=== PATIENT | female | born 1950 | race Caucasian/White ===

== ENCOUNTER 2017-10-29 01:12 | Emergency (ER) | payer MEDICARE, OTHER, MEDICAID ==
[2017-10-29 01:39] VITALS: BP 122/43
[2017-10-29] MEDS: Albuterol/Ipratropium 3.0-0.5 MG/3 ML Neb Soln NEB ONE ×2 (01:42→02:02)
[2017-10-29] MEDS ORDERED: Albuterol/Ipratropium 3.0-0.5 MG/3 ML Neb Soln ONE (01:44)
--- NOTE | 2017-10-29 02:23 | EDM.PDOC ---
ED HPI GENERAL MEDICAL PROBLEM - General Chief Complaint: Respiratory Problem Stated Complaint: [facility] Time Seen by Provider: 10/29/17 01:28 Source of Information: Reports: Patient, Residential Records History Limitations: Reports: Physical Impairment - History of Present Illness INITIAL COMMENTS - FREE TEXT/NARRATIVE: This is a 67-year-old female. She comes from the [facility]. Apparently today she's developed some lung congestion and she is having a hard time coughing up phlegm. [facility] she has not had a fever in the last 24 hours. Due to her inability or difficulty and coughing up phlegm they sent her to the ER. The patient denies any runny nose and denies any sore throat. 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 No further history can be obtained at this time. - Related Data Allergies Allergy/AdvReac Type Severity Reaction Status Date / Time Penicillins Allergy Vaginitis Verified 07/02/17 10:01 Home Meds: Home Meds Acetaminophen [Tylenol] 2 tab PO TID PRN 10/29/17 [History] Amantadine HCl [Amantadine] 75 mg PO BID 10/29/17 [History] Ascorbic Acid [Vitamin C] 100 mg PO DAILY 10/29/17 [History] Diclofenac Sodium [Voltaren 1% Gel] 100 gm TOP QID PRN 10/29/17 [History] Lecithin, Soy [Lecithin] 1,200 mg PO BID 10/29/17 [History] Levothyroxine 25 mcg PO ACBREAKFAST 10/29/17 [History] Sodium Chloride [Deep Sea] 2 spray NS TID PRN 10/29/17 [History] Trolamine Salicylate/Aloe Vera [Aspercreme 10% Cream] 1 applic TOP TID PRN 10/29 [History] Vitamin B Complex 2 each PO DAILY 10/29/17 [History] Vitamin E Mixed [Vitamin E] 1 cap PO DAILY 10/29/17 [History] atorvaSTATin [Lipitor] 40 mg PO BEDTIME 10/29/17 [History] guaiFENesin [Mucinex] 600 mg PO BID PRN 10/29/17 [History] guaiFENesin/Dextromethorphan [Tussin Dm Cough Syrup] 2 tsp PO BID PRN 10/29/17 [ History] Past Medical History HEENT History: Reports: Cataract, Impaired Vision Other HEENT History: wears eyeglasses Cardiovascular History: Reports: High Cholesterol, Hypertension Other Cardiovascular History: hyponatremia Respiratory History: Reports: Pneumonia, Recurrent Genitourinary History: Reports: UTI, Recurrent 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 Dermatologic History: Reports: Other (See Below) Other Dermatologic History: skin breakdown to feet. - Infectious Disease History Infectious Disease History: Reports: Chicken Pox - Past Surgical History HEENT Surgical History: Reports: Cataract Surgery Respiratory Surgical History: Reports: None GI Surgical History: Reports: Other (See Below) Other GI Surgeries/Procedures: G-tube Musculoskeletal Surgical History: Reports: Other (See Below) Other Musculoskeletal Surgeries/Procedures:: removal of neuroma from back. Social & Family History - Family History Family Medical History: Noncontributory - Tobacco Use Smoking Status *Q: Never Smoker Second Hand Smoke Exposure: No - Caffeine Use Caffeine Use: Reports: None - Alcohol Use Days Per Week of Alcohol Use: 0 - Recreational Drug Use Recreational Drug Use: No ED ROS GENERAL - Review of Systems Review Of Systems: See Below Constitutional: Denies: Fever, Chills HEENT: Reports: Rhinitis, Sinus Problem, Throat Pain Respiratory: Reports: Shortness of Breath, Cough, Sputum. Denies: Wheezing Cardiovascular: Denies: Chest Pain Endocrine: Reports: No Symptoms GI/Abdominal: Denies: Abdominal Pain : Reports: No Symptoms Musculoskeletal: Reports: Other (Upper extremity flexion contractures and limited mobility due to CVA) Neurological: Reports: Trouble Speaking, Difficulty Walking, Weakness, Change in Speech Psychiatric: Reports: Depression Hematologic/Lymphatic: Reports: No Symptoms ED EXAM, GENERAL - Physical Exam Exam: See Below Exam Limited By: Physical Impairment General Appearance: Alert, No Apparent Distress Eye Exam: Bilateral Eye: Normal Inspection Ears: Normal External Exam, Normal Canal, Normal TMs Nose: Normal Inspection. No: Nasal Drainage, Clear Rhinorrhea Throat/Mouth: Normal Oropharynx, Other (Very quiet whispering voice no airway compromise) Head: Normocephalic, Other (She does keep her head turned to the left side slightly) Neck: Other (Minimal mobility of her neck due to her CVA and contractures) Respiratory/Chest: Other (Listening to her lungs sound she does have some rhonchi and crackles noted at the bases bilaterally no wheezing noted no splinting noted) Cardiovascular: Regular Rate, Rhythm GI/Abdominal: Soft Back Exam: Other (Patient is bedbound) Extremities: Other (Extremities have flexion contractures) Neurological: Other (She mostly has right sided weakness arm and leg from her previous CVA, the left side she has limited use of because she is essentially bedbound and has been for quite some time) Psychiatric: Depressed Mood, Flat Affect Skin Exam: Other (The patient denies any skin breakdown on her back or buttocks area) Course - Vital Signs Last Recorded V/S: Last Vital Signs Temp 97.4 F 10/29/17 01:35 Pulse 100 10/29/17 01:35 Resp 22 H 10/29/17 01:35 BP 122/43 L 10/29/17 01:35 Pulse Ox 97 10/29/17 04:13 - Orders/Labs/Meds Orders: Active Orders 24 hr Category Date Time Status RT Aerosol Therapy [RC] ASDIRECTED Care 10/29/17 01:42 Active Chest 1V Frontal [CR] Stat Exams 10/29/17 01:43 Taken CULTURE BLOOD [BC] Stat Lab 10/29/17 05:26 Ordered CULTURE BLOOD [BC] Stat Lab 10/29/17 05:26 Ordered cefTRIAXone [Rocephin] 1 gm Med 10/29/17 05:18 Active Sodium Chloride 0.9% [Normal Saline] 100 ml IV ONETIME cefTRIAXone [Rocephin] 1 gm Med 10/29/17 05:27 Active Sodium Chloride 0.9% [Normal Saline] 100 ml IV ONETIME Blood Culture x2 Reflex Set [OM.PC] Stat Oth 10/29/17 05:26 Ordered Medication Orders Ceftriaxone Sodium 1 gm/ (Sodium Chloride) 100 mls @ 200 mls/hr IV ONETIME ONE Stop: 10/29/17 05:47 Ceftriaxone Sodium 1 gm/ (Sodium Chloride) 100 mls @ 200 mls/hr IV ONETIME ONE Stop: 10/29/17 05:56 Labs: Laboratory Tests 10/29/17 10/29/17 10/29/17 Range/Units 02:50 02:50 02:50 WBC 4.91 (3.98-10.04) K/mm3 RBC 4.09 (3.98-5.22) M/mm3 Hgb 12.0 (11.2-15.7) gm/L Hct 35.9 (34.1-44.9) % MCV 87.8 (79.4-94.8) fl MCH 29.3 (25.6-32.2) pg MCHC 33.4 (32.2-35.5) g/dl RDW Std Deviation 56.4 H (36.4-46.3) fL Plt Count 120 L (182-369) K/mm3 MPV 10.1 (9.4-12.3) fl Neut % (Auto) 88.2 H (34.0-71.1) % Lymph % (Auto) 6.7 L (19.3-51.7) % [place] % (Auto) 4.5 L (4.7-12.5) % Eos % (Auto) 0 L (0.7-5.8) Baso % (Auto) 0.2 (0.1-1.2) % Neut # (Auto) 4.33 (1.56-6.13) K/mm3 Lymph # (Auto) 0.33 L (1.18-3.74) K/mm3 [place] # (Auto) 0.22 L (0.24-0.36) K/mm3 Eos # (Auto) 0.00 L (0.04-0.36) K/mm3 Baso # (Auto) 0.01 (0.01-0.08) K/mm3 Manual Slide Review Abnormal smear Sodium 133 L (136-145) mEq/L Potassium 3.8 (3.5-5.1) mEq/L Chloride 98 (98-107) mEq/L Carbon Dioxide 29 (21-32) mEq/L Anion Gap 9.8 (5-15) BUN 14 (7-18) mg/dL Creatinine 0.7 (0.55-1.02) mg/dL Est Cr Clr Drug Dosing 66.28 mL/min Estimated GFR (MDRD) > 60 (>60) mL/min BUN/Creatinine Ratio 20.0 H (14-18) Glucose 90 (80-115) mg/dL Lactic Acid 1.0 (0.4-2.0) mmol/L Calcium 9.5 (8.5-10.1) mg/dL Total Bilirubin 0.6 (0.2-1.0) mg/dL AST 53 H (15-37) U/L ALT 59 (14-59) U/L Alkaline Phosphatase 262 H (46-116) U/L C-Reactive Protein 20.7 H* (<1.0) mg/dL Total Protein 7.1 (6.4-8.2) g/dl Albumin 3.0 L (3.4-5.0) g/dl Globulin 4.1 gm/dL Albumin/Globulin Ratio 0.7 L (1-2) Urine Color (Yellow) Urine Appearance (Clear) Urine pH (5.0-8.0) Ur Specific [place] (1.005-1.030) Urine Protein (Negative) Urine Glucose (UA) (Negative) Urine Ketones (Negative) Urine Occult Blood (Negative) Urine Nitrite (Negative) Urine Bilirubin (Negative) Urine Urobilinogen (0.2-1.0) Ur Leukocyte Esterase (Negative) Urine RBC (0-5) /hpf Urine WBC (0-5) /hpf Urine WBC Clumps (NOT SEEN) /hpf Ur Epithelial Cells (0-5) /hpf Urine Bacteria (FEW) /hpf Hyaline Casts (0-5) /lpf Urine Mucus (FEW) /hpf 10/29/17 Range/Units 03:50 WBC (3.98-10.04) K/mm3 RBC (3.98-5.22) M/mm3 Hgb (11.2-15.7) gm/L Hct (34.1-44.9) % MCV (79.4-94.8) fl MCH (25.6-32.2) pg MCHC (32.2-35.5) g/dl RDW Std Deviation (36.4-46.3) fL Plt Count (182-369) K/mm3 MPV (9.4-12.3) fl Neut % (Auto) (34.0-71.1) % Lymph % (Auto) (19.3-51.7) % [place] % (Auto) (4.7-12.5) % Eos % (Auto) (0.7-5.8) Baso % (Auto) (0.1-1.2) % Neut # (Auto) (1.56-6.13) K/mm3 Lymph # (Auto) (1.18-3.74) K/mm3 [place] # (Auto) (0.24-0.36) K/mm3 Eos # (Auto) (0.04-0.36) K/mm3 Baso # (Auto) (0.01-0.08) K/mm3 Manual Slide Review Sodium (136-145) mEq/L Potassium (3.5-5.1) mEq/L Chloride (98-107) mEq/L Carbon Dioxide (21-32) mEq/L Anion Gap (5-15) BUN (7-18) mg/dL Creatinine (0.55-1.02) mg/dL Est Cr Clr Drug Dosing mL/min Estimated GFR (MDRD) (>60) mL/min BUN/Creatinine Ratio (14-18) Glucose (80-115) mg/dL Lactic Acid (0.4-2.0) mmol/L Calcium (8.5-10.1) mg/dL Total Bilirubin (0.2-1.0) mg/dL AST (15-37) U/L ALT (14-59) U/L Alkaline Phosphatase (46-116) U/L C-Reactive Protein (<1.0) mg/dL Total Protein (6.4-8.2) g/dl Albumin (3.4-5.0) g/dl Globulin gm/dL Albumin/Globulin Ratio (1-2) Urine Color Yellow (Yellow) Urine Appearance Slt cloudy H (Clear) Urine pH 6.0 (5.0-8.0) Ur Specific [place] 1.025 (1.005-1.030) Urine Protein 1+ H (Negative) Urine Glucose (UA) Negative (Negative) Urine Ketones Negative (Negative) Urine Occult Blood 1+ H (Negative) Urine Nitrite Negative (Negative) Urine Bilirubin Negative (Negative) Urine Urobilinogen 0.2 (0.2-1.0) Ur Leukocyte Esterase 2+ H (Negative) Urine RBC 0-5 (0-5) /hpf Urine WBC 20-30 H (0-5) /hpf Urine WBC Clumps Few (NOT SEEN) /hpf Ur Epithelial Cells 0-5 (0-5) /hpf Urine Bacteria Many H (FEW) /hpf Hyaline Casts 0-5 (0-5) /lpf Urine Mucus Not seen (FEW) /hpf Meds: Medications Generic Name Dose Route Start Last Admin Trade Name Freq PRN Reason Stop Dose Admin Ceftriaxone Sodium 1 gm/ 100 mls @ 200 mls/hr 10/29/17 05:18 Sodium Chloride IV 10/29/17 05:47 ONETIME ONE Ceftriaxone Sodium 1 gm/ 100 mls @ 200 mls/hr 10/29/17 05:27 Sodium Chloride IV 10/29/17 05:56 ONETIME ONE Discontinued Medications Generic Name Dose Route Start Last Admin Trade Name Freq PRN Reason Stop Dose Admin Albuterol/Ipratropium Confirm 10/29/17 01:44 10/29/17 02:02 Duoneb 3.0-0.5 Mg/3 Ml Administered 10/29/17 01:45 3 ml Dose Administration 3 ml .ROUTE .STK-MED ONE Albuterol/Ipratropium 3 ml 10/29/17 01:42 10/29/17 02:02 Duoneb 3.0-0.5 Mg/3 Ml NEB 10/29/17 01:43 Not Given ONETIME ONE - Re-Assessments/Exams Free Text/Narrative Re-Assessment/Exam: 10/29/17 02:17 Please note that when the patient arrived to the ER are respiratory therapist was able to get her to cough up phlegm on her own 10/29/17 05:[address] willing to take the patient back and give her Rocephin 1 g every 24 hours IV for 7 days for her UTI and her possible early pneumonia in the right lung. I feel comfortable with this since her white count is normal. And she is been afebrile for the last 24 hours. 10/29/17 05:28 I will send a dose of Rocephin with the patient for them to use since their pharmacy is not open on Sundays. I did get 2 blood cultures drawn before antibiotics were given and before she left the ER. Departure - Departure Time of Disposition: 05:20 Disposition: Home, W [facility] Health Agency 06 Condition: Fair Clinical Impression: Urinary tract infection Qualifiers: Urinary tract infection type: acute cystitis Hematuria presence: without hematuria Qualified Code(s): N30.00 - Acute cystitis without hematuria Acute bronchitis Qualifiers: Bronchitis organism: unspecified organism Qualified Code(s): J20.9 - Acute bronchitis, unspecified Right lower lobe pneumonia Qualifiers: Pneumonia type: due to unspecified organism Qualified Code(s): J18.1 - Lobar pneumonia, unspecified organism - Discharge Information Referrals: PCP,None [Primary Care Provider] - Forms: ED Department Discharge Additional Instructions: Please provide for the patient 1 g of Rocephin each a.m. for the next 7 days, follow your protocol as far as changing out the saline lock during this time, please draw a CBC Monday to check a white count and call that to the physician in charge of her, provide Tylenol or ibuprofen as needed for fever if she develops a fever, return to the ER if her symptoms worsen - My Orders Last 24 Hours: My Active Orders 10/29/17 01:42 RT Aerosol Therapy [RC] ASDIRECTED 10/29/17 01:43 Chest 1V Frontal [CR] Stat 10/29/17 05:18 cefTRIAXone [Rocephin] 1 gm Sodium Chloride 0.9% [Normal Saline] 100 ml IV ONETIME 10/29/17 05:26 CULTURE BLOOD [BC] Stat CULTURE BLOOD [BC] Stat Blood Culture x2 Reflex Set [OM.PC] Stat 10/29/17 05:27 cefTRIAXone [Rocephin] 1 gm Sodium Chloride 0.9% [Normal Saline] 100 ml IV ONETIME - Assessment/Plan Last 24 Hours: My Active Orders 10/29/17 01:42 RT Aerosol Therapy [RC] ASDIRECTED 10/29/17 01:43 Chest 1V Frontal [CR] Stat 10/29/17 05:18 cefTRIAXone [Rocephin] 1 gm Sodium Chloride 0.9% [Normal Saline] 100 ml IV ONETIME 10/29/17 05:26 CULTURE BLOOD [BC] Stat CULTURE BLOOD [BC] Stat Blood Culture x2 Reflex Set [OM.PC] Stat 10/29/17 05:27 cefTRIAXone [Rocephin] 1 gm Sodium Chloride 0.9% [Normal Saline] 100 ml IV ONETIME
[2017-10-29] MEDS ORDERED: cefTRIAXone 1 GM in Sodium Chloride 0.9% 100 ML IV ONE ×2 (05:18→05:27)
--- NOTE | 2017-10-29 12:53 | CR ---
Chest: Portable view of the chest was obtained. Comparison: Prior chest x-ray of 07/03/17. Mild increased density is noted within the left mid to lower lung. Lung markings are mildly increased most of which appear chronic although mild bronchitis is possible. Scoliosis is noted within the spine. Heart size is normal. Bony structures are osteopenic. Impression: 1. Focal density within left mid to lower lung. Findings suspicious for pneumonia. 2. Possible mild bronchitis. Other incidental findings. Diagnostic code #3
== END 2017-10-29 07:02 | disposition home health service (06) ==
LOC: JD.ED 01:12
DX: J20.9 Acute bronchitis, unspecified (principal); J18.9 Pneumonia, unspecified organism; N30.00 Acute cystitis without hematuria; E78.00 Pure hypercholesterolemia, unspecified; I10 Essential (primary) hypertension; Z88.0 Allergy status to penicillin; Z79.899 Other long term (current) drug therapy
CPT/HCPCS: 36415; 71045; 80053; 81001; 83605; 85025; 86140; 87040; 87804; 94640; 96365; 99285; J0696; J7030; P9612; 99284

== ENCOUNTER 2017-10-30 10:19 | Inpatient (IN) | payer MEDICARE, OTHER, MEDICAID ==
[2017-10-30] MEDS ORDERED: Sodium Chloride 0.9% 1,000 ML IV ONE (11:26)
--- NOTE | 2017-10-30 11:31 | EDM.PDOC ---
ED HPI GENERAL MEDICAL PROBLEM - General Chief Complaint: General Stated Complaint: [facility] Time Seen by Provider: 10/30/17 10:30 Source of Information: Reports: Family (Daughter), Old Records History Limitations: Reports: Physical Impairment (Patient is aphasic) - History of Present Illness INITIAL COMMENTS - FREE TEXT/NARRATIVE: Medical records indicate that the patient was seen in this ED yesterday, 2017 for lung congestion and difficulty coughing up phlegm. She had not had a fever. Workup included a CBC, CMP, lactic acid level, CRP, urinalysis, influenza swab, and chest x-ray. 2 sets of blood cultures were also obtained, however, it does not appear that a urine culture was sent. The patient's CBC was unremarkable. Her CMP was notable for hyponatremia of 133 and an alkaline phosphatase elevated at 262. Her lactic acid level was normal at 1.0. Her CRP was elevated at 20.7. Her urinalysis was consistent with a UTI, and her chest x-ray demonstrated a focal density within the left mid to lower lung, consistent with pneumonia. The patient was given 1 g IV Rocephin before being returned to the [facility] with instructions to be given Rocephin 1 g daily for 7 days to treat both the UTI and pneumonia. The patient is now brought back to the ED with a complaint of seeing everything upside down since last night, and mottling of her left upper extremity since this morning. No fever. The patient is accompanied by her daughter, who provided the history. 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 The daughter mentioned that the patient is due to have a suprapubic catheter placed next week. The patient's PCP is Dr. Alfonso. Her Neurologist is Dr. Davenport. Her Urologist is Dr. Morales. - Related Data Allergies Allergy/AdvReac Type Severity Reaction Status Date / Time Penicillins Allergy Vaginitis Verified 10/30/17 10:38 Home Meds: Home Meds Acetaminophen [Tylenol] 2 tab PO TID PRN 10/29/17 [History] Amantadine HCl [Amantadine] 75 mg PO BID 10/29/17 [History] Ascorbic Acid [Vitamin C] 100 mg PO DAILY 10/29/17 [History] Diclofenac Sodium [Voltaren 1% Gel] 100 gm TOP QID PRN 10/29/17 [History] Lecithin, Soy [Lecithin] 1,200 mg PO BID 10/29/17 [History] Levothyroxine 25 mcg PO ACBREAKFAST 10/29/17 [History] Sodium Chloride [Deep Sea] 2 spray NS TID PRN 10/29/17 [History] Trolamine Salicylate/Aloe Vera [Aspercreme 10% Cream] 1 applic TOP TID PRN 10/29 [History] Vitamin E Mixed [Vitamin E] 1 cap PO DAILY 10/29/17 [History] atorvaSTATin [Lipitor] 40 mg PO BEDTIME 10/29/17 [History] guaiFENesin [Mucinex] 600 mg PO BID PRN 10/29/17 [History] Camphor/Eucalyptus/Menthol [Ra Vaporizing Steam Liquid] 1 applic TOP ASDIRECTED 10/30/17 [History] Dextromethorphan/guaiFENesin [Robitussin DM] 52 tsp PO Q4H PRN 10/30/17 [History ] cefTRIAXone Sodium [Ceftriaxone] 1 gm IV DAILY 10/30/17 [History] Past Medical History HEENT History: Reports: Cataract, Impaired Vision Other HEENT History: wears eyeglasses Cardiovascular History: Reports: High Cholesterol, Hypertension 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 Social & Family History - Family History Family Medical History: Noncontributory - Tobacco Use Smoking Status *Q: Never Smoker Second Hand Smoke Exposure: No - Caffeine Use Caffeine Use: Reports: None - Alcohol Use Days Per Week of Alcohol Use: 0 - Recreational Drug Use Recreational Drug Use: No ED ROS GENERAL - Review of Systems Review Of Systems: ROS reveals no pertinent complaints other than HPI. ED EXAM, GENERAL - Physical Exam Exam: See Below Exam Limited By: Physical Impairment General Appearance: Alert, No Apparent Distress Eye Exam: Bilateral Eye: Normal Inspection Ears: Normal External Exam, Hearing Grossly Normal Nose: Normal Inspection, No Blood Throat/Mouth: Normal Inspection, Normal Lips, Normal Voice, No Airway Compromise Head: Atraumatic, Normocephalic Neck: Other (Head tilted to the left) Respiratory/Chest: No Respiratory Distress, Lungs Clear, Normal Breath Sounds, No Accessory Muscle Use Cardiovascular: Normal Peripheral Pulses, Regular Rate, Rhythm, No Gallop, No JVD, No Murmur, No Rub Peripheral Pulses: 3+: Radial (L), Radial (R) GI/Abdominal: Normal Bowel Sounds, Soft, Non-Tender, No Organomegaly, No Distention, No Abnormal Bruit, No Mass (Female) Exam: Deferred Rectal (Female) Exam: Deferred Extremities: Other (Spastic paralysis of the left upper extremity. Mottling noted to the bilateral upper extremities, left > right) Neurological: Alert Skin Exam: Warm, Dry, Intact, No Rash Course - Vital Signs Last Recorded V/S: Last Vital Signs Temp 36.1 C 10/30/17 10:26 Pulse 106 H 10/30/17 10:26 Resp 14 10/30/17 10:26 BP 119/55 L 10/30/17 10:26 Pulse Ox 96 10/30/17 10:26 - Orders/Labs/Meds Orders: Active Orders 24 hr Category Date Time Status Accu Check [Blood Glucose Check, Bedside] [RC] ONETIME Care 10/30/17 12:49 Active CULTURE URINE [RM] Stat Lab 10/30/17 11:46 Received Dextrose 5%-0.9% NaCl [Dextrose 5%-Normal Saline] 1,000 Med 10/30/17 13:00 Active ml IV ASDIRECTED Levofloxacin/Dextrose 5%-Water [Levaquin in D5W 750 MG/ Med 10/30/17 13:10 Active 150 ML] 750 mg Premix Bag 1 bag IV ONETIME Vancomycin [Vancocin] 1 gm Med 10/30/17 13:11 Active Sodium Chloride 0.9% [Normal Saline] 250 ml IV ONETIME cefTAZidime [Fortaz] 2 gm Med 10/30/17 13:45 Active Sodium Chloride 0.9% [Normal Saline] 100 ml IV ONETIME Medication Orders Dextrose/Sodium Chloride (Dextrose 5%-Normal Saline) 1,000 mls @ 150 mls/hr IV ASDIRECTED CHUN Last Admin: 10/30/17 13:05 Dose: 150 mls/hr Levofloxacin/Dextrose 750 mg/ (Premix) 150 mls @ 100 mls/hr IV ONETIME ONE Stop: 10/30/17 14:39 Vancomycin HCl 1 gm/ Sodium (Chloride) 250 mls @ 250 mls/hr IV ONETIME ONE Stop: 10/30/17 14:10 Last Admin: 10/30/17 13:33 Dose: 250 mls/hr Ceftazidime 2 gm/ Sodium (Chloride) 100 mls @ 200 mls/hr IV ONETIME ONE Stop: 10/30/17 14:14 Labs: Laboratory Tests 10/30/17 10/30/17 10/30/17 Range/Units 11:46 11:55 11:55 WBC 12.00 H (3.98-10.04) K/mm3 RBC 3.96 L (3.98-5.22) M/mm3 Hgb 11.6 (11.2-15.7) gm/L Hct 35.6 (34.1-44.9) % MCV 89.9 (79.4-94.8) fl MCH 29.3 (25.6-32.2) pg MCHC 32.6 (32.2-35.5) g/dl RDW Std Deviation 58.7 H (36.4-46.3) fL Plt Count 141 L (182-369) K/mm3 MPV 10.6 (9.4-12.3) fl Neutrophils % (Manual) 22 L (40-60) % Band Neutrophils % 60 H (0-10) % Lymphocytes % (Manual) 14 L (20-40) % Atypical Lymphs % 0 % Monocytes % (Manual) 2 (2-10) % Eosinophils % (Manual) 0 L (0.7-5.8) % Basophils % (Manual) 0 L (0.1-1.2) Metamyelocytes % 1 Myelocytes % 1 Differential Comment See note Toxic Granulation 1+ slight Platelet Estimate Adequate RBC Morph Comment Normal Sodium 139 (136-145) mEq/L Potassium 4.1 (3.5-5.1) mEq/L Chloride 101 (98-107) mEq/L Carbon Dioxide 28 (21-32) mEq/L Anion Gap 14.1 (5-15) BUN 23 H (7-18) mg/dL Creatinine 0.6 (0.55-1.02) mg/dL Est Cr Clr Drug Dosing TNP Estimated GFR (MDRD) > 60 (>60) mL/min BUN/Creatinine Ratio 38.3 H (14-18) Glucose 57 L (80-115) mg/dL POC Glucose (80-115) mg/dL Lactic Acid (0.4-2.0) mmol/L Calcium 9.9 (8.5-10.1) mg/dL Magnesium 1.8 (1.8-2.4) mg/dl Total Bilirubin 0.8 (0.2-1.0) mg/dL AST 51 H (15-37) U/L ALT 47 (14-59) U/L Alkaline Phosphatase 229 H (46-116) U/L Total Protein 7.3 (6.4-8.2) g/dl Albumin 2.7 L (3.4-5.0) g/dl Globulin 4.6 gm/dL Albumin/Globulin Ratio 0.6 L (1-2) Urine Color Yellow (Yellow) Urine Appearance Cloudy H (Clear) Urine pH 5.5 (5.0-8.0) Ur Specific [place] 1.025 (1.005-1.030) Urine Protein 1+ H (Negative) Urine Glucose (UA) Negative (Negative) Urine Ketones 1+ H (Negative) Urine Occult Blood 2+ H (Negative) Urine Nitrite Negative (Negative) Urine Bilirubin Negative (Negative) Urine Urobilinogen 0.2 (0.2-1.0) Ur Leukocyte Esterase 1+ H (Negative) Urine RBC 5-10 H (0-5) /hpf Urine WBC 10-20 H (0-5) /hpf Ur Epithelial Cells 5-10 H (0-5) /hpf Amorphous Sediment Few H (NOT SEEN) /hpf Urine Bacteria Many H (FEW) /hpf Urine Mucus Few (FEW) /hpf 10/30/17 10/30/17 Range/Units 11:55 12:52 WBC (3.98-10.04) K/mm3 RBC (3.98-5.22) M/mm3 Hgb (11.2-15.7) gm/L Hct (34.1-44.9) % MCV (79.4-94.8) fl MCH (25.6-32.2) pg MCHC (32.2-35.5) g/dl RDW Std Deviation (36.4-46.3) fL Plt Count (182-369) K/mm3 MPV (9.4-12.3) fl Neutrophils % (Manual) (40-60) % Band Neutrophils % (0-10) % Lymphocytes % (Manual) (20-40) % Atypical Lymphs % % Monocytes % (Manual) (2-10) % Eosinophils % (Manual) (0.7-5.8) % Basophils % (Manual) (0.1-1.2) Metamyelocytes % Myelocytes % Differential Comment Toxic Granulation Platelet Estimate RBC Morph Comment Sodium (136-145) mEq/L Potassium (3.5-5.1) mEq/L Chloride (98-107) mEq/L Carbon Dioxide (21-32) mEq/L Anion Gap (5-15) BUN (7-18) mg/dL Creatinine (0.55-1.02) mg/dL Est Cr Clr Drug Dosing Estimated GFR (MDRD) (>60) mL/min BUN/Creatinine Ratio (14-18) Glucose (80-115) mg/dL POC Glucose 55 L (80-115) mg/dL Lactic Acid 1.4 (0.4-2.0) mmol/L Calcium (8.5-10.1) mg/dL Magnesium (1.8-2.4) mg/dl Total Bilirubin (0.2-1.0) mg/dL AST (15-37) U/L ALT (14-59) U/L Alkaline Phosphatase (46-116) U/L Total Protein (6.4-8.2) g/dl Albumin (3.4-5.0) g/dl Globulin gm/dL Albumin/Globulin Ratio (1-2) Urine Color (Yellow) Urine Appearance (Clear) Urine pH (5.0-8.0) Ur Specific [place] (1.005-1.030) Urine Protein (Negative) Urine Glucose (UA) (Negative) Urine Ketones (Negative) Urine Occult Blood (Negative) Urine Nitrite (Negative) Urine Bilirubin (Negative) Urine Urobilinogen (0.2-1.0) Ur Leukocyte Esterase (Negative) Urine RBC (0-5) /hpf Urine WBC (0-5) /hpf Ur Epithelial Cells (0-5) /hpf Amorphous Sediment (NOT SEEN) /hpf Urine Bacteria (FEW) /hpf Urine Mucus (FEW) /hpf Meds: Medications Generic Name Dose Route Start Last Admin Trade Name Kash PRN Reason Stop Dose Admin Dextrose/Sodium Chloride 1,000 mls @ 150 mls/hr 10/30/17 13:00 10/30/17 13:05 Dextrose 5%-Normal Saline IV 150 mls/hr ASDIRECTED CHUN Administration Levofloxacin/Dextrose 750 mg/ 150 mls @ 100 mls/hr 10/30/17 13:10 Premix IV 10/30/17 14:39 ONETIME ONE Vancomycin HCl 1 gm/ Sodium 250 mls @ 250 mls/hr 10/30/17 13:11 10/30/17 13: 33 Chloride IV 10/30/17 14:10 250 mls/hr ONETIME ONE Administration Ceftazidime 2 gm/ Sodium 100 mls @ 200 mls/hr 10/30/17 13:45 Chloride IV 10/30/17 14:14 ONETIME ONE Discontinued Medications Generic Name Dose Route Start Last Admin Trade Name Kash PRN Reason Stop Dose Admin Dextrose/Water 25 ml 10/30/17 12:54 10/30/17 12:59 Dextrose 50% In Water IVPUSH 10/30/17 12:55 25 ml ONETIME STA Administration Sodium Chloride 1,000 mls @ 999 mls/hr 10/30/17 11:26 10/30/17 11:44 Normal Saline IV 10/30/17 12:26 999 mls/hr ONETIME ONE Administration Ceftazidime 2 gm/ Sodium 50 mls @ 100 mls/hr 10/30/17 13:06 Chloride IV 10/30/17 13:35 ONETIME STA - Re-Assessments/Exams Free Text/Narrative Re-Assessment/Exam: 10/30/17 11:27 I have ordered blood work including CBC, CMP, magnesium level, and lactic acid level, to compare to yesterday's labs for evidence of worsening sepsis. If found , we will need to expand the patient's antibiotic coverage. I have ordered a repeat urinalysis; we can see from yesterday's UA that the patient has a UTI, although we will not know the organism until the culture has resulted. If Rocephin is active against the urinary organism, however, her urine should show significant improvement today. If it does not, this strongly suggests the patient is not on the right antibiotic. I did not order a repeat chest x-ray; we would expect worsening of her infiltrate by this time, and it would not change our management in that regard. The patient's blood pressure is low at 80/68, with a heart rate elevated at 108. I have ordered 1 L normal saline bolus. 10/30/17 12:38 The patient's urinalysis today is still consistent with a UTI, however, there is some improvement from yesterday, including the cassette Estrace is down from 2+ to 1+, and WBCs are down from 20-30 to 10-20. This indicates that Rocephin is appropriately treating the UTI. 10/30/17 12:51 The patient's CBC has returned remarkable for a WBC count elevated at 12.00, with 60% bandemia. Her WBC count was normal yesterday, at 4.91. The patient's lactic acid level has returned normal at 1.4. The patient's blood glucose has returned depressed at 57. I have ordered a stat Accu-Chek. 10/30/17 12:57 The patient's Accu-Chek returned low at 55. I have ordered 1/2 Amp D50 and will start D5NS at 150 ml/hr. 10/30/17 13:12 Following 1 L normal saline, the patient's BP is up to 139/56 with a heart rate of 122. While the patient's urine is showing improvement, the mottling of her skin, earlier low blood pressure, elevated heart rate, and elevated WBC count with significant left shift is concerning that the patient's pneumonia is inadequately treated on Rocephin alone. As the patient resides in a group home , I will treat her for nosocomial pneumonia by switching her to Fortaz, Levaquin , and vancomycin. 10/30/17 13:[address] oLaiza at 13:14. She will come by the ED to evaluate the patient. 10/30/17 13:[address] Loaiza accepts the patient for admission to Med/Surg on telemetry. Departure - Departure Time of Disposition: 13:43 Disposition: Admitted As Inpatient 68 Condition: Fair Clinical Impression: Nosocomial pneumonia, Hypoglycemia UTI (urinary tract infection) Qualifiers: Urinary tract infection type: acute cystitis Hematuria presence: without hematuria Qualified Code(s): N30.00 - Acute cystitis without hematuria - Discharge Information - My Orders Last 24 Hours: My Active Orders 10/30/17 11:46 CULTURE URINE [RM] Stat 10/30/17 12:49 Accu Check [Blood Glucose Check, Bedside] [RC] ONETIME 10/30/17 13:00 Dextrose 5%-0.9% NaCl [Dextrose 5%-Normal Saline] 1,000 ml IV ASDIRECTED 10/30/17 13:10 Levofloxacin/Dextrose 5%-Water [Levaquin in D5W 750 MG/150 ML] 750 mg Premix Bag 1 bag IV ONETIME 10/30/17 13:11 Vancomycin [Vancocin] 1 gm Sodium Chloride 0.9% [Normal Saline] 250 ml IV ONETIME 10/30/17 13:45 cefTAZidime [Fortaz] 2 gm Sodium Chloride 0.9% [Normal Saline] 100 ml IV ONETIME - Assessment/Plan Last 24 Hours: My Active Orders 10/30/17 11:46 CULTURE URINE [RM] Stat 10/30/17 12:49 Accu Check [Blood Glucose Check, Bedside] [RC] ONETIME 10/30/17 13:00 Dextrose 5%-0.9% NaCl [Dextrose 5%-Normal Saline] 1,000 ml IV ASDIRECTED 10/30/17 13:10 Levofloxacin/Dextrose 5%-Water [Levaquin in D5W 750 MG/150 ML] 750 mg Premix Bag 1 bag IV ONETIME 10/30/17 13:11 Vancomycin [Vancocin] 1 gm Sodium Chloride 0.9% [Normal Saline] 250 ml IV ONETIME 10/30/17 13:45 cefTAZidime [Fortaz] 2 gm Sodium Chloride 0.9% [Normal Saline] 100 ml IV ONETIME
[2017-10-30] MEDS ORDERED: 50% Dextrose in Water 50 ML Syringe IVPUSH STA (12:54)
[2017-10-30] MEDS: Dextrose 5%-0.9% NaCl 1,000 ML IV SCH ×2 (13:05→20:02)
[2017-10-30] MEDS ORDERED: CEFTAZIDIME IV STA (13:06)
[2017-10-30] MEDS ORDERED: SODIUM CHLORIDE 0.9% IV STA (13:06)
[2017-10-30] MEDS ORDERED: Levofloxacin/Dextrose 5%-Water 750 MG in Premix Bag 1 BAG IV ONE (13:10)
[2017-10-30] MEDS ORDERED: Sodium Chloride 0.45% 500 ML IV ONE (15:28)
--- NOTE | 2017-10-30 15:53 | PCM.HP ---
H&P History of Present Illness - General Date of Service: 10/30/17 Admit Problem/Dx: Admission Diagnosis/Problem Admission Diagnosis/Problem Pneumonia Source of Information: Family, Provider History Limitations: Reports: No Limitations - History of Present Illness Initial Comments - Free Text/Narative: 67 year old female with MS and history of left sided hemiparesis returns to ED at [facility] after minimal improvement from previous visit on 10/29/17. She started Rocephin 1 gm daily for PNA/UTI. CXR, BCs, UA were performed during that visit. There has been minimal improvement of her cough with sputum, shortness of breath; she has not had a fever or chills but has generalized weakness and malaise. Influenza screen was performed on her initial visit however, a UC was not performed. She is a resident at [facility]; health care providers are: PCP, Dr Alfonso; Neurologist, Dr Davenport; Urologist, Dr Morales. She will be admitted to [facility]. Onset of Symptoms: Reports: Gradual Symptom Onset Date: 10/29/17 Duration of Symptoms: Reports: Day(s):, Getting Worse Location: Reports: Chest, Generalized Quality: Reports: Same as Previous Episode Severity: Moderate Improves with: Reports: Medication Worsens with: Reports: None Context: Reports: Sick Contact (probable) Associated Symptoms: Reports: cough w sputum, Loss of Appetite, Malaise, Shortness of Breath, Weakness - Related Data Allergies/Adverse Reactions: Allergies Allergy/AdvReac Type Severity Reaction Status Date / Time Penicillins Allergy Vaginitis Verified 10/30/17 10:38 Home Medications: Home Meds Acetaminophen [Tylenol] 2 tab PO TID PRN 10/29/17 [History] Amantadine HCl [Amantadine] 75 mg PO BID 10/29/17 [History] Ascorbic Acid [Vitamin C] 100 mg PO DAILY 10/29/17 [History] Diclofenac Sodium [Voltaren 1% Gel] 100 gm TOP QID PRN 10/29/17 [History] Lecithin, Soy [Lecithin] 1,200 mg PO BID 10/29/17 [History] Levothyroxine 25 mcg PO ACBREAKFAST 10/29/17 [History] Sodium Chloride [Deep Sea] 2 spray NS TID PRN 10/29/17 [History] Trolamine Salicylate/Aloe Vera [Aspercreme 10% Cream] 1 applic TOP TID PRN 10/29 [History] Vitamin E Mixed [Vitamin E] 1 cap PO DAILY 10/29/17 [History] atorvaSTATin [Lipitor] 40 mg PO BEDTIME 10/29/17 [History] guaiFENesin [Mucinex] 600 mg PO BID PRN 10/29/17 [History] Camphor/Eucalyptus/Menthol [Ra Vaporizing Steam Liquid] 1 applic TOP ASDIRECTED 10/30/17 [History] Dextromethorphan/guaiFENesin [Robitussin DM] 52 tsp PO Q4H PRN 10/30/17 [History ] cefTRIAXone Sodium [Ceftriaxone] 1 gm IV DAILY 10/30/17 [History] Past Medical History HEENT History: Reports: Cataract, Impaired Vision Other HEENT History: wears eyeglasses Cardiovascular History: Reports: High Cholesterol, Hypertension Other Cardiovascular History: hyponatremia Respiratory History: Reports: Pneumonia, Recurrent Genitourinary History: Reports: UTI, Recurrent 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 Dermatologic History: Reports: Other (See Below) Other Dermatologic History: skin breakdown to feet. - Infectious Disease History Infectious Disease History: Reports: Chicken Pox - Past Surgical History HEENT Surgical History: Reports: Cataract Surgery GI Surgical History: Reports: Other (See Below) (PEG) Musculoskeletal Surgical History: Reports: Other (See Below) Other Musculoskeletal Surgeries/Procedures:: removal of neuroma from back. Social & Family History - Family History Family Medical History: Noncontributory - Tobacco Use Smoking Status *Q: Never Smoker Second Hand Smoke Exposure: No - Caffeine Use Caffeine Use: Reports: None - Alcohol Use Days Per Week of Alcohol Use: 0 - Recreational Drug Use Recreational Drug Use: No H&P Review of Systems - Review of Systems: Review Of Systems: See Below General: Reports: Malaise, Weakness, Decreased Appetite HEENT: Reports: No Symptoms Pulmonary: Reports: Shortness of Breath, Pleuritic Chest Pain Cardiovascular: Reports: No Symptoms Gastrointestinal: Reports: Decreased Appetite Genitourinary: Reports: No Symptoms Musculoskeletal: Reports: No Symptoms Skin: Reports: No Symptoms Psychiatric: Reports: No Symptoms Neurological: Reports: No Symptoms Hematologic/Lymphatic: Reports: No Symptoms Immunologic: Reports: No Symptoms Exam - Exam Exam: See Below - Vital Signs Vital Signs: Last Vital Signs Temp 36.9 C 10/30/17 14:58 Pulse 129 H 10/30/17 14:58 Resp 18 10/30/17 14:58 BP 153/63 H 10/30/17 14:58 Pulse Ox 91 L 10/30/17 14:58 Weight: 59.477 kg - Exam Quality Assessment: Supplemental Oxygen, DVT Prophylaxis General: Alert, Oriented, Cooperative HEENT: Nares Patent, Normal Nasal Septum, Pupils Equal, Pupils Reactive, PERRLA Neck: Supple, Trachea Midline Lungs: Normal Respiratory Effort, Decreased Breath Sounds Cardiovascular: Regular Rate, Tachycardia GI/Abdominal Exam: Normal Bowel Sounds, Soft, Non-Tender, No Organomegaly, No Distention (Female) Exam: Deferred Rectal (Female) Exam: Deferred Back Exam: Normal Inspection Extremities: Normal Inspection Skin: Warm Neurological: Cranial Nerves Intact Neuro Extensive - Mental Status: Alert, Oriented x3 Neuro Extensive - Motor, Sensory, Reflexes: CN II-XII Intact Psychiatric: Alert - Patient Data Result Diagrams: 10/30/17 11:55 10/30/17 11:55 *Q Meaningful Use (ADM) - VTE *Q VTE Criteria *Q: - Stroke *Q Stroke Criteria *Q: - AMI *Q AMI Criteria *Q: - Problem List (1) Nosocomial pneumonia SNOMED Code(s): 676428507 ICD Code: J18.9 - PNEUMONIA, UNSPECIFIED ORGANISM Status: Acute Current Visit: Yes (2) Urinary tract infection SNOMED Code(s): 22797763 ICD Code: N39.0 - URINARY TRACT INFECTION, SITE NOT SPECIFIED Status: Acute Current Visit: Yes Qualifiers: Urinary tract infection type: acute cystitis Hematuria presence: without hematuria Qualified Code(s): N30.00 - Acute cystitis without hematuria (3) Arm paresthesia, left SNOMED Code(s): 11387051 ICD Code: R20.2 - PARESTHESIA OF SKIN Status: Acute Current Visit: No (4) CVA, old, aphasia SNOMED Code(s): 254730448 ICD Code: I69.320 - APHASIA FOLLOWING CEREBRAL INFARCTION Status: Acute Current Visit: No (5) HTN, Benign essential hypertension SNOMED Code(s): 8682840 ICD Code: I10 - ESSENTIAL (PRIMARY) HYPERTENSION Status: Acute Current Visit: No Onset Date: 06/28/14 Problem List Initiated/Reviewed/Updated: Yes Orders Last 24hrs: Active Orders 24 hr Category Date Time Status EKG Documentation Completion [RC] ASDIRECTED Care 10/30/17 15:12 Active Sodium Chloride 0.45% 500 ml Med 10/30/17 15:28 Active IV ONETIME EKG 12 Lead [EK] Stat Ther 10/30/17 15:11 Ordered Medication Orders Dextrose/Sodium Chloride (Dextrose 5%-Normal Saline) 1,000 mls @ 150 mls/hr IV ASDIRECTED [facility] Last Admin: 10/30/17 13:05 Dose: 150 mls/hr Sodium Chloride (Sodium Chloride 0.45%) 500 mls @ 999 mls/hr IV ONETIME ONE Stop: 10/30/17 15:58 Last Admin: 10/30/17 15:38 Dose: 999 mls/hr Assessment/Plan Comment:: Impression: HCAP AUTI History of MS History of CVA with left sided hemiparesis/expressive aphasia Chronic HTN HLD Hypothyroidism Plan: Levoquin/Vancomycin IVF Keep O2 sat> 92% Aspiration precautions Resp Isolation Home meds Daily Labs DVT/GI prophylaxis
[2017-10-30] MEDS ORDERED: guaiFENesin 600 MG Tab.ER PO PRN (16:07)
[2017-10-30] MEDS ORDERED: Ondansetron 4 MG/2 ML SDV IVPUSH PRN (16:09)
[2017-10-30] MEDS ORDERED: Temazepam 30 MG Cap PO PRN (16:23)
[2017-10-30] MEDS: Levofloxacin/Dextrose 5%-Water 750 MG in Premix Bag 1 BAG IV SCH (16:37)
[2017-10-30] MEDS: Metoprolol Tartrate 5 MG/5 ML SDV IVPUSH PRN (17:06)
[2017-10-30] MEDS: Albuterol/Ipratropium 3.0-0.5 MG/3 ML Neb Soln NEB SCH ×2 (17:32→21:24)
[2017-10-30] MEDS ORDERED: Amantadine Soln 50 MG/5 ML UD Cup PO SCH (21:00)
[2017-10-31] MEDS ORDERED: Acetaminophen Susp 325 MG/10.15 ML UD Cup PO PRN (00:57)
[2017-10-31] MEDS: Metoprolol Tartrate 5 MG/5 ML SDV IVPUSH PRN ×3 (01:14→23:48)
[2017-10-31] MEDS: Albuterol 0.083% 2.5 MG/3 ML Neb Soln NEB PRN (01:41)
[2017-10-31] MEDS: Dextrose 5%-0.9% NaCl 1,000 ML IV SCH ×3 (02:52→16:45)
[2017-10-31] MEDS: Albuterol/Ipratropium 3.0-0.5 MG/3 ML Neb Soln NEB SCH ×4 (05:49→21:37)
[2017-10-31] MEDS: Levothyroxine 25 MCG Tab PO SCH (06:07)
[2017-10-31] MEDS ORDERED: Bisacodyl 10 MG Supp RECTAL ONE (07:38)
[2017-10-31] MEDS: Rosuvastatin 10 MG Tab PO SCH (09:02)
[2017-10-31] MEDS: Enoxaparin 40 MG/0.4 ML Syringe SUBCUT SCH (09:02)
[2017-10-31] MEDS: Amantadine Soln 50 MG/5 ML UD Cup PO SCH ×2 (09:03→20:14)
--- NOTE | 2017-10-31 09:18 | PCM.PN ---
- General Info Date of Service: 10/31/17 Admission Dx/Problem (Free Text): Admission Diagnosis/Problem Admission Diagnosis/Problem Pneumonia Subjective Update: Follow Up Functional Status: Reports: Pain Controlled, Tolerating Diet, Ambulating, Urinating. Denies: New Symptoms - Review of Systems General: Denies: Fever, Chills HEENT: Reports: No Symptoms Pulmonary: Denies: Shortness of Breath Cardiovascular: Denies: Chest Pain Gastrointestinal: Denies: Abdominal Pain, Nausea, Vomiting Genitourinary: Reports: No Symptoms Musculoskeletal: Reports: No Symptoms Skin: Reports: Mottled (left arm) Neurological: Reports: Trouble Speaking (expressive aphasia), Difficulty Walking , Weakness, Gait Disturbance Psychiatric: Reports: Confusion Systems Review Comment:: No significant overnight or acute issues. She appears confused per family. She is NPO for now. She is afebrile with mild WBC level. Blood and Influenza screening are both negative. She is not able to verbalized at least with me. She moans and groans. - Patient Data Vitals - Most Recent: Last Vital Signs Temp 36.8 C 10/31/17 07:33 Pulse 116 H 10/31/17 07:33 Resp 20 10/31/17 07:33 BP 158/60 H 10/31/17 07:33 Pulse Ox 97 10/31/17 07:33 Weight - Most Recent: 59.965 kg I&O - Last 24 Hours: Intake & Output 10/30/17 10/31/17 10/31/17 22:59 06:59 14:59 Intake Total 1928 Balance 1928 Lab Results Last 24 Hours: Laboratory Results - last 24 hr 10/30/17 10/30/17 10/30/17 Range/Units 17:24 21:24 21:49 WBC (3.98-10.04) K/mm3 RBC (3.98-5.22) M/mm3 Hgb (11.2-15.7) gm/L Hct (34.1-44.9) % MCV (79.4-94.8) fl MCH (25.6-32.2) pg MCHC (32.2-35.5) g/dl RDW Std Deviation (36.4-46.3) fL Plt Count (182-369) K/mm3 MPV (9.4-12.3) fl Neut % (Auto) (34.0-71.1) % Lymph % (Auto) (19.3-51.7) % [place] % (Auto) (4.7-12.5) % Eos % (Auto) (0.7-5.8) Baso % (Auto) (0.1-1.2) % Neut # (Auto) (1.56-6.13) K/mm3 Lymph # (Auto) (1.18-3.74) K/mm3 [place] # (Auto) (0.24-0.36) K/mm3 Eos # (Auto) (0.04-0.36) K/mm3 Baso # (Auto) (0.01-0.08) K/mm3 Manual Slide Review Sodium (136-145) mEq/L Potassium (3.5-5.1) mEq/L Chloride (98-107) mEq/L Carbon Dioxide (21-32) mEq/L Anion Gap (5-15) BUN (7-18) mg/dL Creatinine (0.55-1.02) mg/dL Est Cr Clr Drug Dosing mL/min Estimated GFR (MDRD) (>60) mL/min BUN/Creatinine Ratio (14-18) Glucose (80-115) mg/dL POC Glucose 212 H 157 H (80-115) mg/dL Lactic Acid (0.4-2.0) mmol/L Calcium (8.5-10.1) mg/dL C-Reactive Protein (<1.0) mg/dL Mycoplasma pneumon IgM (NEGATIVE) MRSA (PCR) Negative 10/31/17 10/31/17 10/31/17 Range/Units 04:53 04:53 04:53 WBC 10.12 H (3.98-10.04) K/mm3 RBC 3.88 L (3.98-5.22) M/mm3 Hgb 11.5 (11.2-15.7) gm/L Hct 35.5 (34.1-44.9) % MCV 91.5 (79.4-94.8) fl MCH 29.6 (25.6-32.2) pg MCHC 32.4 (32.2-35.5) g/dl RDW Std Deviation 60.0 H (36.4-46.3) fL Plt Count 140 L (182-369) K/mm3 MPV 9.9 (9.4-12.3) fl Neut % (Auto) 83.0 H (34.0-71.1) % Lymph % (Auto) 4.9 L (19.3-51.7) % [place] % (Auto) 11.0 (4.7-12.5) % Eos % (Auto) 0 L (0.7-5.8) Baso % (Auto) 0.2 (0.1-1.2) % Neut # (Auto) 8.40 H (1.56-6.13) K/mm3 Lymph # (Auto) 0.50 L (1.18-3.74) K/mm3 [place] # (Auto) 1.11 H (0.24-0.36) K/mm3 Eos # (Auto) 0.00 L (0.04-0.36) K/mm3 Baso # (Auto) 0.02 (0.01-0.08) K/mm3 Manual Slide Review Abnormal smear Sodium 141 (136-145) mEq/L Potassium 3.5 (3.5-5.1) mEq/L Chloride 107 (98-107) mEq/L Carbon Dioxide 27 (21-32) mEq/L Anion Gap 10.5 (5-15) BUN 14 (7-18) mg/dL Creatinine 0.6 (0.55-1.02) mg/dL Est Cr Clr Drug Dosing 77.33 mL/min Estimated GFR (MDRD) > 60 (>60) mL/min BUN/Creatinine Ratio 23.3 H (14-18) Glucose 174 H (80-115) mg/dL POC Glucose (80-115) mg/dL Lactic Acid 1.5 (0.4-2.0) mmol/L Calcium 8.9 (8.5-10.1) mg/dL C-Reactive Protein 47.2 H* (<1.0) mg/dL Mycoplasma pneumon IgM Negative (NEGATIVE) MRSA (PCR) Med Orders - Current: Current Medications Acetaminophen (Tylenol Solution) 650 mg PO Q4H PRN PRN Reason: Fever Last Admin: 10/31/17 01:14 Dose: 650 mg Albuterol (Proventil Neb Soln) 2.5 mg NEB Q4HRRT PRN PRN Reason: Shortness of Breath Last Admin: 10/31/17 01:41 Dose: 2.5 mg Albuterol/Ipratropium (Duoneb 3.0-0.5 Mg/3 Ml) 3 ml NEB QIDRT [facility] Last Admin: 10/31/17 05:49 Dose: 3 ml Amantadine HCl (Symmetrel 50 Mg/5 Ml Soln) 75 mg PO BID [facility] Last Admin: 10/31/17 09:03 Dose: Not Given Enoxaparin Sodium (Lovenox) 40 mg SUBCUT DAILY [facility] Last Admin: 10/31/17 09:02 Dose: 40 mg Guaifenesin (Mucinex) 600 mg PO BID PRN PRN Reason: Congestion Dextrose/Sodium Chloride (Dextrose 5%-Normal Saline) 1,000 mls @ 150 mls/hr IV ASDIRECTED [facility] Last Admin: 10/31/17 02:52 Dose: 150 mls/hr Levofloxacin/Dextrose 750 mg/ (Premix) 150 mls @ 100 mls/hr IV Q24H [facility] Last Admin: 10/30/17 16:37 Dose: 100 mls/hr Vancomycin HCl 1 gm/ Sodium (Chloride) 250 mls @ 250 mls/hr IV Q24H [facility] Levothyroxine Sodium (Levothyroxine) 25 mcg PO ACBREAKFAST [facility] Last Admin: 10/31/17 06:07 Dose: Not Given Metoprolol Tartrate (Lopressor) 5 mg IVPUSH Q4H PRN PRN Reason: heart rate> 120 Last Admin: 10/31/17 01:14 Dose: 5 mg Ondansetron HCl (Zofran) 4 mg IVPUSH Q8H PRN PRN Reason: Nausea/Vomiting Rosuvastatin Calcium (Crestor) 10 mg PO DAILY [facility] Last Admin: 10/31/17 09:02 Dose: Not Given Temazepam (Restoril) 30 mg PO BEDTIME PRN PRN Reason: Insomnia Vancomycin HCl (Pharmacy To Dose - Vancomycin) 1 dose .XX ASDIRECTED [facility] Discontinued Medications Amantadine HCl (Symmetrel 50 Mg/5 Ml Soln) 75 mg PO BID [facility] Last Admin: 10/31/17 00:59 Dose: Not Given Bisacodyl (Dulcolax) 10 mg RECTAL ONETIME ONE Stop: 10/31/17 07:39 Last Admin: 10/31/17 08:54 Dose: 10 mg Dextrose/Water (Dextrose 50% In Water) 25 ml IVPUSH ONETIME STA Stop: 10/30/17 12:55 Last Admin: 10/30/17 12:59 Dose: 25 ml Sodium Chloride (Normal Saline) 1,000 mls @ 999 mls/hr IV ONETIME ONE Stop: 10/30/17 12:26 Last Admin: 10/30/17 11:44 Dose: 999 mls/hr Ceftazidime 2 gm/ Sodium (Chloride) 50 mls @ 100 mls/hr IV ONETIME STA Stop: 10/30/17 13:35 Last Admin: 10/31/17 05:02 Dose: Not Given Levofloxacin/Dextrose 750 mg/ (Premix) 150 mls @ 100 mls/hr IV ONETIME ONE Stop: 10/30/17 14:39 Last Admin: 10/30/17 16:46 Dose: Not Given Vancomycin HCl 1 gm/ Sodium (Chloride) 250 mls @ 250 mls/hr IV ONETIME ONE Stop: 10/30/17 14:10 Last Admin: 10/30/17 13:33 Dose: 250 mls/hr Ceftazidime 2 gm/ Sodium (Chloride) 100 mls @ 200 mls/hr IV ONETIME ONE Stop: 10/30/17 14:14 Last Admin: 10/30/17 15:38 Dose: 200 mls/hr Sodium Chloride (Sodium Chloride 0.45%) 500 mls @ 999 mls/hr IV ONETIME ONE Stop: 10/30/17 15:58 Last Admin: 10/30/17 15:38 Dose: 999 mls/hr - Exam Quality Assessment: Supplemental Oxygen General: Severe Distress, Other (Awake seems to be uncomfortable but not able to engage or answers basic questions ) HEENT: Pupils Equal, Pupils Reactive, Mucous Membr. Moist/[place] Neck: Supple Lungs: Clear to Auscultation, Normal Respiratory Effort, Decreased Breath Sounds , Rhonchi Cardiovascular: Regular Rhythm, Tachycardia GI/Abdominal Exam: Normal Bowel Sounds, Soft, Non-Tender, No Organomegaly, No Distention, No Abnormal Bruit, No Mass (Female) Exam: Deferred Back Exam: Decreased Range of Motion Extremities: Normal Inspection, Normal Range of Motion, Non-Tender, No Pedal Edema, Normal Capillary Refill Peripheral Pulses: 2+: Dorsalis Pedis (L), Dorsalis Pedis (R) Skin: Warm, Dry, Intact, Cool (on left arm) Neurological: No New Focal Deficit. No: Normal Gait, Normal Speech Psy/Mental Status: No: Normal Affect - Problem List Review Problem List Initiated/Reviewed/Updated: Yes - Plan Plan:: Impression: Acute: HCAP vs Aspiration PNA - Risk Factors: CVA with Expressive Aphasia, Recurrent PNA, Swallow and Speech Problems with MS - [employer] on board for further evaluation - She was on PEG tube and was just discontinued about a month ago - Blood cultures are negative - Currently on IV Levaquin 750 mg IV daily - She gets hives with PCN per daughter - Start Cefepime 1 gram IV Q8H for GNR double antibiotic coverage - Aspiration precautions, supplemental O2, H2B and routine RT care - Serial CXR UTI - Risk Factors: She is bed-bound from her debilitating MS and carries a hx/o recurrent UTI - She also has chronic incontinence and uses daily under pads - Currently on IV Levaquin for antibiotic coverage - Pending UA Cx/Sx Leukocytosis - WBC 10. 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
[2017-10-31] MEDS ORDERED: Acetaminophen 650 MG Supp RECTAL PRN (10:36)
[2017-10-31] MEDS ORDERED: HYDROmorphone 0.5 MG/0.5 ML Syringe IVPUSH PRN (14:46)
[2017-10-31] MEDS ORDERED: LORazepam 2 MG/ML MDV IVPUSH PRN (17:17)
[2017-10-31] MEDS ORDERED: Potassium Chloride 20 MEQ Tab.ER PO SCH (17:30)
[2017-10-31] MEDS ORDERED: Diclofenac Sodium 1% Gel 100 GM Tube TOP PRN (18:00)
[2017-10-31] MEDS ORDERED: cloNIDine 0.2 MG/Day Transdermal Patch TRDERM ONE (18:00)
[2017-10-31] MEDS ORDERED: Cefepime 1 GM in Premix Bag 1 BAG IV SCH (18:00)
[2017-10-31] MEDS: Levofloxacin/Dextrose 5%-Water 750 MG in Premix Bag 1 BAG IV SCH (18:12)
[2017-10-31] MEDS: HYDROmorphone 0.5 MG/0.5 ML Syringe IVPUSH PRN (18:22)
[2017-10-31] MEDS ORDERED: Cefepime 1 GM in Sodium Chloride 0.9% 50 ML IV SCH (20:00)
[2017-10-31] MEDS: Potassium Chloride 10 MEQ in Premix Bag 1 BAG IV SCH ×4 (20:10→23:27)
[2017-10-31] MEDS: Famotidine 20 MG/2 ML SDV IVPUSH SCH (20:14)
[2017-10-31] MEDS: CEFEPIME IV SCH (21:08)
[2017-10-31] MEDS: hydrALAZINE 20 MG/ML SDV IVPUSH PRN (23:39)
[2017-11-01] MEDS: Metoprolol Tartrate 5 MG/5 ML SDV IVPUSH PRN (04:14)
[2017-11-01] MEDS: HYDROmorphone 0.5 MG/0.5 ML Syringe IVPUSH PRN ×2 (04:26→12:50)
[2017-11-01] MEDS: hydrALAZINE 20 MG/ML SDV IVPUSH PRN ×2 (04:26→20:51)
[2017-11-01] MEDS: CEFEPIME IV SCH (04:27)
[2017-11-01] MEDS: Levothyroxine 25 MCG Tab PO SCH (05:03)
[2017-11-01] MEDS: Albuterol/Ipratropium 3.0-0.5 MG/3 ML Neb Soln NEB SCH ×4 (05:56→21:24)
[2017-11-01] MEDS: Dextrose 5%-0.9% NaCl 1,000 ML IV SCH (06:55)
[2017-11-01] MEDS: Famotidine 20 MG/2 ML SDV IVPUSH SCH ×2 (08:25→20:45)
[2017-11-01] MEDS: Rosuvastatin 10 MG Tab PO SCH (08:30)
[2017-11-01] MEDS: Magnesium Sulfate/Water 2 GM in Premix Bag 1 BAG IV SCH ×2 (08:30→10:30)
[2017-11-01] MEDS: Amantadine Soln 50 MG/5 ML UD Cup PO SCH ×2 (08:30→20:45)
[2017-11-01] MEDS: Enoxaparin 40 MG/0.4 ML Syringe SUBCUT SCH (08:33)
--- NOTE | 2017-11-01 09:20 | PCM.PN ---
- General Info Date of Service: 11/01/17 Admission Dx/Problem (Free Text): Admission Diagnosis/Problem Admission Diagnosis/Problem Pneumonia Subjective Update: Follow Up Functional Status: Reports: Pain Controlled, Urinating. Denies: New Symptoms - Review of Systems General: Denies: Fever, Chills HEENT: Reports: No Symptoms Pulmonary: Denies: Shortness of Breath Cardiovascular: Denies: Chest Pain, Dyspnea on Exertion, Edema Gastrointestinal: Reports: Difficulty Swallowing. Denies: Abdominal Pain, Nausea, Vomiting Genitourinary: Reports: No Symptoms Musculoskeletal: Reports: No Symptoms Skin: Reports: Mottled. Denies: Cyanosis, Pallor, Diaphoresis, Rash Neurological: Reports: Confusion, Trouble Speaking, Difficulty Walking, Weakness , Gait Disturbance Psychiatric: Denies: Depression, Anxiety, Agitation, Hallucinations Systems Review Comment:: No significant overnight or acute issues. She is much more comfortable. She is not able to engage. She is afebrile w/o leukocytosis. - Patient Data Vitals - Most Recent: Last Vital Signs Temp 36.7 C 11/01/17 07:24 Pulse 105 H 11/01/17 07:24 Resp 16 11/01/17 07:24 BP 135/57 L 11/01/17 07:24 Pulse Ox 99 11/01/17 07:24 Weight - Most Recent: 60.827 kg I&O - Last 24 Hours: Intake & Output 10/31/17 11/01/17 11/01/17 22:59 06:59 14:59 Intake Total 1850 1350 Balance 1850 1350 Lab Results Last 24 Hours: Laboratory Results - last 24 hr 10/31/17 10/31/17 10/31/17 Range/Units 12:37 17:07 21:25 WBC (3.98-10.04) K/mm3 RBC (3.98-5.22) M/mm3 Hgb (11.2-15.7) gm/L Hct (34.1-44.9) % MCV (79.4-94.8) fl MCH (25.6-32.2) pg MCHC (32.2-35.5) g/dl RDW Std Deviation (36.4-46.3) fL Plt Count (182-369) K/mm3 MPV (9.4-12.3) fl Neut % (Auto) (34.0-71.1) % Lymph % (Auto) (19.3-51.7) % [place] % (Auto) (4.7-12.5) % Eos % (Auto) (0.7-5.8) Baso % (Auto) (0.1-1.2) % Neut # (Auto) (1.56-6.13) K/mm3 Lymph # (Auto) (1.18-3.74) K/mm3 [place] # (Auto) (0.24-0.36) K/mm3 Eos # (Auto) (0.04-0.36) K/mm3 Baso # (Auto) (0.01-0.08) K/mm3 Manual Slide Review Sodium (136-145) mEq/L Potassium (3.5-5.1) mEq/L Chloride (98-107) mEq/L Carbon Dioxide (21-32) mEq/L Anion Gap (5-15) BUN (7-18) mg/dL Creatinine (0.55-1.02) mg/dL Est Cr Clr Drug Dosing mL/min Estimated GFR (MDRD) (>60) mL/min BUN/Creatinine Ratio (14-18) Glucose (80-115) mg/dL POC Glucose 188 H 162 H 102 (80-115) mg/dL Lactic Acid (0.4-2.0) mmol/L Calcium (8.5-10.1) mg/dL Magnesium (1.8-2.4) mg/dl C-Reactive Protein (<1.0) mg/dL 11/01/17 11/01/17 11/01/17 Range/Units 00:26 05:53 06:25 WBC 9.29 (3.98-10.04) K/mm3 RBC 3.86 L (3.98-5.22) M/mm3 Hgb 11.5 (11.2-15.7) gm/L Hct 35.6 (34.1-44.9) % MCV 92.2 (79.4-94.8) fl MCH 29.8 (25.6-32.2) pg MCHC 32.3 (32.2-35.5) g/dl RDW Std Deviation 59.3 H (36.4-46.3) fL Plt Count 113 L (182-369) K/mm3 MPV 10.3 (9.4-12.3) fl Neut % (Auto) 72.9 H (34.0-71.1) % Lymph % (Auto) 6.5 L (19.3-51.7) % [place] % (Auto) 16.3 H (4.7-12.5) % Eos % (Auto) 0.1 L (0.7-5.8) Baso % (Auto) 0.4 (0.1-1.2) % Neut # (Auto) 6.78 H (1.56-6.13) K/mm3 Lymph # (Auto) 0.60 L (1.18-3.74) K/mm3 [place] # (Auto) 1.51 H (0.24-0.36) K/mm3 Eos # (Auto) 0.01 L (0.04-0.36) K/mm3 Baso # (Auto) 0.04 (0.01-0.08) K/mm3 Manual Slide Review Abnormal smear Sodium (136-145) mEq/L Potassium (3.5-5.1) mEq/L Chloride (98-107) mEq/L Carbon Dioxide (21-32) mEq/L Anion Gap (5-15) BUN (7-18) mg/dL Creatinine (0.55-1.02) mg/dL Est Cr Clr Drug Dosing mL/min Estimated GFR (MDRD) (>60) mL/min BUN/Creatinine Ratio (14-18) Glucose (80-115) mg/dL POC Glucose 86 98 (80-115) mg/dL Lactic Acid (0.4-2.0) mmol/L Calcium (8.5-10.1) mg/dL Magnesium (1.8-2.4) mg/dl C-Reactive Protein (<1.0) mg/dL 11/01/17 11/01/17 Range/Units 06:25 06:25 WBC (3.98-10.04) K/mm3 RBC (3.98-5.22) M/mm3 Hgb (11.2-15.7) gm/L Hct (34.1-44.9) % MCV (79.4-94.8) fl MCH (25.6-32.2) pg MCHC (32.2-35.5) g/dl RDW Std Deviation (36.4-46.3) fL Plt Count (182-369) K/mm3 MPV (9.4-12.3) fl Neut % (Auto) (34.0-71.1) % Lymph % (Auto) (19.3-51.7) % [place] % (Auto) (4.7-12.5) % Eos % (Auto) (0.7-5.8) Baso % (Auto) (0.1-1.2) % Neut # (Auto) (1.56-6.13) K/mm3 Lymph # (Auto) (1.18-3.74) K/mm3 [place] # (Auto) (0.24-0.36) K/mm3 Eos # (Auto) (0.04-0.36) K/mm3 Baso # (Auto) (0.01-0.08) K/mm3 Manual Slide Review Sodium 141 (136-145) mEq/L Potassium 3.7 (3.5-5.1) mEq/L Chloride 105 (98-107) mEq/L Carbon Dioxide 28 (21-32) mEq/L Anion Gap 11.7 (5-15) BUN 7 (7-18) mg/dL Creatinine 0.5 L (0.55-1.02) mg/dL Est Cr Clr Drug Dosing 92.79 mL/min Estimated GFR (MDRD) > 60 (>60) mL/min BUN/Creatinine Ratio 14.0 (14-18) Glucose 110 (80-115) mg/dL POC Glucose (80-115) mg/dL Lactic Acid 0.9 (0.4-2.0) mmol/L Calcium 9.2 (8.5-10.1) mg/dL Magnesium 1.4 L (1.8-2.4) mg/dl C-Reactive Protein 41.6 H* (<1.0) mg/dL [facility] Results Last 24 Hours: Microbiology 10/31/17 09:10 Streptococcus pneumoniae Antigen (M - Final Urine 10/30/17 18:50 Respiratory Virus Panel (PCR) (ISMAEL) - Final Nasopharyngeal Swab Med Orders - Current: Current Medications Acetaminophen (Tylenol) 650 mg RECTAL Q4H PRN PRN Reason: Fever Last Admin: 10/31/17 10:51 Dose: 650 mg Albuterol (Proventil Neb Soln) 2.5 mg NEB Q4HRRT PRN PRN Reason: Shortness of Breath Last Admin: 10/31/17 01:41 Dose: 2.5 mg Albuterol/Ipratropium (Duoneb 3.0-0.5 Mg/3 Ml) 3 ml NEB QIDRT [facility] Last Admin: 11/01/17 05:56 Dose: 3 ml Amantadine HCl (Symmetrel 50 Mg/5 Ml Soln) 75 mg PO BID [facility] Last Admin: 11/01/17 08:30 Dose: Not Given Diclofenac Sodium (Voltaren 1% Gel) 0 gm TOP QID PRN PRN Reason: PAIN Enoxaparin Sodium (Lovenox) 40 mg SUBCUT DAILY [facility] Last Admin: 11/01/17 08:33 Dose: 40 mg Famotidine (Pepcid) 20 mg IVPUSH BID [facility] Last Admin: 11/01/17 08:25 Dose: 20 mg Guaifenesin (Mucinex) 600 mg PO BID PRN PRN Reason: Congestion Hydralazine HCl (Apresoline) 20 mg IVPUSH Q4H PRN PRN Reason: Hypertension Last Admin: 11/01/17 04:26 Dose: 20 mg Hydromorphone HCl (Dilaudid) 0.5 mg IVPUSH Q4H PRN PRN Reason: Pain Last Admin: 11/01/17 04:26 Dose: 0.5 mg Levofloxacin/Dextrose 750 mg/ (Premix) 150 mls @ 100 mls/hr IV Q24H [facility] Last Admin: 10/31/17 18:12 Dose: 100 mls/hr Dextrose/Sodium Chloride (Dextrose 5%-Normal Saline) 1,000 mls @ 25 mls/hr IV ASDIRECTED [facility] Last Admin: 11/01/17 06:55 Dose: 25 mls/hr Magnesium Sulfate 2 gm/ Premix 50 mls @ 25 mls/hr IV Q2H [facility] Stop: 11/01/17 11:29 Last Admin: 11/01/17 08:30 Dose: 25 mls/hr Cefepime HCl 2 gm/ Premix 50 mls @ 100 mls/hr IV Q8H [facility] Levothyroxine Sodium (Levothyroxine) 25 mcg PO ACBREAKFAST [facility] Last Admin: 11/01/17 05:03 Dose: Not Given Lorazepam (Ativan) 0.5 mg IVPUSH Q4H PRN; Protocol PRN Reason: Anxiety Magnesium Sulfate (Pharmacy To Dose - Magnesium Replacement) 1 dose .XX ASDIRECTED [facility] Metoprolol Tartrate (Lopressor) 5 mg IVPUSH Q4H PRN PRN Reason: Tachycardia Last Admin: 11/01/17 04:14 Dose: 5 mg Ondansetron HCl (Zofran) 4 mg IVPUSH Q8H PRN PRN Reason: Nausea/Vomiting Potassium Chloride (Pharmacy To Dose - Potassium Replacement) 1 dose .XX ASDIRECTED [facility] Rosuvastatin Calcium (Crestor) 10 mg PO DAILY [facility] Last Admin: 11/01/17 08:30 Dose: Not Given Temazepam (Restoril) 30 mg PO BEDTIME PRN PRN Reason: Insomnia Discontinued Medications Acetaminophen (Tylenol Solution) 650 mg PO Q4H PRN PRN Reason: Fever Last Admin: 10/31/17 01:14 Dose: 650 mg Amantadine HCl (Symmetrel 50 Mg/5 Ml Soln) 75 mg PO BID [facility] Last Admin: 10/31/17 00:59 Dose: Not Given Bisacodyl (Dulcolax) 10 mg RECTAL ONETIME ONE Stop: 10/31/17 07:39 Last Admin: 10/31/17 08:54 Dose: 10 mg Clonidine HCl (Catapres Tts-2) 0.2 mg TRDERM Q7D ONE Stop: 10/31/17 18:01 Last Admin: 10/31/17 18:13 Dose: 0.2 mg Dextrose/Water (Dextrose 50% In Water) 25 ml IVPUSH ONETIME STA Stop: 10/30/17 12:55 Last Admin: 10/30/17 12:59 Dose: 25 ml Hydromorphone HCl (Dilaudid) 0.25 mg IVPUSH Q4H PRN PRN Reason: Pain Last Admin: 10/31/17 14:53 Dose: 0.25 mg Sodium Chloride (Normal Saline) 1,000 mls @ 999 mls/hr IV ONETIME ONE Stop: 10/30/17 12:26 Last Admin: 10/30/17 11:44 Dose: 999 mls/hr Dextrose/Sodium Chloride (Dextrose 5%-Normal Saline) 1,000 mls @ 150 mls/hr IV ASDIRECTED [facility] Last Admin: 10/31/17 16:45 Dose: 150 mls/hr Ceftazidime 2 gm/ Sodium (Chloride) 50 mls @ 100 mls/hr IV ONETIME [facility] Stop: 10/30/17 13:35 Last Admin: 10/31/17 05:02 Dose: Not Given Levofloxacin/Dextrose 750 mg/ (Premix) 150 mls @ 100 mls/hr IV ONETIME ONE Stop: 10/30/17 14:39 Last Admin: 10/30/17 16:46 Dose: Not Given Vancomycin HCl 1 gm/ Sodium (Chloride) 250 mls @ 250 mls/hr IV ONETIME ONE Stop: 10/30/17 14:10 Last Admin: 10/30/17 13:33 Dose: 250 mls/hr Ceftazidime 2 gm/ Sodium (Chloride) 100 mls @ 200 mls/hr IV ONETIME ONE Stop: 10/30/17 14:14 Last Admin: 10/30/17 15:38 Dose: 200 mls/hr Sodium Chloride (Sodium Chloride 0.45%) 500 mls @ 999 mls/hr IV ONETIME ONE Stop: 10/30/17 15:58 Last Admin: 10/30/17 15:38 Dose: 999 mls/hr Vancomycin HCl 1 gm/ Sodium (Chloride) 250 mls @ 250 mls/hr IV Q24H [facility] Cefepime HCl 1 gm/ Premix 50 mls @ 100 mls/hr IV Q8H [facility] Last Admin: 10/31/17 19:55 Dose: Not Given Potassium Chloride 10 meq/ (Premix) 100 mls @ 100 mls/hr IV Q1H [facility] Stop: 10/31/17 23:29 Last Admin: 10/31/17 23:27 Dose: 100 mls/hr Cefepime HCl 1 gm/ Sodium (Chloride) 50 mls @ 100 mls/hr IV Q8H [facility] Last Admin: 10/31/17 20:48 Dose: Not Given Cefepime HCl (Maxipime In D5w 2 Gm/50 Ml) 25 mls @ 50 mls/hr IV Q8H [facility] Last Admin: 11/01/17 04:27 Dose: 50 mls/hr Metoprolol Tartrate (Lopressor) 5 mg IVPUSH Q4H PRN PRN Reason: heart rate> 120 Last Admin: 10/31/17 01:14 Dose: 5 mg Potassium Chloride (Klor-Con M20) 20 meq PO Q3H [facility] Stop: 10/31/17 20:31 Last Admin: 10/31/17 19:55 Dose: Not Given Vancomycin HCl (Pharmacy To Dose - Vancomycin) 1 dose .XX ASDIRECTED [facility] - Exam General: Other (Awake but not engging ). No: Alert HEENT: Pupils Equal, Pupils Reactive Neck: Supple, Trachea Midline, No JVD Lungs: Normal Respiratory Effort, Decreased Breath Sounds, Rales, Rhonchi Cardiovascular: Regular Rate, Regular Rhythm GI/Abdominal Exam: Normal Bowel Sounds, Soft, Non-Tender, No Organomegaly, No Distention, No Abnormal Bruit, No Mass (Female) Exam: Deferred Back Exam: Normal Inspection, Decreased Range of Motion Extremities: Normal Inspection, Normal Range of Motion, Non-Tender, No Pedal Edema, Normal Capillary Refill Peripheral Pulses: 2+: Dorsalis Pedis (L), Dorsalis Pedis (R) Skin: Warm, Dry, Intact Neurological: No New Focal Deficit Psy/Mental Status: Alert, Normal Affect, Normal Mood - Problem List Review Problem List Initiated/Reviewed/Updated: Yes - My Orders Last 24 Hours: My Active Orders 10/31/17 10:36 Acetaminophen [Tylenol] 650 mg RECTAL Q4H PRN 10/31/17 17:13 Precautions [COMM] Routine 10/31/17 17:16 Metoprolol Tartrate [Lopressor] 5 mg IVPUSH Q4H PRN hydrALAZINE [Apresoline] 20 mg IVPUSH Q4H PRN 10/31/17 17:17 LORazepam [Ativan] 0.5 mg IVPUSH Q4H PRN 10/31/17 17:30 Magnesium Rep Pharmacy to Dose [Pharmacy to Dose - Magnesium Replacement] 1 dose .XX ASDIRECTED Potassium Rep Pharmacy to Dose [Pharmacy to Dose - Potassium Replacement] 1 dose .XX ASDIRECTED 10/31/17 18:00 Diclofenac Sodium [Voltaren 1% Gel] 0 gm TOP QID PRN 10/31/17 18:02 HYDROmorphone [Dilaudid] 0.5 mg IVPUSH Q4H PRN 10/31/17 21:00 Famotidine [Pepcid] 20 mg IVPUSH BID 11/01/17 07:00 Chest 1V Frontal [CR] Routine 11/01/17 07:30 Magnesium Sulfate/Water [Magnesium Sulfate 2 GM in Water 50 ML] 2 gm Premix Bag 1 bag IV Q2H 11/01/17 13:00 Cefepime [Maxipime in D5W 2 GM/50 ML] 2 gm Premix Bag 1 bag IV Q8H - Plan Plan:: Impression: Acute: Aspiration PNA - Risk Factors: CVA with Expressive Aphasia, Recurrent PNA, Swallow and Speech Problems with MS - [employer] on board for further evaluation - She was on PEG tube and was just discontinued about a month ago - Blood cultures are negative - Continue IV Levaquin 750 mg IV daily and will possibly add Doxy for anaerobic coverage - She gets hives with PCN per daughter - Start Cefepime 1 gram IV Q8H for GNR double antibiotic coverage - Aspiration precautions, supplemental O2, H2B and routine RT care - Serial CXR UTI - Risk Factors: She is bed-bound from her debilitating MS and carries a hx/o recurrent UTI - She also has chronic incontinence and uses daily under pads - Continue IV Levaquin for antibiotic coverage - UA Cx: GNR Dysphagia - 2/2 Hx/o CVA tessie worsened by Advanced MS - Swallow eval on 07/18 2017 shows Sneha-pharyngeal Dysphagia - Continue NPO until [employer] eval AMS/Encephalopathy - 2/2 Above - Supportive care Resolved: Leukocytosis - WBC 10. 12--> 9.29 and CRP 47--> 41.6 - 2/2 Above - Treatment as above HTN - Acute on chronic - 2/2 above infections and stress - PRN BP medications Sinus Tachycardia - Likely 2/2 Above infections - EKG shows sinus tachycardia - Clonidine Patch x1 - Metoprolol PRN for HR > 110 Chronic: Impaired Vision HLD Hypothyroidism Hyponatemia OA/DJD History of Advanced MS History of CVA with left sided hemiparesis/expressive aphasia Hx/o PEG tube placement Plan: She is now clinically stable Continue current treatment Continue Aspiration/Fall Precautions Routine Daily Labs DVT/GI prophylaxis: Lovenox SubQ and H2B Additional orders as above Code status: DNR/DNI Prognosis remains guarded
--- NOTE | 2017-11-01 10:03 | CR ---
Chest: Portable view of the chest was obtained. Comparison: Previous chest x-ray of 10/29/17. Increasing density within both lung bases from prior study. Increasing density within both upper lungs also noted as an interval change from prior study. Central lung markings are increased which are slightly more prominent. Heart size is not enlarged for portable technique. Scoliosis is noted within the spine. Bony structures are osteopenic. Impression: 1. Worsening of the chest from prior study. Please correlate if patient has symptoms of multifocal pneumonia. Superimposed bronchitis is also possible. Diagnostic code #3
[2017-11-01] MEDS ORDERED: Cefepime 2 GM in Premix Bag 1 BAG IV SCH (13:00)
[2017-11-01] MEDS: Levofloxacin/Dextrose 5%-Water 750 MG in Premix Bag 1 BAG IV SCH (16:36)
[2017-11-02] MEDS: Levothyroxine 25 MCG Tab PO SCH (05:19)
[2017-11-02] MEDS: Albuterol/Ipratropium 3.0-0.5 MG/3 ML Neb Soln NEB SCH ×4 (05:32→21:00)
[2017-11-02] MEDS: Dextrose 5%-0.9% NaCl 1,000 ML IV SCH (06:48)
[2017-11-02] MEDS ORDERED: Scopolamine 1 MG Transdermal Patch TRDERM ONE (07:00)
[2017-11-02] MEDS ORDERED: Potassium Chloride 20 MEQ Tab.ER PO ONE (08:00)
--- NOTE | 2017-11-02 08:17 | PCM.PN ---
- General Info Date of Service: 11/02/17 Admission Dx/Problem (Free Text): Admission Diagnosis/Problem Admission Diagnosis/Problem Pneumonia Subjective Update: Follow Up Functional Status: Reports: Pain Controlled, Urinating. Denies: Ambulating, New Symptoms - Review of Systems General: Denies: Fever, Chills HEENT: Reports: No Symptoms Pulmonary: Reports: Shortness of Breath, Other (tachypnea) Cardiovascular: Reports: No Symptoms Gastrointestinal: Denies: Abdominal Pain, Nausea, Vomiting Genitourinary: Reports: No Symptoms Musculoskeletal: Reports: No Symptoms Skin: Denies: Cyanosis, Pallor, Diaphoresis, Rash Neurological: Denies: Difficulty Walking, Weakness, Gait Disturbance Psychiatric: Denies: No Symptoms, Depression, Anxiety, Hallucinations Systems Review Comment:: Overnight she was suctioned numerous times due retained oral secretions. She is comfortable but remains nonverbal to me. She is afebrile w/o leukocytosis. Her vitals are fairly stable. - Patient Data Vitals - Most Recent: Last Vital Signs Temp 36.2 C 11/02/17 07:35 Pulse 103 H 11/02/17 07:36 Resp 20 11/02/17 04:23 BP 141/58 H 11/02/17 07:36 Pulse Ox 89 L 11/02/17 07:36 Weight - Most Recent: 60.328 kg I&O - Last 24 Hours: Intake & Output 11/01/17 11/02/17 11/02/17 22:59 06:59 14:59 Intake Total 584 449 Balance 584 449 Lab Results Last 24 Hours: Laboratory Results - last 24 hr 11/01/17 11/01/17 11/01/17 Range/Units 10:50 17:25 21:37 WBC (3.98-10.04) K/mm3 RBC (3.98-5.22) M/mm3 Hgb (11.2-15.7) gm/L Hct (34.1-44.9) % MCV (79.4-94.8) fl MCH (25.6-32.2) pg MCHC (32.2-35.5) g/dl RDW Std Deviation (36.4-46.3) fL Plt Count (182-369) K/mm3 MPV (9.4-12.3) fl Neut % (Auto) (34.0-71.1) % Lymph % (Auto) (19.3-51.7) % [place] % (Auto) (4.7-12.5) % Eos % (Auto) (0.7-5.8) Baso % (Auto) (0.1-1.2) % Neut # (Auto) (1.56-6.13) K/mm3 Lymph # (Auto) (1.18-3.74) K/mm3 [place] # (Auto) (0.24-0.36) K/mm3 Eos # (Auto) (0.04-0.36) K/mm3 Baso # (Auto) (0.01-0.08) K/mm3 Manual Slide Review Sodium (136-145) mEq/L Potassium (3.5-5.1) mEq/L Chloride (98-107) mEq/L Carbon Dioxide (21-32) mEq/L Anion Gap (5-15) BUN (7-18) mg/dL Creatinine (0.55-1.02) mg/dL Est Cr Clr Drug Dosing mL/min Estimated GFR (MDRD) (>60) mL/min BUN/Creatinine Ratio (14-18) Glucose (80-115) mg/dL POC Glucose 105 129 H 91 (80-115) mg/dL Lactic Acid (0.4-2.0) mmol/L Calcium (8.5-10.1) mg/dL C-Reactive Protein (<1.0) mg/dL 11/02/17 11/02/17 11/02/17 Range/Units 06:20 06:20 06:20 WBC 7.65 (3.98-10.04) K/mm3 RBC 3.78 L (3.98-5.22) M/mm3 Hgb 11.1 L (11.2-15.7) gm/L Hct 34.7 (34.1-44.9) % MCV 91.8 (79.4-94.8) fl MCH 29.4 (25.6-32.2) pg MCHC 32.0 L (32.2-35.5) g/dl RDW Std Deviation 59.4 H (36.4-46.3) fL Plt Count 110 L (182-369) K/mm3 MPV 10.5 (9.4-12.3) fl Neut % (Auto) 61.8 (34.0-71.1) % Lymph % (Auto) 9.8 L (19.3-51.7) % [place] % (Auto) 19.6 H (4.7-12.5) % Eos % (Auto) 0 L (0.7-5.8) Baso % (Auto) 0.4 (0.1-1.2) % Neut # (Auto) 4.73 (1.56-6.13) K/mm3 Lymph # (Auto) 0.75 L (1.18-3.74) K/mm3 [place] # (Auto) 1.50 H (0.24-0.36) K/mm3 Eos # (Auto) 0.00 L (0.04-0.36) K/mm3 Baso # (Auto) 0.03 (0.01-0.08) K/mm3 Manual Slide Review Abnormal smear Sodium 143 (136-145) mEq/L Potassium 3.4 L (3.5-5.1) mEq/L Chloride 106 (98-107) mEq/L Carbon Dioxide 32 (21-32) mEq/L Anion Gap 8.4 (5-15) BUN 11 (7-18) mg/dL Creatinine 0.4 L (0.55-1.02) mg/dL Est Cr Clr Drug Dosing 115.99 mL/min Estimated GFR (MDRD) > 60 (>60) mL/min BUN/Creatinine Ratio 27.5 H (14-18) Glucose 123 H (80-115) mg/dL POC Glucose (80-115) mg/dL Lactic Acid 1.0 (0.4-2.0) mmol/L Calcium 8.7 (8.5-10.1) mg/dL C-Reactive Protein 37.2 H* (<1.0) mg/dL 11/02/17 Range/Units 06:35 WBC (3.98-10.04) K/mm3 RBC (3.98-5.22) M/mm3 Hgb (11.2-15.7) gm/L Hct (34.1-44.9) % MCV (79.4-94.8) fl MCH (25.6-32.2) pg MCHC (32.2-35.5) g/dl RDW Std Deviation (36.4-46.3) fL Plt Count (182-369) K/mm3 MPV (9.4-12.3) fl Neut % (Auto) (34.0-71.1) % Lymph % (Auto) (19.3-51.7) % [place] % (Auto) (4.7-12.5) % Eos % (Auto) (0.7-5.8) Baso % (Auto) (0.1-1.2) % Neut # (Auto) (1.56-6.13) K/mm3 Lymph # (Auto) (1.18-3.74) K/mm3 [place] # (Auto) (0.24-0.36) K/mm3 Eos # (Auto) (0.04-0.36) K/mm3 Baso # (Auto) (0.01-0.08) K/mm3 Manual Slide Review Sodium (136-145) mEq/L Potassium (3.5-5.1) mEq/L Chloride (98-107) mEq/L Carbon Dioxide (21-32) mEq/L Anion Gap (5-15) BUN (7-18) mg/dL Creatinine (0.55-1.02) mg/dL Est Cr Clr Drug Dosing mL/min Estimated GFR (MDRD) (>60) mL/min BUN/Creatinine Ratio (14-18) Glucose (80-115) mg/dL POC Glucose 114 (80-115) mg/dL Lactic Acid (0.4-2.0) mmol/L Calcium (8.5-10.1) mg/dL C-Reactive Protein (<1.0) mg/dL [facility] Results Last 24 Hours: Microbiology 10/31/17 09:10 Streptococcus pneumoniae Antigen (M - Final Urine 10/30/17 18:50 Respiratory Virus Panel (PCR) (ISMAEL) - Final Nasopharyngeal Swab Med Orders - Current: Current Medications Acetaminophen (Tylenol) 650 mg RECTAL Q4H PRN PRN Reason: Fever Last Admin: 10/31/17 10:51 Dose: 650 mg Albuterol (Proventil Neb Soln) 2.5 mg NEB Q4HRRT PRN PRN Reason: Shortness of Breath Last Admin: 10/31/17 01:41 Dose: 2.5 mg Albuterol/Ipratropium (Duoneb 3.0-0.5 Mg/3 Ml) 3 ml NEB QIDRT [facility] Last Admin: 11/02/17 05:32 Dose: 3 ml Amantadine HCl (Symmetrel 50 Mg/5 Ml Soln) 75 mg PO BID [facility] Last Admin: 11/01/17 20:45 Dose: Not Given Diclofenac Sodium (Voltaren 1% Gel) 0 gm TOP QID PRN PRN Reason: PAIN Enoxaparin Sodium (Lovenox) 40 mg SUBCUT DAILY [facility] Last Admin: 11/01/17 08:33 Dose: 40 mg Famotidine (Pepcid) 20 mg IVPUSH BID [facility] Last Admin: 11/01/17 20:45 Dose: 20 mg Guaifenesin (Mucinex) 600 mg PO BID PRN PRN Reason: Congestion Hydralazine HCl (Apresoline) 20 mg IVPUSH Q4H PRN PRN Reason: Hypertension Last Admin: 11/01/17 20:51 Dose: 20 mg Hydromorphone HCl (Dilaudid) 0.5 mg IVPUSH Q4H PRN PRN Reason: Pain Last Admin: 11/01/17 12:50 Dose: 0.5 mg Levofloxacin/Dextrose 750 mg/ (Premix) 150 mls @ 100 mls/hr IV Q24H [facility] Last Admin: 11/01/17 16:36 Dose: 100 mls/hr Dextrose/Sodium Chloride (Dextrose 5%-Normal Saline) 1,000 mls @ 25 mls/hr IV ASDIRECTED [facility] Last Admin: 11/02/17 06:48 Dose: 25 mls/hr Doxycycline Hyclate 100 mg/ (Dextrose/Water) 100 mls @ 100 mls/hr IV Q12H [facility] Last Admin: 11/02/17 03:45 Dose: 100 mls/hr Levothyroxine Sodium (Levothyroxine) 25 mcg PO ACBREAKFAST [facility] Last Admin: 11/02/17 05:19 Dose: Not Given Lorazepam (Ativan) 0.5 mg IVPUSH Q4H PRN; Protocol PRN Reason: Anxiety Magnesium Sulfate (Pharmacy To Dose - Magnesium Replacement) 1 dose .XX ASDIRECTED [facility] Metoprolol Tartrate (Lopressor) 5 mg IVPUSH Q4H PRN PRN Reason: Tachycardia Last Admin: 11/01/17 04:14 Dose: 5 mg Miscellaneous Information (Remove Patch) 0 ea TRDERM Q72H ONE Stop: 11/05/17 07:16 Ondansetron HCl (Zofran) 4 mg IVPUSH Q8H PRN PRN Reason: Nausea/Vomiting Potassium Chloride (Pharmacy To Dose - Potassium Replacement) 1 dose .XX ASDIRECTED [facility] Rosuvastatin Calcium (Crestor) 10 mg PO DAILY [facility] Last Admin: 11/01/17 08:30 Dose: Not Given Temazepam (Restoril) 30 mg PO BEDTIME PRN PRN Reason: Insomnia Discontinued Medications Acetaminophen (Tylenol Solution) 650 mg PO Q4H PRN PRN Reason: Fever Last Admin: 10/31/17 01:14 Dose: 650 mg Amantadine HCl (Symmetrel 50 Mg/5 Ml Soln) 75 mg PO BID [facility] Last Admin: 10/31/17 00:59 Dose: Not Given Bisacodyl (Dulcolax) 10 mg RECTAL ONETIME ONE Stop: 10/31/17 07:39 Last Admin: 10/31/17 08:54 Dose: 10 mg Clonidine HCl (Catapres Tts-2) 0.2 mg TRDERM Q7D ONE Stop: 10/31/17 18:01 Last Admin: 10/31/17 18:13 Dose: 0.2 mg Dextrose/Water (Dextrose 50% In Water) 25 ml IVPUSH ONETIME STA Stop: 10/30/17 12:55 Last Admin: 10/30/17 12:59 Dose: 25 ml Hydromorphone HCl (Dilaudid) 0.25 mg IVPUSH Q4H PRN PRN Reason: Pain Last Admin: 10/31/17 14:53 Dose: 0.25 mg Sodium Chloride (Normal Saline) 1,000 mls @ 999 mls/hr IV ONETIME ONE Stop: 10/30/17 12:26 Last Admin: 10/30/17 11:44 Dose: 999 mls/hr Dextrose/Sodium Chloride (Dextrose 5%-Normal Saline) 1,000 mls @ 150 mls/hr IV ASDIRECTED [facility] Last Admin: 10/31/17 16:45 Dose: 150 mls/hr Ceftazidime 2 gm/ Sodium (Chloride) 50 mls @ 100 mls/hr IV ONETIME STA Stop: 10/30/17 13:35 Last Admin: 10/31/17 05:02 Dose: Not Given Levofloxacin/Dextrose 750 mg/ (Premix) 150 mls @ 100 mls/hr IV ONETIME ONE Stop: 10/30/17 14:39 Last Admin: 10/30/17 16:46 Dose: Not Given Vancomycin HCl 1 gm/ Sodium (Chloride) 250 mls @ 250 mls/hr IV ONETIME ONE Stop: 10/30/17 14:10 Last Admin: 10/30/17 13:33 Dose: 250 mls/hr Ceftazidime 2 gm/ Sodium (Chloride) 100 mls @ 200 mls/hr IV ONETIME ONE Stop: 10/30/17 14:14 Last Admin: 10/30/17 15:38 Dose: 200 mls/hr Sodium Chloride (Sodium Chloride 0.45%) 500 mls @ 999 mls/hr IV ONETIME ONE Stop: 10/30/17 15:58 Last Admin: 10/30/17 15:38 Dose: 999 mls/hr Vancomycin HCl 1 gm/ Sodium (Chloride) 250 mls @ 250 mls/hr IV Q24H [facility] Cefepime HCl 1 gm/ Premix 50 mls @ 100 mls/hr IV Q8H [facility] Last Admin: 10/31/17 19:55 Dose: Not Given Potassium Chloride 10 meq/ (Premix) 100 mls @ 100 mls/hr IV Q1H [facility] Stop: 10/31/17 23:29 Last Admin: 10/31/17 23:27 Dose: 100 mls/hr Cefepime HCl 1 gm/ Sodium (Chloride) 50 mls @ 100 mls/hr IV Q8H [facility] Last Admin: 10/31/17 20:48 Dose: Not Given Cefepime HCl (Maxipime In D5w 2 Gm/50 Ml) 25 mls @ 50 mls/hr IV Q8H [facility] Last Admin: 11/01/17 04:27 Dose: 50 mls/hr Magnesium Sulfate 2 gm/ Premix 50 mls @ 25 mls/hr IV Q2H [facility] Stop: 11/01/17 11:29 Last Admin: 11/01/17 10:30 Dose: 25 mls/hr Cefepime HCl 2 gm/ Premix 50 mls @ 100 mls/hr IV Q8H [facility] Metoprolol Tartrate (Lopressor) 5 mg IVPUSH Q4H PRN PRN Reason: heart rate> 120 Last Admin: 10/31/17 01:14 Dose: 5 mg Potassium Chloride (Klor-Con M20) 20 meq PO Q3H [facility] Stop: 10/31/17 20:31 Last Admin: 10/31/17 19:55 Dose: Not Given Potassium Chloride (Klor-Con M20) 40 meq PO ONETIME ONE Stop: 11/02/17 08:01 Scopolamine (Scopolamine) 1 each TRDERM Q72H ONE Stop: 11/02/17 07:01 Last Admin: 11/02/17 07:24 Dose: 1 each Vancomycin HCl (Pharmacy To Dose - Vancomycin) 1 dose .XX ASDIRECTED [facility] - Exam Quality Assessment: Supplemental Oxygen General: Other (Awake) HEENT: Pupils Equal, Pupils Reactive Neck: Supple, Trachea Midline Lungs: Decreased Breath Sounds, Crackles, Rhonchi, Other (tachypneic with upper respiratory noise ). No: Normal Respiratory Effort Cardiovascular: Regular Rate, Regular Rhythm GI/Abdominal Exam: Normal Bowel Sounds, Soft, Non-Tender, No Organomegaly, No Distention, No Abnormal Bruit (Female) Exam: Deferred Back Exam: Normal Inspection, Decreased Range of Motion Extremities: Normal Inspection, Normal Range of Motion, Non-Tender, No Pedal Edema, Normal Capillary Refill Peripheral Pulses: 2+: Dorsalis Pedis (L), Dorsalis Pedis (R) Skin: Warm, Dry, Intact Neurological: No New Focal Deficit Psy/Mental Status: No: Normal Affect Physical Findings Comments:: Non-verbal but comfortable. - Problem List Review Problem List Initiated/Reviewed/Updated: Yes - My Orders Last 24 Hours: My Active Orders 11/01/17 14:00 Doxycycline [Vibramycin] 100 mg Dextrose 5% in Water 100 ml IV Q12H 11/01/17 23:14 Up With Assistance [RC] ASDIRECTED - Plan Plan:: Impression: Acute: Aspiration PNA, Worsening - Risk Factors: CVA with Expressive Aphasia, Recurrent PNA, Swallow and Speech Problems with MS - CHILD PSYCHOLOGIST on board for further evaluation - She was on PEG tube and was just discontinued about a month ago - Blood cultures are negative - Continue IV Levaquin 750 mg IV daily and will possibly add Doxy for anaerobic coverage - She gets hives with PCN per daughter - Start Cefepime 1 gram IV Q8H for GNR double antibiotic coverage - Aspiration precautions, supplemental O2, H2B and routine RT care - Serial CXR: repeat CRX this am shows worsening lung field with pleural effusions UTI - Risk Factors: She is bed-bound from her debilitating MS and carries a hx/o recurrent UTI - She also has chronic incontinence and uses daily under pads - Continue IV Levaquin for antibiotic coverage - UA pos for Kleb pneumonia sensitive to Quinolones Dysphagia, Still NPO - 2/2 Hx/o CVA tessie worsened by Advanced MS - Swallow eval on 07/18 2017 shows Sneha-pharyngeal Dysphagia - Continue NPO until CHILD PSYCHOLOGIST eval - Consider PEG Tube for sustenance AMS/Encephalopathy - 2/2 Above - Supportive care Resolved: Leukocytosis - WBC 10. 12--> 9.29 and CRP 47--> 41.6 - 2/2 Above - Treatment as above HTN - Acute on chronic - 2/2 above infections and stress - PRN BP medications Sinus Tachycardia - Likely 2/2 Above infections - EKG shows sinus tachycardia - Clonidine Patch x1 - Metoprolol PRN for HR > 110 Chronic: Impaired Vision HLD Hypothyroidism Hyponatemia OA/DJD History of Advanced MS History of CVA with left sided hemiparesis/expressive aphasia Hx/o PEG tube placement Plan: She is worsening clinically Continue current treatment Scopolamine Patch for oral secretions Continue Aspiration/Fall Precautions Routine Daily Labs DVT/GI prophylaxis: Lovenox SubQ and H2B Additional orders as above Code status: DNR/DNI Prognosis guarded-serious, daughter was made aware mom could go 50/50 (50% better or 50% deteriorate) from here on. Also updated daughter about mom's clinical progress and the need for possible PEG-Tube placement if Pilar continues to be NPO.
[2017-11-02] MEDS: Famotidine 20 MG/2 ML SDV IVPUSH SCH ×2 (08:30→22:09)
[2017-11-02] MEDS: HYDROmorphone 0.5 MG/0.5 ML Syringe IVPUSH PRN ×2 (08:35→14:11)
[2017-11-02] MEDS: Enoxaparin 40 MG/0.4 ML Syringe SUBCUT SCH (08:38)
[2017-11-02] MEDS: Rosuvastatin 10 MG Tab PO SCH (08:45)
[2017-11-02] MEDS: Amantadine Soln 50 MG/5 ML UD Cup PO SCH ×2 (08:48→22:10)
--- NOTE | 2017-11-02 12:46 | CR ---
Chest: Portable view of the chest was obtained. Comparison: Prior chest x-ray of 11/01/17 and 10/29/17. Diffuse increased density on both sides of the chest is seen. Findings are fairly stable from most recent exam. Bilateral pleural effusions are also likely present. Heart size does not appear enlarged. Scoliosis is noted within the spine. Bony structures are osteopenic. Impression: 1. Diffuse increased density on both sides of the chest as well as probable bilateral pleural effusions. Findings remain fairly stable from most recent exam. Diagnostic code #3
[2017-11-02] MEDS: Levofloxacin/Dextrose 5%-Water 750 MG in Premix Bag 1 BAG IV SCH (17:55)
[2017-11-02] MEDS ORDERED: Bumetanide 1 MG/4 ML MDV IVPUSH ONE (19:28)
[2017-11-03] MEDS: Levothyroxine 25 MCG Tab PO SCH (05:26)
[2017-11-03] MEDS: Albuterol/Ipratropium 3.0-0.5 MG/3 ML Neb Soln NEB SCH ×4 (06:00→21:42)
--- NOTE | 2017-11-03 08:19 | PCM.PN ---
- General Info Date of Service: 11/03/17 Admission Dx/Problem (Free Text): Admission Diagnosis/Problem Admission Diagnosis/Problem Pneumonia Subjective Update: Follow Up Functional Status: Reports: Pain Controlled, Urinating. Denies: Tolerating Diet , Ambulating, New Symptoms - Review of Systems General: Denies: Fever, Chills Pulmonary: Reports: Shortness of Breath Cardiovascular: Reports: No Symptoms Gastrointestinal: Denies: Abdominal Pain, Nausea, Vomiting Genitourinary: Reports: No Symptoms Musculoskeletal: Reports: No Symptoms Skin: Reports: Mottled (left arm) Neurological: Reports: Pre-Existing Deficit, Trouble Speaking Psychiatric: Denies: Depression, Anxiety, Agitation Systems Review Comment:: No significant overnight or acute issues. She is essentially the same. She is awake and at times staring at the ceiling or some other times nodding for yes or no. She has had a whole canister of ana rosa-pharyngeal oral secretions. Spoke to daughter about possible PEG tube placement. - Patient Data Vitals - Most Recent: Last Vital Signs Temp 36.3 C 11/03/17 04:17 Pulse 92 11/03/17 06:09 Resp 18 11/03/17 04:17 BP 129/58 L 11/03/17 04:17 Pulse Ox 94 L 11/03/17 06:09 Weight - Most Recent: 60.645 kg I&O - Last 24 Hours: Intake & Output 11/02/17 11/03/17 11/03/17 22:59 06:59 14:59 Intake Total 550 349 Balance 550 349 Lab Results Last 24 Hours: Laboratory Results - last 24 hr 11/02/17 11/03/17 11/03/17 Range/Units 11:37 00:30 06:06 WBC (3.98-10.04) K/mm3 RBC (3.98-5.22) M/mm3 Hgb (11.2-15.7) gm/L Hct (34.1-44.9) % MCV (79.4-94.8) fl MCH (25.6-32.2) pg MCHC (32.2-35.5) g/dl RDW Std Deviation (36.4-46.3) fL Plt Count (182-369) K/mm3 MPV (9.4-12.3) fl Neut % (Auto) (34.0-71.1) % Lymph % (Auto) (19.3-51.7) % [place] % (Auto) (4.7-12.5) % Eos % (Auto) (0.7-5.8) Baso % (Auto) (0.1-1.2) % Neut # (Auto) (1.56-6.13) K/mm3 Lymph # (Auto) (1.18-3.74) K/mm3 [place] # (Auto) (0.24-0.36) K/mm3 Eos # (Auto) (0.04-0.36) K/mm3 Baso # (Auto) (0.01-0.08) K/mm3 Manual Slide Review Sodium (136-145) mEq/L Potassium (3.5-5.1) mEq/L Chloride (98-107) mEq/L Carbon Dioxide (21-32) mEq/L Anion Gap (5-15) BUN (7-18) mg/dL Creatinine (0.55-1.02) mg/dL Est Cr Clr Drug Dosing mL/min Estimated GFR (MDRD) (>60) mL/min BUN/Creatinine Ratio (14-18) Glucose (80-115) mg/dL POC Glucose 103 103 108 (80-115) mg/dL Lactic Acid (0.4-2.0) mmol/L Calcium (8.5-10.1) mg/dL C-Reactive Protein (<1.0) mg/dL 11/03/17 11/03/17 11/03/17 Range/Units 06:16 06:16 06:16 WBC 6.68 (3.98-10.04) K/mm3 RBC 3.92 L (3.98-5.22) M/mm3 Hgb 11.6 (11.2-15.7) gm/L Hct 36.0 (34.1-44.9) % MCV 91.8 (79.4-94.8) fl MCH 29.6 (25.6-32.2) pg MCHC 32.2 (32.2-35.5) g/dl RDW Std Deviation 59.7 H (36.4-46.3) fL Plt Count 134 L (182-369) K/mm3 MPV 10.0 (9.4-12.3) fl Neut % (Auto) 50.7 (34.0-71.1) % Lymph % (Auto) 13.3 L (19.3-51.7) % [place] % (Auto) 21.7 H (4.7-12.5) % Eos % (Auto) 0.1 L (0.7-5.8) Baso % (Auto) 1.5 H (0.1-1.2) % Neut # (Auto) 3.38 (1.56-6.13) K/mm3 Lymph # (Auto) 0.89 L (1.18-3.74) K/mm3 [place] # (Auto) 1.45 H (0.24-0.36) K/mm3 Eos # (Auto) 0.01 L (0.04-0.36) K/mm3 Baso # (Auto) 0.10 H (0.01-0.08) K/mm3 Manual Slide Review Abnormal smear Sodium 147 H (136-145) mEq/L Potassium 3.2 L (3.5-5.1) mEq/L Chloride 106 (98-107) mEq/L Carbon Dioxide 35 H (21-32) mEq/L Anion Gap 9.2 (5-15) BUN 11 (7-18) mg/dL Creatinine 0.4 L (0.55-1.02) mg/dL Est Cr Clr Drug Dosing 115.99 mL/min Estimated GFR (MDRD) > 60 (>60) mL/min BUN/Creatinine Ratio 27.5 H (14-18) Glucose 107 (80-115) mg/dL POC Glucose (80-115) mg/dL Lactic Acid 0.9 (0.4-2.0) mmol/L Calcium 8.9 (8.5-10.1) mg/dL C-Reactive Protein 27.9 H* (<1.0) mg/dL Med Orders - Current: Current Medications Acetaminophen (Tylenol) 650 mg RECTAL Q4H PRN PRN Reason: Fever Last Admin: 10/31/17 10:51 Dose: 650 mg Albuterol (Proventil Neb Soln) 2.5 mg NEB Q4HRRT PRN PRN Reason: Shortness of Breath Last Admin: 10/31/17 01:41 Dose: 2.5 mg Albuterol/Ipratropium (Duoneb 3.0-0.5 Mg/3 Ml) 3 ml NEB QIDRT [facility] Last Admin: 11/02/17 21:00 Dose: 3 ml Amantadine HCl (Symmetrel 50 Mg/5 Ml Soln) 75 mg PO BID [facility] Last Admin: 11/02/17 22:10 Dose: Not Given Diclofenac Sodium (Voltaren 1% Gel) 0 gm TOP QID PRN PRN Reason: PAIN Enoxaparin Sodium (Lovenox) 40 mg SUBCUT DAILY [facility] Last Admin: 11/02/17 08:38 Dose: 40 mg Famotidine (Pepcid) 20 mg IVPUSH BID [facility] Last Admin: 11/02/17 22:09 Dose: 20 mg Guaifenesin (Mucinex) 600 mg PO BID PRN PRN Reason: Congestion Hydralazine HCl (Apresoline) 20 mg IVPUSH Q4H PRN PRN Reason: Hypertension Last Admin: 11/01/17 20:51 Dose: 20 mg Hydromorphone HCl (Dilaudid) 0.5 mg IVPUSH Q4H PRN PRN Reason: Pain Last Admin: 11/02/17 14:11 Dose: 0.5 mg Levofloxacin/Dextrose 750 mg/ (Premix) 150 mls @ 100 mls/hr IV Q24H [facility] Last Admin: 11/02/17 17:55 Dose: 100 mls/hr Dextrose/Sodium Chloride (Dextrose 5%-Normal Saline) 1,000 mls @ 25 mls/hr IV ASDIRECTED [facility] Last Admin: 11/02/17 06:48 Dose: 25 mls/hr Doxycycline Hyclate 100 mg/ (Dextrose/Water) 100 mls @ 100 mls/hr IV Q12H [facility] Last Admin: 11/03/17 02:12 Dose: 100 mls/hr Levothyroxine Sodium (Levothyroxine) 25 mcg PO ACBREAKFAST [facility] Last Admin: 11/03/17 05:26 Dose: Not Given Lorazepam (Ativan) 0.5 mg IVPUSH Q4H PRN; Protocol PRN Reason: Anxiety Magnesium Sulfate (Pharmacy To Dose - Magnesium Replacement) 1 dose .XX ASDIRECTED [facility] Metoprolol Tartrate (Lopressor) 5 mg IVPUSH Q4H PRN PRN Reason: Tachycardia Last Admin: 11/01/17 04:14 Dose: 5 mg Miscellaneous Information (Remove Patch) 0 ea TRDERM Q72H ONE Stop: 11/05/17 07:16 Ondansetron HCl (Zofran) 4 mg IVPUSH Q8H PRN PRN Reason: Nausea/Vomiting Potassium Chloride (Pharmacy To Dose - Potassium Replacement) 1 dose .XX ASDIRECTED [facility] Rosuvastatin Calcium (Crestor) 10 mg PO DAILY [facility] Last Admin: 11/02/17 08:45 Dose: Not Given Temazepam (Restoril) 30 mg PO BEDTIME PRN PRN Reason: Insomnia Discontinued Medications Acetaminophen (Tylenol Solution) 650 mg PO Q4H PRN PRN Reason: Fever Last Admin: 10/31/17 01:14 Dose: 650 mg Amantadine HCl (Symmetrel 50 Mg/5 Ml Soln) 75 mg PO BID [facility] Last Admin: 10/31/17 00:59 Dose: Not Given Bisacodyl (Dulcolax) 10 mg RECTAL ONETIME ONE Stop: 10/31/17 07:39 Last Admin: 10/31/17 08:54 Dose: 10 mg Bumetanide (Bumex) 0.5 mg IVPUSH ONETIME ONE Stop: 11/02/17 19:29 Last Admin: 11/02/17 22:09 Dose: 0.5 mg Clonidine HCl (Catapres Tts-2) 0.2 mg TRDERM Q7D ONE Stop: 10/31/17 18:01 Last Admin: 10/31/17 18:13 Dose: 0.2 mg Dextrose/Water (Dextrose 50% In Water) 25 ml IVPUSH ONETIME [facility] Stop: 10/30/17 12:55 Last Admin: 10/30/17 12:59 Dose: 25 ml Hydromorphone HCl (Dilaudid) 0.25 mg IVPUSH Q4H PRN PRN Reason: Pain Last Admin: 10/31/17 14:53 Dose: 0.25 mg Sodium Chloride (Normal Saline) 1,000 mls @ 999 mls/hr IV ONETIME ONE Stop: 10/30/17 12:26 Last Admin: 10/30/17 11:44 Dose: 999 mls/hr Dextrose/Sodium Chloride (Dextrose 5%-Normal Saline) 1,000 mls @ 150 mls/hr IV ASDIRECTED [facility] Last Admin: 10/31/17 16:45 Dose: 150 mls/hr Ceftazidime 2 gm/ Sodium (Chloride) 50 mls @ 100 mls/hr IV ONETIME STA Stop: 10/30/17 13:35 Last Admin: 10/31/17 05:02 Dose: Not Given Levofloxacin/Dextrose 750 mg/ (Premix) 150 mls @ 100 mls/hr IV ONETIME ONE Stop: 10/30/17 14:39 Last Admin: 10/30/17 16:46 Dose: Not Given Vancomycin HCl 1 gm/ Sodium (Chloride) 250 mls @ 250 mls/hr IV ONETIME ONE Stop: 10/30/17 14:10 Last Admin: 10/30/17 13:33 Dose: 250 mls/hr Ceftazidime 2 gm/ Sodium (Chloride) 100 mls @ 200 mls/hr IV ONETIME ONE Stop: 10/30/17 14:14 Last Admin: 10/30/17 15:38 Dose: 200 mls/hr Sodium Chloride (Sodium Chloride 0.45%) 500 mls @ 999 mls/hr IV ONETIME ONE Stop: 10/30/17 15:58 Last Admin: 10/30/17 15:38 Dose: 999 mls/hr Vancomycin HCl 1 gm/ Sodium (Chloride) 250 mls @ 250 mls/hr IV Q24H [facility] Cefepime HCl 1 gm/ Premix 50 mls @ 100 mls/hr IV Q8H [facility] Last Admin: 10/31/17 19:55 Dose: Not Given Potassium Chloride 10 meq/ (Premix) 100 mls @ 100 mls/hr IV Q1H [facility] Stop: 10/31/17 23:29 Last Admin: 10/31/17 23:27 Dose: 100 mls/hr Cefepime HCl 1 gm/ Sodium (Chloride) 50 mls @ 100 mls/hr IV Q8H [facility] Last Admin: 10/31/17 20:48 Dose: Not Given Cefepime HCl (Maxipime In D5w 2 Gm/50 Ml) 25 mls @ 50 mls/hr IV Q8H [facility] Last Admin: 11/01/17 04:27 Dose: 50 mls/hr Magnesium Sulfate 2 gm/ Premix 50 mls @ 25 mls/hr IV Q2H [facility] Stop: 11/01/17 11:29 Last Admin: 01/10/18 10:30 Dose: 25 mls/hr Cefepime HCl 2 gm/ Premix 50 mls @ 100 mls/hr IV Q8H [facility] Metoprolol Tartrate (Lopressor) 5 mg IVPUSH Q4H PRN PRN Reason: heart rate> 120 Last Admin: 10/31/17 01:14 Dose: 5 mg Potassium Chloride (Klor-Con M20) 20 meq PO Q3H [facility] Stop: 10/31/17 20:31 Last Admin: 10/31/17 19:55 Dose: Not Given Potassium Chloride (Klor-Con M20) 40 meq PO ONETIME ONE Stop: 11/02/17 08:01 Scopolamine (Scopolamine) 1 each TRDERM Q72H ONE Stop: 11/02/17 07:01 Last Admin: 11/02/17 07:24 Dose: 1 each Vancomycin HCl (Pharmacy To Dose - Vancomycin) 1 dose .XX ASDIRECTED [facility] - Exam Quality Assessment: Supplemental Oxygen HEENT: Pupils Equal, Pupils Reactive Neck: No JVD, No Thyromegaly. No: Trachea Midline Lungs: Decreased Breath Sounds, Rales, Rhonchi. No: Normal Respiratory Effort Cardiovascular: Tachycardia GI/Abdominal Exam: Normal Bowel Sounds, Soft, Non-Tender, No Organomegaly, No Distention, No Abnormal Bruit, No Mass (Female) Exam: Deferred Back Exam: Normal Inspection Extremities: Normal Inspection, Non-Tender, No Pedal Edema, Normal Capillary Refill Peripheral Pulses: 2+: Dorsalis Pedis (L), Dorsalis Pedis (R) Skin: Warm, Dry, Intact Neurological: No New Focal Deficit Psy/Mental Status: Other (Awake). No: Normal Affect - Problem List Review Problem List Initiated/Reviewed/Updated: Yes - Plan Plan:: Impression: Acute: Aspiration PNA, Worsening - Risk Factors: CVA with Expressive Aphasia, Recurrent PNA, Swallow and Speech Problems with MS - [employer] GR[employer]ER on board for further evaluation - She was on PEG tube and was just discontinued about a month ago - Blood cultures are negative - Continue IV Levaquin 750 mg IV daily and Doxycycline - She gets hives with PCN per daughter - Aspiration precautions, supplemental O2, H2B and routine RT care - She is now on 4L NC - Serial CXR: repeat CRX this am shows worsening lung field with pleural effusions UTI - Risk Factors: She is bed-bound from her debilitating MS and carries a hx/o recurrent UTI - She also has chronic incontinence and uses daily under pads - Continue IV Levaquin for antibiotic coverage - UA pos for Kleb pneumonia sensitive to Quinolones Dysphagia, Still NPO and Worsening - 2/2 Hx/o CVA tessie worsened by Advanced MS - Swallow eval on 07/18 2017 shows Ana Rosa-pharyngeal Dysphagia - SAMPLE TE[employer] GR[employer]ER recommends NPO - Suctioned 1 whole unit of canister full of ana rosa-pharyngeal secretions - PEG Tube for sustenance; daughter agreed AMS/Encephalopathy, Unchanged - 2/2 Above - Supportive care Query Parkinson's Disease vs Drug Induced Extra-Pyramidal Symptoms - She is on Amantadine - Reviewed home meds; no medications for MS Resolved: Leukocytosis - WBC 10. 12--> 9.29 and CRP 47--> 41.6 - 2/2 Above - Treatment as above HTN - Acute on chronic - 2/2 above infections and stress - PRN BP medications Sinus Tachycardia - Likely 2/2 Above infections - EKG shows sinus tachycardia - Clonidine Patch x1 - Metoprolol PRN for HR > 110 Chronic: Impaired Vision HLD Hypothyroidism Hyponatemia OA/DJD Hx/o Advanced MS not on Maintenance Medications except for Amantadine History of CVA with left sided hemiparesis/expressive aphasia Hx/o PEG tube placement Plan: Clinically not much improvement Continue current treatment Scopolamine Patch for oral secretions Continue Aspiration/Fall Precautions Routine Daily Labs GS consult for PEG Tube Placement DVT/GI prophylaxis: Lovenox SubQ and H2B Additional orders as above Code status: DNR/DNI Consider Comfort Measures; daughter is not receptive at this time Prognosis is poor with no significant improvements in her overall clinical status
[2017-11-03] MEDS: Enoxaparin 40 MG/0.4 ML Syringe SUBCUT SCH (10:13)
[2017-11-03] MEDS: Famotidine 20 MG/2 ML SDV IVPUSH SCH ×2 (10:13→20:51)
[2017-11-03] MEDS: Potassium Chloride 10 MEQ in Premix Bag 1 BAG IV SCH ×6 (10:13→16:17)
[2017-11-03] MEDS: Dextrose 5%-0.9% NaCl 1,000 ML IV SCH (10:18)
[2017-11-03] MEDS: Rosuvastatin 10 MG Tab PO SCH (12:44)
[2017-11-03] MEDS: Amantadine Soln 50 MG/5 ML UD Cup PO SCH ×2 (12:44→20:52)
--- NOTE | 2017-11-03 14:02 | PCM.CONSN ---
- General Info Date of Service: 11/03/17 - Patient Data Vitals - Most Recent: Last Vital Signs Temp 97.2 F 11/03/17 12:36 Pulse 106 H 11/03/17 12:36 Resp 22 H 11/03/17 12:36 BP 153/76 H 11/03/17 12:36 Pulse Ox 95 11/03/17 12:36 Weight - Most Recent: 60.645 kg I&O - Last 24 Hours: Intake & Output 11/02/17 11/03/17 11/03/17 23:59 07:59 15:59 Intake Total 550 349 Balance 550 349 Lab Results Last 24 Hours: Laboratory Results - last 24 hr 11/02/17 11/03/17 11/03/17 Range/Units 11:37 00:30 06:06 WBC (3.98-10.04) K/mm3 RBC (3.98-5.22) M/mm3 Hgb (11.2-15.7) gm/L Hct (34.1-44.9) % MCV (79.4-94.8) fl MCH (25.6-32.2) pg MCHC (32.2-35.5) g/dl RDW Std Deviation (36.4-46.3) fL Plt Count (182-369) K/mm3 MPV (9.4-12.3) fl Neut % (Auto) (34.0-71.1) % Lymph % (Auto) (19.3-51.7) % [place] % (Auto) (4.7-12.5) % Eos % (Auto) (0.7-5.8) Baso % (Auto) (0.1-1.2) % Neut # (Auto) (1.56-6.13) K/mm3 Lymph # (Auto) (1.18-3.74) K/mm3 [place] # (Auto) (0.24-0.36) K/mm3 Eos # (Auto) (0.04-0.36) K/mm3 Baso # (Auto) (0.01-0.08) K/mm3 Manual Slide Review Sodium (136-145) mEq/L Potassium (3.5-5.1) mEq/L Chloride (98-107) mEq/L Carbon Dioxide (21-32) mEq/L Anion Gap (5-15) BUN (7-18) mg/dL Creatinine (0.55-1.02) mg/dL Est Cr Clr Drug Dosing mL/min Estimated GFR (MDRD) (>60) mL/min BUN/Creatinine Ratio (14-18) Glucose (80-115) mg/dL POC Glucose 103 103 108 (80-115) mg/dL Lactic Acid (0.4-2.0) mmol/L Calcium (8.5-10.1) mg/dL C-Reactive Protein (<1.0) mg/dL 11/03/17 11/03/17 11/03/17 Range/Units 06:16 06:16 06:16 WBC 6.68 (3.98-10.04) K/mm3 RBC 3.92 L (3.98-5.22) M/mm3 Hgb 11.6 (11.2-15.7) gm/L Hct 36.0 (34.1-44.9) % MCV 91.8 (79.4-94.8) fl MCH 29.6 (25.6-32.2) pg MCHC 32.2 (32.2-35.5) g/dl RDW Std Deviation 59.7 H (36.4-46.3) fL Plt Count 134 L (182-369) K/mm3 MPV 10.0 (9.4-12.3) fl Neut % (Auto) 50.7 (34.0-71.1) % Lymph % (Auto) 13.3 L (19.3-51.7) % [place] % (Auto) 21.7 H (4.7-12.5) % Eos % (Auto) 0.1 L (0.7-5.8) Baso % (Auto) 1.5 H (0.1-1.2) % Neut # (Auto) 3.38 (1.56-6.13) K/mm3 Lymph # (Auto) 0.89 L (1.18-3.74) K/mm3 [place] # (Auto) 1.45 H (0.24-0.36) K/mm3 Eos # (Auto) 0.01 L (0.04-0.36) K/mm3 Baso # (Auto) 0.10 H (0.01-0.08) K/mm3 Manual Slide Review Abnormal smear Sodium 147 H (136-145) mEq/L Potassium 3.2 L (3.5-5.1) mEq/L Chloride 106 (98-107) mEq/L Carbon Dioxide 35 H (21-32) mEq/L Anion Gap 9.2 (5-15) BUN 11 (7-18) mg/dL Creatinine 0.4 L (0.55-1.02) mg/dL Est Cr Clr Drug Dosing 115.99 mL/min Estimated GFR (MDRD) > 60 (>60) mL/min BUN/Creatinine Ratio 27.5 H (14-18) Glucose 107 (80-115) mg/dL POC Glucose (80-115) mg/dL Lactic Acid 0.9 (0.4-2.0) mmol/L Calcium 8.9 (8.5-10.1) mg/dL C-Reactive Protein 27.9 H* (<1.0) mg/dL 11/03/17 Range/Units 12:31 WBC (3.98-10.04) K/mm3 RBC (3.98-5.22) M/mm3 Hgb (11.2-15.7) gm/L Hct (34.1-44.9) % MCV (79.4-94.8) fl MCH (25.6-32.2) pg MCHC (32.2-35.5) g/dl RDW Std Deviation (36.4-46.3) fL Plt Count (182-369) K/mm3 MPV (9.4-12.3) fl Neut % (Auto) (34.0-71.1) % Lymph % (Auto) (19.3-51.7) % [place] % (Auto) (4.7-12.5) % Eos % (Auto) (0.7-5.8) Baso % (Auto) (0.1-1.2) % Neut # (Auto) (1.56-6.13) K/mm3 Lymph # (Auto) (1.18-3.74) K/mm3 [place] # (Auto) (0.24-0.36) K/mm3 Eos # (Auto) (0.04-0.36) K/mm3 Baso # (Auto) (0.01-0.08) K/mm3 Manual Slide Review Sodium (136-145) mEq/L Potassium (3.5-5.1) mEq/L Chloride (98-107) mEq/L Carbon Dioxide (21-32) mEq/L Anion Gap (5-15) BUN (7-18) mg/dL Creatinine (0.55-1.02) mg/dL Est Cr Clr Drug Dosing mL/min Estimated GFR (MDRD) (>60) mL/min BUN/Creatinine Ratio (14-18) Glucose (80-115) mg/dL POC Glucose 99 (80-115) mg/dL Lactic Acid (0.4-2.0) mmol/L Calcium (8.5-10.1) mg/dL C-Reactive Protein (<1.0) mg/dL Med Orders - Current: Current Medications Acetaminophen (Tylenol) 650 mg RECTAL Q4H PRN PRN Reason: Fever Last Admin: 10/31/17 10:51 Dose: 650 mg Albuterol (Proventil Neb Soln) 2.5 mg NEB Q4HRRT PRN PRN Reason: Shortness of Breath Last Admin: 10/31/17 01:41 Dose: 2.5 mg Albuterol/Ipratropium (Duoneb 3.0-0.5 Mg/3 Ml) 3 ml NEB QIDRT [facility] Last Admin: 11/03/17 09:48 Dose: 3 ml Amantadine HCl (Symmetrel 50 Mg/5 Ml Soln) 75 mg PO BID [facility] Last Admin: 11/03/17 12:44 Dose: Not Given Diclofenac Sodium (Voltaren 1% Gel) 0 gm TOP QID PRN PRN Reason: PAIN Enoxaparin Sodium (Lovenox) 40 mg SUBCUT DAILY [facility] Last Admin: 11/03/17 10:13 Dose: 40 mg Famotidine (Pepcid) 20 mg IVPUSH BID [facility] Last Admin: 11/03/17 10:13 Dose: 20 mg Guaifenesin (Mucinex) 600 mg PO BID PRN PRN Reason: Congestion Hydralazine HCl (Apresoline) 20 mg IVPUSH Q4H PRN PRN Reason: Hypertension Last Admin: 11/01/17 20:51 Dose: 20 mg Hydromorphone HCl (Dilaudid) 0.5 mg IVPUSH Q4H PRN PRN Reason: Pain Last Admin: 11/02/17 14:11 Dose: 0.5 mg Levofloxacin/Dextrose 750 mg/ (Premix) 150 mls @ 100 mls/hr IV Q24H [facility] Last Admin: 11/02/17 17:55 Dose: 100 mls/hr Doxycycline Hyclate 100 mg/ (Dextrose/Water) 100 mls @ 100 mls/hr IV Q12H [facility] Last Admin: 11/03/17 02:12 Dose: 100 mls/hr Potassium Chloride 10 meq/ (Premix) 100 mls @ 100 mls/hr IV Q1H [facility] Stop: 11/03/17 14:59 Last Admin: 11/03/17 13:55 Dose: 100 mls/hr Potassium Chloride/Dextrose/Sod Cl (D5 1/2 Ns W/ 40 Meq/L Kcl) 1,000 mls @ 35 mls/hr IV ASDIRECTED [facility] Levothyroxine Sodium (Levothyroxine) 25 mcg PO ACBREAKFAST [facility] Last Admin: 11/03/17 05:26 Dose: Not Given Lorazepam (Ativan) 0.5 mg IVPUSH Q4H PRN; Protocol PRN Reason: Anxiety Magnesium Sulfate (Pharmacy To Dose - Magnesium Replacement) 1 dose .XX ASDIRECTED [facility] Metoprolol Tartrate (Lopressor) 5 mg IVPUSH Q4H PRN PRN Reason: Tachycardia Last Admin: 11/01/17 04:14 Dose: 5 mg Miscellaneous Information (Remove Patch) 0 ea TRDERM Q72H ONE Stop: 11/05/17 07:16 Ondansetron HCl (Zofran) 4 mg IVPUSH Q8H PRN PRN Reason: Nausea/Vomiting Potassium Chloride (Pharmacy To Dose - Potassium Replacement) 1 dose .XX ASDIRECTED [facility] Rosuvastatin Calcium (Crestor) 10 mg PO DAILY [facility] Last Admin: 11/03/17 12:44 Dose: Not Given Temazepam (Restoril) 30 mg PO BEDTIME PRN PRN Reason: Insomnia Discontinued Medications Acetaminophen (Tylenol Solution) 650 mg PO Q4H PRN PRN Reason: Fever Last Admin: 10/31/17 01:14 Dose: 650 mg Amantadine HCl (Symmetrel 50 Mg/5 Ml Soln) 75 mg PO BID [facility] Last Admin: 10/31/17 00:59 Dose: Not Given Bisacodyl (Dulcolax) 10 mg RECTAL ONETIME ONE Stop: 10/31/17 07:39 Last Admin: 10/31/17 08:54 Dose: 10 mg Bumetanide (Bumex) 0.5 mg IVPUSH ONETIME ONE Stop: 11/02/17 19:29 Last Admin: 11/02/17 22:09 Dose: 0.5 mg Clonidine HCl (Catapres Tts-2) 0.2 mg TRDERM Q7D ONE Stop: 10/31/17 18:01 Last Admin: 10/31/17 18:13 Dose: 0.2 mg Dextrose/Water (Dextrose 50% In Water) 25 ml IVPUSH ONETIME [facility] Stop: 10/30/17 12:55 Last Admin: 10/30/17 12:59 Dose: 25 ml Hydromorphone HCl (Dilaudid) 0.25 mg IVPUSH Q4H PRN PRN Reason: Pain Last Admin: 10/31/17 14:53 Dose: 0.25 mg Sodium Chloride (Normal Saline) 1,000 mls @ 999 mls/hr IV ONETIME ONE Stop: 10/30/17 12:26 Last Admin: 10/30/17 11:44 Dose: 999 mls/hr Dextrose/Sodium Chloride (Dextrose 5%-Normal Saline) 1,000 mls @ 150 mls/hr IV ASDIRECTED [facility] Last Admin: 10/31/17 16:45 Dose: 150 mls/hr Ceftazidime 2 gm/ Sodium (Chloride) 50 mls @ 100 mls/hr IV ONETIME [facility] Stop: 10/30/17 13:35 Last Admin: 10/31/17 05:02 Dose: Not Given Levofloxacin/Dextrose 750 mg/ (Premix) 150 mls @ 100 mls/hr IV ONETIME ONE Stop: 10/30/17 14:39 Last Admin: 10/30/17 16:46 Dose: Not Given Vancomycin HCl 1 gm/ Sodium (Chloride) 250 mls @ 250 mls/hr IV ONETIME ONE Stop: 10/30/17 14:10 Last Admin: 10/30/17 13:33 Dose: 250 mls/hr Ceftazidime 2 gm/ Sodium (Chloride) 100 mls @ 200 mls/hr IV ONETIME ONE Stop: 10/30/17 14:14 Last Admin: 10/30/17 15:38 Dose: 200 mls/hr Sodium Chloride (Sodium Chloride 0.45%) 500 mls @ 999 mls/hr IV ONETIME ONE Stop: 10/30/17 15:58 Last Admin: 10/30/17 15:38 Dose: 999 mls/hr Vancomycin HCl 1 gm/ Sodium (Chloride) 250 mls @ 250 mls/hr IV Q24H [facility] Cefepime HCl 1 gm/ Premix 50 mls @ 100 mls/hr IV Q8H [facility] Last Admin: 10/31/17 19:55 Dose: Not Given Potassium Chloride 10 meq/ (Premix) 100 mls @ 100 mls/hr IV Q1H [facility] Stop: 10/31/17 23:29 Last Admin: 10/31/17 23:27 Dose: 100 mls/hr Cefepime HCl 1 gm/ Sodium (Chloride) 50 mls @ 100 mls/hr IV Q8H [facility] Last Admin: 10/31/17 20:48 Dose: Not Given Cefepime HCl (Maxipime In D5w 2 Gm/50 Ml) 25 mls @ 50 mls/hr IV Q8H [facility] Last Admin: 11/01/17 04:27 Dose: 50 mls/hr Dextrose/Sodium Chloride (Dextrose 5%-Normal Saline) 1,000 mls @ 25 mls/hr IV ASDIRECTED [facility] Last Admin: 11/03/17 10:18 Dose: 25 mls/hr Magnesium Sulfate 2 gm/ Premix 50 mls @ 25 mls/hr IV Q2H [facility] Stop: 11/01/17 11:29 Last Admin: 11/01/17 10:30 Dose: 25 mls/hr Cefepime HCl 2 gm/ Premix 50 mls @ 100 mls/hr IV Q8H [facility] Metoprolol Tartrate (Lopressor) 5 mg IVPUSH Q4H PRN PRN Reason: heart rate> 120 Last Admin: 10/31/17 01:14 Dose: 5 mg Potassium Chloride (Klor-Con M20) 20 meq PO Q3H [facility] Stop: 10/31/17 20:31 Last Admin: 10/31/17 19:55 Dose: Not Given Potassium Chloride (Klor-Con M20) 40 meq PO ONETIME ONE Stop: 11/02/17 08:01 Scopolamine (Scopolamine) 1 each TRDERM Q72H ONE Stop: 11/02/17 07:01 Last Admin: 11/02/17 07:24 Dose: 1 each Vancomycin HCl (Pharmacy To Dose - Vancomycin) 1 dose .XX ASDIRECTED [facility] Consult PN Assessment/Plan Procedures: Procedures AIRWAY INHALATION TREATMENT (10/29/17) ASSAY OF LACTIC ACID (10/29/17) ASSAY OF TROPONIN QUANT (07/03/17) BLOOD CULTURE FOR BACTERIA (10/29/17) C-REACTIVE PROTEIN (10/29/17) CHEST X-RAY 1 VIEW FRONTAL (07/03/17) CINE/VID X-RAY THROAT/ESOPH (08/04/17) COMPLETE CBC W/AUTO DIFF WBC (10/29/17) COMPREHEN METABOLIC PANEL (10/29/17) CT HEAD/BRAIN W/O DYE (07/03/17) ELECTROCARDIOGRAM TRACING (07/03/17) EMERGENCY DEPT VISIT (10/29/17) EMERGENCY DEPT VISIT (06/28/14) INFLUENZA ASSAY W/OPTIC (10/29/17) MOTION FLUOROSCOPY/SWALLOW (08/04/17) PROTHROMBIN TIME (07/02/17) ROUTINE VENIPUNCTURE (10/29/17) THER/PROPH/DIAG IV INF INIT (10/29/17) THROMBOPLASTIN TIME PARTIAL (07/02/17) URINALYSIS AUTO W/SCOPE (10/29/17) X-RAY EXAM CHEST 1 VIEW (10/29/17) Problem List Initiated/Reviewed/Updated: Yes Plan: surgical consult dictated KIMI
[2017-11-03] MEDS: Metoprolol Tartrate 5 MG/5 ML SDV IVPUSH PRN (15:35)
[2017-11-03] MEDS: D5 1/2 NS w/ 40 mEq/L KCl 1,000 ML IV SCH (17:48)
[2017-11-03] MEDS: Levofloxacin/Dextrose 5%-Water 750 MG in Premix Bag 1 BAG IV SCH (17:50)
[2017-11-03] MEDS: hydrALAZINE 20 MG/ML SDV IVPUSH PRN (20:52)
[2017-11-04] MEDS: Albuterol/Ipratropium 3.0-0.5 MG/3 ML Neb Soln NEB SCH ×4 (06:18→21:34)
--- NOTE | 2017-11-04 07:01 | PCM.PN ---
- General Info Date of Service: 11/04/17 Admission Dx/Problem (Free Text): Admission Diagnosis/Problem Admission Diagnosis/Problem Pneumonia Subjective Update: Follow Up Functional Status: Reports: Pain Controlled, Urinating. Denies: Tolerating Diet , Ambulating, New Symptoms - Review of Systems General: Denies: Fever, Chills HEENT: Reports: No Symptoms Pulmonary: Reports: Shortness of Breath, Other (tachypneic) Cardiovascular: Reports: No Symptoms Gastrointestinal: Denies: Abdominal Pain, Difficulty Swallowing, Nausea, Vomiting Genitourinary: Reports: No Symptoms Musculoskeletal: Reports: No Symptoms Skin: Reports: Mottled. Denies: Cyanosis Neurological: Reports: Pre-Existing Deficit, Trouble Speaking, Difficulty Walking, Change in Speech, Gait Disturbance Psychiatric: Denies: No Symptoms, Mood Lability, Agitation, Suicidal Ideation Systems Review Comment:: Overnight patient went into respiratory distress requiring higher amount of supplemental O2. She also had increased mottling on bilateral lower extremity. Family was informed about this new changes. This morning she seems to be better but not much. Overall all she is not back to her baseline. - Patient Data Vitals - Most Recent: Last Vital Signs Temp 36.5 C 11/04/17 04:00 Pulse 105 H 11/04/17 04:00 Resp 28 H 11/04/17 04:00 BP 136/45 L 11/04/17 04:00 Pulse Ox 100 11/04/17 06:20 Weight - Most Recent: 59.92 kg I&O - Last 24 Hours: Intake & Output 11/03/17 11/04/17 11/04/17 22:59 06:59 14:59 Intake Total 1060 421 Balance 1060 421 Lab Results Last 24 Hours: Laboratory Results - last 24 hr 11/03/17 11/03/17 11/03/17 Range/Units 06:16 06:16 06:16 Manual Slide Review Abnormal smear Sodium 147 H (136-145) mEq/L Potassium 3.2 L (3.5-5.1) mEq/L Chloride 106 (98-107) mEq/L Carbon Dioxide 35 H (21-32) mEq/L Anion Gap 9.2 (5-15) BUN 11 (7-18) mg/dL Creatinine 0.4 L (0.55-1.02) mg/dL Est Cr Clr Drug Dosing 115.99 mL/min Estimated GFR (MDRD) > 60 (>60) mL/min BUN/Creatinine Ratio 27.5 H (14-18) Glucose 107 (80-115) mg/dL POC Glucose (80-115) mg/dL Lactic Acid 0.9 (0.4-2.0) mmol/L Calcium 8.9 (8.5-10.1) mg/dL C-Reactive Protein 27.9 H* (<1.0) mg/dL 11/03/17 11/03/17 11/03/17 Range/Units 12:31 17:27 20:59 Manual Slide Review Sodium (136-145) mEq/L Potassium (3.5-5.1) mEq/L Chloride (98-107) mEq/L Carbon Dioxide (21-32) mEq/L Anion Gap (5-15) BUN (7-18) mg/dL Creatinine (0.55-1.02) mg/dL Est Cr Clr Drug Dosing mL/min Estimated GFR (MDRD) (>60) mL/min BUN/Creatinine Ratio () Glucose (80-115) mg/dL POC Glucose 99 99 103 (80-115) mg/dL Lactic Acid (0.4-2.0) mmol/L Calcium (8.5-10.1) mg/dL C-Reactive Protein (<1.0) mg/dL 11/04/17 11/04/17 Range/Units 00:27 06:11 Manual Slide Review Sodium (136-145) mEq/L Potassium (3.5-5.1) mEq/L Chloride (98-107) mEq/L Carbon Dioxide (21-32) mEq/L Anion Gap (5-15) BUN (7-18) mg/dL Creatinine (0.55-1.02) mg/dL Est Cr Clr Drug Dosing mL/min Estimated GFR (MDRD) (>60) mL/min BUN/Creatinine Ratio (-18) Glucose (80-115) mg/dL POC Glucose 105 107 (80-115) mg/dL Lactic Acid (0.4-2.0) mmol/L Calcium (8.5-10.1) mg/dL C-Reactive Protein (<1.0) mg/dL Med Orders - Current: Current Medications Acetaminophen (Tylenol) 650 mg RECTAL Q4H PRN PRN Reason: Fever Last Admin: 10/31/17 10:51 Dose: 650 mg Albuterol (Proventil Neb Soln) 2.5 mg NEB Q4HRRT PRN PRN Reason: Shortness of Breath Last Admin: 10/31/17 01:41 Dose: 2.5 mg Albuterol/Ipratropium (Duoneb 3.0-0.5 Mg/3 Ml) 3 ml NEB QIDRT [facility] Last Admin: 11/04/17 06:18 Dose: 3 ml Amantadine HCl (Symmetrel 50 Mg/5 Ml Soln) 75 mg PO BID [facility] [place] Last Admin: 11/03/17 20:52 Dose: Not Given Diclofenac Sodium (Voltaren 1% Gel) 0 gm TOP QID PRN PRN Reason: PAIN Enoxaparin Sodium (Lovenox) 40 mg SUBCUT DAILY [facility] [place] Last Admin: 11/03/17 10:13 Dose: 40 mg Famotidine (Pepcid) 20 mg IVPUSH BID [facility] [place] Last Admin: 11/03/17 20:51 Dose: 20 mg Guaifenesin (Mucinex) 600 mg PO BID PRN PRN Reason: Congestion Hydralazine HCl (Apresoline) 20 mg IVPUSH Q4H PRN PRN Reason: Hypertension Last Admin: 11/03/17 20:52 Dose: 20 mg Hydromorphone HCl (Dilaudid) 0.5 mg IVPUSH Q4H PRN PRN Reason: Pain Last Admin: 11/02/17 14:11 Dose: 0.5 mg Levofloxacin/Dextrose 750 mg/ (Premix) 150 mls @ 100 mls/hr IV Q24H [facility] [place] Last Admin: 11/03/17 17:50 Dose: 100 mls/hr Doxycycline Hyclate 100 mg/ (Dextrose/Water) 100 mls @ 100 mls/hr IV Q12H [facility] [place] Last Admin: 11/04/17 01:19 Dose: 100 mls/hr Potassium Chloride/Dextrose/Sod Cl (D5 1/2 Ns W/ 40 Meq/L Kcl) 1,000 mls @ 35 mls/hr IV ASDIRECTED [facility] [place] Last Admin: 11/03/17 17:48 Dose: 35 mls/hr Cefazolin Sodium/Dextrose 2 gm (/ Premix) 50 mls @ 100 mls/hr IV ONETIME ONE Stop: 11/06/17 08:44 Levothyroxine Sodium (Levothyroxine) 25 mcg PO ACBREAKFAST [facility] [place] Last Admin: 11/03/17 05:26 Dose: Not Given Lorazepam (Ativan) 0.5 mg IVPUSH Q4H PRN; Protocol PRN Reason: Anxiety Magnesium Sulfate (Pharmacy To Dose - Magnesium Replacement) 1 dose .XX ASDIRECTED [facility] [place] Metoprolol Tartrate (Lopressor) 5 mg IVPUSH Q4H PRN PRN Reason: Tachycardia Last Admin: 11/03/17 15:35 Dose: 5 mg Miscellaneous Information (Remove Patch) 0 ea TRDERM Q72H ONE Stop: 11/05/17 07:16 Ondansetron HCl (Zofran) 4 mg IVPUSH Q8H PRN PRN Reason: Nausea/Vomiting Potassium Chloride (Pharmacy To Dose - Potassium Replacement) 1 dose .XX ASDIRECTED [facility] [place] Rosuvastatin Calcium (Crestor) 10 mg PO DAILY [facility] [place] Last Admin: 11/03/17 12:44 Dose: Not Given Temazepam (Restoril) 30 mg PO BEDTIME PRN PRN Reason: Insomnia Discontinued Medications Acetaminophen (Tylenol Solution) 650 mg PO Q4H PRN PRN Reason: Fever Last Admin: 10/31/17 01:14 Dose: 650 mg Amantadine HCl (Symmetrel 50 Mg/5 Ml Soln) 75 mg PO BID [facility] [place] Last Admin: 10/31/17 00:59 Dose: Not Given Bisacodyl (Dulcolax) 10 mg RECTAL ONETIME ONE Stop: 10/31/17 07:39 Last Admin: 10/31/17 08:54 Dose: 10 mg Bumetanide (Bumex) 0.5 mg IVPUSH ONETIME ONE Stop: 11/02/17 19:29 Last Admin: 11/02/17 22:09 Dose: 0.5 mg Clonidine HCl (Catapres Tts-2) 0.2 mg TRDERM Q7D ONE Stop: 10/31/17 18:01 Last Admin: 10/31/17 18:13 Dose: 0.2 mg Dextrose/Water (Dextrose 50% In Water) 25 ml IVPUSH ONETIME STA Stop: 10/30/17 12:55 Last Admin: 10/30/17 12:59 Dose: 25 ml Hydromorphone HCl (Dilaudid) 0.25 mg IVPUSH Q4H PRN PRN Reason: Pain Last Admin: 10/31/17 14:53 Dose: 0.25 mg Sodium Chloride (Normal Saline) 1,000 mls @ 999 mls/hr IV ONETIME ONE Stop: 10/30/17 12:26 Last Admin: 10/30/17 11:44 Dose: 999 mls/hr Dextrose/Sodium Chloride (Dextrose 5%-Normal Saline) 1,000 mls @ 150 mls/hr IV ASDIRECTED [facility] [place] Last Admin: 10/31/17 16:45 Dose: 150 mls/hr Ceftazidime 2 gm/ Sodium (Chloride) 50 mls @ 100 mls/hr IV ONETIME STA Stop: 10/30/17 13:35 Last Admin: 10/31/17 05:02 Dose: Not Given Levofloxacin/Dextrose 750 mg/ (Premix) 150 mls @ 100 mls/hr IV ONETIME ONE Stop: 10/30/17 14:39 Last Admin: 10/30/17 16:46 Dose: Not Given Vancomycin HCl 1 gm/ Sodium (Chloride) 250 mls @ 250 mls/hr IV ONETIME ONE Stop: 10/30/17 14:10 Last Admin: 10/30/17 13:33 Dose: 250 mls/hr Ceftazidime 2 gm/ Sodium (Chloride) 100 mls @ 200 mls/hr IV ONETIME ONE Stop: 10/30/17 14:14 Last Admin: 10/30/17 15:38 Dose: 200 mls/hr Sodium Chloride (Sodium Chloride 0.45%) 500 mls @ 999 mls/hr IV ONETIME ONE Stop: 10/30/17 15:58 Last Admin: 10/30/17 15:38 Dose: 999 mls/hr Vancomycin HCl 1 gm/ Sodium (Chloride) 250 mls @ 250 mls/hr IV Q24H [facility] [place] Cefepime HCl 1 gm/ Premix 50 mls @ 100 mls/hr IV Q8H [facility] [place] Last Admin: 10/31/17 19:55 Dose: Not Given Potassium Chloride 10 meq/ (Premix) 100 mls @ 100 mls/hr IV Q1H [facility] [place] Stop: 10/31/17 23:29 Last Admin: 10/31/17 23:27 Dose: 100 mls/hr Cefepime HCl 1 gm/ Sodium (Chloride) 50 mls @ 100 mls/hr IV Q8H [facility] [place] Last Admin: 10/31/17 20:48 Dose: Not Given Cefepime HCl (Maxipime In D5w 2 Gm/50 Ml) 25 mls @ 50 mls/hr IV Q8H [facility] [place] Last Admin: 11/01/17 04:27 Dose: 50 mls/hr Dextrose/Sodium Chloride (Dextrose 5%-Normal Saline) 1,000 mls @ 25 mls/hr IV ASDIRECTED [facility] [place] Last Admin: 11/03/17 10:18 Dose: 25 mls/hr Magnesium Sulfate 2 gm/ Premix 50 mls @ 25 mls/hr IV Q2H [facility] [place] Stop: 11/01/17 11:29 Last Admin: 11/01/17 10:30 Dose: 25 mls/hr Cefepime HCl 2 gm/ Premix 50 mls @ 100 mls/hr IV Q8H [facility] [place] Potassium Chloride 10 meq/ (Premix) 100 mls @ 100 mls/hr IV Q1H [facility] [place] Stop: 11/03/17 14:59 Last Admin: 11/03/17 16:17 Dose: 100 mls/hr Metoprolol Tartrate (Lopressor) 5 mg IVPUSH Q4H PRN PRN Reason: heart rate> 120 Last Admin: 10/31/17 01:14 Dose: 5 mg Potassium Chloride (Klor-Con M20) 20 meq PO Q3H [facility] [place] Stop: 10/31/17 20:31 Last Admin: 10/31/17 19:55 Dose: Not Given Potassium Chloride (Klor-Con M20) 40 meq PO ONETIME ONE Stop: 11/02/17 08:01 Scopolamine (Scopolamine) 1 each TRDERM Q72H ONE Stop: 11/02/17 07:01 Last Admin: 11/02/17 07:24 Dose: 1 each Vancomycin HCl (Pharmacy To Dose - Vancomycin) 1 dose .XX ASDIRECTED [facility] - Exam Quality Assessment: Supplemental Oxygen General: Other (Awake) HEENT: Pupils Equal, Pupils Reactive Neck: Trachea Midline, No JVD Lungs: Crackles, Rhonchi. No: Normal Respiratory Effort Cardiovascular: Regular Rhythm, Tachycardia GI/Abdominal Exam: Normal Bowel Sounds, Soft, Non-Tender, No Organomegaly, No Distention, No Abnormal Bruit, No Mass (Female) Exam: Deferred Back Exam: Other (Deferred) Extremities: Normal Inspection, Non-Tender, No Pedal Edema, Normal Capillary Refill, Other (Mottled skin on left arm and lower extremities) Peripheral Pulses: 2+: Dorsalis Pedis (L), Dorsalis Pedis (R) Skin: Warm, Dry, Intact Neurological: Other (Unable to assess neuro exam; she is non verbal and not able to follow) Psy/Mental Status: Normal Mood. No: Normal Affect - Problem List Review Problem List Initiated/Reviewed/Updated: Yes - My Orders Last 24 Hours: My Active Orders 11/03/17 11:29 Notify Provider Consults [RC] ASDIRECTED Consult to Physician [CONS] Routine 11/03/17 11:30 D5 1/2 NS w/ 40 mEq/L KCl 1,000 ml IV ASDIRECTED 11/04/17 07:00 Chest 1V Frontal [CR] Routine - Plan Plan:: Impression: Acute: Acute Respiratory Distress - 2/2 Worsening Ana Rosa-pharyngeal Dysfunction - She has been made comfort measures with treatment per family's request - Continue aspiration precautions Aspiration PNA, Slightly Improved per CRX this AM but clinically she is about the same - Risk Factors: CVA with Expressive Aphasia, Recurrent PNA, Swallow and Speech Problems with MS - [employer] on board for further evaluation - She was on PEG tube and was just discontinued about a month ago - Blood cultures are negative - Continue IV Levaquin 750 mg IV daily and Doxycycline - She gets hives with PCN per daughter - Aspiration precautions, supplemental O2, H2B and routine RT care - She is now on 4L NC - Serial CXR: repeat CRX this am shows worsening lung field with pleural effusions; CXR this am -appears improved lungs Dysphagia, Still NPO and Worsening - 2/2 Hx/o CVA likley worsened by Advanced MS - Swallow eval on 07/18 2017 shows Ana Rosa-pharyngeal Dysphagia - [employer] recommends NPO - Suctioned 1 whole unit of canister full of ana rosa-pharyngeal secretions - PEG Tube for sustenance; daughter agreed AMS/Encephalopathy, Unchanged - 2/2 Above - Supportive care Query Parkinson's Disease vs Drug Induced Extra-Pyramidal Symptoms - She is on Amantadine - Reviewed home meds; no medications for MS Probable MS Exacerbation - We have no good drugs in formulary - She is DNR/DNI and not turned comfort measures - Start IV Steroids for acute treatment - This would likely induced leukocytosis Sinus Tachycardia - Likely 2/2 Above infections - EKG shows sinus tachycardia - Clonidine Patch x1 - Metoprolol PRN for HR > 110 Mild Hypernatremia - NA is 148 - She is on D5W 1/2 NS at 35 cc/hr for sustenance End of Life Care - DNR/DNI/Comfort Measures - She has terminal illness - Mottling and Increasing Sodium level are possible signs of impending Resolved: Leukocytosis - WBC 10. 12--> 9.29 and CRP 47--> 41.6 - 2/2 Above - Treatment as above HTN - Acute on chronic - 2/2 above infections and stress - PRN BP medications UTI - Risk Factors: She is bed-bound from her debilitating MS and carries a hx/o recurrent UTI - She also has chronic incontinence and uses daily under pads - Continue IV Levaquin for antibiotic coverage - UA pos for Kleb pneumonia sensitive to Quinolones Chronic: Impaired Vision HLD Hypothyroidism Hyponatemia OA/DJD Hx/o Advanced MS not on Maintenance Medications except for Amantadine History of CVA with left sided hemiparesis/expressive aphasia Hx/o PEG tube placement Plan: She is clinically the same Continue current treatment per family's request Continue Aspiration/Fall Precautions Routine Daily Labs per family's request PEG Tube Placement scheduled for Monday Recommend against NGT placement due to underlying ana rosa-pharyngeal dysfunction DVT/GI prophylaxis: Lovenox SubQ and H2B Additional orders as above Code status: DNR/DNI/Comfort Measures with Treatment Prognosis remains poor with no significant improvements in her overall clinical status
[2017-11-04] MEDS: Levothyroxine 25 MCG Tab PO SCH (07:54)
[2017-11-04] MEDS: Rosuvastatin 10 MG Tab PO SCH (08:39)
[2017-11-04] MEDS: Famotidine 20 MG/2 ML SDV IVPUSH SCH ×2 (08:50→21:59)
[2017-11-04] MEDS: Enoxaparin 40 MG/0.4 ML Syringe SUBCUT SCH (08:54)
[2017-11-04] MEDS ORDERED: LORazepam 2 MG/ML MDV IVPUSH PRN (09:18)
[2017-11-04] MEDS: Amantadine Soln 50 MG/5 ML UD Cup PO SCH ×2 (10:51→21:59)
[2017-11-04] MEDS: Albuterol 0.083% 2.5 MG/3 ML Neb Soln NEB PRN (13:42)
[2017-11-04] MEDS ORDERED: SODIUM CHLORIDE 0.9% IV ONE (13:46)
[2017-11-04] MEDS ORDERED: METHYLPREDNISOLONE SOD SUCC IV ONE (13:46)
--- NOTE | 2017-11-04 14:02 | CR ---
Chest: Portable view of the chest was obtained. Comparison: Prior chest x-ray of 11/02/17. Bilateral pleural effusions are seen. Improving aeration is seen of previous densities within both upper lungs and right lower lung. Pulmonary vessels remain mildly congested. Heart is slightly enlarged. Scoliosis noted within the spine. Impression: 1. Continuing pleural effusions and mild pulmonary vascular congestion. 2. Improving parenchymal densities within both lungs from prior chest x-ray. Diagnostic code #3 Agree with preliminary report issued by [facility] ([facility] preliminary report dictated on 11/04/17, 9:25 AM Central Time)
[2017-11-04] MEDS: HYDROmorphone 0.5 MG/0.5 ML Syringe IVPUSH PRN (14:04)
[2017-11-04] MEDS ORDERED: Bumetanide 1 MG/4 ML MDV IVPUSH ONE (15:17)
[2017-11-04] MEDS: Levofloxacin/Dextrose 5%-Water 750 MG in Premix Bag 1 BAG IV SCH (16:54)
[2017-11-04] MEDS: methylPREDNISolone Sodium Succinate 125 MG/2 ML SDV IVPUSH SCH (16:59)
[2017-11-04] MEDS: D5 1/2 NS w/ 40 mEq/L KCl 1,000 ML IV SCH (19:08)
[2017-11-05] MEDS: Levothyroxine 25 MCG Tab PO SCH (05:21)
[2017-11-05] MEDS: Albuterol/Ipratropium 3.0-0.5 MG/3 ML Neb Soln NEB SCH ×4 (06:11→20:40)
--- NOTE | 2017-11-05 06:35 | PCM.PN ---
- General Info Date of Service: 11/05/17 Admission Dx/Problem (Free Text): Admission Diagnosis/Problem Admission Diagnosis/Problem Pneumonia Subjective Update: Follow Up Functional Status: Reports: Pain Controlled, Urinating. Denies: Tolerating Diet , Ambulating, New Symptoms - Review of Systems General: Denies: Fever, Chills HEENT: Reports: No Symptoms Pulmonary: Reports: Shortness of Breath. Denies: Pleuritic Chest Pain, Cough, Wheezing Cardiovascular: Denies: Chest Pain, Palpitations, Dyspnea on Exertion, Edema Gastrointestinal: Denies: Abdominal Pain, Nausea, Vomiting Genitourinary: Reports: No Symptoms Musculoskeletal: Reports: No Symptoms Skin: Denies: Cyanosis, Mottled, Pallor, Diaphoresis Neurological: Reports: Difficulty Walking, Weakness, Gait Disturbance Psychiatric: Denies: Depression, Anxiety, Agitation, Hallucinations Systems Review Comment:: No significant overnight or acute issues. She seems to be turning around slowly. Her CXR looks better and her more labs are fairly unremarkable. She seems to be more alert and awake. - Patient Data Vitals - Most Recent: Last Vital Signs Temp 37.2 C 11/05/17 04:09 Pulse 105 H 11/05/17 04:09 Resp 28 H 11/05/17 04:09 BP 129/54 L 11/05/17 04:09 Pulse Ox 92 L 11/05/17 06:11 Weight - Most Recent: 57.606 kg I&O - Last 24 Hours: Intake & Output 11/04/17 11/04/17 11/05/17 14:59 22:59 06:59 Intake Total 469 544 Balance 469 544 Lab Results Last 24 Hours: Laboratory Results - last 24 hr 11/04/17 11/04/17 11/04/17 Range/Units 09:55 09:55 11:47 WBC 7.14 (3.98-10.04) K/mm3 RBC 3.81 L (3.98-5.22) M/mm3 Hgb 11.2 (11.2-15.7) gm/L Hct 35.6 (34.1-44.9) % MCV 93.4 (79.4-94.8) fl MCH 29.4 (25.6-32.2) pg MCHC 31.5 L (32.2-35.5) g/dl RDW Std Deviation 61.3 H (36.4-46.3) fL Plt Count 174 L (182-369) K/mm3 MPV 10.4 (9.4-12.3) fl Neut % (Auto) 42.6 (34.0-71.1) % Lymph % (Auto) 18.5 L (19.3-51.7) % [facility] % (Auto) 21.6 H (4.7-12.5) % Eos % (Auto) 0.1 L (0.7-5.8) Baso % (Auto) 2.5 H (0.1-1.2) % Neut # (Auto) 3.04 (1.56-6.13) K/mm3 Lymph # (Auto) 1.32 (1.18-3.74) K/mm3 [facility] # (Auto) 1.54 H (0.24-0.36) K/mm3 Eos # (Auto) 0.01 L (0.04-0.36) K/mm3 Baso # (Auto) 0.18 H (0.01-0.08) K/mm3 Manual Slide Review Abnormal smear Sodium 148 H (136-145) mEq/L Potassium 4.6 (3.5-5.1) mEq/L Chloride 108 H (98-107) mEq/L Carbon Dioxide 36 H (21-32) mEq/L Anion Gap 8.6 (5-15) BUN 13 (7-18) mg/dL Creatinine 0.4 L (0.55-1.02) mg/dL Est Cr Clr Drug Dosing 115.99 mL/min Estimated GFR (MDRD) > 60 (>60) mL/min BUN/Creatinine Ratio 32.5 H (14-18) Glucose 109 (80-115) mg/dL POC Glucose 117 H (80-115) mg/dL Calcium 9.2 (8.5-10.1) mg/dL Magnesium 1.8 (1.8-2.4) mg/dl 11/04/17 Range/Units 16:31 WBC (3.98-10.04) K/mm3 RBC (3.98-5.22) M/mm3 Hgb (11.2-15.7) gm/L Hct (34.1-44.9) % MCV (79.4-94.8) fl MCH (25.6-32.2) pg MCHC (32.2-35.5) g/dl RDW Std Deviation (36.4-46.3) fL Plt Count (182-369) K/mm3 MPV (9.4-12.3) fl Neut % (Auto) (34.0-71.1) % Lymph % (Auto) (19.3-51.7) % [facility] % (Auto) (4.7-12.5) % Eos % (Auto) (0.7-5.8) Baso % (Auto) (0.1-1.2) % Neut # (Auto) (1.56-6.13) K/mm3 Lymph # (Auto) (1.18-3.74) K/mm3 [facility] # (Auto) (0.24-0.36) K/mm3 Eos # (Auto) (0.04-0.36) K/mm3 Baso # (Auto) (0.01-0.08) K/mm3 Manual Slide Review Sodium (136-145) mEq/L Potassium (3.5-5.1) mEq/L Chloride (98-107) mEq/L Carbon Dioxide (21-32) mEq/L Anion Gap (5-15) BUN (7-18) mg/dL Creatinine (0.55-1.02) mg/dL Est Cr Clr Drug Dosing mL/min Estimated GFR (MDRD) (>60) mL/min BUN/Creatinine Ratio (14-18) Glucose (80-115) mg/dL POC Glucose 108 (80-115) mg/dL Calcium (8.5-10.1) mg/dL Magnesium (1.8-2.4) mg/dl Med Orders - Current: Current Medications Acetaminophen (Tylenol) 650 mg RECTAL Q4H PRN PRN Reason: Fever Last Admin: 10/31/17 10:51 Dose: 650 mg Albuterol (Proventil Neb Soln) 2.5 mg NEB Q4HRRT PRN PRN Reason: Shortness of Breath Last Admin: 11/04/17 13:42 Dose: 2.5 mg Albuterol/Ipratropium (Duoneb 3.0-0.5 Mg/3 Ml) 3 ml NEB QIDRT CHUN Last Admin: 11/05/17 06:11 Dose: 3 ml Amantadine HCl (Symmetrel 50 Mg/5 Ml Soln) 75 mg PO BID [facility] Last Admin: 11/04/17 21:59 Dose: Not Given Diclofenac Sodium (Voltaren 1% Gel) 0 gm TOP QID PRN PRN Reason: PAIN Enoxaparin Sodium (Lovenox) 40 mg SUBCUT DAILY [facility] Last Admin: 11/04/17 08:54 Dose: 40 mg Famotidine (Pepcid) 20 mg IVPUSH BID [facility] Last Admin: 11/04/17 21:59 Dose: 20 mg Guaifenesin (Mucinex) 600 mg PO BID PRN PRN Reason: Congestion Hydralazine HCl (Apresoline) 20 mg IVPUSH Q4H PRN PRN Reason: Hypertension Last Admin: 11/03/17 20:52 Dose: 20 mg Hydromorphone HCl (Dilaudid) 0.5 mg IVPUSH Q4H PRN PRN Reason: Pain Last Admin: 11/04/17 14:04 Dose: 0.5 mg Levofloxacin/Dextrose 750 mg/ (Premix) 150 mls @ 100 mls/hr IV Q24H [facility] Last Admin: 11/04/17 16:54 Dose: 100 mls/hr Doxycycline Hyclate 100 mg/ (Dextrose/Water) 100 mls @ 100 mls/hr IV Q12H [facility] Last Admin: 11/05/17 02:24 Dose: 100 mls/hr Potassium Chloride/Dextrose/Sod Cl (D5 1/2 Ns W/ 40 Meq/L Kcl) 1,000 mls @ 35 mls/hr IV ASDIRECTED [facility] Last Admin: 11/04/17 19:08 Dose: 35 mls/hr Cefazolin Sodium/Dextrose 2 gm (/ Premix) 50 mls @ 100 mls/hr IV ONETIME ONE Stop: 11/06/17 08:44 Levothyroxine Sodium (Levothyroxine) 25 mcg PO ACBREAKFAST [facility] Last Admin: 11/05/17 05:21 Dose: Not Given Lorazepam (Ativan) 0.5 mg IVPUSH Q4H PRN; Protocol PRN Reason: Anxiety Lorazepam (Ativan) 0.25 mg IVPUSH Q4H PRN; Protocol PRN Reason: Anxiety Magnesium Sulfate (Pharmacy To Dose - Magnesium Replacement) 1 dose .XX ASDIRECTED [facility] Methylprednisolone Sodium Succinate (Solu-Medrol) 160 mg IVPUSH DAILY [facility] Last Admin: 11/04/17 16:59 Dose: 160 mg Metoprolol Tartrate (Lopressor) 5 mg IVPUSH Q4H PRN PRN Reason: Tachycardia Last Admin: 11/03/17 15:35 Dose: 5 mg Miscellaneous Information (Remove Patch) 0 ea TRDERM Q72H ONE Stop: 11/05/17 07:16 Miscellaneous Information (Remove Patch) 1 ea TRDERM ONETIME ONE Stop: 11/08/17 07:16 Ondansetron HCl (Zofran) 4 mg IVPUSH Q8H PRN PRN Reason: Nausea/Vomiting Potassium Chloride (Pharmacy To Dose - Potassium Replacement) 1 dose .XX ASDIRECTED [facility] Rosuvastatin Calcium (Crestor) 10 mg PO DAILY [facility] Last Admin: 11/04/17 08:39 Dose: Not Given Scopolamine (Scopolamine) 1 each TRDERM Q72H ONE Stop: 11/05/17 07:16 Temazepam (Restoril) 30 mg PO BEDTIME PRN PRN Reason: Insomnia Discontinued Medications Acetaminophen (Tylenol Solution) 650 mg PO Q4H PRN PRN Reason: Fever Last Admin: 10/31/17 01:14 Dose: 650 mg Amantadine HCl (Symmetrel 50 Mg/5 Ml Soln) 75 mg PO BID [facility] Last Admin: 10/31/17 00:59 Dose: Not Given Bisacodyl (Dulcolax) 10 mg RECTAL ONETIME ONE Stop: 10/31/17 07:39 Last Admin: 10/31/17 08:54 Dose: 10 mg Bumetanide (Bumex) 0.5 mg IVPUSH ONETIME ONE Stop: 11/02/17 19:29 Last Admin: 11/02/17 22:09 Dose: 0.5 mg Bumetanide (Bumex) 0.5 mg IVPUSH STAT ONE Stop: 11/04/17 15:18 Last Admin: 11/04/17 15:23 Dose: 0.5 mg Clonidine HCl (Catapres Tts-2) 0.2 mg TRDERM Q7D ONE Stop: 10/31/17 18:01 Last Admin: 10/31/17 18:13 Dose: 0.2 mg Dextrose/Water (Dextrose 50% In Water) 25 ml IVPUSH ONETIME STA Stop: 10/30/17 12:55 Last Admin: 10/30/17 12:59 Dose: 25 ml Hydromorphone HCl (Dilaudid) 0.25 mg IVPUSH Q4H PRN PRN Reason: Pain Last Admin: 10/31/17 14:53 Dose: 0.25 mg Sodium Chloride (Normal Saline) 1,000 mls @ 999 mls/hr IV ONETIME ONE Stop: 10/30/17 12:26 Last Admin: 10/30/17 11:44 Dose: 999 mls/hr Dextrose/Sodium Chloride (Dextrose 5%-Normal Saline) 1,000 mls @ 150 mls/hr IV ASDIRECTED [facility] Last Admin: 10/31/17 16:45 Dose: 150 mls/hr Ceftazidime 2 gm/ Sodium (Chloride) 50 mls @ 100 mls/hr IV ONETIME STA Stop: 10/30/17 13:35 Last Admin: 10/31/17 05:02 Dose: Not Given Levofloxacin/Dextrose 750 mg/ (Premix) 150 mls @ 100 mls/hr IV ONETIME ONE Stop: 10/30/17 14:39 Last Admin: 10/30/17 16:46 Dose: Not Given Vancomycin HCl 1 gm/ Sodium (Chloride) 250 mls @ 250 mls/hr IV ONETIME ONE Stop: 10/30/17 14:10 Last Admin: 10/30/17 13:33 Dose: 250 mls/hr Ceftazidime 2 gm/ Sodium (Chloride) 100 mls @ 200 mls/hr IV ONETIME ONE Stop: 10/30/17 14:14 Last Admin: 10/30/17 15:38 Dose: 200 mls/hr Sodium Chloride (Sodium Chloride 0.45%) 500 mls @ 999 mls/hr IV ONETIME ONE Stop: 10/30/17 15:58 Last Admin: 10/30/17 15:38 Dose: 999 mls/hr Vancomycin HCl 1 gm/ Sodium (Chloride) 250 mls @ 250 mls/hr IV Q24H [facility] Cefepime HCl 1 gm/ Premix 50 mls @ 100 mls/hr IV Q8H [facility] Last Admin: 10/31/17 19:55 Dose: Not Given Potassium Chloride 10 meq/ (Premix) 100 mls @ 100 mls/hr IV Q1H [facility] Stop: 10/31/17 23:29 Last Admin: 10/31/17 23:27 Dose: 100 mls/hr Cefepime HCl 1 gm/ Sodium (Chloride) 50 mls @ 100 mls/hr IV Q8H [facility] Last Admin: 10/31/17 20:48 Dose: Not Given Cefepime HCl (Maxipime In D5w 2 Gm/50 Ml) 25 mls @ 50 mls/hr IV Q8H [facility] Last Admin: 11/01/17 04:27 Dose: 50 mls/hr Dextrose/Sodium Chloride (Dextrose 5%-Normal Saline) 1,000 mls @ 25 mls/hr IV ASDIRECTED [facility] Last Admin: 11/03/17 10:18 Dose: 25 mls/hr Magnesium Sulfate 2 gm/ Premix 50 mls @ 25 mls/hr IV Q2H [facility] Stop: 11/01/17 11:29 Last Admin: 11/01/17 10:30 Dose: 25 mls/hr Cefepime HCl 2 gm/ Premix 50 mls @ 100 mls/hr IV Q8H [facility] Potassium Chloride 10 meq/ (Premix) 100 mls @ 100 mls/hr IV Q1H [facility] Stop: 11/03/17 14:59 Last Admin: 11/03/17 16:17 Dose: 100 mls/hr Methylprednisolone Sodium Succinate 160 mg/ Sodium Chloride 252.56 mls @ 35.178 mls/hr IV ONETIME ONE Stop: 11/04/17 20:56 Metoprolol Tartrate (Lopressor) 5 mg IVPUSH Q4H PRN PRN Reason: heart rate> 120 Last Admin: 10/31/17 01:14 Dose: 5 mg Potassium Chloride (Klor-Con M20) 20 meq PO Q3H [facility] Stop: 10/31/17 20:31 Last Admin: 10/31/17 19:55 Dose: Not Given Potassium Chloride (Klor-Con M20) 40 meq PO ONETIME ONE Stop: 11/02/17 08:01 Scopolamine (Scopolamine) 1 each TRDERM Q72H ONE Stop: 11/02/17 07:01 Last Admin: 11/02/17 07:24 Dose: 1 each Vancomycin HCl (Pharmacy To Dose - Vancomycin) 1 dose .XX ASDIRECTED CHUN - Exam Quality Assessment: Supplemental Oxygen General: Alert, No Acute Distress HEENT: Pupils Equal, Pupils Reactive Neck: Supple, Trachea Midline Lungs: Normal Respiratory Effort, Decreased Breath Sounds Cardiovascular: Regular Rate, Regular Rhythm GI/Abdominal Exam: Normal Bowel Sounds, Soft, Non-Tender, No Organomegaly, No Distention, No Abnormal Bruit (Female) Exam: Deferred Back Exam: Decreased Range of Motion Extremities: Normal Inspection, Normal Range of Motion, Normal Capillary Refill , Pedal Edema (right foot). No: Joint Swelling, Leg Pain, Mottled, Redness Peripheral Pulses: 2+: Posterior Tibial (L), Dorsalis Pedis (L) Skin: Warm, Dry, Intact Neurological: Other (unable to assess due to lack of cooperation) Psy/Mental Status: Alert. No: Normal Affect - Problem List Review Problem List Initiated/Reviewed/Updated: Yes - My Orders Last 24 Hours: My Active Orders 11/04/17 09:18 LORazepam [Ativan] 0.25 mg IVPUSH Q4H PRN 11/04/17 17:40 methylPREDNISolone Sod Succ [Solu-MEDROL] 160 mg IVPUSH DAILY 11/05/17 05:11 BMP [BASIC METABOLIC PANEL,BMP] [CHEM] AM CBC WITH AUTO DIFF [HEME] AM MG [MAGNESIUM] [CHEM] AM 11/05/17 07:15 Scopolamine 1 each TRDERM Q72H ONE 11/06/17 05:11 BMP [BASIC METABOLIC PANEL,BMP] [CHEM] AM CBC WITH AUTO DIFF [HEME] AM MG [MAGNESIUM] [CHEM] AM 11/07/17 05:11 BMP [BASIC METABOLIC PANEL,BMP] [CHEM] AM CBC WITH AUTO DIFF [HEME] AM MG [MAGNESIUM] [CHEM] AM 11/08/17 05:11 CBC WITH AUTO DIFF [HEME] AM MG [MAGNESIUM] [CHEM] AM 11/08/17 07:15 Remove Patch 1 ea TRDERM ONETIME ONE - Plan Plan:: Impression: Acute: Acute Respiratory Distress, Improved - 2/2 Worsening Ana Rosa-pharyngeal Dysfunction - She has been made comfort measures with treatment per family's request - Continue aspiration precautions Aspiration PNA, Improving - Risk Factors: CVA with Expressive Aphasia, Recurrent PNA, Swallow and Speech Problems with MS - [employer] on board for further evaluation - She was on PEG tube and was just discontinued about a month ago - Blood cultures are negative - Continue IV Levaquin 750 mg IV daily and Doxycycline - She gets hives with PCN per daughter - Aspiration precautions, supplemental O2, H2B and routine RT care - She is now on 4L NC - Serial CXR: repeat CRX this am shows worsening lung field with pleural effusions; CXR this am -appears improved lungs - Chest CT scan ordered Dysphagia, Unchanged - 2/2 Hx/o CVA likley worsened by Advanced MS - Swallow eval on 07/18 2017 shows Ana Rosa-pharyngeal Dysphagia - [employer] recommends NPO - Suctioned 1 whole unit of canister full of ana rosa-pharyngeal secretions - PEG Tube for sustenance; daughter agreed - Continue Scopolamine Patch Probable MS Exacerbation - We have no good drugs in formulary - She is DNR/DNI and not turned comfort measures - Continue IV Steroids for acute treatment - This would likely induced leukocytosis Sinus Tachycardia, Improved - Likely 2/2 Above infections - EKG shows sinus tachycardia - Clonidine Patch x1 - Metoprolol PRN for HR > 110 Mild Hypernatremia - NA is 148--> 146 - She is on D5W 1/2 NS at 35 cc/hr for sustenance Query Parkinson's Disease vs Drug Induced Extra-Pyramidal Symptoms - She is on Amantadine - Reviewed home meds; no medications for MS End of Life Care - DNR/DNI/Comfort Measures - She has terminal illness - Mottling resolved - Elevated Sodium level improving Resolved: Leukocytosis - WBC 10. 12--> 9.29 and CRP 47--> 41.6 - 2/2 Above - Treatment as above HTN - Acute on chronic - 2/2 above infections and stress - PRN BP medications UTI - Risk Factors: She is bed-bound from her debilitating MS and carries a hx/o recurrent UTI - She also has chronic incontinence and uses daily under pads - Continue IV Levaquin for antibiotic coverage - UA pos for Kleb pneumonia sensitive to Quinolones AMS/Encephalopathy - 2/2 Above - Supportive care Chronic: Impaired Vision HLD Hypothyroidism Hyponatemia OA/DJD Hx/o Advanced MS not on Maintenance Medications except for Amantadine History of CVA with left sided hemiparesis/expressive aphasia Hx/o PEG tube placement Plan: She appears clinically improving Continue current treatment per family's request Aspiration/Fall Precautions Routine Daily Labs per family's request PEG Tube Placement scheduled for Monday DVT/GI prophylaxis: Lovenox SubQ and H2B Additional orders as above Code status: DNR/DNI/Comfort Measures with Treatment Prognosis guarded to poor, she seems to be slowly turning around
[2017-11-05] MEDS ORDERED: Scopolamine 1 MG Transdermal Patch TRDERM ONE (07:15)
[2017-11-05] MEDS: Famotidine 20 MG/2 ML SDV IVPUSH SCH ×2 (08:46→20:19)
[2017-11-05] MEDS: Enoxaparin 40 MG/0.4 ML Syringe SUBCUT SCH (08:47)
[2017-11-05] MEDS: methylPREDNISolone Sodium Succinate 125 MG/2 ML SDV IVPUSH SCH (08:47)
[2017-11-05] MEDS: Amantadine Soln 50 MG/5 ML UD Cup PO SCH ×2 (09:49→22:12)
[2017-11-05] MEDS: Rosuvastatin 10 MG Tab PO SCH (09:49)
--- NOTE | 2017-11-05 10:07 | CR ---
Chest: Portable view of the chest was obtained. Comparison: Prior chest x-ray of 11/04/17. Continuing pleural effusions are seen. Pulmonary vessels show slight congestion which is stable. Parenchymal densities are noted within the right upper, left mid and lower lung and right lower lung remains stable. Scoliosis is present within the spine. Heart size at the upper limits of normal which is stable. Impression: 1. Multiple findings as noted above. No significant change is seen from most recent study. Diagnostic code #3
[2017-11-05] MEDS ORDERED: Magnesium Oxide 400 MG Tab PO SCH (10:45)
--- NOTE | 2017-11-05 12:50 | CT ---
CT chest Technique: Multiple axial sections through the chest were obtained. Intravenous contrast was not utilized. Comparison: Prior chest x-ray performed earlier on same day (9:43 AM). Findings: Masslike density is noted within the right upper lung most likely representing intrafissural fluid. Small bilateral pleural effusions are seen on both sides. Areas of consolidation are seen within both lower lungs with differential including atelectasis and/or pneumonia. Mild coronary artery calcification is seen. Small mediastinal lymph nodes are seen which are felt to be within normal limits. No axillary adenopathy is seen. Lesser areas of parenchymal density are noted within both upper lungs with differential remaining the same as the lower lung findings. Slight increased density is also noted within the lingula and right middle lobe. Scoliosis and degenerative change is noted within the spine. Impression: 1. Masslike density within the upper right lung felt to represent intrafissural fluid. 2. Small bilateral pleural effusions. 3. Areas of consolidation within both lower lungs as well as lesser density within the lingula and right middle lobe and within other portions of the upper lungs. Findings can represent atelectasis and/or multifocal pneumonia. 4. Other incidental findings. Diagnostic code #3
[2017-11-05] MEDS: HYDROmorphone 0.5 MG/0.5 ML Syringe IVPUSH PRN ×2 (15:32→19:47)
[2017-11-05] MEDS: Levofloxacin/Dextrose 5%-Water 750 MG in Premix Bag 1 BAG IV SCH (16:05)
--- NOTE | 2017-11-05 17:49 | PCM.PREANE ---
Preanesthetic Assessment - Anesthesia/Transfusion/Family Hx Anesthesia History: Prior Anesthesia Without Reaction Family History of Anesthesia Reaction: No Transfusion History: No Prior Transfusion(s) Intubation History: Unknown - Review of Systems General: Weakness, Fatigue, Malaise Pulmonary: Shortness of Breath, Cough, Sputum Cardiovascular: No Symptoms (History of HTN) Gastrointestinal: No Symptoms (GERD History of), Decreased Appetite, Difficulty Swallowing Neurological: No Symptoms (History of Multiple Sclerosis diagnosed in 1994/ CVA 2016, with expressive aphasia and left sided hemiparesis noted) Other: Reports: Easy Bleeding (currently on lovenox), Thyroid Problems ( Hypothyroid) - Physical Assessment NPO Status Date: 10/30/17 NPO Status Time: 00:00 Pulse: 99 O2 Sat by Pulse Oximetry: 94 Respiratory Rate: 16 Blood Pressure: 131/46 Temperature: 36.8 C Vital Signs: Last Vital Signs Temp 36.8 C 11/05/17 15:39 Pulse 99 11/05/17 15:39 Resp 16 11/05/17 15:39 BP 131/46 L 11/05/17 15:39 Pulse Ox 94 L 11/05/17 15:39 Height: 1.6 m Weight: 57.606 kg ASA Class: 3 Mental Status: Other (Expressive aphasia and patient unable to communicate since last admission of 10/30/17, with UTI, Aspiration pneumonia.) Airway Class: Mallampati = 2 Dentition: Reports: Dentures, Missing Tooth/Teeth Thyro-Mental Finger Breadths: 3 Mouth Opening Finger Breadths: 3 ROM/Head Extension: Full Lungs: Clear to Auscultation, Normal Respiratory Effort, Crackles Cardiovascular: Regular Rate, Regular Rhythm, No Murmurs - Lab Values: Laboratory Last Values WBC 5.70 K/mm3 (3.98-10.04) 11/05/17 10:00 RBC 3.88 M/mm3 (3.98-5.22) L 11/05/17 10:00 Hgb 11.3 gm/L (11.2-15.7) 11/05/17 10:00 Hct 35.5 % (34.1-44.9) 11/05/17 10:00 MCV 91.5 fl (79.4-94.8) 11/05/17 10:00 MCH 29.1 pg (25.6-32.2) 11/05/17 10:00 MCHC 31.8 g/dl (32.2-35.5) L 11/05/17 10:00 RDW Std Deviation 58.2 fL (36.4-46.3) H 11/05/17 10:00 Plt Count 220 K/mm3 (182-369) 11/05/17 10:00 MPV 10.2 fl (9.4-12.3) 11/05/17 10:00 Neut % (Auto) 71.5 % (34.0-71.1) H 11/05/17 10:00 Lymph % (Auto) 13.0 % (19.3-51.7) L 11/05/17 10:00 [place] % (Auto) 6.7 % (4.7-12.5) 11/05/17 10:00 Eos % (Auto) 0 (0.7-5.8) L 11/05/17 10:00 Baso % (Auto) 0.9 % (0.1-1.2) 11/05/17 10:00 Neut # (Auto) 4.08 K/mm3 (1.56-6.13) 11/05/17 10:00 Lymph # (Auto) 0.74 K/mm3 (1.18-3.74) L 11/05/17 10:00 Titus # (Auto) 0.38 K/mm3 (0.24-0.36) H 11/05/17 10:00 Eos # (Auto) 0.00 K/mm3 (0.04-0.36) L 11/05/17 10:00 Baso # (Auto) 0.05 K/mm3 (0.01-0.08) 11/05/17 10:00 Neutrophils % (Manual) 22 % (40-60) L 10/30/17 11:55 Band Neutrophils % 60 % (0-10) H 10/30/17 11:55 Lymphocytes % (Manual) 14 % (20-40) L 10/30/17 11:55 Atypical Lymphs % 0 % 10/30/17 11:55 Monocytes % (Manual) 2 % (2-10) 10/30/17 11:55 Eosinophils % (Manual) 0 % (0.7-5.8) L 10/30/17 11:55 Basophils % (Manual) 0 (0.1-1.2) L 10/30/17 11:55 Metamyelocytes % 1 10/30/17 11:55 Myelocytes % 1 10/30/17 11:55 Differential Comment See note 10/30/17 11:55 Manual Slide Review Abnormal smear 11/05/17 10:00 Toxic Granulation 1+ slight 10/30/17 11:55 Platelet Estimate Adequate 10/30/17 11:55 RBC Morph Comment Normal 10/30/17 11:55 Sodium 146 mEq/L (136-145) H 11/05/17 10:00 Potassium 4.5 mEq/L (3.5-5.1) 11/05/17 10:00 Chloride 104 mEq/L (98-107) 11/05/17 10:00 Carbon Dioxide 36 mEq/L (21-32) H 11/05/17 10:00 Anion Gap 10.5 (5-15) 11/05/17 10:00 BUN 16 mg/dL (7-18) 11/05/17 10:00 Creatinine 0.5 mg/dL (0.55-1.02) L 11/05/17 10:00 Est Cr Clr Drug Dosing 92.79 mL/min 11/05/17 10:00 Estimated GFR (MDRD) > 60 mL/min (>60) 11/05/17 10:00 BUN/Creatinine Ratio 32.0 (14-18) H 11/05/17 10:00 Glucose 147 mg/dL (80-115) H 11/05/17 10:00 POC Glucose 183 mg/dL (80-115) H 11/05/17 14:38 Lactic Acid 0.9 mmol/L (0.4-2.0) 11/03/17 06:16 Calcium 8.9 mg/dL (8.5-10.1) 11/05/17 10:00 Magnesium 1.8 mg/dl (1.8-2.4) 11/05/17 10:00 Total Bilirubin 0.8 mg/dL (0.2-1.0) 10/30/17 11:55 AST 51 U/L (15-37) H 10/30/17 11:55 ALT 47 U/L (14-59) 10/30/17 11:55 Alkaline Phosphatase 229 U/L (46-116) H 10/30/17 11:55 C-Reactive Protein 27.9 mg/dL (<1.0) H* 11/03/17 06:16 Total Protein 7.3 g/dl (6.4-8.2) 10/30/17 11:55 Albumin 2.7 g/dl (3.4-5.0) L 10/30/17 11:55 Globulin 4.6 gm/dL 10/30/17 11:55 Albumin/Globulin Ratio 0.6 (1-2) L 10/30/17 11:55 Urine Color Yellow (Yellow) 10/30/17 11:46 Urine Appearance Cloudy (Clear) H 10/30/17 11:46 Urine pH 5.5 (5.0-8.0) 10/30/17 11:46 Ur Specific [place] 1.025 (1.005-1.030) 10/30/17 11:46 Urine Protein 1+ (Negative) H 10/30/17 11:46 Urine Glucose (UA) Negative (Negative) 10/30/17 11:46 Urine Ketones 1+ (Negative) H 10/30/17 11:46 Urine Occult Blood 2+ (Negative) H 10/30/17 11:46 Urine Nitrite Negative (Negative) 10/30/17 11:46 Urine Bilirubin Negative (Negative) 10/30/17 11:46 Urine Urobilinogen 0.2 (0.2-1.0) 10/30/17 11:46 Ur Leukocyte Esterase 1+ (Negative) H 10/30/17 11:46 Urine RBC 5-10 /hpf (0-5) H 10/30/17 11:46 Urine WBC 10-20 /hpf (0-5) H 10/30/17 11:46 Ur Epithelial Cells 5-10 /hpf (0-5) H 10/30/17 11:46 Amorphous Sediment Few /hpf (NOT SEEN) H 10/30/17 11:46 Urine Bacteria Many /hpf (FEW) H 10/30/17 11:46 Urine Mucus Few /hpf (FEW) 10/30/17 11:46 Mycoplasma pneumon IgM Negative (NEGATIVE) 10/31/17 04:53 MRSA (PCR) Negative 10/30/17 21:24 Above labs reviewed and noted and within acceptable ranges to proceed with scheduled procedures. - Imaging/EKG Impressions: Chest CT: Multifocal Pneumonia's noted in both lower lungs along with atelectasis, and small bilateral pleural effusions. EKG: Sinus or ectopic atrial tachycardia rate= 131, probable LVH, ST depression consider ischemia. - Allergies Allergies/Adverse Reactions: Allergies Allergy/AdvReac Type Severity Reaction Status Date / Time Penicillins Allergy Vaginitis Verified 10/30/17 10:38 - Anesthesia Plan Pre-Op Medication Ordered: None - Acknowledgements Anesthesia Type Planned: MAC Pt an Appropriate Candidate for the Planned Anesthesia: Yes Alternatives and Risks of Anesthesia Discussed w Pt/Guardian: Yes Pt/Guardian Understands and Agrees with Anesthesia Plan: Yes PreAnesthesia Questionnaire HEENT History: Reports: Cataract, Impaired Vision Other HEENT History: wears eyeglasses, presence of intraocular lens Cardiovascular History: Reports: High Cholesterol, Hypertension Other Cardiovascular History: hyponatremia Respiratory History: Reports: Pneumonia, Recurrent Genitourinary History: Reports: UTI, Recurrent [employer] History: Reports: Musculoskeletal History: Reports: Arthritis Other Musculoskeletal History: multiple sclerosis, contractures. 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 Dermatologic History: Reports: Other (See Below) Other Dermatologic History: skin breakdown to feet. - Infectious Disease History Infectious Disease History: Reports: Chicken Pox - Past Surgical History HEENT Surgical History: Reports: Cataract Surgery GI Surgical History: Reports: Other (See Below) Musculoskeletal Surgical History: Reports: Other (See Below) Other Musculoskeletal Surgeries/Procedures:: removal of neuroma from back. - SUBSTANCE USE Smoking Status *Q: Never Smoker Second Hand Smoke Exposure: No Days Per Week of Alcohol Use: 0 Recreational Drug Use History: No - HOME MEDS Home Medications: Home Meds Acetaminophen [Tylenol] 2 tab PO TID PRN 10/29/17 [History] Amantadine HCl [Amantadine] 75 mg PO BID 10/29/17 [History] Ascorbic Acid [Vitamin C] 100 mg PO DAILY 10/29/17 [History] Diclofenac Sodium [Voltaren 1% Gel] 100 gm TOP QID PRN 10/29/17 [History] Lecithin, Soy [Lecithin] 1,200 mg PO BID 10/29/17 [History] Levothyroxine 25 mcg PO ACBREAKFAST 10/29/17 [History] Sodium Chloride [Deep Sea] 2 spray NS TID PRN 10/29/17 [History] Trolamine Salicylate/Aloe Vera [Aspercreme 10% Cream] 1 applic TOP TID PRN 10/29 [History] Vitamin E Mixed [Vitamin E] 1 cap PO DAILY 10/29/17 [History] atorvaSTATin [Lipitor] 40 mg PO BEDTIME 10/29/17 [History] guaiFENesin [Mucinex] 600 mg PO BID PRN 10/29/17 [History] Camphor/Eucalyptus/Menthol [Ra Vaporizing Steam Liquid] 1 applic TOP ASDIRECTED 10/30/17 [History] Dextromethorphan/guaiFENesin [Robitussin DM] 2 tsp PO Q4H PRN 10/30/17 [History] cefTRIAXone Sodium [Ceftriaxone] 1 gm IV DAILY 10/30/17 [History] - CURRENT (IN HOUSE) MEDS Current Meds: Current Medications Acetaminophen (Tylenol) 650 mg RECTAL Q4H PRN PRN Reason: Fever Last Admin: 10/31/17 10:51 Dose: 650 mg Albuterol (Proventil Neb Soln) 2.5 mg NEB Q4HRRT PRN PRN Reason: Shortness of Breath Last Admin: 11/04/17 13:42 Dose: 2.5 mg Albuterol/Ipratropium (Duoneb 3.0-0.5 Mg/3 Ml) 3 ml NEB QIDRT [facility] Last Admin: 11/05/17 15:21 Dose: 3 ml Amantadine HCl (Symmetrel 50 Mg/5 Ml Soln) 75 mg PO BID [facility] Last Admin: 11/05/17 09:49 Dose: Not Given Diclofenac Sodium (Voltaren 1% Gel) 0 gm TOP QID PRN PRN Reason: PAIN Enoxaparin Sodium (Lovenox) 40 mg SUBCUT DAILY [facility] Last Admin: 11/05/17 08:47 Dose: 40 mg Famotidine (Pepcid) 20 mg IVPUSH BID [facility] Last Admin: 11/05/17 08:46 Dose: 20 mg Guaifenesin (Mucinex) 600 mg PO BID PRN PRN Reason: Congestion Hydralazine HCl (Apresoline) 20 mg IVPUSH Q4H PRN PRN Reason: Hypertension Last Admin: 11/03/17 20:52 Dose: 20 mg Hydromorphone HCl (Dilaudid) 0.5 mg IVPUSH Q4H PRN PRN Reason: Pain Last Admin: 11/05/17 15:32 Dose: 0.5 mg Levofloxacin/Dextrose 750 mg/ (Premix) 150 mls @ 100 mls/hr IV Q24H [facility] Last Admin: 11/05/17 16:05 Dose: 100 mls/hr Doxycycline Hyclate 100 mg/ (Dextrose/Water) 100 mls @ 100 mls/hr IV Q12H [facility] Last Admin: 11/05/17 13:12 Dose: 100 mls/hr Potassium Chloride/Dextrose/Sod Cl (D5 1/2 Ns W/ 40 Meq/L Kcl) 1,000 mls @ 35 mls/hr IV ASDIRECTED [facility] Last Admin: 11/04/17 19:08 Dose: 35 mls/hr Cefazolin Sodium/Dextrose 2 gm (/ Premix) 50 mls @ 100 mls/hr IV ONETIME ONE Stop: 11/06/17 08:44 Levothyroxine Sodium (Levothyroxine) 25 mcg PO ACBREAKFAST [facility] Last Admin: 11/05/17 05:21 Dose: Not Given Lorazepam (Ativan) 0.5 mg IVPUSH Q4H PRN; Protocol PRN Reason: Anxiety Lorazepam (Ativan) 0.25 mg IVPUSH Q4H PRN; Protocol PRN Reason: Anxiety Magnesium Sulfate (Pharmacy To Dose - Magnesium Replacement) 1 dose .XX ASDIRECTED [facility] Methylprednisolone Sodium Succinate (Solu-Medrol) 160 mg IVPUSH DAILY [facility] Last Admin: 11/05/17 08:47 Dose: 160 mg Metoprolol Tartrate (Lopressor) 5 mg IVPUSH Q4H PRN PRN Reason: Tachycardia Last Admin: 11/03/17 15:35 Dose: 5 mg Miscellaneous Information (Remove Patch) 1 ea TRDERM ONETIME ONE Stop: 11/08/17 07:16 Ondansetron HCl (Zofran) 4 mg IVPUSH Q8H PRN PRN Reason: Nausea/Vomiting Potassium Chloride (Pharmacy To Dose - Potassium Replacement) 1 dose .XX ASDIRECTED [facility] Rosuvastatin Calcium (Crestor) 10 mg PO DAILY [facility] Last Admin: 11/05/17 09:49 Dose: Not Given Temazepam (Restoril) 30 mg PO BEDTIME PRN PRN Reason: Insomnia Discontinued Medications Acetaminophen (Tylenol Solution) 650 mg PO Q4H PRN PRN Reason: Fever Last Admin: 10/31/17 01:14 Dose: 650 mg Amantadine HCl (Symmetrel 50 Mg/5 Ml Soln) 75 mg PO BID [facility] Last Admin: 10/31/17 00:59 Dose: Not Given Bisacodyl (Dulcolax) 10 mg RECTAL ONETIME ONE Stop: 10/31/17 07:39 Last Admin: 10/31/17 08:54 Dose: 10 mg Bumetanide (Bumex) 0.5 mg IVPUSH ONETIME ONE Stop: 11/02/17 19:29 Last Admin: 11/02/17 22:09 Dose: 0.5 mg Bumetanide (Bumex) 0.5 mg IVPUSH STAT ONE Stop: 11/04/17 15:18 Last Admin: 11/04/17 15:23 Dose: 0.5 mg Clonidine HCl (Catapres Tts-2) 0.2 mg TRDERM Q7D ONE Stop: 10/31/17 18:01 Last Admin: 10/31/17 18:13 Dose: 0.2 mg Dextrose/Water (Dextrose 50% In Water) 25 ml IVPUSH ONETIME STA Stop: 10/30/17 12:55 Last Admin: 10/30/17 12:59 Dose: 25 ml Hydromorphone HCl (Dilaudid) 0.25 mg IVPUSH Q4H PRN PRN Reason: Pain Last Admin: 10/31/17 14:53 Dose: 0.25 mg Sodium Chloride (Normal Saline) 1,000 mls @ 999 mls/hr IV ONETIME ONE Stop: 10/30/17 12:26 Last Admin: 10/30/17 11:44 Dose: 999 mls/hr Dextrose/Sodium Chloride (Dextrose 5%-Normal Saline) 1,000 mls @ 150 mls/hr IV ASDIRECTED [facility] Last Admin: 10/31/17 16:45 Dose: 150 mls/hr Ceftazidime 2 gm/ Sodium (Chloride) 50 mls @ 100 mls/hr IV ONETIME STA Stop: 10/30/17 13:35 Last Admin: 10/31/17 05:02 Dose: Not Given Levofloxacin/Dextrose 750 mg/ (Premix) 150 mls @ 100 mls/hr IV ONETIME ONE Stop: 10/30/17 14:39 Last Admin: 10/30/17 16:46 Dose: Not Given Vancomycin HCl 1 gm/ Sodium (Chloride) 250 mls @ 250 mls/hr IV ONETIME ONE Stop: 10/30/17 14:10 Last Admin: 10/30/17 13:33 Dose: 250 mls/hr Ceftazidime 2 gm/ Sodium (Chloride) 100 mls @ 200 mls/hr IV ONETIME ONE Stop: 10/30/17 14:14 Last Admin: 10/30/17 15:38 Dose: 200 mls/hr Sodium Chloride (Sodium Chloride 0.45%) 500 mls @ 999 mls/hr IV ONETIME ONE Stop: 10/30/17 15:58 Last Admin: 10/30/17 15:38 Dose: 999 mls/hr Vancomycin HCl 1 gm/ Sodium (Chloride) 250 mls @ 250 mls/hr IV Q24H [facility] Cefepime HCl 1 gm/ Premix 50 mls @ 100 mls/hr IV Q8H [facility] Last Admin: 10/31/17 19:55 Dose: Not Given Potassium Chloride 10 meq/ (Premix) 100 mls @ 100 mls/hr IV Q1H [facility] Stop: 10/31/17 23:29 Last Admin: 10/31/17 23:27 Dose: 100 mls/hr Cefepime HCl 1 gm/ Sodium (Chloride) 50 mls @ 100 mls/hr IV Q8H [facility] Last Admin: 10/31/17 20:48 Dose: Not Given Cefepime HCl (Maxipime In D5w 2 Gm/50 Ml) 25 mls @ 50 mls/hr IV Q8H [facility] Last Admin: 11/01/17 04:27 Dose: 50 mls/hr Dextrose/Sodium Chloride (Dextrose 5%-Normal Saline) 1,000 mls @ 25 mls/hr IV ASDIRECTED [facility] Last Admin: 11/03/17 10:18 Dose: 25 mls/hr Magnesium Sulfate 2 gm/ Premix 50 mls @ 25 mls/hr IV Q2H [facility] Stop: 11/01/17 11:29 Last Admin: 11/01/17 10:30 Dose: 25 mls/hr Cefepime HCl 2 gm/ Premix 50 mls @ 100 mls/hr IV Q8H [facility] Potassium Chloride 10 meq/ (Premix) 100 mls @ 100 mls/hr IV Q1H [facility] Stop: 11/03/17 14:59 Last Admin: 11/03/17 16:17 Dose: 100 mls/hr Methylprednisolone Sodium Succinate 160 mg/ Sodium Chloride 252.56 mls @ 35.178 mls/hr IV ONETIME ONE Stop: 11/04/17 20:56 Magnesium Sulfate/Dextrose 1 (gm/ Premix) 100 mls @ 100 mls/hr IV ONETIME ONE Stop: 11/05/17 12:06 Last Admin: 11/05/17 11:41 Dose: 100 mls/hr Magnesium Oxide (Magnesium Oxide) 400 mg PO TID [facility] Stop: 11/05/17 21:01 Last Admin: 11/05/17 11:03 Dose: Not Given Metoprolol Tartrate (Lopressor) 5 mg IVPUSH Q4H PRN PRN Reason: heart rate> 120 Last Admin: 10/31/17 01:14 Dose: 5 mg Miscellaneous Information (Remove Patch) 0 ea TRDERM Q72H ONE Stop: 11/05/17 07:16 Last Admin: 11/05/17 07:05 Dose: 1 ea Potassium Chloride (Klor-Con M20) 20 meq PO Q3H [facility] Stop: 10/31/17 20:31 Last Admin: 10/31/17 19:55 Dose: Not Given Potassium Chloride (Klor-Con M20) 40 meq PO ONETIME ONE Stop: 11/02/17 08:01 Scopolamine (Scopolamine) 1 each TRDERM Q72H ONE Stop: 11/02/17 07:01 Last Admin: 11/02/17 07:24 Dose: 1 each Scopolamine (Scopolamine) 1 each TRDERM Q72H ONE Stop: 11/05/17 07:16 Last Admin: 11/05/17 07:02 Dose: 1 each Vancomycin HCl (Pharmacy To Dose - Vancomycin) 1 dose .XX ASDIRECTED [facility]
[2017-11-05] MEDS: hydrALAZINE 20 MG/ML SDV IVPUSH PRN (20:20)
[2017-11-05] MEDS: Metoprolol Tartrate 5 MG/5 ML SDV IVPUSH PRN (21:46)
[2017-11-06] MEDS ORDERED: D5 1/2 NS w/ 40 mEq/L KCl 1,000 ML IV SCH (03:15)
[2017-11-06] MEDS: HYDROmorphone 0.5 MG/0.5 ML Syringe IVPUSH PRN (05:45)
[2017-11-06] MEDS: Albuterol/Ipratropium 3.0-0.5 MG/3 ML Neb Soln NEB SCH ×4 (06:18→21:03)
[2017-11-06] MEDS: Levothyroxine 25 MCG Tab PO SCH (06:22)
--- NOTE | 2017-11-06 08:02 | CONS ---
CONSULTING PHYSICIAN: Fredrick Christian MD DATE OF CONSULTATION: 11/03/2017 HISTORY OF PRESENT ILLNESS: This is a 67-year-old who has MS and a stroke with hemiparesis, brought into the emergency room on 10/29/2017 and then returned again on 10/30/2017 with respiratory problems. She had not improved with outpatient treatment. She is admitted to the hospital and is on IV antibiotics. Her chest x-ray minimally continues to show diffuse density in both sides of the chest as well as bilateral pleural effusions. The patient has had a PEG tube placed in the past, which was removed and likely she has aspirated. There is request for another PEG tube. The patient's speech evaluation has been done showing the need for nutritional support, and the speech evaluation showed inability to swallow without aspiration. PAST MEDICAL HISTORY: Cataracts with impaired vision, high cholesterol, hypertension, CVA, expressive aphasia, left hemiparesis, and MS. PAST SURGICAL HISTORY: Cataract surgery. SOCIAL HISTORY: Does not smoke. No use of drugs. ALLERGIES: None. MEDICATIONS: Per medication reconciliation form. REVIEW OF SYSTEMS: The patient is mute and unable to express herself because of her aphasia. PHYSICAL EXAMINATION: VITAL SIGNS: Temperature 36, pulse 106, respirations 14, blood pressure 119/55. HEENT: Eyes, sclerae white. Oral cavity healthy. NECK: Supple. LUNGS: Breath sounds bilateral. Decreased in the bases. She has some gasping respirations. ABDOMEN: Soft. PEG tube site noted. EXTREMITIES: Upper and lower extremities; spastic paralysis in the right extremity. NEUROLOGIC: Not alert, a little bit somnolent. Cranial nerves III through XII not testable. SKIN: Warm and dry. ASSESSMENT AND PLAN: Stroke; pneumonia, pneumonic process is not improving; request for PEG tube; and MS. We will discuss the prognosis with the family and consider that the patient's prognosis is quite poor even with PEG tube. MMODAL /[id number]
[2017-11-06] MEDS ORDERED: ceFAZolin 2 GM in Premix Bag 1 BAG IV ONE (08:15)
[2017-11-06] MEDS: Enoxaparin 40 MG/0.4 ML Syringe SUBCUT SCH (09:24)
[2017-11-06] MEDS: Rosuvastatin 10 MG Tab PO SCH (09:24)
[2017-11-06] MEDS: Amantadine Soln 50 MG/5 ML UD Cup PO SCH ×2 (09:24→20:15)
[2017-11-06] MEDS: Famotidine 20 MG/2 ML SDV IVPUSH SCH ×2 (09:24→20:15)
[2017-11-06] MEDS: methylPREDNISolone Sodium Succinate 125 MG/2 ML SDV IVPUSH SCH (09:25)
--- NOTE | 2017-11-06 09:46 | PCM.PN ---
- General Info Date of Service: 11/06/17 Admission Dx/Problem (Free Text): Admission Diagnosis/Problem Admission Diagnosis/Problem Pneumonia Subjective Update: Follow Up Functional Status: Reports: Pain Controlled, Urinating. Denies: New Symptoms - Review of Systems General: Denies: Fever, Weakness, Fatigue, Malaise, Chills HEENT: Reports: No Symptoms Pulmonary: Reports: Shortness of Breath Cardiovascular: Reports: No Symptoms Gastrointestinal: Denies: Abdominal Pain, Nausea, Vomiting Genitourinary: Reports: No Symptoms Musculoskeletal: Reports: No Symptoms Skin: Reports: Bruising. Denies: Cyanosis, Mottled, Pallor, Diaphoresis Neurological: Reports: Pre-Existing Deficit, Difficulty Walking, Weakness, Gait Disturbance Psychiatric: Denies: Depression, Anxiety, Agitation, Hallucinations Systems Review Comment:: No significant overnight or acute issues. She is comfortable. No new complaints - Patient Data Vitals - Most Recent: Last Vital Signs Temp 36.8 C 11/06/17 07:54 Pulse 93 11/06/17 07:54 Resp 12 11/06/17 07:54 BP 145/67 H 11/06/17 07:54 Pulse Ox 95 11/06/17 07:54 Weight - Most Recent: 58.513 kg I&O - Last 24 Hours: Intake & Output 11/05/17 11/06/17 11/06/17 22:59 06:59 14:59 Intake Total 589 428 Balance 589 428 Lab Results Last 24 Hours: Laboratory Results - last 24 hr 11/05/17 11/05/17 11/05/17 Range/Units 06:33 10:00 10:00 WBC 5.70 (3.98-10.04) K/mm3 RBC 3.88 L (3.98-5.22) M/mm3 Hgb 11.3 (11.2-15.7) gm/L Hct 35.5 (34.1-44.9) % MCV 91.5 (79.4-94.8) fl MCH 29.1 (25.6-32.2) pg MCHC 31.8 L (32.2-35.5) g/dl RDW Std Deviation 58.2 H (36.4-46.3) fL Plt Count 220 (182-369) K/mm3 MPV 10.2 (9.4-12.3) fl Neut % (Auto) 71.5 H (34.0-71.1) % Lymph % (Auto) 13.0 L (19.3-51.7) % Talbot % (Auto) 6.7 (4.7-12.5) % Eos % (Auto) 0 L (0.7-5.8) Baso % (Auto) 0.9 (0.1-1.2) % Neut # (Auto) 4.08 (1.56-6.13) K/mm3 Lymph # (Auto) 0.74 L (1.18-3.74) K/mm3 Talbot # (Auto) 0.38 H (0.24-0.36) K/mm3 Eos # (Auto) 0.00 L (0.04-0.36) K/mm3 Baso # (Auto) 0.05 (0.01-0.08) K/mm3 Manual Slide Review Abnormal smear Sodium 146 H (136-145) mEq/L Potassium 4.5 (3.5-5.1) mEq/L Chloride 104 (98-107) mEq/L Carbon Dioxide 36 H (21-32) mEq/L Anion Gap 10.5 (5-15) BUN 16 (7-18) mg/dL Creatinine 0.5 L (0.55-1.02) mg/dL Est Cr Clr Drug Dosing 92.79 mL/min Estimated GFR (MDRD) > 60 (>60) mL/min BUN/Creatinine Ratio 32.0 H (14-18) Glucose 147 H (80-115) mg/dL POC Glucose 136 H (80-115) mg/dL Calcium 8.9 (8.5-10.1) mg/dL Magnesium 1.8 (1.8-2.4) mg/dl 11/05/17 11/05/17 11/06/17 Range/Units 14:38 18:52 00:38 WBC (3.98-10.04) K/mm3 RBC (3.98-5.22) M/mm3 Hgb (11.2-15.7) gm/L Hct (34.1-44.9) % MCV (79.4-94.8) fl MCH (25.6-32.2) pg MCHC (32.2-35.5) g/dl RDW Std Deviation (36.4-46.3) fL Plt Count (182-369) K/mm3 MPV (9.4-12.3) fl Neut % (Auto) (34.0-71.1) % Lymph % (Auto) (19.3-51.7) % Talbot % (Auto) (4.7-12.5) % Eos % (Auto) (0.7-5.8) Baso % (Auto) (0.1-1.2) % Neut # (Auto) (1.56-6.13) K/mm3 Lymph # (Auto) (1.18-3.74) K/mm3 Talbot # (Auto) (0.24-0.36) K/mm3 Eos # (Auto) (0.04-0.36) K/mm3 Baso # (Auto) (0.01-0.08) K/mm3 Manual Slide Review Sodium (136-145) mEq/L Potassium (3.5-5.1) mEq/L Chloride (98-107) mEq/L Carbon Dioxide (21-32) mEq/L Anion Gap (5-15) BUN (7-18) mg/dL Creatinine (0.55-1.02) mg/dL Est Cr Clr Drug Dosing mL/min Estimated GFR (MDRD) (>60) mL/min BUN/Creatinine Ratio (14-18) Glucose (80-115) mg/dL POC Glucose 183 H 135 H 143 H (80-115) mg/dL Calcium (8.5-10.1) mg/dL Magnesium (1.8-2.4) mg/dl 11/06/17 11/06/17 11/06/17 Range/Units 06:01 06:11 06:11 WBC 10.69 H (3.98-10.04) K/mm3 RBC 3.72 L (3.98-5.22) M/mm3 Hgb 10.9 L (11.2-15.7) gm/L Hct 34.1 (34.1-44.9) % MCV 91.7 (79.4-94.8) fl MCH 29.3 (25.6-32.2) pg MCHC 32.0 L (32.2-35.5) g/dl RDW Std Deviation 57.7 H (36.4-46.3) fL Plt Count 278 (182-369) K/mm3 MPV 10.0 (9.4-12.3) fl Neut % (Auto) 72.2 H (34.0-71.1) % Lymph % (Auto) 10.8 L (19.3-51.7) % Talbot % (Auto) 12.7 H (4.7-12.5) % Eos % (Auto) 0 L (0.7-5.8) Baso % (Auto) 0.2 (0.1-1.2) % Neut # (Auto) 7.72 H (1.56-6.13) K/mm3 Lymph # (Auto) 1.15 L (1.18-3.74) K/mm3 Talbot # (Auto) 1.36 H (0.24-0.36) K/mm3 Eos # (Auto) 0.00 L (0.04-0.36) K/mm3 Baso # (Auto) 0.02 (0.01-0.08) K/mm3 Manual Slide Review Abnormal smear Sodium 145 (136-145) mEq/L Potassium 4.5 (3.5-5.1) mEq/L Chloride 105 (98-107) mEq/L Carbon Dioxide 37 H (21-32) mEq/L Anion Gap 7.5 (5-15) BUN 22 H (7-18) mg/dL Creatinine 0.5 L (0.55-1.02) mg/dL Est Cr Clr Drug Dosing 92.79 mL/min Estimated GFR (MDRD) > 60 (>60) mL/min BUN/Creatinine Ratio 44.0 H (14-18) Glucose 133 H (80-115) mg/dL POC Glucose 127 H (80-115) mg/dL Calcium 8.9 (8.5-10.1) mg/dL Magnesium 2.3 (1.8-2.4) mg/dl Med Orders - Current: Current Medications Acetaminophen (Tylenol) 650 mg RECTAL Q4H PRN PRN Reason: Fever Last Admin: 10/31/17 10:51 Dose: 650 mg Albuterol (Proventil Neb Soln) 2.5 mg NEB Q4HRRT PRN PRN Reason: Shortness of Breath Last Admin: 11/04/17 13:42 Dose: 2.5 mg Albuterol/Ipratropium (Duoneb 3.0-0.5 Mg/3 Ml) 3 ml NEB QIDRT [facility] Last Admin: 11/06/17 06:18 Dose: 3 ml Amantadine HCl (Symmetrel 50 Mg/5 Ml Soln) 75 mg PO BID [facility] Last Admin: 11/06/17 09:24 Dose: Not Given Diclofenac Sodium (Voltaren 1% Gel) 0 gm TOP QID PRN PRN Reason: PAIN Enoxaparin Sodium (Lovenox) 40 mg SUBCUT DAILY [facility] Last Admin: 11/06/17 09:24 Dose: 40 mg Famotidine (Pepcid) 20 mg IVPUSH BID [facility] Last Admin: 11/06/17 09:24 Dose: 20 mg Guaifenesin (Mucinex) 600 mg PO BID PRN PRN Reason: Congestion Hydralazine HCl (Apresoline) 20 mg IVPUSH Q4H PRN PRN Reason: Hypertension Last Admin: 11/05/17 20:20 Dose: 20 mg Hydromorphone HCl (Dilaudid) 0.5 mg IVPUSH Q4H PRN PRN Reason: Pain Last Admin: 11/06/17 05:45 Dose: 0.5 mg Levofloxacin/Dextrose 750 mg/ (Premix) 150 mls @ 100 mls/hr IV Q24H [facility] Last Admin: 11/05/17 16:05 Dose: 100 mls/hr Doxycycline Hyclate 100 mg/ (Dextrose/Water) 100 mls @ 100 mls/hr IV Q12H [facility] Last Admin: 11/06/17 02:52 Dose: 100 mls/hr Potassium Chloride/Dextrose/Sod Cl (D5 1/2 Ns W/ 40 Meq/L Kcl) 1,000 mls @ 35 mls/hr IV ASDIRECTED [facility] Levothyroxine Sodium (Levothyroxine) 25 mcg PO ACBREAKFAST [facility] Last Admin: 11/06/17 06:22 Dose: Not Given Lorazepam (Ativan) 0.5 mg IVPUSH Q4H PRN; Protocol PRN Reason: Anxiety Lorazepam (Ativan) 0.25 mg IVPUSH Q4H PRN; Protocol PRN Reason: Anxiety Magnesium Sulfate (Pharmacy To Dose - Magnesium Replacement) 1 dose .XX ASDIRECTED [facility] Methylprednisolone Sodium Succinate (Solu-Medrol) 160 mg IVPUSH DAILY [facility] Last Admin: 11/06/17 09:25 Dose: 160 mg Metoprolol Tartrate (Lopressor) 5 mg IVPUSH Q4H PRN PRN Reason: Tachycardia Last Admin: 11/05/17 21:46 Dose: 5 mg Miscellaneous Information (Remove Patch) 1 ea TRDERM ONETIME ONE Stop: 11/08/17 07:16 Ondansetron HCl (Zofran) 4 mg IVPUSH Q8H PRN PRN Reason: Nausea/Vomiting Potassium Chloride (Pharmacy To Dose - Potassium Replacement) 1 dose .XX ASDIRECTED [facility] Rosuvastatin Calcium (Crestor) 10 mg PO DAILY [facility] Last Admin: 11/06/17 09:24 Dose: Not Given Temazepam (Restoril) 30 mg PO BEDTIME PRN PRN Reason: Insomnia Discontinued Medications Acetaminophen (Tylenol Solution) 650 mg PO Q4H PRN PRN Reason: Fever Last Admin: 10/31/17 01:14 Dose: 650 mg Amantadine HCl (Symmetrel 50 Mg/5 Ml Soln) 75 mg PO BID [facility] Last Admin: 10/31/17 00:59 Dose: Not Given Bisacodyl (Dulcolax) 10 mg RECTAL ONETIME ONE Stop: 10/31/17 07:39 Last Admin: 10/31/17 08:54 Dose: 10 mg Bumetanide (Bumex) 0.5 mg IVPUSH ONETIME ONE Stop: 11/02/17 19:29 Last Admin: 11/02/17 22:09 Dose: 0.5 mg Bumetanide (Bumex) 0.5 mg IVPUSH STAT ONE Stop: 11/04/17 15:18 Last Admin: 11/04/17 15:23 Dose: 0.5 mg Clonidine HCl (Catapres Tts-2) 0.2 mg TRDERM Q7D ONE Stop: 10/31/17 18:01 Last Admin: 10/31/17 18:13 Dose: 0.2 mg Dextrose/Water (Dextrose 50% In Water) 25 ml IVPUSH ONETIME STA Stop: 10/30/17 12:55 Last Admin: 10/30/17 12:59 Dose: 25 ml Hydromorphone HCl (Dilaudid) 0.25 mg IVPUSH Q4H PRN PRN Reason: Pain Last Admin: 10/31/17 14:53 Dose: 0.25 mg Sodium Chloride (Normal Saline) 1,000 mls @ 999 mls/hr IV ONETIME ONE Stop: 10/30/17 12:26 Last Admin: 10/30/17 11:44 Dose: 999 mls/hr Dextrose/Sodium Chloride (Dextrose 5%-Normal Saline) 1,000 mls @ 150 mls/hr IV ASDIRECTED [facility] Last Admin: 10/31/17 16:45 Dose: 150 mls/hr Ceftazidime 2 gm/ Sodium (Chloride) 50 mls @ 100 mls/hr IV ONETIME STA Stop: 10/30/17 13:35 Last Admin: 10/31/17 05:02 Dose: Not Given Levofloxacin/Dextrose 750 mg/ (Premix) 150 mls @ 100 mls/hr IV ONETIME ONE Stop: 10/30/17 14:39 Last Admin: 10/30/17 16:46 Dose: Not Given Vancomycin HCl 1 gm/ Sodium (Chloride) 250 mls @ 250 mls/hr IV ONETIME ONE Stop: 10/30/17 14:10 Last Admin: 10/30/17 13:33 Dose: 250 mls/hr Ceftazidime 2 gm/ Sodium (Chloride) 100 mls @ 200 mls/hr IV ONETIME ONE Stop: 10/30/17 14:14 Last Admin: 10/30/17 15:38 Dose: 200 mls/hr Sodium Chloride (Sodium Chloride 0.45%) 500 mls @ 999 mls/hr IV ONETIME ONE Stop: 10/30/17 15:58 Last Admin: 10/30/17 15:38 Dose: 999 mls/hr Vancomycin HCl 1 gm/ Sodium (Chloride) 250 mls @ 250 mls/hr IV Q24H [facility] Cefepime HCl 1 gm/ Premix 50 mls @ 100 mls/hr IV Q8H [facility] Last Admin: 10/31/17 19:55 Dose: Not Given Potassium Chloride 10 meq/ (Premix) 100 mls @ 100 mls/hr IV Q1H [facility] Stop: 10/31/17 23:29 Last Admin: 10/31/17 23:27 Dose: 100 mls/hr Cefepime HCl 1 gm/ Sodium (Chloride) 50 mls @ 100 mls/hr IV Q8H [facility] Last Admin: 10/31/17 20:48 Dose: Not Given Cefepime HCl (Maxipime In D5w 2 Gm/50 Ml) 25 mls @ 50 mls/hr IV Q8H [facility] Last Admin: 11/01/17 04:27 Dose: 50 mls/hr Dextrose/Sodium Chloride (Dextrose 5%-Normal Saline) 1,000 mls @ 25 mls/hr IV ASDIRECTED [facility] Last Admin: 11/03/17 10:18 Dose: 25 mls/hr Magnesium Sulfate 2 gm/ Premix 50 mls @ 25 mls/hr IV Q2H [facility] Stop: 11/01/17 11:29 Last Admin: 11/01/17 10:30 Dose: 25 mls/hr Cefepime HCl 2 gm/ Premix 50 mls @ 100 mls/hr IV Q8H [facility] Potassium Chloride 10 meq/ (Premix) 100 mls @ 100 mls/hr IV Q1H [facility] Stop: 11/03/17 14:59 Last Admin: 11/03/17 16:17 Dose: 100 mls/hr Potassium Chloride/Dextrose/Sod Cl (D5 1/2 Ns W/ 40 Meq/L Kcl) 1,000 mls @ 35 mls/hr IV ASDIRECTED [facility] Last Admin: 11/04/17 19:08 Dose: 35 mls/hr Cefazolin Sodium/Dextrose 2 gm (/ Premix) 50 mls @ 100 mls/hr IV ONETIME ONE Stop: 11/06/17 08:44 Last Admin: 11/06/17 09:23 Dose: Not Given Methylprednisolone Sodium Succinate 160 mg/ Sodium Chloride 252.56 mls @ 35.178 mls/hr IV ONETIME ONE Stop: 11/04/17 20:56 Magnesium Sulfate/Dextrose 1 (gm/ Premix) 100 mls @ 100 mls/hr IV ONETIME ONE Stop: 11/05/17 12:06 Last Admin: 11/05/17 11:41 Dose: 100 mls/hr Magnesium Oxide (Magnesium Oxide) 400 mg PO TID [facility] Stop: 11/05/17 21:01 Last Admin: 11/05/17 11:03 Dose: Not Given Metoprolol Tartrate (Lopressor) 5 mg IVPUSH Q4H PRN PRN Reason: heart rate> 120 Last Admin: 10/31/17 01:14 Dose: 5 mg Miscellaneous Information (Remove Patch) 0 ea TRDERM Q72H ONE Stop: 11/05/17 07:16 Last Admin: 11/05/17 07:05 Dose: 1 ea Potassium Chloride (Klor-Con M20) 20 meq PO Q3H [facility] Stop: 10/31/17 20:31 Last Admin: 10/31/17 19:55 Dose: Not Given Potassium Chloride (Klor-Con M20) 40 meq PO ONETIME ONE Stop: 11/02/17 08:01 Scopolamine (Scopolamine) 1 each TRDERM Q72H ONE Stop: 11/02/17 07:01 Last Admin: 11/02/17 07:24 Dose: 1 each Scopolamine (Scopolamine) 1 each TRDERM Q72H ONE Stop: 11/05/17 07:16 Last Admin: 11/05/17 07:02 Dose: 1 each Vancomycin HCl (Pharmacy To Dose - Vancomycin) 1 dose .XX ASDIRECTED [facility] - Exam General: No Acute Distress, Other (Awake) HEENT: Pupils Equal, Pupils Reactive Neck: Supple, Trachea Midline, No JVD Lungs: Normal Respiratory Effort, Decreased Breath Sounds Cardiovascular: Regular Rate, Regular Rhythm GI/Abdominal Exam: Normal Bowel Sounds, Soft, Non-Tender, No Organomegaly, No Distention, No Abnormal Bruit (Female) Exam: Deferred Back Exam: Normal Inspection, Decreased Range of Motion Extremities: Normal Inspection, Normal Range of Motion, Non-Tender, No Pedal Edema, Normal Capillary Refill Peripheral Pulses: 2+: Dorsalis Pedis (L), Dorsalis Pedis (R) Skin: Warm, Dry, Intact Neurological: No New Focal Deficit. No: Normal Gait, Normal Speech, Strength Equal Bilateral Psy/Mental Status: No: Normal Affect, Other (Awake) Physical Findings Comments:: Awake but non-verbal. She is able to nod her head to express yes or no. - Problem List Review Problem List Initiated/Reviewed/Updated: Yes - My Orders Last 24 Hours: My Active Orders 11/05/17 13:04 Incentive Spirometry [RT Incentive Spirometry] [RC] ASDIRECTED 11/06/17 03:15 D5 1/2 NS w/ 40 mEq/L KCl 1,000 ml IV ASDIRECTED 11/07/17 05:11 BMP [BASIC METABOLIC PANEL,BMP] [CHEM] AM CBC WITH AUTO DIFF [HEME] AM MG [MAGNESIUM] [CHEM] AM 11/08/17 05:11 CBC WITH AUTO DIFF [HEME] AM MG [MAGNESIUM] [CHEM] AM 11/08/17 07:15 Remove Patch 1 mikayla WALKER ONETIME ONE - Plan Plan:: Impression: Acute: Aspiration PNA, Continues to Improve - Risk Factors: CVA with Expressive Aphasia, Recurrent PNA, Swallow and Speech Problems with MS - [employer] on board for further evaluation - She was on PEG tube and was just discontinued about a month ago - Blood cultures are negative - Continue IV Levaquin 750 mg IV daily and Doxycycline; d/c in AM - She gets hives with PCN per daughter - Aspiration precautions, supplemental O2, H2B and routine RT care - She is now on 3L NC - CXR in AM - Chest CT scan: small pleural effusion Dysphagia, Unchanged - 2/2 Hx/o CVA likley worsened by Advanced MS - Swallow eval on 07/18 2017 shows Sneha-pharyngeal Dysphagia - [employer] recommends NPO - PEG Tube placement today - Continue Scopolamine Patch - Dietary consult for tube feeding Probable MS Exacerbation - We have no good drugs in formulary - She is DNR/DNI and not turned comfort measures - Continue IV Steroids for acute treatment - This would likely induced leukocytosis-mild Query Parkinson's Disease vs Drug Induced Extra-Pyramidal Symptoms - She is on Amantadine - Reviewed home meds; no medications for MS End of Life Care - DNR/DNI/Comfort Measures - She has terminal illness - Mottling resolved - Elevated Sodium level improving Resolved: Leukocytosis - WBC 10. 12--> 9.29 and CRP 47--> 41.6 - 2/2 Above - Treatment as above HTN - Acute on chronic - 2/2 above infections and stress - PRN BP medications UTI - Risk Factors: She is bed-bound from her debilitating MS and carries a hx/o recurrent UTI - She also has chronic incontinence and uses daily under pads - Continue IV Levaquin for antibiotic coverage - UA pos for Kleb pneumonia sensitive to Quinolones AMS/Encephalopathy - 2/2 Above - Supportive care Acute Respiratory Distress, Improved - 2/2 Worsening Sneha-pharyngeal Dysfunction - She has been made comfort measures with treatment per family's request - Continue aspiration precautions Sinus Tachycardia, Improved - Likely 2/2 Above infections - EKG shows sinus tachycardia - Clonidine Patch x1 - Metoprolol PRN for HR > 110 Mild Hypernatremia - NA is 148--> 146 - She is on D5W 1/2 NS at 35 cc/hr for sustenance Chronic: Impaired Vision HLD Hypothyroidism Hyponatemia OA/DJD Hx/o Advanced MS not on Maintenance Medications except for Amantadine History of CVA with left sided hemiparesis/expressive aphasia Hx/o PEG tube placement Plan: She is clinically Stable Continue current treatment per family's request Aspiration/Fall Precautions Routine Daily Labs per family's request PEG Tube Placement today DVT/GI prophylaxis: Lovenox SubQ and H2B Additional orders as above Code status: DNR/DNI/Comfort Measures with Treatment Prognosis guarded-good. Possible d/c in AM if she tolerates tube feeding
[2017-11-06] MEDS ORDERED: Propofol 200 MG/20 ML SDV ONE (11:28)
[2017-11-06] MEDS: Bacitracin Oint 15 GM Tube ONE ×2 (12:00→12:12)
[2017-11-06] MEDS ORDERED: ceFAZolin 1 GM Vial ONE (12:13)
--- NOTE | 2017-11-06 12:22 | PCM.OPNOTE ---
- General Post-Op/Procedure Note Date of Surgery/Procedure: 11/06/17 Operative Procedure(s): PEG Pre Op Diagnosis: dysphagia Post-Op Diagnosis: Same Anesthesia Technique: MAC Primary Surgeon: Fredrick Christian EBL in mLs: 0 Complications: None Condition: Good Free Text/Narrative:: Intake & Output 11/05/17 11/06/17 11/06/17 23:59 07:59 15:59 Intake Total 589 428 Balance 589 428
[2017-11-06] MEDS: Levofloxacin/Dextrose 5%-Water 750 MG in Premix Bag 1 BAG IV SCH (17:11)
[2017-11-07] MEDS: HYDROmorphone 0.5 MG/0.5 ML Syringe IVPUSH PRN (02:38)
[2017-11-07] MEDS: Albuterol/Ipratropium 3.0-0.5 MG/3 ML Neb Soln NEB SCH ×2 (05:33→09:59)
[2017-11-07] MEDS: Levothyroxine 25 MCG Tab PO SCH (06:42)
[2017-11-07] MEDS: methylPREDNISolone Sodium Succinate 125 MG/2 ML SDV IVPUSH SCH (07:59)
[2017-11-07] MEDS: Rosuvastatin 10 MG Tab PO SCH (07:59)
[2017-11-07] MEDS: Amantadine Soln 50 MG/5 ML UD Cup PO SCH (07:59)
[2017-11-07] MEDS: Famotidine 20 MG/2 ML SDV IVPUSH SCH (08:00)
[2017-11-07] MEDS: Enoxaparin 40 MG/0.4 ML Syringe SUBCUT SCH (08:00)
--- NOTE | 2017-11-07 08:04 | OR ---
DATE OF OPERATION: 11/06/2017 SURGEON: Fredrick Christian MD PREOPERATIVE DIAGNOSIS: Aspiration pneumonia and oropharyngeal dysphagia. POSTOPERATIVE DIAGNOSIS: Aspiration pneumonia and oropharyngeal dysphagia. OPERATION PERFORMED: Placement of PEG tube, 20-Somali Ponsky direct PEG tube placed, reference #[id number], lot #[id number] done under IV sedation. ESTIMATED BLOOD LOSS: 0 mL. DESCRIPTION OF PROCEDURE: The patient taken to the endoscopy room and placed in a supine position. Antibiotics were given IV and connected to monitoring equipment, given IV sedation. She was positioned on the bed supine with head elevated. A bite block was inserted. Video Olympus gastroscope was then placed in the posterior oropharynx, threaded past the cricopharyngeus down the esophagus into the stomach. The stomach was insufflated, and the scope transilluminated through the abdomen at the site of the previous PEG tube. This area was then prepped with Betadine, anesthetized with 1% Xylocaine, and an inner cath was placed through the epidermis abdominal wall into the stomach. Through this, a wire was placed. This was grasped with a snare and brought out through the mouth. This was then connected to a 20-Somali Ponsky tube with the tapered end and it was well lubricated with bacitracin ointment and pulled back through the abdominal wall. The abdominal wall skin was open to accommodate the tube. A retaining ring was then placed over this tube and the scope was then reinserted showing proper position of the PEG tube with proper pressure. Retaining ring was then sutured to the skin with interrupted 4-0 Prolene suture and was dressed with bacitracin ointment and an occlusive dressing. The patient tolerated the procedure and sent to recovery room in a stable condition. ANESTHESIA: MMODAL /[id number]
[2017-11-07] MEDS ORDERED: cloNIDine 0.2 MG/Day Transdermal Patch TRDERM SCH (09:15)
--- NOTE | 2017-11-07 09:51 | CR ---
Chest: Portable view of the chest was obtained. Comparison: Prior chest CT and chest x-ray performed on 11/05/17. Blunting of both costophrenic angles is seen compatible with continuing small pleural effusions. Parenchymal density within the left base remains. Improved parenchymal density within the right base is noted. Improved loculated pleural effusion within the right midlung is seen. Heart size and mediastinum are stable. Scoliosis is noted. Impression: 1. Continuing small bilateral pleural effusions. 2. Continued parenchymal density within the left lung base. 3. Slightly improved parenchymal density within the right lung base as well as improved loculated pleural effusion within the right midlung. Diagnostic code #3
--- NOTE | 2017-11-07 12:32 | PCM.DCSUM1 ---
Discharge Summary - Hospital Course Brief History: 67 year old female with MS and history of left sided hemiparesis returns to ED at [facility] after minimal improvement from previous visit on 10/29/17. She started Rocephin 1 gm daily for PNA/UTI. CXR, BCs, UA were performed during that visit. There has been minimal improvement of her cough with sputum, shortness of breath; she has not had a fever or chills but has generalized weakness and malaise. Influenza screen was performed on her initial visit however, a UC was not performed. She is a resident at [place] ; health care providers are: PCP, Dr Alfonso; Neurologist, Dr Davenport; Urologist, Dr Moraels. She will be admitted to [facility] telemetry. - Discharge Data Discharge Date: 11/07/17 Discharge Disposition: Home, Self-Care 01 Condition: Good - Discharge Diagnosis/Problem(s) (1) Aspiration pneumonia SNOMED Code(s): 764501589 ICD Code: J69.0 - PNEUMONITIS DUE TO INHALATION OF FOOD AND VOMIT Status: Acute Qualifiers: Aspiration pneumonia type: due to gastric secretions Laterality: bilateral Lung location: unspecified part of lung Qualified Code(s): J69.0 - Pneumonitis due to inhalation of food and vomit (2) Dysphagia due to old cerebrovascular accident SNOMED Code(s): 458990461 ICD Code: I69.391 - DYSPHAGIA FOLLOWING CEREBRAL INFARCTION Status: Chronic (3) Leukocytosis SNOMED Code(s): 331784574 ICD Code: D72.829 - ELEVATED WHITE BLOOD CELL COUNT, UNSPECIFIED Status: Acute Qualifiers: Leukocytosis type: other Qualified Code(s): D72.828 - Other elevated white blood cell count (4) HTN (hypertension) SNOMED Code(s): 29211507 ICD Code: I10 - ESSENTIAL (PRIMARY) HYPERTENSION Status: Resolved Qualifiers: Hypertension type: essential hypertension Qualified Code(s): I10 - Essential (primary) hypertension (5) UTI (urinary tract infection) SNOMED Code(s): 48985891 ICD Code: N39.0 - URINARY TRACT INFECTION, SITE NOT SPECIFIED Status: Resolved Qualifiers: Urinary tract infection type: acute cystitis Hematuria presence: without hematuria Qualified Code(s): N30.00 - Acute cystitis without hematuria (6) Acute respiratory distress SNOMED Code(s): 913056658 ICD Code: R06.03 - ACUTE RESPIRATORY DISTRESS Status: Resolved (7) Sinus tachycardia SNOMED Code(s): 20528437 ICD Code: R00.0 - TACHYCARDIA, UNSPECIFIED Status: Resolved (8) Hypernatremia SNOMED Code(s): 49430394 ICD Code: E87.0 - HYPEROSMOLALITY AND HYPERNATREMIA Status: Resolved (9) Altered mental status SNOMED Code(s): 826762197 ICD Code: R41.82 - ALTERED MENTAL STATUS, UNSPECIFIED Status: Resolved Qualifiers: Altered mental status type: transient alteration of awareness Qualified Code(s): R40.4 - Transient alteration of awareness (10) Multiple sclerosis exacerbation SNOMED Code(s): 891437884 ICD Code: G35 - MULTIPLE SCLEROSIS Status: Acute - Patient Summary/Data Operative Procedure(s) Performed: PEG Complications: None Consults: Consultations 10/31/17 07:21 RIPSAW MATCHER Evaluation and Treatment [CONS] Routine 11/03/17 11:29 Consult to Physician [CONS] Routine 11/06/17 10:10 Consult to Dietary [Consult to Mechanical Piping Designer] [CONS] Routine Labs Pending at D/C: None Recommended Follow-up Testing/Procedures: None Planned Operative Procedure(s) after DC: None Hospital Course: Patient was primarily admitted for medical management of aspiration pneumonia. She was treated initially but her illness did not improved. She was diagnosed with UTI wherein she grew klebsiella pneumonia. Patient was placed on aspiration precaution and intravenous antibiotic was administered. No sputum culture obtained and her blood cultures were negative. Her hospital course was complicated by exacerbation of her MS. It was unclear whether she had MS or not but intravenous steroids was started to manage her acute illness. Her recovery took a while before she slowly turned around for good. Her hospital course was complicated by her underlying dysphagia. She was not able to swallow and eat so PEG tube was placed in due to risk for aspiration. Overall, Pilar had done fairly well since admission. She was stable upon discharge. She will continue to have a high dose intravenous steroid for 5 days. She was advised to follow up with neurology after discharge. She was further advised to come back or seek immediate care should her symptoms persist or get worse. Her PCP, Dr. Alfonso was called and updated regarding discharge care plan and patient will follow up with him at the clinic if not at the facility in [place]. - Patient Instructions Diet: Usual Diet as Tolerated Activity: As Tolerated Driving: Do Not Drive Showering/Bathing: May Shower Notify Provider of: Fever, Increased Pain, Nausea and/or Vomiting Other/Special Instructions: - Please resume home all medications. - You are very high risk for Aspiration. - Recommend you see a neurology for follow up appointment re: Multiple Sclerosis. - Follow up with your doctor in 1-2 weeks. - Call your doctor for any questions or concerns after discharge - Discharge Plan Prescriptions/Med Rec: methylPREDNISolone Sod Succ [Solu-MEDROL] 1,000 mg IV DAILY #5 sdv Home Medications: Home Meds Acetaminophen [Tylenol] 2 tab PO TID PRN 10/29/17 [History] Amantadine HCl [Amantadine] 75 mg PO BID 10/29/17 [History] Ascorbic Acid [Vitamin C] 100 mg PO DAILY 10/29/17 [History] Diclofenac Sodium [Voltaren 1% Gel] 100 gm TOP QID PRN 10/29/17 [History] Lecithin, Soy [Lecithin] 1,200 mg PO BID 10/29/17 [History] Levothyroxine 25 mcg PO ACBREAKFAST 10/29/17 [History] Sodium Chloride [Deep Sea] 2 spray NS TID PRN 10/29/17 [History] Trolamine Salicylate/Aloe Vera [Aspercreme 10% Cream] 1 applic TOP TID PRN 10/29 [History] Vitamin E Mixed [Vitamin E] 1 cap PO DAILY 10/29/17 [History] atorvaSTATin [Lipitor] 40 mg PO BEDTIME 10/29/17 [History] guaiFENesin [Mucinex] 600 mg PO BID PRN 10/29/17 [History] Camphor/Eucalyptus/Menthol [Ra Vaporizing Steam Liquid] 1 applic TOP ASDIRECTED 10/30/17 [History] Dextromethorphan/guaiFENesin [Robitussin DM] 2 tsp PO Q4H PRN 10/30/17 [History] methylPREDNISolone Sod Succ [Solu-MEDROL] 1,000 mg IV DAILY #5 sdv 11/07/17 [Rx] - Discharge Summary/Plan Comment DC Time >30 min.: Yes (45 mins) Discharge Summary/Plan Comment: Discharge to Home - General Info Date of Service: 11/07/17 Admission Dx/Problem (Free Text: Admission Diagnosis/Problem Admission Diagnosis/Problem Pneumonia Subjective Update: Follow Up Functional Status: Reports: Pain Controlled, Tolerating Diet, Ambulating, Urinating. Denies: New Symptoms - Review of Systems General: Denies: Fever, Weakness, Fatigue, Malaise, Chills HEENT: Reports: Dysphasia Pulmonary: Denies: Shortness of Breath Cardiovascular: Denies: Chest Pain, Dyspnea on Exertion, Edema Gastrointestinal: Reports: Difficulty Swallowing. Denies: Abdominal Pain, Nausea, Vomiting Genitourinary: Reports: No Symptoms Musculoskeletal: Reports: No Symptoms Skin: Denies: Cyanosis, Jaundice, Mottled, Pallor, Diaphoresis Neurological: Reports: Difficulty Walking, Gait Disturbance. Denies: Confusion , Weakness Psychiatric: Denies: Depression, Anxiety, Agitation, Hallucinations Systems Review Comment: No overnight or acute issues. She had a good night. She looks comfortable and engaging this am. No new complaints. - Patient Data Vitals - Most Recent: Last Vital Signs Temp 36.2 C 11/07/17 08:26 Pulse 89 11/07/17 08:26 Resp 22 H 11/07/17 08:26 BP 143/47 H 11/07/17 08:26 Pulse Ox 97 11/07/17 10:00 Weight - Most Recent: 58.786 kg I&O - Last 24 hours: Intake & Output 11/06/17 11/07/17 11/07/17 22:59 06:59 14:59 Intake Total 511 488 180 Balance 511 488 180 Lab Results - Last 24 hrs: Laboratory Results - last 24 hr 11/06/17 11/06/17 11/07/17 Range/Units 13:22 22:02 06:08 WBC (3.98-10.04) K/mm3 RBC (3.98-5.22) M/mm3 Hgb (11.2-15.7) gm/L Hct (34.1-44.9) % MCV (79.4-94.8) fl MCH (25.6-32.2) pg MCHC (32.2-35.5) g/dl RDW Std Deviation (36.4-46.3) fL Plt Count (182-369) K/mm3 MPV (9.4-12.3) fl Neut % (Auto) (34.0-71.1) % Lymph % (Auto) (19.3-51.7) % [place] % (Auto) (4.7-12.5) % Eos % (Auto) (0.7-5.8) Baso % (Auto) (0.1-1.2) % Neut # (Auto) (1.56-6.13) K/mm3 Lymph # (Auto) (1.18-3.74) K/mm3 [place] # (Auto) (0.24-0.36) K/mm3 Eos # (Auto) (0.04-0.36) K/mm3 Baso # (Auto) (0.01-0.08) K/mm3 Manual Slide Review Sodium (136-145) mEq/L Potassium (3.5-5.1) mEq/L Chloride (98-107) mEq/L Carbon Dioxide (21-32) mEq/L Anion Gap (5-15) BUN (7-18) mg/dL Creatinine (0.55-1.02) mg/dL Est Cr Clr Drug Dosing mL/min Estimated GFR (MDRD) (>60) mL/min BUN/Creatinine Ratio (14-18) Glucose (80-115) mg/dL POC Glucose 143 H 144 H 153 H (80-115) mg/dL Calcium (8.5-10.1) mg/dL Magnesium (1.8-2.4) mg/dl 11/07/17 11/07/17 Range/Units 06:20 06:20 WBC 11.11 H (3.98-10.04) K/mm3 RBC 3.60 L (3.98-5.22) M/mm3 Hgb 10.4 L (11.2-15.7) gm/L Hct 33.0 L (34.1-44.9) % MCV 91.7 (79.4-94.8) fl MCH 28.9 (25.6-32.2) pg MCHC 31.5 L (32.2-35.5) g/dl RDW Std Deviation 57.5 H (36.4-46.3) fL Plt Count 325 (182-369) K/mm3 MPV 10.2 (9.4-12.3) fl Neut % (Auto) 74.2 H (34.0-71.1) % Lymph % (Auto) 6.8 L (19.3-51.7) % [place] % (Auto) 17.2 H (4.7-12.5) % Eos % (Auto) 0 L (0.7-5.8) Baso % (Auto) 0.1 (0.1-1.2) % Neut # (Auto) 8.25 H (1.56-6.13) K/mm3 Lymph # (Auto) 0.75 L (1.18-3.74) K/mm3 [place] # (Auto) 1.91 H (0.24-0.36) K/mm3 Eos # (Auto) 0.00 L (0.04-0.36) K/mm3 Baso # (Auto) 0.01 (0.01-0.08) K/mm3 Manual Slide Review Abnormal smear Sodium 145 (136-145) mEq/L Potassium 4.6 (3.5-5.1) mEq/L Chloride 107 (98-107) mEq/L Carbon Dioxide 37 H (21-32) mEq/L Anion Gap 5.6 (5-15) BUN 30 H (7-18) mg/dL Creatinine 0.4 L (0.55-1.02) mg/dL Est Cr Clr Drug Dosing 115.99 mL/min Estimated GFR (MDRD) > 60 (>60) mL/min BUN/Creatinine Ratio 75.0 H (14-18) Glucose 153 H (80-115) mg/dL POC Glucose (80-115) mg/dL Calcium 8.8 (8.5-10.1) mg/dL Magnesium 2.2 (1.8-2.4) mg/dl Med Orders - Current: Current Medications Acetaminophen (Tylenol) 650 mg RECTAL Q4H PRN PRN Reason: Fever Last Admin: 10/31/17 10:51 Dose: 650 mg Albuterol (Proventil Neb Soln) 2.5 mg NEB Q4HRRT PRN PRN Reason: Shortness of Breath Last Admin: 11/04/17 13:42 Dose: 2.5 mg Albuterol/Ipratropium (Duoneb 3.0-0.5 Mg/3 Ml) 3 ml NEB QIDRT CHUN Last Admin: 11/07/17 09:59 Dose: 3 ml Amantadine HCl (Symmetrel 50 Mg/5 Ml Soln) 75 mg PO BID [facility] Last Admin: 11/07/17 07:59 Dose: 75 mg Clonidine HCl (Catapres Tts-2) 0.2 mg TRDERM Q7D [facility] Last Admin: 11/07/17 09:42 Dose: 0.2 mg Diclofenac Sodium (Voltaren 1% Gel) 0 gm TOP QID PRN PRN Reason: PAIN Enoxaparin Sodium (Lovenox) 40 mg SUBCUT DAILY [facility] Last Admin: 11/07/17 08:00 Dose: 40 mg Famotidine (Pepcid) 20 mg IVPUSH BID [facility] Last Admin: 11/07/17 08:00 Dose: 20 mg Guaifenesin (Mucinex) 600 mg PO BID PRN PRN Reason: Congestion Hydralazine HCl (Apresoline) 20 mg IVPUSH Q4H PRN PRN Reason: Hypertension Last Admin: 11/05/17 20:20 Dose: 20 mg Hydromorphone HCl (Dilaudid) 0.5 mg IVPUSH Q4H PRN PRN Reason: Pain Last Admin: 11/07/17 02:38 Dose: 0.5 mg Levofloxacin/Dextrose 750 mg/ (Premix) 150 mls @ 100 mls/hr IV Q24H [facility] Last Admin: 11/06/17 17:11 Dose: 100 mls/hr Doxycycline Hyclate 100 mg/ (Dextrose/Water) 100 mls @ 100 mls/hr IV Q12H [facility] Last Admin: 11/07/17 02:38 Dose: 100 mls/hr Potassium Chloride/Dextrose/Sod Cl (D5 1/2 Ns W/ 40 Meq/L Kcl) 1,000 mls @ 35 mls/hr IV ASDIRECTED [facility] Last Admin: 11/07/17 04:02 Dose: 35 mls/hr Levothyroxine Sodium (Levothyroxine) 25 mcg PO ACBREAKFAST [facility] Last Admin: 11/07/17 06:42 Dose: 25 mcg Lorazepam (Ativan) 0.5 mg IVPUSH Q4H PRN; Protocol PRN Reason: Anxiety Lorazepam (Ativan) 0.25 mg IVPUSH Q4H PRN; Protocol PRN Reason: Anxiety Magnesium Sulfate (Pharmacy To Dose - Magnesium Replacement) 1 dose .XX ASDIRECTED [facility] Methylprednisolone Sodium Succinate (Solu-Medrol) 160 mg IVPUSH DAILY [facility] Last Admin: 11/07/17 07:59 Dose: 160 mg Metoprolol Tartrate (Lopressor) 5 mg IVPUSH Q4H PRN PRN Reason: Tachycardia Last Admin: 11/05/17 21:46 Dose: 5 mg Miscellaneous Information (Remove Patch) 1 ea TRDERM ONETIME ONE Stop: 11/08/17 07:16 Ondansetron HCl (Zofran) 4 mg IVPUSH Q8H PRN PRN Reason: Nausea/Vomiting Potassium Chloride (Pharmacy To Dose - Potassium Replacement) 1 dose .XX ASDIRECTED [facility] Rosuvastatin Calcium (Crestor) 10 mg PO DAILY [facility] Last Admin: 11/07/17 07:59 Dose: 10 mg Temazepam (Restoril) 30 mg PO BEDTIME PRN PRN Reason: Insomnia Discontinued Medications Acetaminophen (Tylenol Solution) 650 mg PO Q4H PRN PRN Reason: Fever Last Admin: 10/31/17 01:14 Dose: 650 mg Amantadine HCl (Symmetrel 50 Mg/5 Ml Soln) 75 mg PO BID [facility] Last Admin: 10/31/17 00:59 Dose: Not Given Bacitracin (Bacitracin Oint) Confirm Administered Dose 15 gm .ROUTE .STK-MED ONE Stop: 11/06/17 11:47 Last Admin: 11/06/17 12:12 Dose: 15 gm Bisacodyl (Dulcolax) 10 mg RECTAL ONETIME ONE Stop: 10/31/17 07:39 Last Admin: 10/31/17 08:54 Dose: 10 mg Bumetanide (Bumex) 0.5 mg IVPUSH ONETIME ONE Stop: 11/02/17 19:29 Last Admin: 11/02/17 22:09 Dose: 0.5 mg Bumetanide (Bumex) 0.5 mg IVPUSH STAT ONE Stop: 11/04/17 15:18 Last Admin: 11/04/17 15:23 Dose: 0.5 mg Cefazolin Sodium (Ancef) Confirm Administered Dose 2 gm .ROUTE .STK-MED ONE Stop: 11/06/17 12:14 Clonidine HCl (Catapres Tts-2) 0.2 mg TRDERM Q7D ONE Stop: 10/31/17 18:01 Last Admin: 10/31/17 18:13 Dose: 0.2 mg Dextrose/Water (Dextrose 50% In Water) 25 ml IVPUSH ONETIME STA Stop: 10/30/17 12:55 Last Admin: 10/30/17 12:59 Dose: 25 ml Hydromorphone HCl (Dilaudid) 0.25 mg IVPUSH Q4H PRN PRN Reason: Pain Last Admin: 10/31/17 14:53 Dose: 0.25 mg Sodium Chloride (Normal Saline) 1,000 mls @ 999 mls/hr IV ONETIME ONE Stop: 10/30/17 12:26 Last Admin: 10/30/17 11:44 Dose: 999 mls/hr Dextrose/Sodium Chloride (Dextrose 5%-Normal Saline) 1,000 mls @ 150 mls/hr IV ASDIRECTED [facility] Last Admin: 10/31/17 16:45 Dose: 150 mls/hr Ceftazidime 2 gm/ Sodium (Chloride) 50 mls @ 100 mls/hr IV ONETIME STA Stop: 10/30/17 13:35 Last Admin: 10/31/17 05:02 Dose: Not Given Levofloxacin/Dextrose 750 mg/ (Premix) 150 mls @ 100 mls/hr IV ONETIME ONE Stop: 10/30/17 14:39 Last Admin: 10/30/17 16:46 Dose: Not Given Vancomycin HCl 1 gm/ Sodium (Chloride) 250 mls @ 250 mls/hr IV ONETIME ONE Stop: 10/30/17 14:10 Last Admin: 10/30/17 13:33 Dose: 250 mls/hr Ceftazidime 2 gm/ Sodium (Chloride) 100 mls @ 200 mls/hr IV ONETIME ONE Stop: 10/30/17 14:14 Last Admin: 10/30/17 15:38 Dose: 200 mls/hr Sodium Chloride (Sodium Chloride 0.45%) 500 mls @ 999 mls/hr IV ONETIME ONE Stop: 10/30/17 15:58 Last Admin: 10/30/17 15:38 Dose: 999 mls/hr Vancomycin HCl 1 gm/ Sodium (Chloride) 250 mls @ 250 mls/hr IV Q24H [facility] Cefepime HCl 1 gm/ Premix 50 mls @ 100 mls/hr IV Q8H [facility] Last Admin: 10/31/17 19:55 Dose: Not Given Potassium Chloride 10 meq/ (Premix) 100 mls @ 100 mls/hr IV Q1H [facility] Stop: 10/31/17 23:29 Last Admin: 10/31/17 23:27 Dose: 100 mls/hr Cefepime HCl 1 gm/ Sodium (Chloride) 50 mls @ 100 mls/hr IV Q8H [facility] Last Admin: 10/31/17 20:48 Dose: Not Given Cefepime HCl (Maxipime In D5w 2 Gm/50 Ml) 25 mls @ 50 mls/hr IV Q8H [facility] Last Admin: 11/01/17 04:27 Dose: 50 mls/hr Dextrose/Sodium Chloride (Dextrose 5%-Normal Saline) 1,000 mls @ [facility] Admin: 11/03/17 10:18 Dose: 25 mls/hr Magnesium Sulfate 2 gm/ Premix 50 mls @ 25 mls/hr IV Q2H [facility] Stop: 11/01/17 11:29 Last Admin: 11/01/17 10:30 Dose: 25 mls/hr Cefepime HCl 2 gm/ Premix 50 mls @ 100 mls/hr IV Q8H [facility] Potassium Chloride 10 meq/ (Premix) 100 mls @ 100 mls/hr IV Q1H [facility] Stop: 11/03/17 14:59 Last Admin: 11/03/17 16:17 Dose: 100 mls/hr Potassium Chloride/Dextrose/Sod Cl (D5 1/2 Ns W/ 40 Meq/L Kcl) 1,000 mls @ 35 mls[facility] Last Admin: 11/04/17 19:08 Dose: 35 mls/hr Cefazolin Sodium/Dextrose 2 gm (/ Premix) 50 mls @ 100 mls/hr IV ONETIME ONE Stop: 11/06/17 08:44 Last Admin: 11/06/17 09:23 Dose: Not Given Methylprednisolone Sodium Succinate 160 mg/ Sodium Chloride 252.56 mls @ 35.178 mls/hr IV ONETIME ONE Stop: 11/04/17 20:56 Magnesium Sulfate/Dextrose 1 (gm/ Premix) 100 mls @ 100 mls/hr IV ONETIME ONE Stop: 11/05/17 12:06 Last Admin: 11/05/17 11:41 Dose: 100 mls/hr Magnesium Oxide (Magnesium Oxide) 400 mg PO TID CHUN Stop: 11/05/17 21:01 Last Admin: 11/05/17 11:03 Dose: Not Given Metoprolol Tartrate (Lopressor) 5 mg IVPUSH Q4H PRN PRN Reason: heart rate> 120 Last Admin: 10/31/17 01:14 Dose: 5 mg Miscellaneous Information (Remove Patch) 0 ea TRDERM Q72H ONE Stop: 11/05/17 07:16 Last Admin: 11/05/17 07:05 Dose: 1 ea Potassium Chloride (Klor-Con M20) 20 meq PO Q3H [facility] Stop: 10/31/17 20:31 Last Admin: 10/31/17 19:55 Dose: Not Given Potassium Chloride (Klor-Con M20) 40 meq PO ONETIME ONE Stop: 11/02/17 08:01 Propofol (Diprivan 20 Ml) Confirm Administered Dose 200 mg .ROUTE .STK-MED ONE Stop: 11/06/17 11:29 Scopolamine (Scopolamine) 1 each TRDERM Q72H ONE Stop: 11/02/17 07:01 Last Admin: 11/02/17 07:24 Dose: 1 each Scopolamine (Scopolamine) 1 each TRDERM Q72H ONE Stop: 11/05/17 07:16 Last Admin: 11/05/17 07:02 Dose: 1 each Vancomycin HCl (Pharmacy To Dose - Vancomycin) 1 dose .XX ASDIRECTED CHUN - Exam General: Reports: No Acute Distress, Other (Awake) HEENT: Reports: Pupils Equal, Pupils Reactive Neck: Reports: Supple, Trachea Midline Lungs: Reports: Normal Respiratory Effort, Decreased Breath Sounds Cardiovascular: Reports: Regular Rate, Regular Rhythm GI/Abdominal Exam: Normal Bowel Sounds, Soft, Non-Tender, No Organomegaly, No Distention, No Abnormal Bruit, Other (PEG Tube placement) (Female) Exam: Deferred Rectal (Female) Exam: Deferred Back Exam: Reports: Normal Inspection, Decreased Range of Motion Extremities: Normal Inspection, Normal Range of Motion, Normal Capillary Refill , Pedal Edema (Right foot with IV infiltration at the ankle) Skin: Reports: Warm, Dry, Intact Neurological: Reports: No New Focal Deficit Psy/Mental Status: Reports: Normal Affect, Normal Mood, Other (Awake) Physical Findings Comments:: Able to nod and shake head to express yes or no. She was not verbal with me. *Q Meaningful Use (DIS) - VTE *Q VTE Criteria *Q: - Stroke *Q Stroke Criteria *Q: - AMI *Q AMI Criteria *Q:
[2017-11-07 12:41] VITALS: BP 103/67
--- NOTE | 2017-11-07 14:36 | PCM.SN ---
- Free Text/Narrative Note: PICC Line Insertion Date: 11-07-17 Start: 1315 Stop: [id number] Najera for PICC placement for steriod use in the assisted. Chart reviewed. Patient/POA educated. Agrees to proceed. Consent signed per POA. Site cleansed with ChloraPrep. Lidocaine 1% local anesthetic injected prior to 20ga IV catheter insertion under ultrasound guidance. Sterile gown, gloves and drape used. 4fr [place] NXT ClearVue PICC inserted 40cm per sterile technique right proximal antecubital. Secured with statlock. Flushes well with NaCl with good blood return. Dressed with opsite with CHG. 5 cm PICC catheter remains out for measurement purposes. Chest Xray taken. Confirmed SVC placement per radiologist. Ashkan Almaraz RETENTION MANAGER
--- NOTE | 2017-11-07 14:49 | CR ---
Chest: Frontal view of the chest was obtained utilizing portable technique. Comparison: Prior chest x-ray performed earlier on same day (1:46 PM). Tip of PICC line has been withdrawn. Tip of current PICC line lies in the region of the superior vena cava in satisfactory position. Other portions of the chest are stable. Impression: 1. Tip of PICC line is now within the superior vena cava which is satisfactory in position. Diagnostic code #2
--- NOTE | 2017-11-07 14:49 | CR ---
Chest: Portable view of the chest was obtained. Comparison: Prior chest x-ray of 11/07/17. Bilateral pleural effusions are seen. Stable increased lung markings are noted. Right-sided PICC line is seen. Tip lies in the expected area of the right atria. Impression: 1. Tip of PICC line within the region of the right atria. 2. Other stable findings as noted above. Diagnostic code #3
== END 2017-11-07 15:30 | disposition home or self-care (01) | DRG 177 ==
LOC: JD.ED 10:19 → JD.MS 14:07 → UNDOADMIN 14:07 → JD.MS 14:28
PROVIDERS: ADMIT Internal Medicine Cardiovascular Disease; ATTEND Internal Medicine Cardiovascular Disease
PROC: 0DH63UZ Insertion of Feeding Device into Stomach, Percutaneous Approach (ICD-10-PCS; principal; 2017-11-06)
PROC: 02HV33Z Insertion of Infusion Device into Superior Vena Cava, Percutaneous Approach (ICD-10-PCS; 2017-11-07)
DX: J18.9 Pneumonia, unspecified organism (principal); N30.00 Acute cystitis without hematuria; E16.2 Hypoglycemia, unspecified; J69.0 Pneumonitis due to inhalation of food and vomit; G93.40 Encephalopathy, unspecified; N39.0 Urinary tract infection, site not specified; E78.00 Pure hypercholesterolemia, unspecified; I69.354 Hemiplegia and hemiparesis following cerebral infarction affecting left non-dominant side; E87.1 Hypo-osmolality and hyponatremia; E87.0 Hyperosmolality and hypernatremia; Z93.1 Gastrostomy status; I69.320 Aphasia following cerebral infarction; I10 Essential (primary) hypertension; G35 Multiple sclerosis; E78.5 Hyperlipidemia, unspecified; M19.90 Unspecified osteoarthritis, unspecified site; E03.9 Hypothyroidism, unspecified; R53.1 Weakness; R20.2 Paresthesia of skin; R13.12 Dysphagia, oropharyngeal phase; Z74.01 Bed confinement status; R32 Unspecified urinary incontinence; R00.0 Tachycardia, unspecified; Z66 Do not resuscitate; R41.82 Altered mental status, unspecified; H54.7 Unspecified visual loss; R06.03 Acute respiratory distress; Z51.5 Encounter for palliative care; Z88.0 Allergy status to penicillin; Z79.82 Long term (current) use of aspirin; Z79.899 Other long term (current) drug therapy
CPT/HCPCS: 36415; 80053; 81001; 82962; 83605; 83735; 85025; 87086; 87088; 87186; 96361; 96365; 96375; 99285; J3370; J7040; J7042; J7050; J7060; P9612; 00731; 71045; 71045-26; 71250; 71250-26; 80048; 86140; 86738; 87486; 87581; 87633; 87641; 87798; 87899; 92610-GN; 93005; 94640; 94761; 99284; A9270-GY; C1751; J0360; J0690; J0692; J0713; J1170; J1650; J1956; J2704; J2930; J3475; J3480; J3490; J7030

== ENCOUNTER 2017-11-09 14:56 | Inpatient (IN) | payer MEDICARE, OTHER, MEDICAID ==
--- NOTE | 2017-11-09 15:03 | EDM.PDOC ---
ED HPI GENERAL MEDICAL PROBLEM - General Chief Complaint: Fever Stated Complaint: [facility] Time Seen by Provider: 11/09/17 15:02 Source of Information: Reports: Patient, Detention Records History Limitations: Reports: No Limitations - History of Present Illness INITIAL COMMENTS - FREE TEXT/NARRATIVE: 67-year-old female presents to the ED per ambulance from [facility]. Apparently she was admitted to hospital on the of this month with a suspect pneumonia growing out strep pneumonia antigen in her urine as well as a urinary tract infection that grew out Klebsiella pneumoniae. Urine was sensitive to all antibiotics. She was treated with antibiotics intravenously and improved. She was discharged home on the of this month i.e. 2 days ago. I partially she apparently has developed a spiking fever of 100.4 today. Associated chills poor appetite. No vomiting no diarrhea. Patient and nursing staff has noted be much more congested in her chest. Patient is not ambulatory due to a dense left sided hemiparesis. Current temperature rectally was 98.8 but she just has had ibuprofen within the last 2 hours. Patient was probably admitted to hospital October 30 with a pneumonia as a diagnosis. Concern was for possible aspiration pneumonia pneumonitis due to inability to handle her secretions very well. She was treated with intravenous antibiotics. Urine also grew out Klebsiella pneumoniae sensitive to all antibiotics. She finished up intravenous Rocephin on the of this month. While in hospital she did receive 5 day course of 1 g of Solu-Medrol intravenously for MS exacerbation. Onset: Today, Sudden Onset Date: 11/09/17 Duration: Hour(s): Location: Reports: Generalized (Acute onset of fever 100.5) Severity: Moderate Improves with: Reports: Medication Worsens with: Reports: None Context: Reports: Other (Patient is nonambulatory and has had a previous dense left-sided hemiparesis from stroke. She is therefore at high risk of pneumonia. Apparently she was admitted with pneumonia on the of this month.) - Related Data Allergies Allergy/AdvReac Type Severity Reaction Status Date / Time Penicillins Allergy Vaginitis Verified 11/09/17 19:48 Home Meds: Home Meds Amantadine HCl [Amantadine] 75 mg PO BID 10/29/17 [History] Ascorbic Acid [Vitamin C] 100 mg PO DAILY 10/29/17 [History] Diclofenac Sodium [Voltaren 1% Gel] 100 gm TOP QID PRN 10/29/17 [History] Levothyroxine 25 mcg PO ACBREAKFAST 10/29/17 [History] Sodium Chloride [Deep Sea] 2 spray NS TID PRN 10/29/17 [History] Trolamine Salicylate/Aloe Vera [Aspercreme 10% Cream] 1 applic TOP TID PRN 10/29 [History] atorvaSTATin [Lipitor] 40 mg PO BEDTIME 10/29/17 [History] guaiFENesin [Mucinex] 400 mg PO BID PRN 10/29/17 [History] Dextromethorphan/guaiFENesin [Robitussin DM] 2 tsp PO Q4H PRN 10/30/17 [History] methylPREDNISolone Sod Succ [Solu-MEDROL] 1,000 mg IV DAILY #5 sdv 11/07/17 [Rx] Acetaminophen [Tylenol] 650 mg PO Q8H PRN 11/09/17 [History] Aspirin 162 mg PO DAILY 11/09/17 [History] Ibuprofen [Motrin] 400 mg PO Q6H PRN 11/09/17 [History] Lidoprofen Cream 1 applic TOP TID PRN 11/09/17 [History] Vaporx [place] 1 applic TOP ASDIRECTED 11/09/17 [History] Past Medical History HEENT History: Reports: Cataract, Impaired Vision Other HEENT History: wears eyeglasses, presence of intraocular lens Cardiovascular History: Reports: High Cholesterol, Hypertension Other Cardiovascular History: hyponatremia Respiratory History: Reports: Pneumonia, Recurrent Genitourinary History: Reports: UTI, Recurrent [employer] History: Reports: Musculoskeletal History: Reports: Arthritis Other Musculoskeletal History: multiple sclerosis, contractures. Neurological History: Reports: CVA (Has a dense Lt hemiparsis. 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 Dermatologic History: Reports: Other (See Below) Other Dermatologic History: skin breakdown to feet. - Infectious Disease History Infectious Disease History: Reports: Chicken Pox - Past Surgical History HEENT Surgical History: Reports: Cataract Surgery GI Surgical History: Reports: Other (See Below) Musculoskeletal Surgical History: Reports: Other (See Below) Other Musculoskeletal Surgeries/Procedures:: removal of neuroma from back. Social & Family History - Family History Family Medical History: Noncontributory - Tobacco Use Smoking Status *Q: Never Smoker Second Hand Smoke Exposure: No - Caffeine Use Caffeine Use: Reports: None - Alcohol Use Days Per Week of Alcohol Use: 0 - Recreational Drug Use Recreational Drug Use: No - Living Situation & Occupation Living situation: Reports: Extended Care Facility (Currently residing at [facility] ED ROS GENERAL - Review of Systems Review Of Systems: See Below Constitutional: Reports: Fever, Malaise, Weakness, Fatigue, Decreased Appetite HEENT: Reports: No Symptoms Respiratory: Reports: Shortness of Breath, Cough, Other (Rhonchorous cough throughout both lung chao.). Denies: Wheezing, Pleuritic Chest Pain Cardiovascular: Reports: Dyspnea on Exertion Endocrine: Reports: Fatigue GI/Abdominal: Reports: Constipation : Reports: Incontinence, Other (Did grow Klebsiella pneumonia on last admission was sensitive to all antibiotics.) Musculoskeletal: Reports: Other (Flexion contractures left elbow left knee and hip.) Skin: Reports: Other Neurological: Reports: Pre-Existing Deficit (Left hemiparesis.) Hematologic/Lymphatic: Reports: No Symptoms Immunologic: Reports: No Symptoms ED EXAM, GENERAL - Physical Exam Exam: See Below Exam Limited By: Physical Impairment (Patient does not answer any questions.) General Appearance: Anxious, Other (Audible rhonchi bilaterally. Face is ruborous and slightly warm to palpation.Abdomen is also warm to palpation but rectal temperature is registered normal at 98.8.) Eye Exam: Bilateral Eye: Normal Inspection Throat/Mouth: Other Head: Atraumatic (Tongue is very dry and coated. Oropharynx shows diffuse erythema without exudate.), Normocephalic Neck: Normal Inspection. No: Carotid Bruit, Lymphadenopathy (L), Lymphadenopathy (R) Respiratory/Chest: Respiratory Distress (Mild tachypnea at rest 20-22/m. O2 sats are 95% on room air initially. I suspect they will drift downwards without 02.), Decreased Breath Sounds (Decreased breath sounds lower 20% of lungs bilaterally posteriorly.), Rhonchi (Diffuse rhonchi throughout all lung chao.) , Other (Cough sounds very congested and productive.). No: Rales, Wheezing Cardiovascular: No Murmur, No Rub, Extra Beats, Irregularly Irregular (Heart rate is irregular irregular appears to have ectopic beats.), Other (Heart sounds are difficult to hear due to respiratory rhonchi.). No: Normal Peripheral Pulses Peripheral Pulses: 1+: Posterior Tibial (L), Posterior Tibial (R), Dorsalis Pedis (L), Dorsalis Pedis (R) GI/Abdominal: Normal Bowel Sounds, Mass (Palpable hard mass in the left upper quadrant of the abdomen which appears to be hard stool in the colon. No true organomegaly was identified.), Other (PEG tube left upper quadrant of the abdomen. She is most her medications crushed through the G-tube.). No: Distended, Guarding, Rigid, Rebound (Female) Exam: Other (Attempts to catheterize her resulted in no urine in the urinary bladder.) Extremities: Pedal Edema (She has 1+ pitting edema bilaterally. This is noted up to mid tib-fib bilaterally), Other (PICC line right upper extremity.) Neurological: Other (She has flexion contractures at the left elbow and left hip and knee.). No: Normal Gait (Patient is nonambulatory.) Psychiatric: Anxious Skin Exam: Warm, Dry, Other (Has a due to him dressing over an ulceration over the dorsal aspect of her right ankle.) EKG INTERPRETATION EKG Date: 11/09/17 Time: 15:25 Rhythm: Other (Sinus tachycardia at 1 15/m.) Rate (Beats/Min): 115 Danese: Normal P-Wave: Enlarged (Left atrial hypertrophy.) QRS: Other (Left ventricular hypertrophy pattern.) ST-T: Normal QT: Normal Course - Vital Signs Last Recorded V/S: Last Vital Signs Temp 36.4 C 11/09/17 19:21 Pulse 90 11/09/17 19:21 Resp 22 H 11/09/17 19:21 BP 134/52 L 11/09/17 19:22 Pulse Ox 97 11/09/17 19:41 - Orders/Labs/Meds Orders: Active Orders 24 hr Category Date Time Status Admission Status [Patient Status] [ADT] Routine ADT 11/09/17 17:23 Active Oxygen Therapy [RC] ASDIRECTED Care 11/09/17 15:11 Active CULTURE BLOOD [BC] Stat Lab 11/09/17 15:40 Received CULTURE BLOOD [BC] Stat Lab 11/09/17 15:55 Received CULTURE URINE [RM] Stat Lab 11/09/17 15:57 Received Dextrose 5%-0.9% NaCl [Dextrose 5%-Normal Saline] 1,000 Med 11/09/17 15:15 Active ml IV ASDIRECTED Blood Culture x2 Reflex Set [OM.PC] Stat Oth 11/09/17 15:11 Ordered Medication Orders Acetaminophen (Tylenol) 650 mg PO Q4H PRN PRN Reason: Pain (Mild 1-3)/fever Albuterol/Ipratropium (Duoneb 3.0-0.5 Mg/3 Ml) 3 ml NEB Q4H PRN PRN Reason: Shortness Of Breath/wheezing Bisacodyl (Dulcolax) 5 mg PO DAILY PRN PRN Reason: Constipation Bumetanide (Bumex) 0.5 mg IVPUSH BID [facility] Docusate Sodium (Colace) 100 mg PO BID PRN PRN Reason: Constipation Enoxaparin Sodium (Lovenox) 40 mg SUBCUT DAILY [facility] Famotidine (Pepcid) 20 mg IVPUSH BID [facility] Last Admin: 11/09/17 20:35 Dose: 20 mg Hydralazine HCl (Apresoline) 10 mg IVPUSH Q6H PRN PRN Reason: Hypertension Hydromorphone HCl (Dilaudid) 0.5 mg IVPUSH Q4H PRN PRN Reason: Pain Dextrose/Sodium Chloride (Dextrose 5%-Normal Saline) 1,000 mls @ 500 mls/hr IV ASDIRECTED [facility] Last Admin: 11/09/17 15:46 Dose: 500 mls/hr Lorazepam (Ativan) 0.5 mg PO Q4H PRN PRN Reason: Anxiety Metoprolol Tartrate (Lopressor) 5 mg IVPUSH Q4H PRN PRN Reason: Tachycardia Ondansetron HCl (Zofran) 4 mg IV Q6H PRN PRN Reason: Nausea/Vomiting Polyethylene Glycol (Miralax) 17 gm PO DAILY PRN PRN Reason: Constipation Senna/Docusate Sodium (Senna Plus) 1 tab PO BID PRN PRN Reason: Constipation Labs: Laboratory Tests 11/09/17 11/09/17 11/09/17 Range/Units 15:40 15:40 15:40 WBC 21.14 H (3.98-10.04) K/mm3 RBC 3.35 L (3.98-5.22) M/mm3 Hgb 9.8 L (11.2-15.7) gm/L Hct 31.3 L (34.1-44.9) % MCV 93.4 (79.4-94.8) fl MCH 29.3 (25.6-32.2) pg MCHC 31.3 L (32.2-35.5) g/dl RDW Std Deviation 57.1 H (36.4-46.3) fL Plt Count 439 H (182-369) K/mm3 MPV 10.6 (9.4-12.3) fl Neutrophils % (Manual) 89 H (40-60) % Band Neutrophils % 0 (0-10) % Lymphocytes % (Manual) 3 L (20-40) % Atypical Lymphs % 0 % Monocytes % (Manual) 5 (2-10) % Eosinophils % (Manual) 0 L (0.7-5.8) % Basophils % (Manual) 0 L (0.1-1.2) Myelocytes % 3 Platelet Estimate Increased Plt Morphology Comment See note Hypochromasia 1+ slight Poikilocytosis 3+ marked Anisocytosis 2+ moderate Microcytosis 2+ moderate Macrocytosis 1+ slight Spherocytes 1+ slight RBC Morph Comment Not Reportable ESR (0-20) mm/hr PT 10.6 (8.0-13.0) SECONDS INR 0.97 Sodium 145 (136-145) mEq/L Potassium 4.8 (3.5-5.1) mEq/L Chloride 106 (98-107) mEq/L Carbon Dioxide 36 H (21-32) mEq/L Anion Gap 7.8 (5-15) BUN 31 H (7-18) mg/dL Creatinine 0.4 L (0.55-1.02) mg/dL Est Cr Clr Drug Dosing 121.08 mL/min Estimated GFR (MDRD) > 60 (>60) mL/min BUN/Creatinine Ratio 77.5 H (14-18) Glucose 126 H (80-115) mg/dL Lactic Acid (0.4-2.0) mmol/L Calcium 8.5 (8.5-10.1) mg/dL Magnesium 2.0 (1.8-2.4) mg/dl Total Bilirubin 0.2 (0.2-1.0) mg/dL AST 33 (15-37) U/L ALT 41 (14-59) U/L Alkaline Phosphatase 171 H (46-116) U/L CK-MB (CK-2) 2.6 (0-3.6) ng/ml Troponin I 0.062 H* (0.00-0.056) ng/mL C-Reactive Protein 1.6 H* (<1.0) mg/dL NT-Pro-B Natriuret Pep 2263 H (0-125) pg/mL Total Protein 5.8 L (6.4-8.2) g/dl Albumin 2.3 L (3.4-5.0) g/dl Globulin 3.5 gm/dL Albumin/Globulin Ratio 0.7 L (1-2) Urine Color (Yellow) Urine Appearance (Clear) Urine pH (5.0-8.0) Ur Specific [place] (1.005-1.030) Urine Protein (Negative) Urine Glucose (UA) (Negative) Urine Ketones (Negative) Urine Occult Blood (Negative) Urine Nitrite (Negative) Urine Bilirubin (Negative) Urine Urobilinogen (0.2-1.0) Ur Leukocyte Esterase (Negative) Urine RBC (0-5) /hpf Urine WBC (0-5) /hpf Ur Epithelial Cells (0-5) /hpf Urine Bacteria (FEW) /hpf Hyaline Casts (0-5) /lpf Urine Mucus (FEW) /hpf Mycoplasma pneumon IgM Negative (NEGATIVE) 11/09/17 11/09/17 11/09/17 Range/Units 15:40 15:40 15:57 WBC (3.98-10.04) K/mm3 RBC (3.98-5.22) M/mm3 Hgb (11.2-15.7) gm/L Hct (34.1-44.9) % MCV (79.4-94.8) fl MCH (25.6-32.2) pg MCHC (32.2-35.5) g/dl RDW Std Deviation (36.4-46.3) fL Plt Count (182-369) K/mm3 MPV (9.4-12.3) fl Neutrophils % (Manual) (40-60) % Band Neutrophils % (0-10) % Lymphocytes % (Manual) (20-40) % Atypical Lymphs % % Monocytes % (Manual) (2-10) % Eosinophils % (Manual) (0.7-5.8) % Basophils % (Manual) (0.1-1.2) Myelocytes % Platelet Estimate Plt Morphology Comment Hypochromasia Poikilocytosis Anisocytosis Microcytosis Macrocytosis Spherocytes RBC Morph Comment ESR 60 H (0-20) mm/hr PT (8.0-13.0) SECONDS INR Sodium (136-145) mEq/L Potassium (3.5-5.1) mEq/L Chloride (98-107) mEq/L Carbon Dioxide (21-32) mEq/L Anion Gap (5-15) BUN (7-18) mg/dL Creatinine (0.55-1.02) mg/dL Est Cr Clr Drug Dosing mL/min Estimated GFR (MDRD) (>60) mL/min BUN/Creatinine Ratio (14-18) Glucose (80-115) mg/dL Lactic Acid 0.6 (0.4-2.0) mmol/L Calcium (8.5-10.1) mg/dL Magnesium (1.8-2.4) mg/dl Total Bilirubin (0.2-1.0) mg/dL AST (15-37) U/L ALT (14-59) U/L Alkaline Phosphatase (46-116) U/L CK-MB (CK-2) (0-3.6) ng/ml Troponin I (0.00-0.056) ng/mL C-Reactive Protein (<1.0) mg/dL NT-Pro-B Natriuret Pep (0-125) pg/mL Total Protein (6.4-8.2) g/dl Albumin (3.4-5.0) g/dl Globulin gm/dL Albumin/Globulin Ratio (1-2) Urine Color Yellow (Yellow) Urine Appearance Clear (Clear) Urine pH 6.5 (5.0-8.0) Ur Specific [place] 1.020 (1.005-1.030) Urine Protein Negative (Negative) Urine Glucose (UA) Trace H (Negative) Urine Ketones Negative (Negative) Urine Occult Blood Negative (Negative) Urine Nitrite Negative (Negative) Urine Bilirubin Negative (Negative) Urine Urobilinogen 0.2 (0.2-1.0) Ur Leukocyte Esterase 1+ H (Negative) Urine RBC 0-5 (0-5) /hpf Urine WBC 10-20 H (0-5) /hpf Ur Epithelial Cells 0-5 (0-5) /hpf Urine Bacteria Few (FEW) /hpf Hyaline Casts 0-5 (0-5) /lpf Urine Mucus Few (FEW) /hpf Mycoplasma pneumon IgM (NEGATIVE) Meds: Medications Generic Name Dose Route Start Last Admin Trade Name Freq PRN Reason Stop Dose Admin Acetaminophen 650 mg 11/09/17 19:41 Tylenol PO Q4H PRN Pain (Mild 1-3)/fever Albuterol/Ipratropium 3 ml 11/09/17 19:41 Duoneb 3.0-0.5 Mg/3 Ml NEB Q4H PRN Shortness Of Breath/wheezing Bisacodyl 5 mg 11/09/17 19:41 Dulcolax PO DAILY PRN Constipation Bumetanide 0.5 mg 11/10/17 06:00 Bumex IVPUSH BID [facility] Docusate Sodium 100 mg 11/09/17 19:41 Colace PO BID PRN Constipation Enoxaparin Sodium 40 mg 11/10/17 09:00 Lovenox SUBCUT DAILY [facility] Famotidine 20 mg 11/09/17 21:00 11/09/17 20:35 Pepcid IVPUSH 20 mg BID [facility] Administration Hydralazine HCl 10 mg 11/09/17 19:49 Apresoline IVPUSH Q6H PRN Hypertension Hydromorphone HCl 0.5 mg 11/09/17 19:53 Dilaudid IVPUSH Q4H PRN Pain Dextrose/Sodium Chloride 1,000 mls @ 500 mls/hr 11/09/17 15:15 11/09/17 15:46 Dextrose 5%-Normal Saline IV 500 mls/hr ASDIRECTED [facility] Administration Lorazepam 0.5 mg 11/09/17 19:54 Ativan PO Q4H PRN Anxiety Metoprolol Tartrate 5 mg 11/09/17 19:49 Lopressor IVPUSH Q4H PRN Tachycardia Ondansetron HCl 4 mg 11/09/17 19:41 Zofran IV Q6H PRN Nausea/Vomiting Polyethylene Glycol 17 gm 11/09/17 19:41 Miralax PO DAILY PRN Constipation Senna/Docusate Sodium 1 tab 11/09/17 19:41 Senna Plus PO BID PRN Constipation Discontinued Medications Generic Name Dose Route Start Last Admin Trade Name Kash PRN Reason Stop Dose Admin Furosemide 40 mg 11/09/17 17:18 11/09/17 17:54 Lasix IVPUSH 11/09/17 17:19 40 mg NOW ONE Administration Ceftriaxone Sodium 2 gm/ 100 mls @ 200 mls/hr 11/09/17 15:13 11/09/17 16:36 Sodium Chloride IV 11/09/17 15:42 Not Given ONETIME ONE Ceftriaxone Sodium 2 gm/ 100 mls @ 200 mls/hr 11/09/17 15:29 11/09/17 16:01 Sodium Chloride IV 11/09/17 15:42 200 mls/hr ONETIME ONE Administration - Radiology Interpretation Free Text/Narrative:: 67-year-old female who is currently residing in [facility] brought back to the hospital by ambulance today because of recurrence of fever. Patient to been ill and in hospital since October 30 with a pneumonia. She did grow out strep pneumonia antigen in her urine. She also grew out Klebsiella pneumoniae in her urine sensitive to on about it. The hospital she was treated with intravenous Rocephin and seemed to improve and was discharged I believe on the . This is only 2 days ago. Patient is bedridden due to a dense left- sided hemiparesis from previous CVA. Stroke recurrent urinary tract infections. Examination reveals dense rhonchi throughout both lung chao. Urine catheter revealed no urine in the urinary bladder and she appears to be volume depleted. Tongue is very dry and coated. Septic workup will be completed. She will have one blood culture drawn through the PICC line in the second one will be peripheral. Will start her back on Rocephin 2 g IV as soon as blood cultures 2 are collected. She is afebrile time of my assessment. Sats are 98% on 2 L/m with a BP of 164/63. - Re-Assessments/Exams Free Text/Narrative Re-Assessment/Exam: 11/09/17 16:06 ECG shows sinus tachycardia 115/m. There is evidence of left atrial hypertrophy and left ventricular hypertrophy pattern without strain. No signs of ischemia are evident. Chest x-ray reveals scoliosis concave to the right. She has bilateral pleural effusions and essentially are unchanged from previous chest x-ray. Infiltrate in the right lower lobe appears to be slightly less than on previous film dated the 16 of this month. 11/09/17 16:56 Labs are back. They reveal an elevated white count at 21, 000.14. This reveals a left shift of 89% neutrophils and no bands. This is likely secondary to recent high-dose steroid infusions for multiple sclerosis. Hemoglobin is low at 9.8 with hematocrit of 31.3. Platelet count is elevated at 439,000. The morphology shows slight hypochromasia at 1+3+ poikilocytosis. 2+ anisocytosis .. 1+ macrocytosis 2+ microcytosis and 1+ spherocytosis. This is suggestive of splenomegaly. PT is 10.6 with an INR of 0.97. Sodium is 145 with a potassium of 4.8. Chloride 106 bicarbonate is elevated at 36 indicating she is a CO2 retainer. Anion gap is 7.8. BUNs 31 creatinine is 0.4. BUN/creatinine ratio is 77.5. Glucose is 126. Lactic acid is normal at 0.6. Alk phosphatase mildly elevated 171. CK-MB fraction is 2.6 troponin I is minimally elevated at 0.062. C-reactive protein is 1.6. BNP is 20-63 which correlates with clinical exam.. The urinalysis shows 1+ leukocyte esterase and 10-20 WBCs per high-power field. Urine culture will be ordered. Mycoplasma pneumonia titres are pending. We'll discuss case with the hospitalist with a view to admission to the hospital for continued antibiotic therapy. Current vital signs are revealing O2 sats of 98%. BP is 158/57 with a heart rate of 88. Influenza screen was negative. 11/09/17 17:[address] Najera and tentatively the patient will be admitted to the [facility] surgery floor to treat her hypoxia and congestive heart failure may be from recent high-dose steroid infusions. It is questionable whether she is febrile and we will await culture reports before administering any further antibiotics. She will be monitored closely for a fever . O2 sats are likely to improve once she is diuresed. Departure - Departure Time of Disposition: 17:40 Disposition: Admitted As Inpatient 68 Condition: Poor Clinical Impression: Multiple sclerosis, relapsing-remitting, Febrile illness Acute exacerbation of congestive heart failure Qualifiers: Congestive heart failure type: unspecified congestive heart failure type Qualified Code(s): I50.9 - Heart failure, unspecified - Discharge Information - My Orders Last 24 Hours: My Active Orders 11/09/17 15:11 Oxygen Therapy [RC] ASDIRECTED Blood Culture x2 Reflex Set [OM.PC] Stat 11/09/17 15:15 Dextrose 5%-0.9% NaCl [Dextrose 5%-Normal Saline] 1,000 ml IV ASDIRECTED 11/09/17 15:40 CULTURE BLOOD [BC] Stat 11/09/17 15:55 CULTURE BLOOD [BC] Stat 11/09/17 15:57 CULTURE URINE [RM] Stat 11/09/17 17:23 Admission Status [Patient Status] [ADT] Routine - Assessment/Plan Last 24 Hours: My Active Orders 11/09/17 15:11 Oxygen Therapy [RC] ASDIRECTED Blood Culture x2 Reflex Set [OM.PC] Stat 11/09/17 15:15 Dextrose 5%-0.9% NaCl [Dextrose 5%-Normal Saline] 1,000 ml IV ASDIRECTED 11/09/17 15:40 CULTURE BLOOD [BC] Stat 11/09/17 15:55 CULTURE BLOOD [BC] Stat 11/09/17 15:57 CULTURE URINE [RM] Stat 11/09/17 17:23 Admission Status [Patient Status] [ADT] Routine
[2017-11-09] MEDS ORDERED: cefTRIAXone 2 GM in Sodium Chloride 0.9% 100 ML IV ONE ×2 (15:13→15:29)
[2017-11-09] MEDS ORDERED: Dextrose 5%-0.9% NaCl 1,000 ML IV SCH (15:15)
--- NOTE | 2017-11-09 15:38 | CR ---
Chest: Portable view of the chest was obtained. Comparison: Prior chest x-ray of 11/07/17. Small bilateral pleural effusions are seen. Pulmonary vessels shows mild chronic congestion. Heart size is at the upper limits of normal. Right-sided PICC line is seen. Impression: 1. Stable findings. Diagnostic code #3
[2017-11-09] MEDS ORDERED: Furosemide 40 MG/4 ML VIAL IVPUSH ONE (17:18)
--- NOTE | 2017-11-09 19:06 | PCM.HP ---
H&P History of Present Illness - General Date of Service: 11/09/17 Admit Problem/Dx: fever Source of Information: Old Records, Provider, RN, RN Notes Reviewed, Other History Limitations: Reports: Physical Impairment - History of Present Illness Initial Comments - Free Text/Narative: Pilar Mayo is a 67 yo female pt. with MS who is very well known to this service. She was instructed ED today via ambulance from [facility] with a fever of unknown origin. She's admitted to the hospital the of this month with suspected pneumonia growing out strep pneumonia. She also UTI which grew out Klebsiella pneumonia. She was treated with antibiotics and reason improved. She discharged home on the this month, 2 days ago. Nursing staff reports she spiked a fever 100.4 today, along with associated chills and poor appetite. There is been no vomiting or diarrhea. Staff is also noticed she is much more congested in her chest she is not laboratory due to dense left-sided hemiparesis. Rectal temperature was obtained in the ED and found to be 90.8 however she just had ibuprofen 2 hours prior. There has been some concern over possible aspiration pneumonia as she has been unable to handle her secretions. She received IV Rocephin up until the of this month. She received a five-day course of 1 g of Solu-Medrol or draw intravenously for her MS exacerbation. In the ED told was obtained showing left ventricular hypertrophy and sinus tachycardia 115 bpm. There is also left atrial hypertrophy.temp of 37.0C. Pulse 101. Respirations 20. BP 166/66. Pulse ox 95%. Labs are obtained: She is a white count at 21.14. Hemoglobin low at 9.8. Hematocrit 31.3. His normocytic. Pulse elevated 439,000. Neutrophils are high at 89%. There is no bandemia. PT is 10.6. INR 0.97. Sodium is 145. Potassium 4.8. Chloride 106. Carotid accident elevated at 36. Anion gap is 7.8. BUN is high at 31. Creatinine 0.4. EGFR greater than 60. Glucose is high at 126. Lactic acid 0.6. Calcium is 8.5. Magnesium 2.0. Total bilirubin 0.2. AST is 33, ALT is 41, alkaline phosphatase is 171. CK-MB is 2.6. Troponin is elevated at 0.062. CRP is 1.6. ProBNP is 2263. Protein is low at 5.8. Albumin low at 2.3. UA is essentially negative, however trace glucose, 1+ leukoesterase, 10-20 WBCs are noted. Blood cultures are obtained. Chest x-ray was obtained and shows scoliosis concave to the right. His bilateral pleural effusions that are essentially unchanged from the previous x-ray. Infiltrate in the right lower lobe appears to be slightly less on a previous film dated the 16 of this month. Dense rhonchi is noted throughout both lung chao. She did appear to be volume depleted. She does carry a history of: HLD, HTN, recurrent pneumonia, recurrent UTI, arthritis, MS, contractures, CVA, TIA, hypothyroidism. She was never smoker. She is subsequently admitted to the medical floor. She is a DNR/DNI. Her PCP is Dr. Alfonso at [facility]. - Related Data Allergies/Adverse Reactions: Allergies Allergy/AdvReac Type Severity Reaction Status Date / Time Penicillins Allergy Vaginitis Verified 11/09/17 19:48 Home Medications: Home Meds Amantadine HCl [Amantadine] 75 mg PO BID 10/29/17 [History] Ascorbic Acid [Vitamin C] 100 mg PO DAILY 10/29/17 [History] Diclofenac Sodium [Voltaren 1% Gel] 100 gm TOP QID PRN 10/29/17 [History] Levothyroxine 25 mcg PO ACBREAKFAST 10/29/17 [History] Sodium Chloride [Deep Sea] 2 spray NS TID PRN 10/29/17 [History] Trolamine Salicylate/Aloe Vera [Aspercreme 10% Cream] 1 applic TOP TID PRN 10/29 [History] atorvaSTATin [Lipitor] 40 mg PO BEDTIME 10/29/17 [History] guaiFENesin [Mucinex] 400 mg PO BID PRN 10/29/17 [History] Dextromethorphan/guaiFENesin [Robitussin DM] 2 tsp PO Q4H PRN 10/30/17 [History] methylPREDNISolone Sod Succ [Solu-MEDROL] 1,000 mg IV DAILY #5 sdv 11/07/17 [Rx] Acetaminophen [Tylenol] 650 mg PO Q8H PRN 11/09/17 [History] Aspirin 162 mg PO DAILY 11/09/17 [History] Ibuprofen [Motrin] 400 mg PO Q6H PRN 11/09/17 [History] Lidoprofen Cream 1 applic TOP TID PRN 11/09/17 [History] Vaporx Fowler 1 applic TOP ASDIRECTED 11/09/17 [History] Past Medical History HEENT History: Reports: Cataract, Impaired Vision Other HEENT History: wears eyeglasses, presence of intraocular lens Cardiovascular History: Reports: High Cholesterol, Hypertension Other Cardiovascular History: hyponatremia Respiratory History: Reports: None Gastrointestinal History: Reports: None Genitourinary History: Reports: Neurogenic Bladder, UTI, Recurrent, Other (See Below) Other Genitourinary History: incontinence [employer] SPECIALIST History: Reports: Musculoskeletal History: Reports: Arthritis Other Musculoskeletal History: multiple sclerosis, contractures. 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 Dermatologic History: Reports: Other (See Below) Other Dermatologic History: skin breakdown to feet. - Infectious Disease History Infectious Disease History: Reports: Chicken Pox - Past Surgical History HEENT Surgical History: Reports: Cataract Surgery Cardiovascular Surgical History: Reports: None GI Surgical History: Reports: Other (See Below) Other GI Surgeries/Procedures: Peg tube placement last stay-continuous feeding at [facility]-see prior discharge for details Female Surgical History: Reports: None Endocrine Surgical History: Reports: None Neurological Surgical History: Reports: None Musculoskeletal Surgical History: Reports: Other (See Below) Other Musculoskeletal Surgeries/Procedures:: removal of neuroma from back. Oncologic Surgical History: Reports: None Dermatological Surgical History: Reports: None Social & Family History - Family History Family Medical History: Noncontributory - Tobacco Use Smoking Status *Q: Never Smoker Second Hand Smoke Exposure: No - Caffeine Use Caffeine Use: Reports: Coffee - Alcohol Use Days Per Week of Alcohol Use: 0 - Recreational Drug Use Recreational Drug Use: No - Living Situation & Occupation Living situation: Reports: Extended Care Facility (Currently residing at [facility].) H&P Review of Systems - Review of Systems: Review Of Systems: Unable To Obtain Free Text/Narrative: I did attempt to obtain an ROS from the patient however truncation is quite difficult with her. She will not yes or no, or very quietly respond yes or no. She does attempt to communicate further however she is very difficult to understand. She denies any chest or abdominal pain. She denies any shortness of breath. Exam - Exam Exam: See Below - Vital Signs Vital Signs: Last Vital Signs Temp 98.6 F 11/09/17 15:03 Pulse 101 H 11/09/17 15:03 Resp 20 11/09/17 15:03 BP 166/66 H 11/09/17 15:03 Pulse Ox 95 11/09/17 15:03 Weight: 133 lb 4 oz - Exam Quality Assessment: Supplemental Oxygen General: Alert, Cooperative HEENT: Conjunctiva Clear, EACs Clear, EOMI, Hearing Intact, Nares Patent, Normal Nasal Septum, Posterior Pharynx Clear, TMs Clear, Other (Dry oral mucosa) , PERRLA Neck: Supple, Trachea Midline. No: JVD, Thyromegaly Lungs: Decreased Breath Sounds, Rhonchi, Other (productive cough) Cardiovascular: Irregular Rhythm GI/Abdominal Exam: Normal Bowel Sounds, Soft, Non-Tender, No Organomegaly, No Distention, No Abnormal Bruit, No Mass, Pelvis Stable (Female) Exam: Deferred Rectal (Female) Exam: Deferred Extremities: Non-Tender, Normal Capillary Refill, Pedal Edema (1+ pedal edema ) , Other (PICC in right arm). No: Normal Range of Motion Peripheral Pulses: 1+: Radial (L), Radial (R), Posterior Tibial (L), Posterior Tibial (R), Dorsalis Pedis (L), Dorsalis Pedis (R) Skin: Warm, Dry, Intact Neurological: Other (contractures to left side of body) Neuro Extensive - Mental Status: Alert Neuro Extensive - Motor, Sensory, Reflexes: Abnormal Gait Psychiatric: Alert, Anxious - Patient Data Result Diagrams: 11/09/17 15:40 11/09/17 15:40 *Q Meaningful Use (ADM) - VTE *Q VTE Criteria *Q: - Stroke *Q Stroke Criteria *Q: - AMI *Q AMI Criteria *Q: - Problem List (1) Acute exacerbation of congestive heart failure SNOMED Code(s): 51278820 ICD Code: I50.9 - HEART FAILURE, UNSPECIFIED Status: Acute Priority: High Current Visit: Yes Qualifiers: Congestive heart failure type: unspecified congestive heart failure type Qualified Code(s): I50.9 - Heart failure, unspecified (2) Febrile illness SNOMED Code(s): 683959569 ICD Code: R50.9 - FEVER, UNSPECIFIED Status: Acute Priority: High Current Visit: Yes (3) Multiple sclerosis SNOMED Code(s): 66077552 ICD Code: G35 - MULTIPLE SCLEROSIS Status: Chronic Priority: Medium Current Visit: Yes (4) Elevated troponin SNOMED Code(s): 366324767, 289331533 ICD Code: R74.8 - ABNORMAL LEVELS OF OTHER SERUM ENZYMES Status: Acute Priority: Medium Current Visit: Yes Problem List Initiated/Reviewed/Updated: Yes Orders Last 24hrs: Medication Orders Dextrose/Sodium Chloride (Dextrose 5%-Normal Saline) 1,000 mls @ 500 mls/hr IV ASDIRECTED [facility] Last Admin: 11/09/17 15:46 Dose: 500 mls/hr Assessment/Plan Comment:: I/P: Acute: Febrile illness -Leukocytosis although she is receiving IV steroids -CRP 1.6 -Influenza negative -Blood cultures pending -Afebrile in ED, although it is reported she received motrin prior -Recently hospitalized for pneumonia and UTI -CXR shows infiltrate in right lower lobe that is slightly less than previous film from 11/07/17 -? as to if she is truly febrile -Rocephin 2gm given in ED - hold for now pending cultures and to see if fever develops -Urine cultures pending CHF -Acute on chronic -Rhonci in lungs -Pro-BNP 2256 -Diurese Elevated troponin -Troponing 0.062 -CK-MB 2.6 -Repeat in AM -Likely demand from fluid overload Chronic: HLD HTN Recurrent UTI Recurrent pneumonia Arthritis MS Contractures CVA with left side deficit Hypothyroidism PEG tube in place PICC line in right arm Plan: Admit to medical floor CM/SW for discharge planning PT RT to evaluate and treat Home meds as indicated Other orders as indicated above Routine AM labs DVT prophylaxis: lovenox Code Status: DNR/DNI; PCP: Dr. Alfonso at [facility]
[2017-11-09] MEDS ORDERED: Bisacodyl 5 MG Tab PO PRN (19:41)
[2017-11-09] MEDS ORDERED: Albuterol/Ipratropium 3.0-0.5 MG/3 ML Neb Soln NEB PRN (19:41)
[2017-11-09] MEDS ORDERED: Docusate Sodium 100 MG Cap PO PRN (19:41)
[2017-11-09] MEDS ORDERED: Polyethylene Glycol 3350 Powder 17 GM Packet PO PRN (19:41)
[2017-11-09] MEDS ORDERED: Acetaminophen 325 MG Tab PO PRN (19:41)
[2017-11-09] MEDS ORDERED: Ondansetron 4 MG/2 ML SDV IV PRN (19:41)
[2017-11-09] MEDS ORDERED: Metoprolol Tartrate 5 MG/5 ML SDV IVPUSH PRN (19:49)
[2017-11-09] MEDS ORDERED: HYDROmorphone 0.5 MG/0.5 ML Syringe IVPUSH PRN (19:53)
[2017-11-09] MEDS ORDERED: LORazepam 0.5 MG Tab PO PRN (19:54)
[2017-11-09] MEDS: Famotidine 20 MG/2 ML SDV IVPUSH SCH (20:35)
[2017-11-10] MEDS ORDERED: guaiFENesin 600 MG Tab.ER PO PRN
[2017-11-10] MEDS ORDERED: Diclofenac Sodium 1% Gel 100 GM Tube TOP PRN
[2017-11-10] MEDS ORDERED: guaiFENesin/Dextromethorphan 100-10 MG/5 ML Soln 5 ML Cup PO PRN
[2017-11-10] MEDS ORDERED: Ibuprofen 200 MG Tab PO PRN
[2017-11-10] MEDS ORDERED: Sodium Chloride 0.65% Nasal Spray 45 ML Bottle NASBOTH PRN
[2017-11-10] MEDS ORDERED: Bumetanide 1 MG/4 ML MDV IVPUSH SCH (06:00)
[2017-11-10] MEDS ORDERED: Levothyroxine 25 MCG Tab PO SCH (06:00)
[2017-11-10] MEDS ORDERED: Furosemide 40 MG/4 ML VIAL IVPUSH SCH (06:00)
[2017-11-10] MEDS ORDERED: Polyethylene Glycol 3350 Powder 17 GM Packet GTUBE PRN (07:08)
[2017-11-10] MEDS ORDERED: LORazepam 0.5 MG Tab GTUBE PRN (07:08)
[2017-11-10] MEDS ORDERED: guaiFENesin/Dextromethorphan 100-10 MG/5 ML Soln 5 ML Cup GTUBE PRN (07:10)
[2017-11-10] MEDS ORDERED: Ibuprofen Susp 100 MG/5 ML 5 ML UD Cup GTUBE PRN (07:28)
[2017-11-10] MEDS ORDERED: guaiFENesin 100 MG/5 ML Soln 10 ML UD Cup GTUBE PRN (07:31)
[2017-11-10] MEDS ORDERED: methylPREDNISolone Sodium Succinate 1,000 MG/8 ML SDV IV SCH (09:00)
[2017-11-10] MEDS ORDERED: Albuterol/Ipratropium 3.0-0.5 MG/3 ML Neb Soln NEB SCH (09:00)
[2017-11-10] MEDS: Albuterol/Ipratropium 3.0-0.5 MG/3 ML Neb Soln NEB SCH ×3 (09:37→20:49)
[2017-11-10] MEDS ORDERED: Albuterol 0.083% 2.5 MG/3 ML Neb Soln NEB SCH (10:00)
[2017-11-10] MEDS: Enoxaparin 40 MG/0.4 ML Syringe SUBCUT SCH (10:33)
[2017-11-10] MEDS: Famotidine 20 MG/2 ML SDV IVPUSH SCH ×2 (10:33→21:05)
[2017-11-10] MEDS: Amantadine Soln 50 MG/5 ML UD Cup GTUBE SCH ×2 (12:14→21:03)
[2017-11-10] MEDS: Aspirin 81 MG Tab.Chew GTUBE SCH (12:14)
--- NOTE | 2017-11-10 15:44 | PCM.PN ---
- General Info Date of Service: 11/10/17 Functional Status: Reports: Tolerating Diet (TF with free water) - Review of Systems General: Reports: Weakness HEENT: Reports: No Symptoms Pulmonary: Reports: No Symptoms Cardiovascular: Reports: No Symptoms Gastrointestinal: Reports: No Symptoms Genitourinary: Reports: No Symptoms Musculoskeletal: Reports: No Symptoms Skin: Reports: No Symptoms Neurological: Reports: No Symptoms Psychiatric: Reports: No Symptoms - Patient Data Vitals - Most Recent: Last Vital Signs Temp 36.4 C 11/10/17 12:23 Pulse 94 11/10/17 12:23 Resp 20 11/10/17 12:23 BP 131/42 L 11/10/17 12:23 Pulse Ox 92 L 11/10/17 15:03 Weight - Most Recent: 58.105 kg I&O - Last 24 Hours: Intake & Output 11/10/17 11/10/17 11/10/17 06:59 14:59 22:59 Intake Total 0 Balance 0 Lab Results Last 24 Hours: Laboratory Results - last 24 hr 11/10/17 11/10/17 Range/Units 06:00 06:00 WBC 23.56 H (3.98-10.04) K/mm3 RBC 3.34 L (3.98-5.22) M/mm3 Hgb 9.7 L (11.2-15.7) gm/L Hct 31.1 L (34.1-44.9) % MCV 93.1 (79.4-94.8) fl MCH 29.0 (25.6-32.2) pg MCHC 31.2 L (32.2-35.5) g/dl RDW Std Deviation 57.6 H (36.4-46.3) fL Plt Count 415 H (182-369) K/mm3 MPV 10.9 (9.4-12.3) fl Neut % (Auto) 77.8 H (34.0-71.1) % Lymph % (Auto) 7.7 L (19.3-51.7) % [place] % (Auto) 12.1 (4.7-12.5) % Eos % (Auto) 0.2 L (0.7-5.8) Baso % (Auto) 0.1 (0.1-1.2) % Neut # (Auto) 18.31 H (1.56-6.13) K/mm3 Lymph # (Auto) 1.82 (1.18-3.74) K/mm3 [place] # (Auto) 2.86 H (0.24-0.36) K/mm3 Eos # (Auto) 0.04 (0.04-0.36) K/mm3 Baso # (Auto) 0.03 (0.01-0.08) K/mm3 Manual Slide Review Abnormal smear Sodium 146 H (136-145) mEq/L Potassium 4.2 (3.5-5.1) mEq/L Chloride 104 (98-107) mEq/L Carbon Dioxide 40 H (21-32) mEq/L Anion Gap 6.2 (5-15) BUN 27 H (7-18) mg/dL Creatinine 0.3 L (0.55-1.02) mg/dL Est Cr Clr Drug Dosing 161.44 mL/min Estimated GFR (MDRD) > 60 (>60) mL/min BUN/Creatinine Ratio 90.0 H (14-18) Glucose 89 (80-115) mg/dL Calcium 8.5 (8.5-10.1) mg/dL Magnesium 2.0 (1.8-2.4) mg/dl Troponin I 0.060 H* (0.00-0.056) ng/mL C-Reactive Protein 2.1 H* (<1.0) mg/dL NT-Pro-B Natriuret Pep Cancelled Med Orders - Current: Current Medications Acetaminophen (Tylenol) 650 mg GTUBE Q4H PRN PRN Reason: Pain (Mild 1-3)/fever Albuterol/Ipratropium (Duoneb 3.0-0.5 Mg/3 Ml) 3 ml NEB QIDRT [facility] Last Admin: 11/10/17 15:03 Dose: 3 ml Amantadine HCl (Symmetrel 50 Mg/5 Ml Soln) 75 mg GTUBE BID [facility] Last Admin: 11/10/17 12:14 Dose: 75 mg Aspirin (Aspirin) 162 mg GTUBE DAILY [facility] Last Admin: 11/10/17 12:14 Dose: 162 mg Diclofenac Sodium (Voltaren 1% Gel) 1 - 5 gm TOP QID PRN PRN Reason: Pain Docusate Sodium (Colace) 100 mg PO BID PRN PRN Reason: Constipation Enoxaparin Sodium (Lovenox) 40 mg SUBCUT DAILY [facility] Last Admin: 11/10/17 10:33 Dose: 40 mg Famotidine (Pepcid) 20 mg IVPUSH BID [facility] Last Admin: 11/10/17 10:33 Dose: 20 mg Guaifenesin (Robitussin) 200 mg GTUBE Q4H PRN PRN Reason: Congestion Guaifenesin/Phenylephrine HCl (Robitussin Dm) 10 ml GTUBE Q4H PRN PRN Reason: Congestion Hydralazine HCl (Apresoline) 10 mg IVPUSH Q6H PRN PRN Reason: Hypertension Hydromorphone HCl (Dilaudid) 0.5 mg IVPUSH Q4H PRN PRN Reason: Pain Ibuprofen (Motrin 100 Mg/5 Ml Susp) 400 mg GTUBE Q6H PRN PRN Reason: Other Levothyroxine Sodium (Levothyroxine) 25 mcg GTUBE ACBREAKFAST CHUN Lorazepam (Ativan) 0.5 mg GTUBE Q4H PRN PRN Reason: Anxiety Metoprolol Tartrate (Lopressor) 5 mg IVPUSH Q4H PRN PRN Reason: Tachycardia Ondansetron HCl (Zofran) 4 mg IV Q6H PRN PRN Reason: Nausea/Vomiting Polyethylene Glycol (Miralax) 17 gm GTUBE DAILY PRN PRN Reason: Constipation Rosuvastatin Calcium (Crestor) 10 mg GTUBE BEDTIME CHUN Senna/Docusate Sodium (Senna Plus) 1 tab GTUBE BID PRN PRN Reason: Constipation Sodium Chloride ([place] Nasal [place]) 1 ml NASBOTH TID PRN PRN Reason: Congestion Discontinued Medications Acetaminophen (Tylenol) 650 mg PO Q4H PRN PRN Reason: Pain (Mild 1-3)/fever Albuterol (Proventil Neb Soln) 2.5 mg NEB QIDRT CHUN Albuterol/Ipratropium (Duoneb 3.0-0.5 Mg/3 Ml) 3 ml NEB Q4H PRN PRN Reason: Shortness Of Breath/wheezing Albuterol/Ipratropium (Duoneb 3.0-0.5 Mg/3 Ml) 3 ml NEB QID CHUN Bisacodyl (Dulcolax) 5 mg PO DAILY PRN PRN Reason: Constipation Bumetanide (Bumex) 0.5 mg IVPUSH BID [facility] Furosemide (Lasix) 40 mg IVPUSH NOW ONE Stop: 11/09/17 17:19 Last Admin: 11/09/17 17:54 Dose: 40 mg Furosemide (Lasix) 40 mg IVPUSH BID [facility] Last Admin: 11/10/17 06:46 Dose: 40 mg Guaifenesin (Mucinex) 600 mg PO BID PRN PRN Reason: Congestion Guaifenesin/Phenylephrine HCl (Robitussin Dm) 10 ml PO Q4H PRN PRN Reason: Congestion Ceftriaxone Sodium 2 gm/ (Sodium Chloride) 100 mls @ 200 mls/hr IV ONETIME ONE Stop: 11/09/17 15:42 Last Admin: 11/09/17 16:36 Dose: Not Given Dextrose/Sodium Chloride (Dextrose 5%-Normal Saline) 1,000 mls @ 500 mls/hr IV ASDIRECTED [facility] Last Admin: 11/09/17 15:46 Dose: 500 mls/hr Ceftriaxone Sodium 2 gm/ (Sodium Chloride) 100 mls @ 200 mls/hr IV ONETIME ONE Stop: 11/09/17 15:42 Last Admin: 11/09/17 16:01 Dose: 200 mls/hr Ibuprofen (Motrin) 400 mg PO Q6H PRN PRN Reason: Other Levothyroxine Sodium (Levothyroxine) 25 mcg PO ACBREAKFAST [facility] Last Admin: 11/10/17 06:46 Dose: 25 mcg Lorazepam (Ativan) 0.5 mg PO Q4H PRN PRN Reason: Anxiety Methylprednisolone Sodium Succinate (Solu-Medrol) 1,000 mg IV DAILY [facility] Polyethylene Glycol (Miralax) 17 gm PO DAILY PRN PRN Reason: Constipation Senna/Docusate Sodium (Senna Plus) 1 tab PO BID PRN PRN Reason: Constipation - Exam Quality Assessment: Supplemental Oxygen, DVT Prophylaxis General: Alert, Oriented, Cooperative, No Acute Distress HEENT: Pupils Equal, Pupils Reactive, EOMI Neck: No JVD Lungs: Normal Respiratory Effort, Decreased Breath Sounds Cardiovascular: Regular Rate, Regular Rhythm GI/Abdominal Exam: Normal Bowel Sounds, Soft, Non-Tender, No Organomegaly, No Distention (Female) Exam: Deferred Back Exam: Normal Inspection Extremities: Normal Inspection Skin: Warm Neurological: No New Focal Deficit Psy/Mental Status: Alert - Problem List Review Problem List Initiated/Reviewed/Updated: Yes - My Orders Last 24 Hours: My Active Orders 11/10/17 10:24 Enteral Feedings [RC] Click to Edit - Plan Plan:: I/P: Acute: Febrile illness -Leukocytosis although she is receiving IV steroids -CRP 1.6 -Influenza negative -Blood cultures pending -Afebrile in ED, although it is reported she received motrin prior -Recently hospitalized for pneumonia and UTI -CXR shows infiltrate in right lower lobe that is slightly less than previous film from 11/07/17 -Rocephin 2gm given in ED - hold for now pending cultures and to see if fever develops -Urine cultures pending CHF -Acute on chronic -Rhonci in lungs -Pro-BNP 2256 -Diurese Elevated troponin -Troponing 0.062 -CK-MB 2.6 -Repeat in AM -Likely demand from fluid overload Chronic: HLD HTN Recurrent UTI Recurrent pneumonia Arthritis MS Contractures CVA with left side deficit Hypothyroidism PEG tube in place PICC line in right arm Plan: Aspiration precautions Neb therapy prn MS with telemetry CM/SW for discharge planning PT RT to evaluate and treat Home meds as indicated Other orders as indicated above Routine AM labs DVT prophylaxis: lovenox Code Status: DNR/DNI; PCP: Dr. Alfonso at [facility]
[2017-11-10] MEDS: methylPREDNISolone Sodium Succinate 125 MG/2 ML SDV IVPUSH SCH (19:28)
[2017-11-10] MEDS: Rosuvastatin 10 MG Tab GTUBE SCH (21:01)
[2017-11-11] MEDS: methylPREDNISolone Sodium Succinate 125 MG/2 ML SDV IVPUSH SCH ×4 (00:22→19:45)
[2017-11-11] MEDS: Albuterol/Ipratropium 3.0-0.5 MG/3 ML Neb Soln NEB SCH ×4 (05:53→21:26)
[2017-11-11] MEDS: Levothyroxine 25 MCG Tab GTUBE SCH (06:21)
[2017-11-11] MEDS: Acetaminophen Soln 650 MG/20.3 ML UD Cup GTUBE PRN ×2 (06:22→15:45)
[2017-11-11] MEDS: Aspirin 81 MG Tab.Chew GTUBE SCH (08:18)
[2017-11-11] MEDS: Famotidine 20 MG/2 ML SDV IVPUSH SCH ×2 (08:18→22:02)
[2017-11-11] MEDS: Enoxaparin 40 MG/0.4 ML Syringe SUBCUT SCH (08:19)
[2017-11-11] MEDS: Amantadine Soln 50 MG/5 ML UD Cup GTUBE SCH ×2 (08:24→22:03)
--- NOTE | 2017-11-11 08:53 | CR ---
Chest: Portable view of the chest was obtained. Comparison: Previous chest x-ray of 11/09/17. Increased density is noted within the left lung base. Findings are fairly stable from prior exam. Small bilateral pleural effusions are again noted. Pulmonary vessels are slightly increased which appear stable. Right-sided PICC line is noted. Impression: 1. Stable findings as described above. Diagnostic code #3
[2017-11-11] MEDS ORDERED: Sodium Chloride 0.9% 1,000 ML IV SCH (13:45)
--- NOTE | 2017-11-11 16:47 | PCM.PN ---
- General Info Date of Service: 11/11/17 Functional Status: Reports: Tolerating Diet, Urinating - Review of Systems General: Reports: Weakness HEENT: Reports: No Symptoms Pulmonary: Reports: No Symptoms Cardiovascular: Reports: No Symptoms Gastrointestinal: Reports: No Symptoms Genitourinary: Reports: No Symptoms Musculoskeletal: Reports: No Symptoms Skin: Reports: No Symptoms Neurological: Reports: No Symptoms Psychiatric: Reports: No Symptoms - Patient Data Vitals - Most Recent: Last Vital Signs Temp 37.6 C 11/11/17 15:03 Pulse 92 11/11/17 15:03 Resp 16 11/11/17 15:03 BP 126/58 L 11/11/17 15:03 Pulse Ox 100 11/11/17 15:56 Weight - Most Recent: 58.105 kg I&O - Last 24 Hours: Intake & Output 11/11/17 11/11/17 11/11/17 06:59 14:59 22:59 Intake Total 750 250 Balance 750 250 Lab Results Last 24 Hours: Laboratory Results - last 24 hr 11/11/17 11/11/17 Range/Units 06:15 06:15 WBC 33.48 H (3.98-10.04) K/mm3 RBC 3.53 L (3.98-5.22) M/mm3 Hgb 10.2 L (11.2-15.7) gm/L Hct 32.9 L (34.1-44.9) % MCV 93.2 (79.4-94.8) fl MCH 28.9 (25.6-32.2) pg MCHC 31.0 L (32.2-35.5) g/dl RDW Std Deviation 58.7 H (36.4-46.3) fL Plt Count 452 H (182-369) K/mm3 MPV 11.0 (9.4-12.3) fl Neut % (Auto) 93.9 H (34.0-71.1) % Lymph % (Auto) 1.6 L (19.3-51.7) % [place] % (Auto) 3.5 L (4.7-12.5) % Eos % (Auto) 0 L (0.7-5.8) Baso % (Auto) 0.1 (0.1-1.2) % Neut # (Auto) 31.43 H (1.56-6.13) K/mm3 Lymph # (Auto) 0.52 L (1.18-3.74) K/mm3 [place] # (Auto) 1.18 H (0.24-0.36) K/mm3 Eos # (Auto) 0.00 L (0.04-0.36) K/mm3 Baso # (Auto) 0.04 (0.01-0.08) K/mm3 Manual Slide Review Abnormal smear Sodium 142 (136-145) mEq/L Potassium 4.9 (3.5-5.1) mEq/L Chloride 101 (98-107) mEq/L Carbon Dioxide 40 H (21-32) mEq/L Anion Gap 5.9 (5-15) BUN 24 H (7-18) mg/dL Creatinine 0.5 L (0.55-1.02) mg/dL Est Cr Clr Drug Dosing 97.57 mL/min Estimated GFR (MDRD) > 60 (>60) mL/min BUN/Creatinine Ratio 48.0 H (14-18) Glucose 220 H (80-115) mg/dL Calcium 8.8 (8.5-10.1) mg/dL Magnesium 2.5 H (1.8-2.4) mg/dl C-Reactive Protein 23.5 H* (<1.0) mg/dL NT-Pro-B Natriuret Pep 1187 H (0-125) pg/mL Med Orders - Current: Current Medications Acetaminophen (Tylenol) 650 mg GTUBE Q4H PRN PRN Reason: Pain (Mild 1-3)/fever Last Admin: 11/11/17 15:45 Dose: 650 mg Albuterol/Ipratropium (Duoneb 3.0-0.5 Mg/3 Ml) 3 ml NEB QIDRT [facility] Last Admin: 11/11/17 15:53 Dose: 3 ml Amantadine HCl (Symmetrel 50 Mg/5 Ml Soln) 75 mg GTUBE BID [facility] Last Admin: 11/11/17 08:24 Dose: 75 mg Aspirin (Aspirin) 162 mg GTUBE DAILY [facility] Last Admin: 11/11/17 08:18 Dose: 162 mg Diclofenac Sodium (Voltaren 1% Gel) 1 - 5 gm TOP QID PRN PRN Reason: Pain Docusate Sodium (Colace) 100 mg PO BID PRN PRN Reason: Constipation Enoxaparin Sodium (Lovenox) 40 mg SUBCUT DAILY [facility] Last Admin: 11/11/17 08:19 Dose: 40 mg Famotidine (Pepcid) 20 mg IVPUSH BID [facility] Last Admin: 11/11/17 08:18 Dose: 20 mg Guaifenesin (Robitussin) 200 mg GTUBE Q4H PRN PRN Reason: Congestion Guaifenesin/Phenylephrine HCl (Robitussin Dm) 10 ml GTUBE Q4H PRN PRN Reason: Congestion Hydralazine HCl (Apresoline) 10 mg IVPUSH Q6H PRN PRN Reason: Hypertension Hydromorphone HCl (Dilaudid) 0.5 mg IVPUSH Q4H PRN PRN Reason: Pain Cefepime HCl 2 gm/ Premix 50 mls @ 100 mls/hr IV Q8H [facility] Sodium Chloride (Normal Saline) 1,000 mls @ 200 mls/hr IV ASDIRECTED [facility] Stop: 11/11/17 19:45 Last Admin: 11/11/17 15:19 Dose: 200 mls/hr Vancomycin HCl 1 gm/ Sodium (Chloride) 250 mls @ 250 mls/hr IV Q24H [facility] Last Admin: 11/11/17 15:24 Dose: 250 mls/hr Sodium Chloride (Normal Saline) 1,000 mls @ 100 mls/hr IV ASDIRECTED [facility] Ibuprofen (Motrin 100 Mg/5 Ml Susp) 400 mg GTUBE Q6H PRN PRN Reason: Other Levothyroxine Sodium (Levothyroxine) 25 mcg GTUBE ACBREAKFAST [facility] Last Admin: 11/11/17 06:21 Dose: 25 mcg Lorazepam (Ativan) 0.5 mg GTUBE Q4H PRN PRN Reason: Anxiety Methylprednisolone Sodium Succinate (Solu-Medrol) 125 mg IVPUSH Q6H [facility] Last Admin: 11/11/17 12:51 Dose: 125 mg Metoprolol Tartrate (Lopressor) 5 mg IVPUSH Q4H PRN PRN Reason: Tachycardia Ondansetron HCl (Zofran) 4 mg IV Q6H PRN PRN Reason: Nausea/Vomiting Polyethylene Glycol (Miralax) 17 gm GTUBE DAILY PRN PRN Reason: Constipation Rosuvastatin Calcium (Crestor) 10 mg GTUBE BEDTIME [facility] Last Admin: 11/10/17 21:01 Dose: 10 mg Senna/Docusate Sodium (Senna Plus) 1 tab GTUBE BID PRN PRN Reason: Constipation Sodium Chloride ([place] Nasal [place]) 1 ml NASBOTH TID PRN PRN Reason: Congestion Vancomycin HCl (Pharmacy To Dose - Vancomycin) 1 dose .XX ASDIRECTED [facility] Discontinued Medications Acetaminophen (Tylenol) 650 mg PO Q4H PRN PRN Reason: Pain (Mild 1-3)/fever Albuterol (Proventil Neb Soln) 2.5 mg NEB QIDRT [facility] Albuterol/Ipratropium (Duoneb 3.0-0.5 Mg/3 Ml) 3 ml NEB Q4H PRN PRN Reason: Shortness Of Breath/wheezing Albuterol/Ipratropium (Duoneb 3.0-0.5 Mg/3 Ml) 3 ml NEB QID [facility] Bisacodyl (Dulcolax) 5 mg PO DAILY PRN PRN Reason: Constipation Bumetanide (Bumex) 0.5 mg IVPUSH BID [facility] Furosemide (Lasix) 40 mg IVPUSH NOW ONE Stop: 11/09/17 17:19 Last Admin: 11/09/17 17:54 Dose: 40 mg Furosemide (Lasix) 40 mg IVPUSH BID [facility] Last Admin: 11/10/17 06:46 Dose: 40 mg Guaifenesin (Mucinex) 600 mg PO BID PRN PRN Reason: Congestion Guaifenesin/Phenylephrine HCl (Robitussin Dm) 10 ml PO Q4H PRN PRN Reason: Congestion Ceftriaxone Sodium 2 gm/ (Sodium Chloride) 100 mls @ 200 mls/hr IV ONETIME ONE Stop: 11/09/17 15:42 Last Admin: 11/09/17 16:36 Dose: Not Given Dextrose/Sodium Chloride (Dextrose 5%-Normal Saline) 1,000 mls @ 500 mls/hr IV ASDIRECTED [facility] Last Admin: 11/09/17 15:46 Dose: 500 mls/hr Ceftriaxone Sodium 2 gm/ (Sodium Chloride) 100 mls @ 200 mls/hr IV ONETIME ONE Stop: 11/09/17 15:42 Last Admin: 11/09/17 16:01 Dose: 200 mls/hr Ibuprofen (Motrin) 400 mg PO Q6H PRN PRN Reason: Other Levothyroxine Sodium (Levothyroxine) 25 mcg PO ACBREAKFAST [facility] Last Admin: 11/10/17 06:46 Dose: 25 mcg Lorazepam (Ativan) 0.5 mg PO Q4H PRN PRN Reason: Anxiety Methylprednisolone Sodium Succinate (Solu-Medrol) 1,000 mg IV DAILY [facility] Polyethylene Glycol (Miralax) 17 gm PO DAILY PRN PRN Reason: Constipation Senna/Docusate Sodium (Senna Plus) 1 tab PO BID PRN PRN Reason: Constipation - Exam Quality Assessment: Supplemental Oxygen, DVT Prophylaxis General: Alert, Oriented, Cooperative, No Acute Distress HEENT: Pupils Equal, Pupils Reactive, EOMI Neck: Trachea Midline, No JVD Lungs: Normal Respiratory Effort, Decreased Breath Sounds, Rhonchi, Wheezing Cardiovascular: Regular Rate, Regular Rhythm GI/Abdominal Exam: Normal Bowel Sounds, Soft, Non-Tender, No Organomegaly, No Distention (Female) Exam: Deferred Back Exam: Normal Inspection Extremities: Normal Inspection Skin: Warm Neurological: Other (increased lethargy) Psy/Mental Status: Alert - Problem List Review Problem List Initiated/Reviewed/Updated: Yes - My Orders Last 24 Hours: My Active Orders 11/10/17 18:27 Head of Bed Elevation [RC] ASDIRECTED 11/10/17 18:30 methylPREDNISolone Sod Succ [Solu-MEDROL] 125 mg IVPUSH Q6H 11/11/17 13:45 Sodium Chloride 0.9% [Normal Saline] 1,000 ml IV ASDIRECTED Vancomycin Pharmacy to Dose [Pharmacy to Dose - Vancomycin] 1 dose .XX ASDIRECTED 11/11/17 14:00 Cefepime [Maxipime in D5W 2 GM/50 ML] 2 gm Premix Bag 1 bag IV Q8H Vancomycin [Vancocin] 1 gm Sodium Chloride 0.9% [Normal Saline] 250 ml IV Q24H 11/11/17 19:45 Sodium Chloride 0.9% [Normal Saline] 1,000 ml IV ASDIRECTED - Plan Plan:: I/P: Acute: Febrile illness -Leukocytosis although she is receiving IV steroids -CRP 1.6 -Influenza negative -Blood cultures pending -Afebrile in ED, although it is reported she received motrin prior -Recently hospitalized for pneumonia and UTI -CXR shows infiltrate in right lower lobe that is slightly less than previous film from 11/07/17; repeat CXR suggest LLL infiltrate -AMS change -Urine cultures pending CHF -Acute on chronic -Rhonci in lungs -Pro-BNP 2256 -Diurese Elevated troponin -Troponing 0.062 -CK-MB 2.6 -Repeat in AM -Likely demand from fluid overload Chronic: HLD HTN Recurrent UTI Recurrent pneumonia Arthritis MS Contractures CVA with left side deficit Hypothyroidism PEG tube in place PICC line in right arm Plan: IV ATB: levoquin, vancomycin +/- gent for HCAP IVF for 24 hours Advance TF as tolerated Aspiration precautions Neb therapy prn MS with telemetry CM/SW for discharge planning PT RT to evaluate and treat Home meds as indicated Other orders as indicated above Routine AM labs DVT prophylaxis: lovenox Code Status: DNR/DNI; PCP: Dr. Alfonso at [facility] LOS>96 hours re: AMS
[2017-11-11] MEDS: Cefepime 2 GM in Premix Bag 1 BAG IV SCH ×2 (17:17→22:03)
[2017-11-11] MEDS: Sodium Chloride 0.9% 1,000 ML IV SCH (20:42)
[2017-11-11] MEDS: Rosuvastatin 10 MG Tab GTUBE SCH (22:03)
[2017-11-12] MEDS: methylPREDNISolone Sodium Succinate 125 MG/2 ML SDV IVPUSH SCH ×5 (01:57→23:51)
[2017-11-12] MEDS: Levothyroxine 25 MCG Tab GTUBE SCH (05:37)
[2017-11-12] MEDS: Cefepime 2 GM in Premix Bag 1 BAG IV SCH ×2 (05:38→19:03)
[2017-11-12] MEDS: Sodium Chloride 0.9% 1,000 ML IV SCH (05:38)
[2017-11-12] MEDS: Albuterol/Ipratropium 3.0-0.5 MG/3 ML Neb Soln NEB SCH ×4 (06:25→20:46)
[2017-11-12] MEDS: Amantadine Soln 50 MG/5 ML UD Cup GTUBE SCH ×2 (08:55→22:00)
[2017-11-12] MEDS: Aspirin 81 MG Tab.Chew GTUBE SCH (08:55)
[2017-11-12] MEDS: Famotidine 20 MG/2 ML SDV IVPUSH SCH ×2 (08:57→21:42)
[2017-11-12] MEDS: Enoxaparin 40 MG/0.4 ML Syringe SUBCUT SCH (08:57)
--- NOTE | 2017-11-12 14:08 | PCM.PN ---
- General Info Date of Service: 11/12/17 Functional Status: Reports: Tolerating Diet, Urinating - Review of Systems General: Reports: Weakness (decreased) HEENT: Reports: No Symptoms Pulmonary: Reports: No Symptoms Cardiovascular: Reports: No Symptoms Gastrointestinal: Reports: No Symptoms Genitourinary: Reports: No Symptoms Musculoskeletal: Reports: No Symptoms Skin: Reports: No Symptoms Neurological: Reports: No Symptoms Psychiatric: Reports: No Symptoms - Patient Data Vitals - Most Recent: Last Vital Signs Temp 36.9 C 11/12/17 12:02 Pulse 91 11/12/17 12:02 Resp 17 11/12/17 12:02 BP 137/39 L 11/12/17 12:02 Pulse Ox 97 11/12/17 12:02 Weight - Most Recent: 58.876 kg I&O - Last 24 Hours: Intake & Output 11/11/17 11/12/17 11/12/17 22:59 06:59 14:59 Intake Total 1471 2350 250 Balance 1471 2350 250 Lab Results Last 24 Hours: Laboratory Results - last 24 hr 11/12/17 11/12/17 Range/Units 06:30 06:30 WBC 27.71 H (3.98-10.04) K/mm3 RBC 2.65 L (3.98-5.22) M/mm3 Hgb 7.8 L (11.2-15.7) gm/L Hct 25.2 L (34.1-44.9) % MCV 95.1 H (79.4-94.8) fl MCH 29.4 (25.6-32.2) pg MCHC 31.0 L (32.2-35.5) g/dl RDW Std Deviation 59.2 H (36.4-46.3) fL Plt Count 420 H (182-369) K/mm3 MPV 11.1 (9.4-12.3) fl Neut % (Auto) 85.9 H (34.0-71.1) % Lymph % (Auto) 2.5 L (19.3-51.7) % [place] % (Auto) 10.8 (4.7-12.5) % Eos % (Auto) 0 L (0.7-5.8) Baso % (Auto) 0.0 L (0.1-1.2) % Neut # (Auto) 23.79 H (1.56-6.13) K/mm3 Lymph # (Auto) 0.70 L (1.18-3.74) K/mm3 [place] # (Auto) 2.99 H (0.24-0.36) K/mm3 Eos # (Auto) 0.00 L (0.04-0.36) K/mm3 Baso # (Auto) 0.01 (0.01-0.08) K/mm3 Manual Slide Review Abnormal smear Sodium 146 H (136-145) mEq/L Potassium 3.9 (3.5-5.1) mEq/L Chloride 107 (98-107) mEq/L Carbon Dioxide 34 H (21-32) mEq/L Anion Gap 8.9 (5-15) BUN 27 H (7-18) mg/dL Creatinine 0.4 L (0.55-1.02) mg/dL Est Cr Clr Drug Dosing 121.96 mL/min Estimated GFR (MDRD) > 60 (>60) mL/min BUN/Creatinine Ratio 67.5 H (14-18) Glucose 227 H (80-115) mg/dL Calcium 8.1 L (8.5-10.1) mg/dL Magnesium 2.3 (1.8-2.4) mg/dl C-Reactive Protein 14.9 H* (<1.0) mg/dL NT-Pro-B Natriuret Pep 840 H (0-125) pg/mL Med Orders - Current: Current Medications Acetaminophen (Tylenol) 650 mg GTUBE Q4H PRN PRN Reason: Pain (Mild 1-3)/fever Last Admin: 11/11/17 15:45 Dose: 650 mg Albuterol/Ipratropium (Duoneb 3.0-0.5 Mg/3 Ml) 3 ml NEB QIDRT [facility] Last Admin: 11/12/17 10:45 Dose: 3 ml Amantadine HCl (Symmetrel 50 Mg/5 Ml Soln) 75 mg GTUBE BID [facility] Last Admin: 11/12/17 08:55 Dose: 75 mg Aspirin (Aspirin) 162 mg GTUBE DAILY [facility] Last Admin: 11/12/17 08:55 Dose: 162 mg Diclofenac Sodium (Voltaren 1% Gel) 1 - 5 gm TOP QID PRN PRN Reason: Pain Docusate Sodium (Colace) 100 mg PO BID PRN PRN Reason: Constipation Enoxaparin Sodium (Lovenox) 40 mg SUBCUT DAILY [facility] Last Admin: 11/12/17 08:57 Dose: 40 mg Famotidine (Pepcid) 20 mg IVPUSH BID [facility] Last Admin: 11/12/17 08:57 Dose: 20 mg Guaifenesin (Robitussin) 200 mg GTUBE Q4H PRN PRN Reason: Congestion Guaifenesin/Phenylephrine HCl (Robitussin Dm) 10 ml GTUBE Q4H PRN PRN Reason: Congestion Hydralazine HCl (Apresoline) 10 mg IVPUSH Q6H PRN PRN Reason: Hypertension Hydromorphone HCl (Dilaudid) 0.5 mg IVPUSH Q4H PRN PRN Reason: Pain Vancomycin HCl 1 gm/ Sodium (Chloride) 250 mls @ 250 mls/hr IV Q24H [facility] Last Admin: 11/12/17 13:27 Dose: 250 mls/hr Sodium Chloride (Normal Saline) 1,000 mls @ 100 mls/hr IV ASDIRECTED [facility] Last Admin: 11/12/17 05:38 Dose: 100 mls/hr Cefepime HCl 2 gm/ Premix 50 mls @ 100 mls/hr IV Q12H [facility] Ibuprofen (Motrin 100 Mg/5 Ml Susp) 400 mg GTUBE Q6H PRN PRN Reason: Other Levothyroxine Sodium (Levothyroxine) 25 mcg GTUBE ACBREAKFAST [facility] Last Admin: 11/12/17 05:37 Dose: 25 mcg Lorazepam (Ativan) 0.5 mg GTUBE Q4H PRN PRN Reason: Anxiety Methylprednisolone Sodium Succinate (Solu-Medrol) 125 mg IVPUSH Q6H [facility] Last Admin: 11/12/17 13:27 Dose: 125 mg Metoprolol Tartrate (Lopressor) 5 mg IVPUSH Q4H PRN PRN Reason: Tachycardia Ondansetron HCl (Zofran) 4 mg IV Q6H PRN PRN Reason: Nausea/Vomiting Polyethylene Glycol (Miralax) 17 gm GTUBE DAILY PRN PRN Reason: Constipation Rosuvastatin Calcium (Crestor) 10 mg GTUBE BEDTIME [facility] Last Admin: 11/11/17 22:03 Dose: 10 mg Senna/Docusate Sodium (Senna Plus) 1 tab GTUBE BID PRN PRN Reason: Constipation Sodium Chloride ([place] Nasal [place]) 1 ml NASBOTH TID PRN PRN Reason: Congestion Vancomycin HCl (Pharmacy To Dose - Vancomycin) 1 dose .XX ASDIRECTED PRN PRN Reason: RX TO DOSE Discontinued Medications Acetaminophen (Tylenol) 650 mg PO Q4H PRN PRN Reason: Pain (Mild 1-3)/fever Albuterol (Proventil Neb Soln) 2.5 mg NEB QIDRT [facility] Albuterol/Ipratropium (Duoneb 3.0-0.5 Mg/3 Ml) 3 ml NEB Q4H PRN PRN Reason: Shortness Of Breath/wheezing Albuterol/Ipratropium (Duoneb 3.0-0.5 Mg/3 Ml) 3 ml NEB QID [facility] Bisacodyl (Dulcolax) 5 mg PO DAILY PRN PRN Reason: Constipation Bumetanide (Bumex) 0.5 mg IVPUSH BID [facility] Furosemide (Lasix) 40 mg IVPUSH NOW ONE Stop: 11/09/17 17:19 Last Admin: 11/09/17 17:54 Dose: 40 mg Furosemide (Lasix) 40 mg IVPUSH BID [facility] Last Admin: 11/10/17 06:46 Dose: 40 mg Guaifenesin (Mucinex) 600 mg PO BID PRN PRN Reason: Congestion Guaifenesin/Phenylephrine HCl (Robitussin Dm) 10 ml PO Q4H PRN PRN Reason: Congestion Ceftriaxone Sodium 2 gm/ (Sodium Chloride) 100 mls @ 200 mls/hr IV ONETIME ONE Stop: 11/09/17 15:42 Last Admin: 11/09/17 16:36 Dose: Not Given Dextrose/Sodium Chloride (Dextrose 5%-Normal Saline) 1,000 mls @ 500 mls/hr IV ASDIRECTED [facility] Last Admin: 11/09/17 15:46 Dose: 500 mls/hr Ceftriaxone Sodium 2 gm/ (Sodium Chloride) 100 mls @ 200 mls/hr IV ONETIME ONE Stop: 11/09/17 15:42 Last Admin: 11/09/17 16:01 Dose: 200 mls/hr Cefepime HCl 2 gm/ Premix 50 mls @ 100 mls/hr IV Q8H [facility] Last Admin: 11/12/17 05:38 Dose: 100 mls/hr Sodium Chloride (Normal Saline) 1,000 mls @ 200 mls/hr IV ASDIRECTED [facility] Stop: 11/11/17 19:45 Last Admin: 11/11/17 15:19 Dose: 200 mls/hr Ibuprofen (Motrin) 400 mg PO Q6H PRN PRN Reason: Other Levothyroxine Sodium (Levothyroxine) 25 mcg PO ACBREAKFAST [facility] Last Admin: 11/10/17 06:46 Dose: 25 mcg Lorazepam (Ativan) 0.5 mg PO Q4H PRN PRN Reason: Anxiety Methylprednisolone Sodium Succinate (Solu-Medrol) 1,000 mg IV DAILY [facility] Polyethylene Glycol (Miralax) 17 gm PO DAILY PRN PRN Reason: Constipation Senna/Docusate Sodium (Senna Plus) 1 tab PO BID PRN PRN Reason: Constipation - Exam Quality Assessment: Supplemental Oxygen, DVT Prophylaxis General: Alert, Oriented, Cooperative, No Acute Distress HEENT: Pupils Equal, Pupils Reactive, EOMI Neck: Trachea Midline, No JVD Lungs: Normal Respiratory Effort, Decreased Breath Sounds Cardiovascular: Regular Rate, Regular Rhythm GI/Abdominal Exam: Normal Bowel Sounds, Soft, Non-Tender, No Organomegaly, No Distention (Female) Exam: Deferred Back Exam: Normal Inspection Extremities: Normal Inspection Skin: Warm Neurological: No New Focal Deficit Psy/Mental Status: Alert, Normal Affect, Normal Mood - Problem List Review Problem List Initiated/Reviewed/Updated: Yes - My Orders Last 24 Hours: My Active Orders 11/11/17 13:45 Vancomycin Pharmacy to Dose [Pharmacy to Dose - Vancomycin] 1 dose .XX ASDIRECTED PRN 11/11/17 14:00 Vancomycin [Vancocin] 1 gm Sodium Chloride 0.9% [Normal Saline] 250 ml IV Q24H 11/11/17 19:45 Sodium Chloride 0.9% [Normal Saline] 1,000 ml IV ASDIRECTED 11/12/17 18:00 Cefepime [Maxipime in D5W 2 GM/50 ML] 2 gm Premix Bag 1 bag IV Q12H - Plan Plan:: I/P: Acute: Febrile illness -Leukocytosis although she is receiving IV steroids -CRP 1.6 -Influenza negative -Blood cultures pending -Afebrile in ED, although it is reported she received motrin prior -Recently hospitalized for pneumonia and UTI -CXR shows infiltrate in right lower lobe that is slightly less than previous film from 11/07/17; repeat CXR suggest LLL infiltrate -AMS change -Urine cultures pending CHF -Acute on chronic -Rhonci in lungs -Pro-BNP 2256 -Diurese Elevated troponin -Troponing 0.062 -CK-MB 2.6 -Repeat in AM -Likely demand from fluid overload Chronic: HLD HTN Recurrent UTI Recurrent pneumonia Arthritis 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 Alfonso at LOS>96 hours for resolving AMS/febrile illness
[2017-11-12] MEDS: Rosuvastatin 10 MG Tab GTUBE SCH (21:42)
[2017-11-13] MEDS: Levothyroxine 25 MCG Tab GTUBE SCH (05:02)
[2017-11-13] MEDS: methylPREDNISolone Sodium Succinate 125 MG/2 ML SDV IVPUSH SCH ×2 (05:35→16:29)
[2017-11-13] MEDS: Cefepime 2 GM in Premix Bag 1 BAG IV SCH ×2 (05:35→17:58)
[2017-11-13] MEDS: Albuterol/Ipratropium 3.0-0.5 MG/3 ML Neb Soln NEB SCH ×4 (06:36→20:40)
[2017-11-13] MEDS: Aspirin 81 MG Tab.Chew GTUBE SCH (10:20)
[2017-11-13] MEDS: Enoxaparin 40 MG/0.4 ML Syringe SUBCUT SCH (10:20)
[2017-11-13] MEDS: Famotidine 20 MG/2 ML SDV IVPUSH SCH ×2 (10:20→22:10)
[2017-11-13] MEDS: Amantadine Soln 50 MG/5 ML UD Cup GTUBE SCH ×2 (10:21→22:11)
--- NOTE | 2017-11-13 11:15 | US ---
Right upper extremity venous ultrasound: Duplex and color flow imaging was obtained of the right internal jugular, subclavian, axillary, brachial, cephalic, basilic, radial and ulnar veins. Findings: Internal jugular vein is patent. Normal compression is seen of the subclavian vein and more distal veins. PICC line is seen within the brachial vein. Impression: 1. PICC line. 2. No findings of venous thrombosis are seen within the right upper extremity. Diagnostic code #2
--- NOTE | 2017-11-13 13:53 | PCM.PN ---
<Derek Hawkins - Last Filed: 11/13/17 15:32> - General Info Date of Service: 11/13/17 Admission Dx/Problem (Free Text): fever Functional Status: Reports: Pain Controlled, Urinating. Denies: New Symptoms - Review of Systems General: Reports: Weakness (improving ) HEENT: Reports: No Symptoms Pulmonary: Reports: No Symptoms Cardiovascular: Reports: No Symptoms Gastrointestinal: Reports: No Symptoms Genitourinary: Reports: No Symptoms Musculoskeletal: Reports: No Symptoms Skin: Reports: No Symptoms Neurological: Reports: No Symptoms Psychiatric: Reports: No Symptoms Systems Review Comment:: She is somewhat difficult to obtain a subjective history from as she is difficult to understand. I was able to get somewhat of an overview of her symptoms. - Patient Data Vitals - Most Recent: Last Vital Signs Temp 98.2 F 11/13/17 04:48 Pulse 101 H 11/13/17 04:48 Resp 20 11/13/17 04:48 BP 145/81 H 11/13/17 06:44 Pulse Ox 97 11/13/17 09:20 Weight - Most Recent: 60.056 kg I&O - Last 24 Hours: Intake & Output 11/12/17 11/13/17 11/13/17 22:59 06:59 14:59 Intake Total 1050 350 Balance 1050 350 Lab Results Last 24 Hours: Laboratory Results - last 24 hr 11/13/17 11/13/17 Range/Units 05:40 05:40 WBC 21.15 H (3.98-10.04) K/mm3 RBC 2.62 L (3.98-5.22) M/mm3 Hgb 7.5 L (11.2-15.7) gm/L Hct 24.8 L (34.1-44.9) % MCV 94.7 (79.4-94.8) fl MCH 28.6 (25.6-32.2) pg MCHC 30.2 L (32.2-35.5) g/dl RDW Std Deviation 58.9 H (36.4-46.3) fL Plt Count 503 H (182-369) K/mm3 MPV 11.5 (9.4-12.3) fl Neut % (Auto) 85.1 H (34.0-71.1) % Lymph % (Auto) 2.1 L (19.3-51.7) % Coal % (Auto) 11.6 (4.7-12.5) % Eos % (Auto) 0 L (0.7-5.8) Baso % (Auto) 0.0 L (0.1-1.2) % Neut # (Auto) 18.00 H (1.56-6.13) K/mm3 Lymph # (Auto) 0.44 L (1.18-3.74) K/mm3 Coal # (Auto) 2.45 H (0.24-0.36) K/mm3 Eos # (Auto) 0.00 L (0.04-0.36) K/mm3 Baso # (Auto) 0.01 (0.01-0.08) K/mm3 Manual Slide Review Abnormal smear Sodium 146 H (136-145) mEq/L Potassium 4.0 (3.5-5.1) mEq/L Chloride 107 (98-107) mEq/L Carbon Dioxide 37 H (21-32) mEq/L Anion Gap 6.0 (5-15) BUN 27 H (7-18) mg/dL Creatinine 0.3 L (0.55-1.02) mg/dL Est Cr Clr Drug Dosing 162.62 mL/min Estimated GFR (MDRD) > 60 (>60) mL/min BUN/Creatinine Ratio 90.0 H (14-18) Glucose 188 H (80-115) mg/dL Calcium 8.2 L (8.5-10.1) mg/dL Magnesium 2.4 (1.8-2.4) mg/dl C-Reactive Protein 6.2 H* (<1.0) mg/dL NT-Pro-B Natriuret Pep 2124 H (0-125) pg/mL Med Orders - Current: Current Medications Acetaminophen (Tylenol) 650 mg GTUBE Q4H PRN PRN Reason: Pain (Mild 1-3)/fever Last Admin: 11/11/17 15:45 Dose: 650 mg Albuterol/Ipratropium (Duoneb 3.0-0.5 Mg/3 Ml) 3 ml NEB QIDRT [facility] Last Admin: 11/13/17 09:17 Dose: 3 ml Amantadine HCl (Symmetrel 50 Mg/5 Ml Soln) 75 mg GTUBE BID [facility] Last Admin: 11/13/17 10:21 Dose: 75 mg Aspirin (Aspirin) 162 mg GTUBE DAILY [facility] Last Admin: 11/13/17 10:20 Dose: 162 mg Diclofenac Sodium (Voltaren 1% Gel) 1 - 5 gm TOP QID PRN PRN Reason: Pain Docusate Sodium (Colace) 100 mg PO BID PRN PRN Reason: Constipation Enoxaparin Sodium (Lovenox) 40 mg SUBCUT DAILY [facility] Last Admin: 11/13/17 10:20 Dose: 40 mg Famotidine (Pepcid) 20 mg IVPUSH BID [facility] Last Admin: 11/13/17 10:20 Dose: 20 mg Guaifenesin (Robitussin) 200 mg GTUBE Q4H PRN PRN Reason: Congestion Guaifenesin/Phenylephrine HCl (Robitussin Dm) 10 ml GTUBE Q4H PRN PRN Reason: Congestion Hydralazine HCl (Apresoline) 10 mg IVPUSH Q6H PRN PRN Reason: Hypertension Hydromorphone HCl (Dilaudid) 0.5 mg IVPUSH Q4H PRN PRN Reason: Pain Vancomycin HCl 1 gm/ Sodium (Chloride) 250 mls @ 250 mls/hr IV Q24H [facility] Last Admin: 11/12/17 13:27 Dose: 250 mls/hr Cefepime HCl 2 gm/ Premix 50 mls @ 100 mls/hr IV Q12H [facility] Last Admin: 11/13/17 05:35 Dose: 100 mls/hr Ibuprofen (Motrin 100 Mg/5 Ml Susp) 400 mg GTUBE Q6H PRN PRN Reason: Other Levothyroxine Sodium (Levothyroxine) 25 mcg GTUBE ACBREAKFAST [facility] Last Admin: 11/13/17 05:02 Dose: 25 mcg Lorazepam (Ativan) 0.5 mg GTUBE Q4H PRN PRN Reason: Anxiety Methylprednisolone Sodium Succinate (Solu-Medrol) 125 mg IVPUSH Q12H [facility] Metoprolol Tartrate (Lopressor) 5 mg IVPUSH Q4H PRN PRN Reason: Tachycardia Ondansetron HCl (Zofran) 4 mg IV Q6H PRN PRN Reason: Nausea/Vomiting Polyethylene Glycol (Miralax) 17 gm GTUBE DAILY PRN PRN Reason: Constipation Rosuvastatin Calcium (Crestor) 10 mg GTUBE BEDTIME [facility] Last Admin: 11/12/17 21:42 Dose: 10 mg Senna/Docusate Sodium (Senna Plus) 1 tab GTUBE BID PRN PRN Reason: Constipation Sodium Chloride ([place] Nasal [place]) 1 ml NASBOTH TID PRN PRN Reason: Congestion Vancomycin HCl (Pharmacy To Dose - Vancomycin) 1 dose .XX ASDIRECTED PRN PRN Reason: RX TO DOSE Discontinued Medications Acetaminophen (Tylenol) 650 mg PO Q4H PRN PRN Reason: Pain (Mild 1-3)/fever Albuterol (Proventil Neb Soln) 2.5 mg NEB QIDRT CHUN Albuterol/Ipratropium (Duoneb 3.0-0.5 Mg/3 Ml) 3 ml NEB Q4H PRN PRN Reason: Shortness Of Breath/wheezing Albuterol/Ipratropium (Duoneb 3.0-0.5 Mg/3 Ml) 3 ml NEB QID CHUN Bisacodyl (Dulcolax) 5 mg PO DAILY PRN PRN Reason: Constipation Bumetanide (Bumex) 0.5 mg IVPUSH BID [facility] Furosemide (Lasix) 40 mg IVPUSH NOW ONE Stop: 11/09/17 17:19 Last Admin: 11/09/17 17:54 Dose: 40 mg Furosemide (Lasix) 40 mg IVPUSH BID [facility] Last Admin: 11/10/17 06:46 Dose: 40 mg Guaifenesin (Mucinex) 600 mg PO BID PRN PRN Reason: Congestion Guaifenesin/Phenylephrine HCl (Robitussin Dm) 10 ml PO Q4H PRN PRN Reason: Congestion Ceftriaxone Sodium 2 gm/ (Sodium Chloride) 100 mls @ 200 mls/hr IV ONETIME ONE Stop: 11/09/17 15:42 Last Admin: 11/09/17 16:36 Dose: Not Given Dextrose/Sodium Chloride (Dextrose 5%-Normal Saline) 1,000 mls @ 500 mls/hr IV ASDIRECTED [facility] Last Admin: 11/09/17 15:46 Dose: 500 mls/hr Ceftriaxone Sodium 2 gm/ (Sodium Chloride) 100 mls @ 200 mls/hr IV ONETIME ONE Stop: 11/09/17 15:42 Last Admin: 01/18/18 16:01 Dose: 200 mls/hr Cefepime HCl 2 gm/ Premix 50 mls @ 100 mls/hr IV Q8H [facility] Last Admin: 11/12/17 05:38 Dose: 100 mls/hr Sodium Chloride (Normal Saline) 1,000 mls @ 200 mls/hr IV ASDIRECTED [facility] Stop: 11/11/17 19:45 Last Admin: 11/11/17 15:19 Dose: 200 mls/hr Sodium Chloride (Normal Saline) 1,000 mls @ 100 mls/hr IV ASDIRECTED [facility] Last Admin: 11/12/17 05:38 Dose: 100 mls/hr Ibuprofen (Motrin) 400 mg PO Q6H PRN PRN Reason: Other Levothyroxine Sodium (Levothyroxine) 25 mcg PO ACBREAKFAST [facility] Last Admin: 11/10/17 06:46 Dose: 25 mcg Lorazepam (Ativan) 0.5 mg PO Q4H PRN PRN Reason: Anxiety Methylprednisolone Sodium Succinate (Solu-Medrol) 1,000 mg IV DAILY [facility] Methylprednisolone Sodium Succinate (Solu-Medrol) 125 mg IVPUSH Q6H [facility] Last Admin: 11/13/17 05:35 Dose: 125 mg Polyethylene Glycol (Miralax) 17 gm PO DAILY PRN PRN Reason: Constipation Senna/Docusate Sodium (Senna Plus) 1 tab PO BID PRN PRN Reason: Constipation - Exam Quality Assessment: Central Line/PICC, Urine Catheter, DVT Prophylaxis General: Alert, Oriented, Cooperative, No Acute Distress HEENT: Pupils Equal, Pupils Reactive, EOMI, Mucous Membr. Moist/[place] Neck: Supple. No: Lymphadenopathy, JVD Lungs: Normal Respiratory Effort, Decreased Breath Sounds Cardiovascular: Regular Rate, Regular Rhythm GI/Abdominal Exam: Normal Bowel Sounds, Soft, Non-Tender, No Organomegaly, No Distention, No Abnormal Bruit, No Mass, Pelvis Stable (Female) Exam: Deferred Extremities: Non-Tender, No Pedal Edema, Normal Capillary Refill, Other ( contractures from MS ) Peripheral Pulses: 2+: Radial (L), Radial (R), Posterior Tibial (L), Posterior Tibial (R), Dorsalis Pedis (L), Dorsalis Pedis (R) Skin: Warm, Dry, Intact Neurological: No New Focal Deficit Psy/Mental Status: Alert - Problem List & Annotations (1) Acute exacerbation of congestive heart failure SNOMED Code(s): 89552897 Code(s): I50.9 - HEART FAILURE, UNSPECIFIED Status: Acute Priority: High Current Visit: Yes QualifierTitle: Congestive heart failure type: unspecified congestive heart failure type (2) Febrile illness SNOMED Code(s): 752824592 Code(s): R50.9 - FEVER, UNSPECIFIED Status: Resolved Priority: High Current Visit: Yes (3) Multiple sclerosis SNOMED Code(s): 29570066 Code(s): G35 - MULTIPLE SCLEROSIS Status: Chronic Priority: Medium Current Visit: Yes (4) Elevated troponin SNOMED Code(s): 404547259, 273151428 Code(s): R74.8 - ABNORMAL LEVELS OF OTHER SERUM ENZYMES Status: Resolved Priority: Medium Current Visit: Yes (5) Pneumonia SNOMED Code(s): 923972417 Code(s): J18.9 - PNEUMONIA, UNSPECIFIED ORGANISM Status: Acute Priority: High Current Visit: Yes QualifierTitle: Pneumonia type: due to unspecified organism Laterality: left Lung location: lower lobe of lung Qualified Code(s): J18.1 - Lobar pneumonia, unspecified organism - Problem List Review Problem List Initiated/Reviewed/Updated: Yes - Plan Plan:: I/P: Acute: Pneumonia - HCAP -Left lower lobe on CXR -Cefepinme -Vancomycin -Reported fever although not demonstrated here -Leukocytosis -CRP 1.6-->2.1-->23.5-->14.9-->6.2 -Influenza negative -Blood cultures negative -Afebrile in ED, although it is reported she received motrin prior -Recently hospitalized for pneumonia and UTI -CXR shows infiltrate in right lower lobe that is slightly less than previous film from 11/07/17; repeat CXR suggest LLL infiltrate -AMS change -Urine cultures pending CHF -Acute on chronic -Rhonci in lungs -Pro-BNP 2256-->2124 -Diurese Resolved: Elevated troponin - decreasing -Troponing 0.062-->0.060 -CK-MB 2.6 -Repeat in AM -Likely demand from fluid overload Chronic: HLD HTN Recurrent UTI Recurrent pneumonia Arthritis MS Contractures CVA with left side deficit Hypothyroidism PEG tube in place PICC line in right arm Plan: IVF for 24 hours Advance TF as tolerated Aspiration precautions Neb therapy prn MS with telemetry CM/SW for discharge planning PT RT to evaluate and treat Home meds as indicated Other orders as indicated above Routine AM labs DVT prophylaxis: lovenox Code Status: DNR/DNI; PCP: Dr. Alfonso at [facility] LOS>96 hours for resolving AMS/febrile illness <Carla Loaiza - Last Filed: 11/13/17 18:57> - Patient Data Vitals - Most Recent: Last Vital Signs Temp 36.4 C 11/13/17 18:44 Pulse 90 11/13/17 18:44 Resp 16 11/13/17 18:44 BP 153/56 H 11/13/17 18:44 Pulse Ox 100 11/13/17 18:44 I&O - Last 24 Hours: Intake & Output 11/13/17 11/13/17 11/13/17 06:59 14:59 22:59 Intake Total 350 250 250 Balance 350 250 250 Lab Results Last 24 Hours: Laboratory Results - last 24 hr 11/13/17 11/13/17 11/13/17 Range/Units 05:40 05:40 16:35 WBC 21.15 H (3.98-10.04) K/mm3 RBC 2.62 L (3.98-5.22) M/mm3 Hgb 7.5 L 6.8 L* (11.2-15.7) gm/L Hct 24.8 L (34.1-44.9) % MCV 94.7 (79.4-94.8) fl MCH 28.6 (25.6-32.2) pg MCHC 30.2 L (32.2-35.5) g/dl RDW Std Deviation 58.9 H (36.4-46.3) fL Plt Count 503 H (182-369) K/mm3 MPV 11.5 (9.4-12.3) fl Neut % (Auto) 85.1 H (34.0-71.1) % Lymph % (Auto) 2.1 L (19.3-51.7) % Coal % (Auto) 11.6 (4.7-12.5) % Eos % (Auto) 0 L (0.7-5.8) Baso % (Auto) 0.0 L (0.1-1.2) % Neut # (Auto) 18.00 H (1.56-6.13) K/mm3 Lymph # (Auto) 0.44 L (1.18-3.74) K/mm3 Coal # (Auto) 2.45 H (0.24-0.36) K/mm3 Eos # (Auto) 0.00 L (0.04-0.36) K/mm3 Baso # (Auto) 0.01 (0.01-0.08) K/mm3 Manual Slide Review Abnormal smear Sodium 146 H (136-145) mEq/L Potassium 4.0 (3.5-5.1) mEq/L Chloride 107 (98-107) mEq/L Carbon Dioxide 37 H (21-32) mEq/L Anion Gap 6.0 (5-15) BUN 27 H (7-18) mg/dL Creatinine 0.3 L (0.55-1.02) mg/dL Est Cr Clr Drug Dosing 162.62 mL/min Estimated GFR (MDRD) > 60 (>60) mL/min BUN/Creatinine Ratio 90.0 H (14-18) Glucose 188 H (80-115) mg/dL Calcium 8.2 L (8.5-10.1) mg/dL Magnesium 2.4 (1.8-2.4) mg/dl C-Reactive Protein 6.2 H* (<1.0) mg/dL NT-Pro-B Natriuret Pep 2124 H (0-125) pg/mL Blood Type Gel Antibody Screen Crossmatch 11/13/17 Range/Units 16:35 WBC (3.98-10.04) K/mm3 RBC (3.98-5.22) M/mm3 Hgb (11.2-15.7) gm/L Hct (34.1-44.9) % MCV (79.4-94.8) fl MCH (25.6-32.2) pg MCHC (32.2-35.5) g/dl RDW Std Deviation (36.4-46.3) fL Plt Count (182-369) K/mm3 MPV (9.4-12.3) fl Neut % (Auto) (34.0-71.1) % Lymph % (Auto) (19.3-51.7) % Coal % (Auto) (4.7-12.5) % Eos % (Auto) (0.7-5.8) Baso % (Auto) (0.1-1.2) % Neut # (Auto) (1.56-6.13) K/mm3 Lymph # (Auto) (1.18-3.74) K/mm3 Coal # (Auto) (0.24-0.36) K/mm3 Eos # (Auto) (0.04-0.36) K/mm3 Baso # (Auto) (0.01-0.08) K/mm3 Manual Slide Review Sodium (136-145) mEq/L Potassium (3.5-5.1) mEq/L Chloride (98-107) mEq/L Carbon Dioxide (21-32) mEq/L Anion Gap (5-15) BUN (7-18) mg/dL Creatinine (0.55-1.02) mg/dL Est Cr Clr Drug Dosing mL/min Estimated GFR (MDRD) (>60) mL/min BUN/Creatinine Ratio (14-18) Glucose (80-115) mg/dL Calcium (8.5-10.1) mg/dL Magnesium (1.8-2.4) mg/dl C-Reactive Protein (<1.0) mg/dL NT-Pro-B Natriuret Pep (0-125) pg/mL Blood Type B POSITIVE Gel Antibody Screen Negative Crossmatch See Detail Med Orders - Current: Current Medications Acetaminophen (Tylenol) 650 mg GTUBE Q4H PRN PRN Reason: Pain (Mild 1-3)/fever Last Admin: 11/11/17 15:45 Dose: 650 mg Albuterol/Ipratropium (Duoneb 3.0-0.5 Mg/3 Ml) 3 ml NEB QIDRT [facility] Last Admin: 11/13/17 16:56 Dose: 3 ml Amantadine HCl (Symmetrel 50 Mg/5 Ml Soln) 75 mg GTUBE BID [facility] Last Admin: 11/13/17 10:21 Dose: 75 mg Aspirin (Aspirin) 162 mg GTUBE DAILY [facility] Last Admin: 11/13/17 10:20 Dose: 162 mg Diclofenac Sodium (Voltaren 1% Gel) 1 - 5 gm TOP QID PRN PRN Reason: Pain Docusate Sodium (Colace) 100 mg PO BID PRN PRN Reason: Constipation Enoxaparin Sodium (Lovenox) 40 mg SUBCUT DAILY [facility] Last Admin: 11/13/17 10:20 Dose: 40 mg Famotidine (Pepcid) 20 mg IVPUSH BID [facility] Last Admin: 11/13/17 10:20 Dose: 20 mg Furosemide (Lasix) 20 mg IVPUSH ONETIME ONE Stop: 11/13/17 20:01 Furosemide (Lasix) 20 mg IVPUSH ONETIME ONE Stop: 11/13/17 23:01 Guaifenesin (Robitussin) 200 mg GTUBE Q4H PRN PRN Reason: Congestion Guaifenesin/Phenylephrine HCl (Robitussin Dm) 10 ml GTUBE Q4H PRN PRN Reason: Congestion Hydralazine HCl (Apresoline) 10 mg IVPUSH Q6H PRN PRN Reason: Hypertension Hydromorphone HCl (Dilaudid) 0.5 mg IVPUSH Q4H PRN PRN Reason: Pain Vancomycin HCl 1 gm/ Sodium (Chloride) 250 mls @ 250 mls/hr IV Q24H [facility] Last Admin: 11/13/17 14:17 Dose: 250 mls/hr Cefepime HCl 2 gm/ Premix 50 mls @ 100 mls/hr IV Q12H [facility] Last Admin: 11/13/17 17:58 Dose: 100 mls/hr Sodium Chloride (Normal Saline) 250 mls @ 100 mls/hr IV ASDIRECTED [facility] Stop: 11/13/17 20:59 Ibuprofen (Motrin 100 Mg/5 Ml Susp) 400 mg GTUBE Q6H PRN PRN Reason: Other Levothyroxine Sodium (Levothyroxine) 25 mcg GTUBE ACBREAKFAST [facility] Last Admin: 11/13/17 05:02 Dose: 25 mcg Lorazepam (Ativan) 0.5 mg GTUBE Q4H PRN PRN Reason: Anxiety Methylprednisolone Sodium Succinate (Solu-Medrol) 125 mg IVPUSH Q12H [facility] Last Admin: 11/13/17 16:29 Dose: 125 mg Metoprolol Tartrate (Lopressor) 5 mg IVPUSH Q4H PRN PRN Reason: Tachycardia Ondansetron HCl (Zofran) 4 mg IV Q6H PRN PRN Reason: Nausea/Vomiting Polyethylene Glycol (Miralax) 17 gm GTUBE DAILY PRN PRN Reason: Constipation Rosuvastatin Calcium (Crestor) 10 mg GTUBE BEDTIME [facility] Last Admin: 11/12/17 21:42 Dose: 10 mg Senna/Docusate Sodium (Senna Plus) 1 tab GTUBE BID PRN PRN Reason: Constipation Sodium Chloride ([place] Nasal [place]) 1 ml NASBOTH TID PRN PRN Reason: Congestion Vancomycin HCl (Pharmacy To Dose - Vancomycin) 1 dose .XX ASDIRECTED PRN PRN Reason: RX TO DOSE Discontinued Medications Acetaminophen (Tylenol) 650 mg PO Q4H PRN PRN Reason: Pain (Mild 1-3)/fever Albuterol (Proventil Neb Soln) 2.5 mg NEB QIDRT CHUN Albuterol/Ipratropium (Duoneb 3.0-0.5 Mg/3 Ml) 3 ml NEB Q4H PRN PRN Reason: Shortness Of Breath/wheezing Albuterol/Ipratropium (Duoneb 3.0-0.5 Mg/3 Ml) 3 ml NEB QID CHUN Bisacodyl (Dulcolax) 5 mg PO DAILY PRN PRN Reason: Constipation Bumetanide (Bumex) 0.5 mg IVPUSH BID [facility] Furosemide (Lasix) 40 mg IVPUSH NOW ONE Stop: 11/09/17 17:19 Last Admin: 11/09/17 17:54 Dose: 40 mg Furosemide (Lasix) 40 mg IVPUSH BID [facility] Last Admin: 11/10/17 06:46 Dose: 40 mg Guaifenesin (Mucinex) 600 mg PO BID PRN PRN Reason: Congestion Guaifenesin/Phenylephrine HCl (Robitussin Dm) 10 ml PO Q4H PRN PRN Reason: Congestion Ceftriaxone Sodium 2 gm/ (Sodium Chloride) 100 mls @ 200 mls/hr IV ONETIME ONE Stop: 11/09/17 15:42 Last Admin: 11/09/17 16:36 Dose: Not Given Dextrose/Sodium Chloride (Dextrose 5%-Normal Saline) 1,000 mls @ 500 mls/hr IV ASDIRECTED [facility] Last Admin: 11/09/17 15:46 Dose: 500 mls/hr Ceftriaxone Sodium 2 gm/ (Sodium Chloride) 100 mls @ 200 mls/hr IV ONETIME ONE Stop: 11/09/17 15:42 Last Admin: 11/09/17 16:01 Dose: 200 mls/hr Cefepime HCl 2 gm/ Premix 50 mls @ 100 mls/hr IV Q8H [facility] Last Admin: 11/12/17 05:38 Dose: 100 mls/hr Sodium Chloride (Normal Saline) 1,000 mls @ 200 mls/hr IV ASDIRECTED [facility] Stop: 11/11/17 19:45 Last Admin: 11/11/17 15:19 Dose: 200 mls/hr Sodium Chloride (Normal Saline) 1,000 mls @ 100 mls/hr IV ASDIRECTED [facility] Last Admin: 11/12/17 05:38 Dose: 100 mls/hr Sodium Chloride (Normal Saline) Confirm Administered Dose 250 mls @ as directed .ROUTE .STK-MED ONE Stop: 11/13/17 18:30 Last Admin: 11/13/17 18:56 Dose: Not Given Ibuprofen (Motrin) 400 mg PO Q6H PRN PRN Reason: Other Levothyroxine Sodium (Levothyroxine) 25 mcg PO ACBREAKFAST [facility] Last Admin: 11/10/17 06:46 Dose: 25 mcg Lorazepam (Ativan) 0.5 mg PO Q4H PRN PRN Reason: Anxiety Methylprednisolone Sodium Succinate (Solu-Medrol) 1,000 mg IV DAILY [facility] Methylprednisolone Sodium Succinate (Solu-Medrol) 125 mg IVPUSH Q6H [facility] Last Admin: 11/13/17 05:35 Dose: 125 mg Polyethylene Glycol (Miralax) 17 gm PO DAILY PRN PRN Reason: Constipation Senna/Docusate Sodium (Senna Plus) 1 tab PO BID PRN PRN Reason: Constipation - My Orders Last 24 Hours: My Active Orders 11/12/17 18:00 Cefepime [Maxipime in D5W 2 GM/50 ML] 2 gm Premix Bag 1 bag IV Q12H 11/13/17 12:40 Patient Status [ADT] Routine 11/13/17 14:42 Consult to Speech Language Pathology [LITERACY EDUCATION PROFESSOR Evaluation and Treatment] [CONS] Routine 11/13/17 16:35 PACKED CELLS [RED BLOOD CELLS LP] [BBK] Routine PATIENT RETYPE [BBK] Routine TYPE AND SCREEN [BBK] Routine 11/13/17 17:00 methylPREDNISolone Sod Succ [Solu-MEDROL] 125 mg IVPUSH Q12H 11/13/17 17:35 Transfuse PRBC [Transfuse Red Blood Cells] [COMM] Routine 11/13/17 18:30 Sodium Chloride 0.9% [Normal Saline] 250 ml IV ASDIRECTED 11/13/17 20:00 Furosemide [Lasix] 20 mg IVPUSH ONETIME ONE 11/13/17 23:00 Furosemide [Lasix] 20 mg IVPUSH ONETIME ONE 11/14/17 08:00 Chest 1V Frontal [CR] Routine - Plan Plan:: Re-eval swallow today by SP; transfuse if Hgb is confirmed; will give 2 units with lasix after each one.
[2017-11-13] MEDS ORDERED: Sodium Chloride 0.9% 250 ML ONE ×2 (18:29→21:38)
[2017-11-13] MEDS ORDERED: Sodium Chloride 0.9% 250 ML IV SCH (18:30)
[2017-11-13] MEDS ORDERED: Furosemide 20 MG/2 ML VIAL IVPUSH ONE ×2 (20:00→23:00)
[2017-11-13] MEDS: Rosuvastatin 10 MG Tab GTUBE SCH (22:10)
[2017-11-14] MEDS: Cefepime 2 GM in Premix Bag 1 BAG IV SCH ×2 (06:16→17:55)
[2017-11-14] MEDS: methylPREDNISolone Sodium Succinate 125 MG/2 ML SDV IVPUSH SCH ×2 (06:16→17:53)
[2017-11-14] MEDS: Levothyroxine 25 MCG Tab GTUBE SCH (06:16)
[2017-11-14] MEDS: Albuterol/Ipratropium 3.0-0.5 MG/3 ML Neb Soln NEB SCH ×5 (06:39→21:59)
[2017-11-14] MEDS: Enoxaparin 40 MG/0.4 ML Syringe SUBCUT SCH (08:14)
[2017-11-14] MEDS: Famotidine 20 MG/2 ML SDV IVPUSH SCH ×2 (08:15→21:19)
[2017-11-14] MEDS: Aspirin 81 MG Tab.Chew GTUBE SCH (08:16)
[2017-11-14] MEDS: Amantadine Soln 50 MG/5 ML UD Cup GTUBE SCH ×2 (08:18→21:20)
[2017-11-14] MEDS: hydrALAZINE 20 MG/ML SDV IVPUSH PRN (08:48)
--- NOTE | 2017-11-14 08:49 | CR ---
Chest: Frontal view of the chest was obtained. Comparison: Prior chest x-ray of 11/11/17. Small bilateral pleural effusions remain. Slight increased density within the right lung base which is more prominent than on prior exam most likely due to atelectasis. Left retrocardiac region is poorly penetrated but most likely has consolidation or atelectasis. Minimal atelectasis within the right upper lung. Heart size and mediastinum are stable. Scoliosis is present. Impression: 1. Mild increased density within the right lung base from prior exam most likely representing increased atelectasis. 2. Poorly seen left lower lobe within the retrocardiac region and consolidation or atelectasis is difficult to exclude. 3. Small stable pleural effusions. Diagnostic code #3
--- NOTE | 2017-11-14 18:40 | PCM.PN ---
- General Info Date of Service: 11/14/17 Functional Status: Reports: Tolerating Diet, Urinating - Review of Systems General: Reports: Weakness HEENT: Reports: No Symptoms Pulmonary: Reports: No Symptoms Cardiovascular: Reports: No Symptoms Gastrointestinal: Reports: No Symptoms Genitourinary: Reports: No Symptoms Musculoskeletal: Reports: No Symptoms Skin: Reports: No Symptoms Neurological: Reports: No Symptoms Psychiatric: Reports: No Symptoms - Patient Data Vitals - Most Recent: Last Vital Signs Temp 36.4 C 11/14/17 12:23 Pulse 72 11/14/17 12:23 Resp 19 11/14/17 13:27 BP 119/57 L 11/14/17 13:27 Pulse Ox 97 11/14/17 15:00 Weight - Most Recent: 59.109 kg I&O - Last 24 Hours: Intake & Output 11/14/17 11/14/17 11/14/17 06:59 14:59 22:59 Intake Total 1323 250 500 Balance 1323 250 500 Lab Results Last 24 Hours: Laboratory Results - last 24 hr 11/13/17 11/14/17 11/14/17 Range/Units 16:35 07:55 07:55 WBC 17.42 H (3.98-10.04) K/mm3 RBC 3.85 L (3.98-5.22) M/mm3 Hgb 11.5 (11.2-15.7) gm/L Hct 34.5 (34.1-44.9) % MCV 89.6 (79.4-94.8) fl MCH 29.9 (25.6-32.2) pg MCHC 33.3 (32.2-35.5) g/dl RDW Std Deviation 52.6 H (36.4-46.3) fL Plt Count 474 H (182-369) K/mm3 MPV 11.4 (9.4-12.3) fl Sodium 146 H (136-145) mEq/L Potassium 3.6 (3.5-5.1) mEq/L Chloride 104 (98-107) mEq/L Carbon Dioxide 36 H (21-32) mEq/L Anion Gap 9.6 (5-15) BUN 28 H (7-18) mg/dL Creatinine 0.4 L (0.55-1.02) mg/dL Est Cr Clr Drug Dosing 121.96 mL/min Estimated GFR (MDRD) > 60 (>60) mL/min BUN/Creatinine Ratio 70.0 H (14-18) Glucose 150 H (80-115) mg/dL Calcium 8.1 L (8.5-10.1) mg/dL Magnesium 2.2 (1.8-2.4) mg/dl Vancomycin Trough (10.0-20.0) Blood Type B POSITIVE Gel Antibody Screen Negative Crossmatch See Detail 11/14/17 Range/Units 13:52 WBC (3.98-10.04) K/mm3 RBC (3.98-5.22) M/mm3 Hgb (11.2-15.7) gm/L Hct (34.1-44.9) % MCV (79.4-94.8) fl MCH (25.6-32.2) pg MCHC (32.2-35.5) g/dl RDW Std Deviation (36.4-46.3) fL Plt Count (182-369) K/mm3 MPV (9.4-12.3) fl Sodium (136-145) mEq/L Potassium (3.5-5.1) mEq/L Chloride (98-107) mEq/L Carbon Dioxide (21-32) mEq/L Anion Gap (5-15) BUN (7-18) mg/dL Creatinine (0.55-1.02) mg/dL Est Cr Clr Drug Dosing mL/min Estimated GFR (MDRD) (>60) mL/min BUN/Creatinine Ratio (14-18) Glucose (80-115) mg/dL Calcium (8.5-10.1) mg/dL Magnesium (1.8-2.4) mg/dl Vancomycin Trough 5.7 L (10.0-20.0) Blood Type Gel Antibody Screen Crossmatch Med Orders - Current: Current Medications Acetaminophen (Tylenol) 650 mg GTUBE Q4H PRN PRN Reason: Pain (Mild 1-3)/fever Last Admin: 11/11/17 15:45 Dose: 650 mg Albuterol/Ipratropium (Duoneb 3.0-0.5 Mg/3 Ml) 3 ml NEB QIDRT CHUN Last Admin: 11/14/17 15:00 Dose: 3 ml Amantadine HCl (Symmetrel 50 Mg/5 Ml Soln) 75 mg GTUBE BID [facility] Last Admin: 11/14/17 08:18 Dose: 75 mg Aspirin (Aspirin) 162 mg GTUBE DAILY [facility] Last Admin: 11/14/17 08:16 Dose: 162 mg Diclofenac Sodium (Voltaren 1% Gel) 1 - 5 gm TOP QID PRN PRN Reason: Pain Docusate Sodium (Colace) 100 mg PO BID PRN PRN Reason: Constipation Enoxaparin Sodium (Lovenox) 40 mg SUBCUT DAILY [facility] Last Admin: 11/14/17 08:14 Dose: 40 mg Famotidine (Pepcid) 20 mg IVPUSH BID [facility] Last Admin: 11/14/17 08:15 Dose: 20 mg Furosemide (Lasix) 20 mg IVPUSH NOW ONE Stop: 11/15/17 06:01 Guaifenesin (Robitussin) 200 mg GTUBE Q4H PRN PRN Reason: Congestion Guaifenesin/Phenylephrine HCl (Robitussin Dm) 10 ml GTUBE Q4H PRN PRN Reason: Congestion Hydralazine HCl (Apresoline) 10 mg IVPUSH Q6H PRN PRN Reason: Hypertension Last Admin: 11/14/17 08:48 Dose: 10 mg Hydromorphone HCl (Dilaudid) 0.5 mg IVPUSH Q4H PRN PRN Reason: Pain Last Admin: 11/14/17 00:44 Dose: 0.5 mg Cefepime HCl 2 gm/ Premix 50 mls @ 100 mls/hr IV Q12H [facility] Last Admin: 11/14/17 17:55 Dose: 100 mls/hr Vancomycin HCl 1 gm/ Sodium (Chloride) 250 mls @ 250 mls/hr IV Q12H [facility] Last Admin: 11/14/17 15:37 Dose: 250 mls/hr Potassium Chloride 10 meq/ (Premix) 100 mls @ 100 mls/hr IV ASDIRECTED [facility] Ibuprofen (Motrin 100 Mg/5 Ml Susp) 400 mg GTUBE Q6H PRN PRN Reason: Other Levothyroxine Sodium (Levothyroxine) 25 mcg GTUBE ACBREAKFAST [facility] Last Admin: 11/14/17 06:16 Dose: 25 mcg Lorazepam (Ativan) 0.5 mg GTUBE Q4H PRN PRN Reason: Anxiety Methylprednisolone Sodium Succinate (Solu-Medrol) 125 mg IVPUSH Q12H [facility] Last Admin: 11/14/17 17:53 Dose: 125 mg Metoprolol Tartrate (Lopressor) 5 mg IVPUSH Q4H PRN PRN Reason: Tachycardia Ondansetron HCl (Zofran) 4 mg IV Q6H PRN PRN Reason: Nausea/Vomiting Polyethylene Glycol (Miralax) 17 gm GTUBE DAILY PRN PRN Reason: Constipation Rosuvastatin Calcium (Crestor) 10 mg GTUBE BEDTIME [facility] Last Admin: 11/13/17 22:10 Dose: 10 mg Senna/Docusate Sodium (Senna Plus) 1 tab GTUBE BID PRN PRN Reason: Constipation Sodium Chloride ([place] Nasal [place]) 1 ml NASBOTH TID PRN PRN Reason: Congestion Vancomycin HCl (Pharmacy To Dose - Vancomycin) 1 dose .XX ASDIRECTED PRN PRN Reason: RX TO DOSE Discontinued Medications Acetaminophen (Tylenol) 650 mg PO Q4H PRN PRN Reason: Pain (Mild 1-3)/fever Albuterol (Proventil Neb Soln) 2.5 mg NEB QIDRT CHUN Albuterol/Ipratropium (Duoneb 3.0-0.5 Mg/3 Ml) 3 ml NEB Q4H PRN PRN Reason: Shortness Of Breath/wheezing Albuterol/Ipratropium (Duoneb 3.0-0.5 Mg/3 Ml) 3 ml NEB QID CHUN Bisacodyl (Dulcolax) 5 mg PO DAILY PRN PRN Reason: Constipation Bumetanide (Bumex) 0.5 mg IVPUSH BID [facility] Furosemide (Lasix) 40 mg IVPUSH NOW ONE Stop: 11/09/17 17:19 Last Admin: 11/09/17 17:54 Dose: 40 mg Furosemide (Lasix) 40 mg IVPUSH BID [facility] Last Admin: 11/10/17 06:46 Dose: 40 mg Furosemide (Lasix) 20 mg IVPUSH ONETIME ONE Stop: 11/13/17 20:01 Last Admin: 11/13/17 21:20 Dose: 20 mg Furosemide (Lasix) 20 mg IVPUSH ONETIME ONE Stop: 11/13/17 23:01 Last Admin: 11/14/17 00:44 Dose: 20 mg Guaifenesin (Mucinex) 600 mg PO BID PRN PRN Reason: Congestion Guaifenesin/Phenylephrine HCl (Robitussin Dm) 10 ml PO Q4H PRN PRN Reason: Congestion Ceftriaxone Sodium 2 gm/ (Sodium Chloride) 100 mls @ 200 mls/hr IV ONETIME ONE Stop: 11/09/17 15:42 Last Admin: 11/09/17 16:36 Dose: Not Given Dextrose/Sodium Chloride (Dextrose 5%-Normal Saline) 1,000 mls [facility] Last Admin: 11/09/17 15:46 Dose: 500 mls/hr Ceftriaxone Sodium 2 gm/ (Sodium Chloride) 100 mls @ 200 mls/hr IV ONETIME ONE Stop: 11/09/17 15:42 Last Admin: 11/09/17 16:01 Dose: 200 mls/hr Cefepime HCl 2 gm/ Premix 50 mls @ 100 mls/hr IV Q8H [facility] Last Admin: 11/12/17 05:38 Dose: 100 mls/hr Sodium Chloride (Normal Saline) 1,000 mls @ 200 mls/hr IV [facility] Stop: 11/11/17 19:45 Last Admin: 11/11/17 15:19 Dose: 200 mls/hr Vancomycin HCl 1 gm/ Sodium (Chloride) 250 mls @ 250 mls/hr IV Q24H [facility] Last Admin: 11/14/17 17:32 Dose: Not Given Sodium Chloride (Normal Saline) 1,000 mls @ 100 mls/hr IV [facility] Last Admin: 11/12/17 05:38 Dose: 100 mls/hr Sodium Chloride (Normal Saline) Confirm Administered Dose 250 mls @ as directed .ROUTE .[facility] Stop: 11/13/17 18:30 Last Admin: 11/13/17 18:56 Dose: Not Given Sodium Chloride (Normal Saline) 250 mls @ 100 mls/hr IV [facility] Stop: 11/13/17 20:59 Last Admin: 11/13/17 18:30 Dose: 100 mls/hr Sodium Chloride (Normal Saline) Confirm Administered Dose 250 mls @ as directed .ROUTE .[facility] Stop: 11/13/17 21:39 Last Admin: 11/13/17 22:11 Dose: 250 ml Ibuprofen (Motrin) 400 mg PO Q6H PRN PRN Reason: Other Levothyroxine Sodium (Levothyroxine) 25 mcg PO ACBREAKFAST [facility] Last Admin: 11/10/17 06:46 Dose: 25 mcg Lorazepam (Ativan) 0.5 mg PO Q4H PRN PRN Reason: Anxiety Methylprednisolone Sodium Succinate (Solu-Medrol) 1,000 mg IV DAILY CHUN Methylprednisolone Sodium Succinate (Solu-Medrol) 125 mg IVPUSH Q6H [facility] Last Admin: 11/13/17 05:35 Dose: 125 mg Polyethylene Glycol (Miralax) 17 gm PO DAILY PRN PRN Reason: Constipation Senna/Docusate Sodium (Senna Plus) 1 tab PO BID PRN PRN Reason: Constipation - Exam Quality Assessment: Supplemental Oxygen, DVT Prophylaxis General: Alert, Oriented, No Acute Distress HEENT: Pupils Equal, Pupils Reactive, EOMI Neck: No JVD Lungs: Clear to Auscultation, Normal Respiratory Effort Cardiovascular: Regular Rate, Regular Rhythm GI/Abdominal Exam: Normal Bowel Sounds, Soft, Non-Tender, No Organomegaly, No Distention (Female) Exam: Deferred Back Exam: Normal Inspection Extremities: Normal Inspection Skin: Warm Neurological: No New Focal Deficit Psy/Mental Status: Alert - Problem List Review Problem List Initiated/Reviewed/Updated: Yes - My Orders Last 24 Hours: My Active Orders 11/14/17 15:00 Vancomycin [Vancocin] 1 gm Sodium Chloride 0.9% [Normal Saline] 250 ml IV Q12H 11/14/17 18:45 Potassium Chloride [KCl 10 MEQ in Water 100 ML] 10 meq Premix Bag 1 bag IV ASDIRECTED 11/14/17 Dinner Tube Feeding Adult Diet [DIET] 11/15/17 05:00 BMP [BASIC METABOLIC PANEL,BMP] [CHEM] DAILY CBC WITH AUTO DIFF [HEME] DAILY CRP [C-REACTIVE PROTEIN] [CHEM] DAILY LACTIC ACID [CHEM] Routine 11/15/17 06:00 Furosemide [Lasix] 20 mg IVPUSH NOW ONE 11/16/17 05:00 BMP [BASIC METABOLIC PANEL,BMP] [CHEM] DAILY CBC WITH AUTO DIFF [HEME] DAILY CRP [C-REACTIVE PROTEIN] [CHEM] DAILY 11/17/17 05:00 BMP [BASIC METABOLIC PANEL,BMP] [CHEM] DAILY CBC WITH AUTO DIFF [HEME] DAILY CRP [C-REACTIVE PROTEIN] [CHEM] DAILY 11/18/17 05:00 BMP [BASIC METABOLIC PANEL,BMP] [CHEM] DAILY CBC WITH AUTO DIFF [HEME] DAILY CRP [C-REACTIVE PROTEIN] [CHEM] DAILY - Plan Plan:: PNA -Left lower lobe on CXR -->improved WBCs -Cefepinme -Vancomycin -Reported fever although not demonstrated here -Leukocytosis -CRP 1.6-->2.1-->23.5-->14.9-->6.2 -Influenza negative -Blood cultures negative -Afebrile in ED, although it is reported she received motrin prior -Recently hospitalized for pneumonia and UTI -CXR shows infiltrate in right lower lobe that is slightly less than previous film from 11/07/17; repeat CXR suggest LLL infiltrate -AMS change -Urine cultures pending CHF -Acute on chronic -Rhonci in lungs -Pro-BNP 2256-->2124 -Diurese AMS change with steroid taper, continue Solumedrol q 12 hours Elevated troponin - decreasing -Troponing 0.062-->0.060 -CK-MB 2.6 -Repeat in AM -Likely demand from fluid overload Chronic: HLD HTN Recurrent UTI Recurrent pneumonia Arthritis MS Contractures CVA with left side deficit Hypothyroidism PEG tube in place PICC line in right arm Plan: IVF for 24 hours Advance TF as tolerated Aspiration precautions Neb therapy prn MS with telemetry CM/SW for discharge planning PT RT to evaluate and treat Home meds as indicated Other orders as indicated above Routine AM labs DVT prophylaxis: lovenox Code Status: DNR/DNI; PCP: Dr. Alfonso at [facility] LOS>96 hours for resolving AMS/febrile illness
[2017-11-14] MEDS: Potassium Chloride 10 MEQ in Premix Bag 1 BAG IV SCH ×2 (19:06→21:20)
[2017-11-14] MEDS: Rosuvastatin 10 MG Tab GTUBE SCH (21:19)
[2017-11-15] MEDS: methylPREDNISolone Sodium Succinate 125 MG/2 ML SDV IVPUSH SCH (05:09)
[2017-11-15] MEDS: Levothyroxine 25 MCG Tab GTUBE SCH (05:11)
[2017-11-15] MEDS: Cefepime 2 GM in Premix Bag 1 BAG IV SCH ×2 (05:11→17:33)
[2017-11-15] MEDS: Albuterol/Ipratropium 3.0-0.5 MG/3 ML Neb Soln NEB SCH ×4 (05:56→20:13)
[2017-11-15] MEDS ORDERED: Furosemide 20 MG/2 ML VIAL IVPUSH ONE (06:00)
[2017-11-15] MEDS: Enoxaparin 40 MG/0.4 ML Syringe SUBCUT SCH (10:16)
[2017-11-15] MEDS: Famotidine 20 MG/2 ML SDV IVPUSH SCH ×2 (10:20→21:04)
[2017-11-15] MEDS: Aspirin 81 MG Tab.Chew GTUBE SCH (10:28)
[2017-11-15] MEDS: Amantadine Soln 50 MG/5 ML UD Cup GTUBE SCH ×2 (10:29→21:05)
--- NOTE | 2017-11-15 15:25 | PCM.PN ---
- General Info Date of Service: 11/15/17 Subjective Update: Patient has been confused and demanding therapy from staff; she believes that she has been sold into slavery by her daughter. See nursing notes regarding comments; a family was held regarding her current status as well as code status. The meeting was held for 30 minutes. Functional Status: Reports: Tolerating Diet (TF; has demanded food by mouth.), Urinating (staff has not been able to check post void residuals.) - Review of Systems General: Reports: No Symptoms HEENT: Reports: No Symptoms Pulmonary: Reports: No Symptoms Cardiovascular: Reports: Edema (bilateral LEs; RUE) Gastrointestinal: Reports: No Symptoms Genitourinary: Reports: No Symptoms Musculoskeletal: Reports: No Symptoms Skin: Reports: No Symptoms Neurological: Reports: Confusion, Weakness Psychiatric: Reports: Mood Lability - Patient Data Vitals - Most Recent: Last Vital Signs Temp 36.2 C 11/15/17 04:50 Pulse 72 11/15/17 08:55 Resp 20 11/15/17 04:50 BP 114/82 11/15/17 04:50 Pulse Ox 92 L 11/15/17 15:13 Weight - Most Recent: 60.237 kg I&O - Last 24 Hours: Intake & Output 11/15/17 11/15/17 11/15/17 06:59 14:59 22:59 Intake Total 550 Balance 550 Lab Results Last 24 Hours: Laboratory Results - last 24 hr 11/15/17 11/15/17 11/15/17 Range/Units 05:55 05:55 05:55 WBC 15.84 H (3.98-10.04) K/mm3 RBC 3.67 L (3.98-5.22) M/mm3 Hgb 10.9 L (11.2-15.7) gm/L Hct 33.0 L (34.1-44.9) % MCV 89.9 (79.4-94.8) fl MCH 29.7 (25.6-32.2) pg MCHC 33.0 (32.2-35.5) g/dl RDW Std Deviation 52.5 H (36.4-46.3) fL Plt Count 560 H (182-369) K/mm3 MPV 11.4 (9.4-12.3) fl Neut % (Auto) 85.9 H (34.0-71.1) % Lymph % (Auto) 5.0 L (19.3-51.7) % [place] % (Auto) 5.9 (4.7-12.5) % Eos % (Auto) 0 L (0.7-5.8) Baso % (Auto) 0.3 (0.1-1.2) % Neut # (Auto) 13.61 H (1.56-6.13) K/mm3 Lymph # (Auto) 0.79 L (1.18-3.74) K/mm3 [place] # (Auto) 0.94 H (0.24-0.36) K/mm3 Eos # (Auto) 0.00 L (0.04-0.36) K/mm3 Baso # (Auto) 0.04 (0.01-0.08) K/mm3 Manual Slide Review Abnormal smear Sodium 141 (136-145) mEq/L Potassium 3.6 (3.5-5.1) mEq/L Chloride 102 (98-107) mEq/L Carbon Dioxide 38 H (21-32) mEq/L Anion Gap 4.6 L (5-15) BUN 26 H (7-18) mg/dL Creatinine 0.3 L (0.55-1.02) mg/dL Est Cr Clr Drug Dosing 162.62 mL/min Estimated GFR (MDRD) > 60 (>60) mL/min BUN/Creatinine Ratio 86.7 H (14-18) Glucose 133 H (80-115) mg/dL Lactic Acid 1.0 (0.4-2.0) mmol/L Calcium 8.1 L (8.5-10.1) mg/dL C-Reactive Protein 1.9 H* (<1.0) mg/dL Med Orders - Current: Current Medications Acetaminophen (Tylenol) 650 mg GTUBE Q4H PRN PRN Reason: Pain (Mild 1-3)/fever Last Admin: 11/11/17 15:45 Dose: 650 mg Albuterol/Ipratropium (Duoneb 3.0-0.5 Mg/3 Ml) 3 ml NEB QIDRT [facility] Last Admin: 11/15/17 15:13 Dose: 3 ml Amantadine HCl (Symmetrel 50 Mg/5 Ml Soln) 75 mg GTUBE BID [facility] Last Admin: 11/15/17 10:29 Dose: 75 mg Aspirin (Aspirin) 162 mg GTUBE DAILY [facility] Last Admin: 11/15/17 10:28 Dose: 162 mg Diclofenac Sodium (Voltaren 1% Gel) 1 - 5 gm TOP QID PRN PRN Reason: Pain Docusate Sodium (Colace) 100 mg PO BID PRN PRN Reason: Constipation Enoxaparin Sodium (Lovenox) 40 mg SUBCUT DAILY [facility] Last Admin: 11/15/17 10:16 Dose: 40 mg Famotidine (Pepcid) 20 mg IVPUSH BID [facility] Last Admin: 11/15/17 10:20 Dose: 20 mg Guaifenesin (Robitussin) 200 mg GTUBE Q4H PRN PRN Reason: Congestion Guaifenesin/Phenylephrine HCl (Robitussin Dm) 10 ml GTUBE Q4H PRN PRN Reason: Congestion Hydralazine HCl (Apresoline) 10 mg IVPUSH Q6H PRN PRN Reason: Hypertension Last Admin: 11/14/17 08:48 Dose: 10 mg Hydromorphone HCl (Dilaudid) 0.5 mg IVPUSH Q4H PRN PRN Reason: Pain Last Admin: 11/14/17 00:44 Dose: 0.5 mg Cefepime HCl 2 gm/ Premix 50 mls @ 100 mls/hr IV Q12H [facility] Last Admin: 11/15/17 05:11 Dose: 100 mls/hr Vancomycin HCl 1 gm/ Sodium (Chloride) 250 mls @ 250 mls/hr IV Q12H [facility] Last Admin: 11/15/17 15:18 Dose: 250 mls/hr Ibuprofen (Motrin 100 Mg/5 Ml Susp) 400 mg GTUBE Q6H PRN PRN Reason: Other Levothyroxine Sodium (Levothyroxine) 25 mcg GTUBE ACBREAKFAST [facility] Last Admin: 11/15/17 05:11 Dose: 25 mcg Lorazepam (Ativan) 0.5 mg GTUBE Q4H PRN PRN Reason: Anxiety Metoprolol Tartrate (Lopressor) 5 mg IVPUSH Q4H PRN PRN Reason: Tachycardia Ondansetron HCl (Zofran) 4 mg IV Q6H PRN PRN Reason: Nausea/Vomiting Polyethylene Glycol (Miralax) 17 gm GTUBE DAILY PRN PRN Reason: Constipation Prednisone (Prednisone) 60 mg PO ACBREAKFAST CHUN Rosuvastatin Calcium (Crestor) 10 mg GTUBE BEDTIME [facility] Last Admin: 11/14/17 21:19 Dose: 10 mg Senna/Docusate Sodium (Senna Plus) 1 tab GTUBE BID PRN PRN Reason: Constipation Sodium Chloride ([place] Nasal [place]) 1 ml NASBOTH TID PRN PRN Reason: Congestion Vancomycin HCl (Pharmacy To Dose - Vancomycin) 1 dose .XX ASDIRECTED PRN PRN Reason: RX TO DOSE Discontinued Medications Acetaminophen (Tylenol) 650 mg PO Q4H PRN PRN Reason: Pain (Mild 1-3)/fever Albuterol (Proventil Neb Soln) 2.5 mg NEB QIDRT CHUN Albuterol/Ipratropium (Duoneb 3.0-0.5 Mg/3 Ml) 3 ml NEB Q4H PRN PRN Reason: Shortness Of Breath/wheezing Albuterol/Ipratropium (Duoneb 3.0-0.5 Mg/3 Ml) 3 ml NEB QID CHUN Bisacodyl (Dulcolax) 5 mg PO DAILY PRN PRN Reason: Constipation Bumetanide (Bumex) 0.5 mg IVPUSH BID [facility] Furosemide (Lasix) 40 mg IVPUSH NOW ONE Stop: 11/09/17 17:19 Last Admin: 11/09/17 17:54 Dose: 40 mg Furosemide (Lasix) 40 mg IVPUSH BID [facility] Last Admin: 11/10/17 06:46 Dose: 40 mg Furosemide (Lasix) 20 mg IVPUSH ONETIME ONE Stop: 11/13/17 20:01 Last Admin: 11/13/17 21:20 Dose: 20 mg Furosemide (Lasix) 20 mg IVPUSH ONETIME ONE Stop: 11/13/17 23:01 Last Admin: 11/14/17 00:44 Dose: 20 mg Furosemide (Lasix) 20 mg IVPUSH NOW ONE Stop: 11/15/17 06:01 Last Admin: 11/15/17 05:11 Dose: 20 mg Guaifenesin (Mucinex) 600 mg PO BID PRN PRN Reason: Congestion Guaifenesin/Phenylephrine HCl (Robitussin Dm) 10 ml PO Q4H PRN PRN Reason: Congestion Ceftriaxone Sodium 2 gm/ (Sodium Chloride) 100 mls @ 200 mls/hr IV ONETIME ONE Stop: 11/09/17 15:42 Last Admin: 11/09/17 16:36 Dose: Not Given Dextrose/Sodium Chloride (Dextrose 5%-Normal Saline) 1,000 mls @ 500 mls/hr IV ASDIRECTED [facility] Last Admin: 11/09/17 15:46 Dose: 500 mls/hr Ceftriaxone Sodium 2 gm/ (Sodium Chloride) 100 mls @ 200 mls/hr IV ONETIME ONE Stop: 11/09/17 15:42 Last Admin: 11/09/17 16:01 Dose: 200 mls/hr Cefepime HCl 2 gm/ Premix 50 mls @ 100 mls/hr IV Q8H [facility] Last Admin: 11/12/17 05:38 Dose: 100 mls/hr Sodium Chloride (Normal Saline) 1,000 mls @ [facility] Stop: 11/11/17 19:45 Last Admin: 11/11/17 15:19 Dose: 200 mls/hr Vancomycin HCl 1 gm/ Sodium (Chloride) 250 mls @ 250 mls/hr IV Q24H [facility] Last Admin: 11/14/17 17:32 Dose: Not Given Sodium Chloride (Normal Saline) 1,000 mls @ 100 mls[facility] Last Admin: 11/12/17 05:38 Dose: 100 mls/hr Sodium Chloride (Normal Saline) Confirm Administered Dose 250 mls @ as directed .ROUTE .[facility] ONE Stop: 11/13/17 18:30 Last Admin: 11/13/17 18:56 Dose: Not Given Sodium Chloride (Normal Saline) 250 mls @ 100 mls/hr IV ASDIRECTED [facility] Stop: 11/13/17 20:59 Last Admin: 11/13/17 18:30 Dose: 100 mls/hr Sodium Chloride (Normal Saline) Confirm Administered Dose 250 mls @ as directed .ROUTE .[facility] Stop: 11/13/17 21:39 Last Admin: 11/13/17 22:11 Dose: 250 ml Potassium Chloride 10 meq/ (Premix) 100 mls @ 100 mls/hr IV Q1H [facility] Stop: 11/14/17 20:59 Last Admin: 11/14/17 21:20 Dose: 100 mls/hr Ibuprofen (Motrin) 400 mg PO Q6H PRN PRN Reason: Other Levothyroxine Sodium (Levothyroxine) 25 mcg PO ACBREAKFAST [facility] Last Admin: 11/10/17 06:46 Dose: 25 mcg Lorazepam (Ativan) 0.5 mg PO Q4H PRN PRN Reason: Anxiety Methylprednisolone Sodium Succinate (Solu-Medrol) 1,000 mg IV DAILY [facility] Methylprednisolone Sodium Succinate (Solu-Medrol) 125 mg IVPUSH Q6H [facility] Last Admin: 11/13/17 05:35 Dose: 125 mg Methylprednisolone Sodium Succinate (Solu-Medrol) 125 mg IVPUSH Q12H [facility] Last Admin: 11/15/17 05:09 Dose: 125 mg Methylprednisolone Sodium Succinate (Solu-Medrol) 125 mg IVPUSH DAILY [facility] Polyethylene Glycol (Miralax) 17 gm PO DAILY PRN PRN Reason: Constipation Senna/Docusate Sodium (Senna Plus) 1 tab PO BID PRN PRN Reason: Constipation - Exam Quality Assessment: DVT Prophylaxis General: Alert, Oriented (self) HEENT: Pupils Equal, Pupils Reactive, EOMI Neck: Trachea Midline Lungs: Normal Respiratory Effort Cardiovascular: Regular Rate, Regular Rhythm GI/Abdominal Exam: Normal Bowel Sounds, Soft, Non-Tender, No Organomegaly, No Distention (Female) Exam: Deferred Back Exam: Normal Inspection Extremities: Normal Inspection, Pedal Edema, Limited Range of Motion, Other ( edema, RUE) Skin: Warm Neurological: Cranial Nerves Intact Psy/Mental Status: Alert, Labile Mood, Agitated - Problem List Review Problem List Initiated/Reviewed/Updated: Yes - My Orders Last 24 Hours: My Active Orders 11/14/17 15:00 Vancomycin [Vancocin] 1 gm Sodium Chloride 0.9% [Normal Saline] 250 ml IV Q12H 11/14/17 Dinner Tube Feeding Adult Diet [DIET] 11/16/17 05:00 BMP [BASIC METABOLIC PANEL,BMP] [CHEM] DAILY CBC WITH AUTO DIFF [HEME] DAILY CRP [C-REACTIVE PROTEIN] [CHEM] DAILY 11/16/17 06:00 predniSONE 60 mg PO ACBREAKFAST 11/17/17 05:00 BMP [BASIC METABOLIC PANEL,BMP] [CHEM] DAILY CBC WITH AUTO DIFF [HEME] DAILY CRP [C-REACTIVE PROTEIN] [CHEM] DAILY 11/18/17 05:00 BMP [BASIC METABOLIC PANEL,BMP] [CHEM] DAILY CBC WITH AUTO DIFF [HEME] DAILY CRP [C-REACTIVE PROTEIN] [CHEM] DAILY - Plan Plan:: PNA -Left lower lobe on CXR -->improved WBCs -Cefepime -Vancomycin -Leukocytosis --improving -CRP 1.6-->2.1-->23.5-->14.9-->6.2 -Recently hospitalized for pneumonia and UTI -CXR shows infiltrate in right lower lobe that is slightly less than previous film from 11/07/17; repeat CXR suggest LLL infiltrate -AMS change -Urine cultures pending CHF -Acute on chronic -Diurese as needed. AMS change with steroid taper, continue Solumedrol Daily, change to prednisone as tolerated. 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 Alfonso at [facility] LOS>96 hours for resolving AMS/febrile illness
[2017-11-15] MEDS: DULoxetine 30 MG Cap PO SCH (17:32)
[2017-11-15] MEDS: Rosuvastatin 10 MG Tab GTUBE SCH (21:05)
[2017-11-16] MEDS: hydrALAZINE 20 MG/ML SDV IVPUSH PRN (03:17)
[2017-11-16] MEDS ORDERED: methylPREDNISolone Sodium Succinate 125 MG/2 ML SDV IVPUSH SCH (05:00)
[2017-11-16] MEDS: Albuterol/Ipratropium 3.0-0.5 MG/3 ML Neb Soln NEB SCH ×4 (05:16→21:36)
[2017-11-16] MEDS: Cefepime 2 GM in Premix Bag 1 BAG IV SCH ×2 (05:42→17:16)
[2017-11-16] MEDS: predniSONE 20 MG Tab PO SCH (05:43)
[2017-11-16] MEDS: Levothyroxine 25 MCG Tab GTUBE SCH (05:43)
[2017-11-16] MEDS ORDERED: DULoxetine 30 MG Cap PO SCH (09:00)
[2017-11-16] MEDS: Famotidine 20 MG/2 ML SDV IVPUSH SCH ×2 (10:10→21:47)
[2017-11-16] MEDS: Enoxaparin 40 MG/0.4 ML Syringe SUBCUT SCH (10:14)
[2017-11-16] MEDS: Aspirin 81 MG Tab.Chew GTUBE SCH (10:17)
[2017-11-16] MEDS: DULoxetine 30 MG Cap PO SCH (10:17)
[2017-11-16] MEDS: Amantadine Soln 50 MG/5 ML UD Cup GTUBE SCH ×2 (10:18→21:44)
[2017-11-16] MEDS: Potassium Chloride 10% 20 MEQ/15 ML Soln 30 ML UD Cup PO SCH ×2 (10:18→21:44)
[2017-11-16] MEDS: Tamsulosin 0.4 MG Cap.ER PO SCH (10:18)
--- NOTE | 2017-11-16 11:44 | PCM.PN ---
- General Info Date of Service: 11/16/17 Functional Status: Reports: Tolerating Diet, Urinating - Review of Systems General: Reports: No Symptoms HEENT: Reports: No Symptoms Pulmonary: Reports: No Symptoms Cardiovascular: Reports: No Symptoms Gastrointestinal: Reports: No Symptoms Genitourinary: Reports: No Symptoms Musculoskeletal: Reports: No Symptoms Skin: Reports: No Symptoms Neurological: Reports: No Symptoms Psychiatric: Reports: No Symptoms - Patient Data Vitals - Most Recent: Last Vital Signs Temp 37.4 C 11/16/17 08:00 Pulse 81 11/16/17 08:00 Resp 19 11/16/17 08:00 BP 134/98 H 11/16/17 08:00 Pulse Ox 92 L 11/16/17 09:00 Weight - Most Recent: 59.874 kg I&O - Last 24 Hours: Intake & Output 11/15/17 11/16/17 11/16/17 22:59 06:59 14:59 Intake Total 400 550 Balance 400 550 Lab Results Last 24 Hours: Laboratory Results - last 24 hr 11/16/17 11/16/17 Range/Units 06:30 06:30 WBC 23.35 H (3.98-10.04) K/mm3 RBC 3.96 L (3.98-5.22) M/mm3 Hgb 11.7 (11.2-15.7) gm/L Hct 35.5 (34.1-44.9) % MCV 89.6 (79.4-94.8) fl MCH 29.5 (25.6-32.2) pg MCHC 33.0 (32.2-35.5) g/dl RDW Std Deviation 51.3 H (36.4-46.3) fL Plt Count 580 H (182-369) K/mm3 MPV 11.2 (9.4-12.3) fl Neut % (Auto) 72.2 H (34.0-71.1) % Lymph % (Auto) 5.7 L (19.3-51.7) % [place] % (Auto) 15.6 H (4.7-12.5) % Eos % (Auto) 0 L (0.7-5.8) Baso % (Auto) 0.3 (0.1-1.2) % Neut # (Auto) 16.85 H (1.56-6.13) K/mm3 Lymph # (Auto) 1.34 (1.18-3.74) K/mm3 [place] # (Auto) 3.64 H (0.24-0.36) K/mm3 Eos # (Auto) 0.01 L (0.04-0.36) K/mm3 Baso # (Auto) 0.06 (0.01-0.08) K/mm3 Manual Slide Review Abnormal smear Sodium 138 (136-145) mEq/L Potassium 3.3 L (3.5-5.1) mEq/L Chloride 100 (98-107) mEq/L Carbon Dioxide 36 H (21-32) mEq/L Anion Gap 5.3 (5-15) BUN 25 H (7-18) mg/dL Creatinine 0.3 L (0.55-1.02) mg/dL Est Cr Clr Drug Dosing 162.62 mL/min Estimated GFR (MDRD) > 60 (>60) mL/min BUN/Creatinine Ratio 83.3 H (14-18) Glucose 107 (80-115) mg/dL Calcium 8.0 L (8.5-10.1) mg/dL C-Reactive Protein 1.1 H* (<1.0) mg/dL Med Orders - Current: Current Medications Acetaminophen (Tylenol) 650 mg GTUBE Q4H PRN PRN Reason: Pain (Mild 1-3)/fever Last Admin: 11/11/17 15:45 Dose: 650 mg Albuterol/Ipratropium (Duoneb 3.0-0.5 Mg/3 Ml) 3 ml NEB QIDRT [facility] Last Admin: 11/16/17 09:00 Dose: 3 ml Amantadine HCl (Symmetrel 50 Mg/5 Ml Soln) 75 mg GTUBE BID [facility] Last Admin: 11/16/17 10:18 Dose: 75 mg Aspirin (Aspirin) 162 mg GTUBE DAILY [facility] Last Admin: 11/16/17 10:17 Dose: 162 mg Diclofenac Sodium (Voltaren 1% Gel) 1 - 5 gm TOP QID PRN PRN Reason: Pain Docusate Sodium (Colace) 100 mg PO BID PRN PRN Reason: Constipation Duloxetine HCl (Cymbalta) 30 mg PO DAILY [facility] Last Admin: 11/16/17 10:17 Dose: 30 mg Enoxaparin Sodium (Lovenox) 40 mg SUBCUT DAILY [facility] Last Admin: 11/16/17 10:14 Dose: 40 mg Famotidine (Pepcid) 20 mg IVPUSH BID [facility] Last Admin: 11/16/17 10:10 Dose: 20 mg Guaifenesin (Robitussin) 200 mg GTUBE Q4H PRN PRN Reason: Congestion Guaifenesin/Phenylephrine HCl (Robitussin Dm) 10 ml GTUBE Q4H PRN PRN Reason: Congestion Hydralazine HCl (Apresoline) 10 mg IVPUSH Q6H PRN PRN Reason: Hypertension Last Admin: 11/16/17 03:17 Dose: 10 mg Hydromorphone HCl (Dilaudid) 0.5 mg IVPUSH Q4H PRN PRN Reason: Pain Last Admin: 11/14/17 00:44 Dose: 0.5 mg Cefepime HCl 2 gm/ Premix 50 mls @ 100 mls/hr IV Q12H [facility] Last Admin: 11/16/17 05:42 Dose: 100 mls/hr Vancomycin HCl 1 gm/ Sodium (Chloride) 250 mls @ 250 mls/hr IV Q12H [facility] Last Admin: 11/16/17 02:40 Dose: 250 mls/hr Ibuprofen (Motrin 100 Mg/5 Ml Susp) 400 mg GTUBE Q6H PRN PRN Reason: Other Levothyroxine Sodium (Levothyroxine) 25 mcg GTUBE ACBREAKFAST [facility] Last Admin: 11/16/17 05:43 Dose: 25 mcg Lorazepam (Ativan) 0.5 mg GTUBE Q4H PRN PRN Reason: Anxiety Metoprolol Tartrate (Lopressor) 5 mg IVPUSH Q4H PRN PRN Reason: Tachycardia Ondansetron HCl (Zofran) 4 mg IV Q6H PRN PRN Reason: Nausea/Vomiting Polyethylene Glycol (Miralax) 17 gm GTUBE DAILY PRN PRN Reason: Constipation Potassium Chloride (Potassium Chloride) 40 meq PO BID [facility] Last Admin: 11/16/17 10:18 Dose: 40 meq Prednisone (Prednisone) 60 mg PO ACBREAKFAST [facility] Last Admin: 11/16/17 05:43 Dose: 60 mg Rosuvastatin Calcium (Crestor) 10 mg GTUBE BEDTIME [facility] Last Admin: 11/15/17 21:05 Dose: 10 mg Senna/Docusate Sodium (Senna Plus) 1 tab GTUBE BID PRN PRN Reason: Constipation Sodium Chloride ([place] Nasal [place]) 1 ml NASBOTH TID PRN PRN Reason: Congestion Tamsulosin HCl (Flomax) 0.4 mg PO PCBREAKFAST [facility] Last Admin: 11/16/17 10:18 Dose: 0.4 mg Vancomycin HCl (Pharmacy To Dose - Vancomycin) 1 dose .XX ASDIRECTED PRN PRN Reason: RX TO DOSE Discontinued Medications Acetaminophen (Tylenol) 650 mg PO Q4H PRN PRN Reason: Pain (Mild 1-3)/fever Albuterol (Proventil Neb Soln) 2.5 mg NEB QIDRT [facility] Albuterol/Ipratropium (Duoneb 3.0-0.5 Mg/3 Ml) 3 ml NEB Q4H PRN PRN Reason: Shortness Of Breath/wheezing Albuterol/Ipratropium (Duoneb 3.0-0.5 Mg/3 Ml) 3 ml NEB QID [facility] Bisacodyl (Dulcolax) 5 mg PO DAILY PRN PRN Reason: Constipation Bumetanide (Bumex) 0.5 mg IVPUSH BID [facility] Duloxetine HCl (Cymbalta) 30 mg PO DAILY [facility] Furosemide (Lasix) 40 mg IVPUSH NOW ONE Stop: 11/09/17 17:19 Last Admin: 11/09/17 17:54 Dose: 40 mg Furosemide (Lasix) 40 mg IVPUSH BID [facility] Last Admin: 11/10/17 06:46 Dose: 40 mg Furosemide (Lasix) 20 mg IVPUSH ONETIME ONE Stop: 11/13/17 20:01 Last Admin: 11/13/17 21:20 Dose: 20 mg Furosemide (Lasix) 20 mg IVPUSH ONETIME ONE Stop: 11/13/17 23:01 Last Admin: 11/14/17 00:44 Dose: 20 mg Furosemide (Lasix) 20 mg IVPUSH NOW ONE Stop: 11/15/17 06:01 Last Admin: 11/15/17 05:11 Dose: 20 mg Guaifenesin (Mucinex) 600 mg PO BID PRN PRN Reason: Congestion Guaifenesin/Phenylephrine HCl (Robitussin Dm) 10 ml PO Q4H PRN PRN Reason: Congestion Ceftriaxone Sodium 2 gm/ (Sodium Chloride) 100 mls @ 200 mls/hr IV ONETIME ONE Stop: 11/09/17 15:42 Last Admin: 11/09/17 16:36 Dose: Not Given Dextrose/Sodium Chloride (Dextrose 5%-Normal Saline) 1,000 mls @ 500 mls/hr IV ASDIRECTED [facility] Last Admin: 11/09/17 15:46 Dose: 500 mls/hr Ceftriaxone Sodium 2 gm/ (Sodium Chloride) 100 mls @ 200 mls/hr IV ONETIME ONE Stop: 11/09/17 15:42 Last Admin: 11/09/17 16:01 Dose: 200 mls/hr Cefepime HCl 2 gm/ Premix 50 mls @ 100 mls/hr IV Q8H [facility] Last Admin: 11/12/17 05:38 Dose: 100 mls/hr Sodium Chloride (Normal Saline) 1,000 mls @ 200 mls/hr IV ASDIRECTED [facility] Stop: 11/11/17 19:45 Last Admin: 11/11/17 15:19 Dose: 200 mls/hr Vancomycin HCl 1 gm/ Sodium (Chloride) 250 mls @ 250 mls/hr IV Q24H [facility] Last Admin: 11/14/17 17:32 Dose: Not Given Sodium Chloride (Normal Saline) 1,000 mls @ 100 mls/hr IV ASDIRECTED [facility] Last Admin: 11/12/17 05:38 Dose: 100 mls/hr Sodium Chloride (Normal Saline) Confirm Administered Dose 250 mls @ as directed .ROUTE [facility] ONE Stop: 11/13/17 18:30 Last Admin: 11/13/17 18:56 Dose: Not Given Sodium Chloride (Normal Saline) 250 mls @ 100 mls/hr IV ASDIRECTED [facility] Stop: 11/13/17 20:59 Last Admin: 11/13/17 18:30 Dose: 100 mls/hr Sodium Chloride (Normal Saline) Confirm Administered Dose 250 mls @ as directed .ROUTE .[facility] ONE Stop: 11/13/17 21:39 Last Admin: 11/13/17 22:11 Dose: 250 ml Potassium Chloride 10 meq/ (Premix) 100 mls @ 100 mls/hr IV Q1H [facility] Stop: 11/14/17 20:59 Last Admin: 11/14/17 21:20 Dose: 100 mls/hr Ibuprofen (Motrin) 400 mg PO Q6H PRN PRN Reason: Other Levothyroxine Sodium (Levothyroxine) 25 mcg PO ACBREAKFAST [facility] Last Admin: 11/10/17 06:46 Dose: 25 mcg Lorazepam (Ativan) 0.5 mg PO Q4H PRN PRN Reason: Anxiety Methylprednisolone Sodium Succinate (Solu-Medrol) 1,000 mg IV DAILY [facility] Methylprednisolone Sodium Succinate (Solu-Medrol) 125 mg IVPUSH Q6H [facility] Last Admin: 11/13/17 05:35 Dose: 125 mg Methylprednisolone Sodium Succinate (Solu-Medrol) 125 mg IVPUSH Q12H [facility] Last Admin: 11/15/17 05:09 Dose: 125 mg Methylprednisolone Sodium Succinate (Solu-Medrol) 125 mg IVPUSH DAILY [facility] Polyethylene Glycol (Miralax) 17 gm PO DAILY PRN PRN Reason: Constipation Senna/Docusate Sodium (Senna Plus) 1 tab PO BID PRN PRN Reason: Constipation - Exam Quality Assessment: Supplemental Oxygen, DVT Prophylaxis General: Alert, Oriented, No Acute Distress HEENT: Pupils Equal, Pupils Reactive, EOMI Neck: Trachea Midline, No JVD Lungs: Normal Respiratory Effort Cardiovascular: Regular Rate, Regular Rhythm GI/Abdominal Exam: Normal Bowel Sounds, Soft, Non-Tender, No Organomegaly, No Distention (Female) Exam: Deferred Back Exam: Normal Inspection Extremities: Non-Tender Skin: Warm Neurological: No New Focal Deficit Psy/Mental Status: Alert - Problem List Review Problem List Initiated/Reviewed/Updated: Yes - My Orders Last 24 Hours: My Active Orders 11/15/17 18:00 DULoxetine [Cymbalta] 30 mg PO DAILY 11/15/17 Dinner Tube Feeding Adult Diet [DIET] 11/16/17 06:00 predniSONE 60 mg PO ACBREAKFAST 11/16/17 09:15 Potassium Chloride 40 meq PO BID 11/16/17 10:00 Tamsulosin [Flomax] 0.4 mg PO PCBREAKFAST 11/16/17 13:30 VANCOMYCIN TROUGH [CHEM] Timed 11/17/17 05:00 BMP [BASIC METABOLIC PANEL,BMP] [CHEM] DAILY CBC WITH AUTO DIFF [HEME] DAILY CRP [C-REACTIVE PROTEIN] [CHEM] DAILY 11/18/17 05:00 BMP [BASIC METABOLIC PANEL,BMP] [CHEM] DAILY CBC WITH AUTO DIFF [HEME] DAILY CRP [C-REACTIVE PROTEIN] [CHEM] DAILY - Plan Plan:: PNA -Left lower lobe on CXR -->improved WBCs -Cefepime -Vancomycin -Leukocytosis --improving -CRP 1.6-->2.1-->23.5-->14.9-->6.2 -Recently hospitalized for pneumonia and UTI -CXR shows infiltrate in right lower lobe that is slightly less than previous film from 11/07/17; repeat CXR suggest LLL infiltrate -AMS change -Urine cultures pending CHF -Acute on chronic -Diurese as needed. AMS change with steroid taper, continue Solumedrol Daily, change to prednisone as tolerated. Depression--start Cymbalta 30 mg daily Urinary retention--start Flomax 0.4 mg daily Chronic: HLD HTN Recurrent UTI Recurrent pneumonia Arthritis MS Contractures CVA with left side deficit Hypothyroidism PEG tube in place PICC line in right arm Plan: Advance TF as tolerated-->to goal with increased free H2O; check residuals Aspiration precautions Neb therapy prn MS with telemetry CM/SW for discharge planning PT RT to evaluate and treat Home meds as indicated Other orders as indicated above Routine AM labs DVT prophylaxis: lovenox Code Status: DNR/DNI; PCP: Dr. Alfonso at [facility] LOS>96 hours for resolving AMS/febrile illness; DC 11/17/17
[2017-11-16] MEDS: Rosuvastatin 10 MG Tab GTUBE SCH (21:41)
[2017-11-17] MEDS: Albuterol/Ipratropium 3.0-0.5 MG/3 ML Neb Soln NEB SCH (05:53)
[2017-11-17] MEDS: predniSONE 20 MG Tab PO SCH (06:04)
[2017-11-17] MEDS: Levothyroxine 25 MCG Tab GTUBE SCH (06:04)
[2017-11-17] MEDS: Cefepime 2 GM in Premix Bag 1 BAG IV SCH (06:07)
--- NOTE | 2017-11-17 06:53 | PCM.DCSUM1 ---
Discharge Summary - Hospital Course HPI Initial Comments: Pilar Mayo is a 67 yo female pt. with MS who is very well known to this service. She was instructed ED today via ambulance from [facility] with a fever of unknown origin. She's admitted to the hospital the eighth of this month with suspected pneumonia growing out strep pneumonia. She also UTI which grew out Klebsiella pneumonia. She was treated with antibiotics and reason improved. She discharged home on the this month, 2 days ago. Nursing staff reports she spiked a fever 100.4 today, along with associated chills and poor appetite. There is been no vomiting or diarrhea. Staff is also noticed she is much more congested in her chest she is not laboratory due to dense left-sided hemiparesis. Rectal temperature was obtained in the ED and found to be 90.8 however she just had ibuprofen 2 hours prior. There has been some concern over possible aspiration pneumonia as she has been unable to handle her secretions. She received IV Rocephin up until the of this month. She received a five-day course of 1 g of Solu-Medrol or draw intravenously for her MS exacerbation. In the ED told was obtained showing left ventricular hypertrophy and sinus tachycardia 115 bpm. There is also left atrial hypertrophy.temp of 37.0C. Pulse 101. Respirations 20. BP 166/66. Pulse ox 95%. Labs are obtained: She is a white count at 21.14. Hemoglobin low at 9.8. Hematocrit 31.3. His normocytic. Pulse elevated 439,000. Neutrophils are high at 89%. There is no bandemia. PT is 10.6. INR 0.97. Sodium is 145. Potassium 4.8. Chloride 106. Carotid accident elevated at 36. Anion gap is 7.8. BUN is high at 31. Creatinine 0.4. EGFR greater than 60. Glucose is high at 126. Lactic acid 0.6. Calcium is 8.5. Magnesium 2.0. Total bilirubin 0.2. AST is 33, ALT is 41, alkaline phosphatase is 171. CK-MB is 2.6. Troponin is elevated at 0.062. CRP is 1.6. ProBNP is 2263. Protein is low at 5.8. Albumin low at 2.3. UA is essentially negative, however trace glucose, 1+ leukoesterase, 10-20 WBCs are noted. Blood cultures are obtained. Chest x-ray was obtained and shows scoliosis concave to the right. His bilateral pleural effusions that are essentially unchanged from the previous x-ray. Infiltrate in the right lower lobe appears to be slightly less on a previous film dated the 16 of this month. Dense rhonchi is noted throughout both lung chao. She did appear to be volume depleted. She does carry a history of: HLD, HTN, recurrent pneumonia, recurrent UTI, arthritis, MS, contractures, CVA, TIA, hypothyroidism. She was never smoker. She is subsequently admitted to the medical floor. She is a DNR/DNI. Her PCP is Dr. Alfonso at [facility]. - Discharge Data Discharge Date: 11/17/17 (Admit date: 11/09/17) Discharge Disposition: DC/Tfer to SNF 03 Condition: Fair - Discharge Diagnosis/Problem(s) (1) Acute exacerbation of congestive heart failure SNOMED Code(s): 19700353 ICD Code: I50.9 - HEART FAILURE, UNSPECIFIED Status: Acute Priority: High Current Visit: Yes Qualifiers: Congestive heart failure type: unspecified Qualified Code(s): I50.9 - Heart failure, unspecified (2) Febrile illness SNOMED Code(s): 083186365 ICD Code: R50.9 - FEVER, UNSPECIFIED Status: Resolved Priority: High Current Visit: Yes (3) Multiple sclerosis SNOMED Code(s): 95288072 ICD Code: G35 - MULTIPLE SCLEROSIS Status: Chronic Priority: Medium Current Visit: Yes (4) Elevated troponin SNOMED Code(s): 494357576, 682838995 ICD Code: R74.8 - ABNORMAL LEVELS OF OTHER SERUM ENZYMES Status: Resolved Priority: Medium Current Visit: Yes (5) Pneumonia SNOMED Code(s): 403891164 ICD Code: J18.9 - PNEUMONIA, UNSPECIFIED ORGANISM Status: Acute Priority : High Current Visit: Yes Qualifiers: Pneumonia type: due to unspecified organism Laterality: left Lung location: lower lobe of lung Qualified Code(s): J18.1 - Lobar pneumonia, unspecified organism - Patient Summary/Data Consults: Consultations 11/09/17 19:41 Consult to Case Management [CONS] Routine Consult to Spiritual Care [CONS] Routine PT Evaluation and Treatment [CONS] Routine 11/09/17 19:58 Consult to Respiratory Therapy [Respiratory Care Assess and Treatment] [CONS] Routine 11/13/17 14:42 Consult to Speech Language Pathology [[facility] Evaluation and Treatment] [CONS] Routine Hospital Course: PNA -Left lower lobe on CXR -->improved WBCs -Cefepime - stop -Vancomycin - stop -Leukocytosis --improving -CRP 1.6-->2.1-->23.5-->14.9-->6.2 -Recently hospitalized for pneumonia and UTI -CXR shows infiltrate in right lower lobe that is slightly less than previous film from 11/07/17; repeat CXR suggest LLL infiltrate -AMS change -Urine cultures pending CHF -Acute on chronic -Diurese as needed. AMS change with steroid taper, continue Solumedrol Daily, change to prednisone as tolerated. Depression--start Cymbalta 30 mg daily Urinary retention--start Flomax 0.4 mg daily Chronic: HLD HTN Recurrent UTI Recurrent pneumonia Arthritis MS Contractures CVA with left side deficit Hypothyroidism PEG tube in place PICC line in right arm Plan: Advance TF as tolerated-->to goal with increased free H2O; check residuals Aspiration precautions Neb therapy prn MS with telemetry CM/SW for discharge planning PT RT to evaluate and treat Home meds as indicated Other orders as indicated above Routine AM labs DVT prophylaxis: lovenox Code Status: DNR/DNI; PCP: Dr. Alfonso at [facility] LOS>96 hours for resolving AMS/febrile illness; DC 11/17/17 Overall Pilar did OK. She responded well to treatment. She has been refusing quite a bit of our treatments here. She will be discharged today back to [place] via ambulance. - Patient Instructions Diet, Other: See tube feeding schedule Driving: Do Not Drive Notify Provider of: Fever, Increased Pain, Nausea and/or Vomiting - Discharge Plan Prescriptions/Med Rec: DULoxetine [Cymbalta] 30 mg PO DAILY #20 cap LORazepam [Ativan] 0.5 mg GTUBE Q4H PRN #30 tablet PRN Reason: Anxiety Potassium Chloride 40 meq PO BID #2 cup Tamsulosin [Flomax] 0.4 mg PO PCBREAKFAST #20 cap.er Home Medications: Home Meds Amantadine HCl [Amantadine] 75 mg PO BID 10/29/17 [History] Ascorbic Acid [Vitamin C] 100 mg PO DAILY 10/29/17 [History] Diclofenac Sodium [Voltaren 1% Gel] 100 gm TOP QID PRN 10/29/17 [History] Levothyroxine 25 mcg PO ACBREAKFAST 10/29/17 [History] Sodium Chloride [Deep Sea] 2 spray NS TID PRN 10/29/17 [History] Trolamine Salicylate/Aloe Vera [Aspercreme 10% Cream] 1 applic TOP TID PRN 10/29 [History] atorvaSTATin [Lipitor] 40 mg PO BEDTIME 10/29/17 [History] Dextromethorphan/guaiFENesin [Robitussin DM] 2 tsp PO Q4H PRN 10/30/17 [History] Aspirin 162 mg PO DAILY 11/09/17 [History] Ibuprofen [Motrin] 400 mg PO Q6H PRN 11/09/17 [History] Lidoprofen Cream 1 applic TOP TID PRN 11/09/17 [History] Vaporx [place] 1 applic TOP ASDIRECTED 11/09/17 [History] guaiFENesin [Guaifenesin] 600 mg PO BID PRN 11/15/17 [History] Acetaminophen [Tylenol] 650 mg GTUBE Q4H PRN cup 11/17/17 [Rx] DULoxetine [Cymbalta] 30 mg PO DAILY #20 cap 11/17/17 [Rx] LORazepam [Ativan] 0.5 mg GTUBE Q4H PRN #30 tablet 11/17/17 [Rx] Potassium Chloride 40 meq PO BID #2 cup 11/17/17 [Rx] Tamsulosin [Flomax] 0.4 mg PO PCBREAKFAST #20 cap.er 11/17/17 [Rx] Patient Handouts: Heart Failure Forms: ED Department Discharge Referrals: Antonio Alfonso MD [Primary Care Provider] - - Discharge Summary/Plan Comment DC Time >30 min.: Yes (45 minutes ) - General Info Date of Service: 11/17/17 Admission Dx/Problem (Free Text: fever Subjective Update: In to see Pilar today. She is lying in bed. She is quite grumpy today. She denies any pain. She will be discharged back to [place] today. Functional Status: Reports: Tolerating Diet, Urinating. Denies: Ambulating, New Symptoms - Review of Systems General: Reports: No Symptoms HEENT: Reports: No Symptoms Pulmonary: Reports: No Symptoms Cardiovascular: Reports: No Symptoms Gastrointestinal: Reports: No Symptoms Genitourinary: Reports: No Symptoms Musculoskeletal: Reports: No Symptoms Skin: Reports: No Symptoms Neurological: Reports: No Symptoms Psychiatric: Reports: No Symptoms - Patient Data Vitals - Most Recent: Last Vital Signs Temp 97.5 F 11/17/17 05:14 Pulse 79 11/17/17 05:14 Resp 18 11/17/17 05:14 BP 136/66 11/17/17 05:14 Pulse Ox 97 11/17/17 05:14 Weight - Most Recent: 133 lb 11.2 oz I&O - Last 24 hours: Intake & Output 11/16/17 11/16/17 11/17/17 14:59 22:59 06:59 Intake Total 700 0 Balance 700 0 Lab Results - Last 24 hrs: Laboratory Results - last 24 hr 11/16/17 11/16/17 11/16/17 Range/Units 06:30 06:30 13:35 WBC 23.35 H (3.98-10.04) K/mm3 RBC 3.96 L (3.98-5.22) M/mm3 Hgb 11.7 (11.2-15.7) gm/L Hct 35.5 (34.1-44.9) % MCV 89.6 (79.4-94.8) fl MCH 29.5 (25.6-32.2) pg MCHC 33.0 (32.2-35.5) g/dl RDW Std Deviation 51.3 H (36.4-46.3) fL Plt Count 580 H (182-369) K/mm3 MPV 11.2 (9.4-12.3) fl Neut % (Auto) 72.2 H (34.0-71.1) % Lymph % (Auto) 5.7 L (19.3-51.7) % [place] % (Auto) 15.6 H (4.7-12.5) % Eos % (Auto) 0 L (0.7-5.8) Baso % (Auto) 0.3 (0.1-1.2) % Neut # (Auto) 16.85 H (1.56-6.13) K/mm3 Lymph # (Auto) 1.34 (1.18-3.74) K/mm3 [place] # (Auto) 3.64 H (0.24-0.36) K/mm3 Eos # (Auto) 0.01 L (0.04-0.36) K/mm3 Baso # (Auto) 0.06 (0.01-0.08) K/mm3 Manual Slide Review Abnormal smear Sodium 138 (136-145) mEq/L Potassium 3.3 L (3.5-5.1) mEq/L Chloride 100 (98-107) mEq/L Carbon Dioxide 36 H (21-32) mEq/L Anion Gap 5.3 (5-15) BUN 25 H (7-18) mg/dL Creatinine 0.3 L (0.55-1.02) mg/dL Est Cr Clr Drug Dosing 162.62 mL/min Estimated GFR (MDRD) > 60 (>60) mL/min BUN/Creatinine Ratio 83.3 H (14-18) Glucose 107 (80-115) mg/dL Calcium 8.0 L (8.5-10.1) mg/dL C-Reactive Protein 1.1 H* (<1.0) mg/dL Vancomycin Trough 17.5 (10.0-20.0) 11/17/17 Range/Units 06:25 WBC 22.97 H (3.98-10.04) K/mm3 RBC 4.03 (3.98-5.22) M/mm3 Hgb 12.0 (11.2-15.7) gm/L Hct 36.3 (34.1-44.9) % MCV 90.1 (79.4-94.8) fl MCH 29.8 (25.6-32.2) pg MCHC 33.1 (32.2-35.5) g/dl RDW Std Deviation 53.7 H (36.4-46.3) fL Plt Count 549 H (182-369) K/mm3 MPV 11.2 (9.4-12.3) fl Neut % (Auto) 66.1 (34.0-71.1) % Lymph % (Auto) 7.8 L (19.3-51.7) % [place] % (Auto) 14.0 H (4.7-12.5) % Eos % (Auto) 0.3 L (0.7-5.8) Baso % (Auto) 0.8 (0.1-1.2) % Neut # (Auto) 15.20 H (1.56-6.13) K/mm3 Lymph # (Auto) 1.79 (1.18-3.74) K/mm3 [place] # (Auto) 3.21 H (0.24-0.36) K/mm3 Eos # (Auto) 0.06 (0.04-0.36) K/mm3 Baso # (Auto) 0.18 H (0.01-0.08) K/mm3 Manual Slide Review Sodium (136-145) mEq/L Potassium (3.5-5.1) mEq/L Chloride (98-107) mEq/L Carbon Dioxide (21-32) mEq/L Anion Gap (5-15) BUN (7-18) mg/dL Creatinine (0.55-1.02) mg/dL Est Cr Clr Drug Dosing mL/min Estimated GFR (MDRD) (>60) mL/min BUN/Creatinine Ratio (14-18) Glucose (80-115) mg/dL Calcium (8.5-10.1) mg/dL C-Reactive Protein (<1.0) mg/dL Vancomycin Trough (10.0-20.0) Med Orders - Current: Current Medications Acetaminophen (Tylenol) 650 mg GTUBE Q4H PRN PRN Reason: Pain (Mild 1-3)/fever Last Admin: 11/11/17 15:45 Dose: 650 mg Albuterol/Ipratropium (Duoneb 3.0-0.5 Mg/3 Ml) 3 ml NEB QIDRT [facility] Last Admin: 11/17/17 05:53 Dose: Not Given Amantadine HCl (Symmetrel 50 Mg/5 Ml Soln) 75 mg GTUBE BID [facility] Last Admin: 11/16/17 21:44 Dose: 75 mg Aspirin (Aspirin) 162 mg GTUBE DAILY [facility] Last Admin: 11/16/17 10:17 Dose: 162 mg Diclofenac Sodium (Voltaren 1% Gel) 1 - 5 gm TOP QID PRN PRN Reason: Pain Docusate Sodium (Colace) 100 mg PO BID PRN PRN Reason: Constipation Duloxetine HCl (Cymbalta) 30 mg PO DAILY [facility] Last Admin: 11/16/17 10:17 Dose: 30 mg Enoxaparin Sodium (Lovenox) 40 mg SUBCUT DAILY [facility] Last Admin: 11/16/17 10:14 Dose: 40 mg Famotidine (Pepcid) 20 mg IVPUSH BID [facility] Last Admin: 11/16/17 21:47 Dose: 20 mg Guaifenesin (Robitussin) 200 mg GTUBE Q4H PRN PRN Reason: Congestion Guaifenesin/Phenylephrine HCl (Robitussin Dm) 10 ml GTUBE Q4H PRN PRN Reason: Congestion Hydralazine HCl (Apresoline) 10 mg IVPUSH Q6H PRN PRN Reason: Hypertension Last Admin: 11/16/17 03:17 Dose: 10 mg Hydromorphone HCl (Dilaudid) 0.5 mg IVPUSH Q4H PRN PRN Reason: Pain Last Admin: 11/14/17 00:44 Dose: 0.5 mg Cefepime HCl 2 gm/ Premix 50 mls @ 100 mls/hr IV Q12H [facility] Last Admin: 11/17/17 06:07 Dose: 100 mls/hr Vancomycin HCl 1 gm/ Sodium (Chloride) 250 mls @ 250 mls/hr IV Q12H [facility] Last Admin: 11/17/17 02:09 Dose: 250 mls/hr Ibuprofen (Motrin 100 Mg/5 Ml Susp) 400 mg GTUBE Q6H PRN PRN Reason: Other Levothyroxine Sodium (Levothyroxine) 25 mcg GTUBE ACBREAKFAST [facility] Last Admin: 11/17/17 06:04 Dose: 25 mcg Lorazepam (Ativan) 0.5 mg GTUBE Q4H PRN PRN Reason: Anxiety Last Admin: 11/16/17 22:50 Dose: 0.5 mg Metoprolol Tartrate (Lopressor) 5 mg IVPUSH Q4H PRN PRN Reason: Tachycardia Ondansetron HCl (Zofran) 4 mg IV Q6H PRN PRN Reason: Nausea/Vomiting Polyethylene Glycol (Miralax) 17 gm GTUBE DAILY PRN PRN Reason: Constipation Potassium Chloride (Potassium Chloride) 40 meq PO BID [facility] Last Admin: 11/16/17 21:44 Dose: 40 meq Prednisone (Prednisone) 60 mg PO ACBREAKFAST [facility] Last Admin: 11/17/17 06:04 Dose: 60 mg Rosuvastatin Calcium (Crestor) 10 mg GTUBE BEDTIME [facility] Last Admin: 11/16/17 21:41 Dose: 10 mg Senna/Docusate Sodium (Senna Plus) 1 tab GTUBE BID PRN PRN Reason: Constipation Sodium Chloride ([place] Nasal [place]) 1 ml NASBOTH TID PRN PRN Reason: Congestion Tamsulosin HCl (Flomax) 0.4 mg PO PCBREAKFAST [facility] Last Admin: 11/16/17 10:18 Dose: 0.4 mg Vancomycin HCl (Pharmacy To Dose - Vancomycin) 1 dose .XX ASDIRECTED PRN PRN Reason: RX TO DOSE Discontinued Medications Acetaminophen (Tylenol) 650 mg PO Q4H PRN PRN Reason: Pain (Mild 1-3)/fever Albuterol (Proventil Neb Soln) 2.5 mg NEB QIDRT CHUN Albuterol/Ipratropium (Duoneb 3.0-0.5 Mg/3 Ml) 3 ml NEB Q4H PRN PRN Reason: Shortness Of Breath/wheezing Albuterol/Ipratropium (Duoneb 3.0-0.5 Mg/3 Ml) 3 ml NEB QID [facility] Bisacodyl (Dulcolax) 5 mg PO DAILY PRN PRN Reason: Constipation Bumetanide (Bumex) 0.5 mg IVPUSH BID [facility] Duloxetine HCl (Cymbalta) 30 mg PO DAILY [facility] Furosemide (Lasix) 40 mg IVPUSH NOW ONE Stop: 11/09/17 17:19 Last Admin: 11/09/17 17:54 Dose: 40 mg Furosemide (Lasix) 40 mg IVPUSH BID [facility] Last Admin: 11/10/17 06:46 Dose: 40 mg Furosemide (Lasix) 20 mg IVPUSH ONETIME ONE Stop: 11/13/17 20:01 Last Admin: 11/13/17 21:20 Dose: 20 mg Furosemide (Lasix) 20 mg IVPUSH ONETIME ONE Stop: 11/13/17 23:01 Last Admin: 11/14/17 00:44 Dose: 20 mg Furosemide (Lasix) 20 mg IVPUSH NOW ONE Stop: 11/15/17 06:01 Last Admin: 11/15/17 05:11 Dose: 20 mg Guaifenesin (Mucinex) 600 mg PO BID PRN PRN Reason: Congestion Guaifenesin/Phenylephrine HCl (Robitussin Dm) 10 ml PO Q4H PRN PRN Reason: Congestion Ceftriaxone Sodium 2 gm/ (Sodium Chloride) 100 mls @ 200 mls/hr IV ONETIME ONE Stop: 11/09/17 15:42 Last Admin: 11/09/17 16:36 Dose: Not Given Dextrose/Sodium Chloride (Dextrose 5%-Normal Saline) 1,000 mls [facility] Last Admin: 11/09/17 15:46 Dose: 500 mls/hr Ceftriaxone Sodium 2 gm/ (Sodium Chloride) 100 mls @ 200 mls/hr IV ONETIME ONE Stop: 11/09/17 15:42 Last Admin: 11/09/17 16:01 Dose: 200 mls/hr Cefepime HCl 2 gm/ Premix 50 mls @ 100 mls/hr IV Q8H [facility] Last Admin: 11/12/17 05:38 Dose: 100 mls/hr Sodium Chloride (Normal Saline) 1,000 mls @ 200 [facility]ls[facility] Stop: 11/11/17 19:45 Last Admin: 11/11/17 15:19 Dose: 200 mls/hr Vancomycin HCl 1 gm/ Sodium (Chloride) 250 mls @ 250 mls/hr IV Q24H [facility] Last Admin: 11/14/17 17:32 Dose: Not Given Sodium Chloride (Normal Saline) 1,000 mls @ 100 mls/hr IV [facility] Last Admin: 11/12/17 05:38 Dose: 100 mls/hr Sodium Chloride (Normal Saline) Confirm Administered Dose 250 mls @ as directed .ROUTE .[facility] ONE Stop: 11/13/17 18:30 Last Admin: 11/13/17 18:56 Dose: Not Given Sodium Chloride (Normal Saline) 250 mls @ 100 mls/hr IV [facility] Stop: 11/13/17 20:59 Last Admin: 11/13/17 18:30 Dose: 100 mls/hr Sodium Chloride (Normal Saline) Confirm Administered Dose 250 mls @ as directed .ROUTE .[facility] Stop: 11/13/17 21:39 Last Admin: 11/13/17 22:11 Dose: 250 ml Potassium Chloride 10 meq/ (Premix) 100 mls @ 100 mls/hr IV Q1H [facility] Stop: 11/14/17 20:59 Last Admin: 11/14/17 21:20 Dose: 100 mls/hr Ibuprofen (Motrin) 400 mg PO Q6H PRN PRN Reason: Other Levothyroxine Sodium (Levothyroxine) 25 mcg PO ACBREAKFAST [facility] Last Admin: 11/10/17 06:46 Dose: 25 mcg Lorazepam (Ativan) 0.5 mg PO Q4H PRN PRN Reason: Anxiety Methylprednisolone Sodium Succinate (Solu-Medrol) 1,000 mg IV DAILY [facility] Methylprednisolone Sodium Succinate (Solu-Medrol) 125 mg IVPUSH Q6H [facility] Last Admin: 11/13/17 05:35 Dose: 125 mg Methylprednisolone Sodium Succinate (Solu-Medrol) 125 mg IVPUSH Q12H [facility] Last Admin: 11/15/17 05:09 Dose: 125 mg Methylprednisolone Sodium Succinate (Solu-Medrol) 125 mg IVPUSH DAILY [facility] Polyethylene Glycol (Miralax) 17 gm PO DAILY PRN PRN Reason: Constipation Senna/Docusate Sodium (Senna Plus) 1 tab PO BID PRN PRN Reason: Constipation - Exam Quality Assessment: Reports: Supplemental Oxygen, DVT Prophylaxis General: Reports: Alert, No Acute Distress. Denies: Cooperative HEENT: Reports: Pupils Equal, Pupils Reactive, EOMI, Mucous Membr. Moist/[place] Neck: Reports: Supple, Trachea Midline, No JVD, No Thyromegaly Lungs: Reports: Clear to Auscultation, Normal Respiratory Effort Cardiovascular: Reports: Regular Rate, Regular Rhythm GI/Abdominal Exam: Normal Bowel Sounds, Soft, Non-Tender, No Organomegaly, No Distention, No Abnormal Bruit, No Mass, Pelvis Stable (Female) Exam: Deferred Rectal (Female) Exam: Deferred Back Exam: Reports: Normal Inspection, Full Range of Motion Extremities: Normal Range of Motion, Non-Tender, No Pedal Edema, Normal Capillary Refill, Limited Range of Motion, Other (contractures ) Skin: Reports: Warm, Dry, Intact Neurological: Reports: No New Focal Deficit. Denies: Normal Gait Psy/Mental Status: Reports: Alert, Anxious, Depressed *Q Meaningful Use (DIS) - VTE *Q VTE Criteria *Q: - Stroke *Q Stroke Criteria *Q: - AMI *Q AMI Criteria *Q:
[2017-11-17] MEDS: DULoxetine 30 MG Cap PO SCH (09:12)
[2017-11-17] MEDS: Aspirin 81 MG Tab.Chew GTUBE SCH (09:12)
[2017-11-17] MEDS: Enoxaparin 40 MG/0.4 ML Syringe SUBCUT SCH (09:12)
[2017-11-17] MEDS: Tamsulosin 0.4 MG Cap.ER PO SCH (09:12)
[2017-11-17] MEDS: Potassium Chloride 10% 20 MEQ/15 ML Soln 30 ML UD Cup PO SCH (09:12)
[2017-11-17] MEDS: Amantadine Soln 50 MG/5 ML UD Cup GTUBE SCH (09:13)
[2017-11-17] MEDS: Famotidine 20 MG/2 ML SDV IVPUSH SCH (09:13)
[2017-11-17 09:43] VITALS: BP 123/66
== END 2017-11-17 11:10 | DRG 194 ==
LOC: SUPCPDRO 14:56 → JD.ED 14:56 → JD.MS 17:25
PROVIDERS: ADMIT Internal Medicine; ATTEND Internal Medicine
DX: R50.9 Fever, unspecified (principal); J18.9 Pneumonia, unspecified organism; I69.354 Hemiplegia and hemiparesis following cerebral infarction affecting left non-dominant side; E78.00 Pure hypercholesterolemia, unspecified; I11.0 Hypertensive heart disease with heart failure; I50.9 Heart failure, unspecified; G35 Multiple sclerosis; R74.8 Abnormal levels of other serum enzymes; E78.5 Hyperlipidemia, unspecified; Z87.440 Personal history of urinary (tract) infections; M19.90 Unspecified osteoarthritis, unspecified site; E03.9 Hypothyroidism, unspecified; Z93.1 Gastrostomy status; Z93.8 Other artificial opening status; Z66 Do not resuscitate; F32.9 Major depressive disorder, single episode, unspecified; R33.9 Retention of urine, unspecified; R41.82 Altered mental status, unspecified; H54.7 Unspecified visual loss; Z74.01 Bed confinement status; Z88.0 Allergy status to penicillin; Z79.82 Long term (current) use of aspirin; Z79.899 Other long term (current) drug therapy; Z87.01 Personal history of pneumonia (recurrent)
CPT/HCPCS: 36415; 71045; 80053; 81001; 82553; 83605; 83735; 83880; 84484; 85025; 85610; 85652; 86140; 86738; 87040 ×2; 87086; 87804 ×2; 93005; 96361; 96365; 99285; J0696; J7030; J7042; P9612; 36430; 51798; 80048; 80202; 85018; 85027; 86850; 86900; 86901; 86922; 92526-GN; 92610-GN; 93010; 93971-26-RT; 93971-RT; 94640; 94760; 94761; 97110-GP; 97161-GP; 97530-GP; 99284-25; A9270-GY; J0360; J0692; J1170; J1650; J1940; J2930; J3370; J3480; J7040; J7050; P9016

== ENCOUNTER 2020-04-04 21:13 | Emergency (ER) | payer MEDICARE, MEDICAID ==
--- NOTE | 2020-04-04 22:06 | EDM.PDOC ---
<Rina Martino Brenda - Last Filed: 04/04/20 22:57> ED HPI GENERAL MEDICAL PROBLEM - General Chief Complaint: Abdominal Pain Stated Complaint: FROM [facility] Time Seen by Provider: 04/04/20 21:45 Source of Information: Reports: Patient, M[facility] Records, RN Notes Reviewed History Limitations: Reports: No Limitations - History of Present Illness INITIAL COMMENTS - FREE TEXT/NARRATIVE: Patient is a 70-year-old female who is brought to the ED for the evaluation of her constipation. Patient is a resident of the [facility]. Patient has been having ongoing issues with constipation for the past few days, the custodial states that they believe she has a bowel/stool impaction, that they tried to disimpact multiple times with little to no relief. Patient has been given bisacodyl suppository and a fleets enema earlier today, and was also given milk of magnesia on and the . She was noted to have a large liquid stool on 03 April. Nursing staff notes that she is having some liquid stool that leaks around the impaction, they believe this to be softball size in nature. Patient was sent to the ER for further evaluation to rule out bowel perforation and/or obstruction per family's request. Patient denies any sort of abdominal pain, nausea and/or vomiting at this time. She further denies any other sick-like symptoms, fever/chills, cough/chest pain, any dysuria, frequency or urgency. Patient is not on any stool softening regimen at this time. - Related Data Allergies Allergy/AdvReac Type Severity Reaction Status Date / Time Penicillins Allergy Vaginitis Verified 04/04/20 21:43 Home Meds: Home Meds Ascorbic Acid [Vitamin C] 500 mg PEGTUBE DAILY 10/29/17 [History] Sodium Chloride [Deep Sea] 2 spray NS TID PRN 10/29/17 [History] amantadine HCL [Amantadine] 75 mg PEGTUBE BID 10/29/17 [History] Aspirin 162 mg PEGTUBE DAILY 11/09/17 [History] Ibuprofen [Motrin] 400 mg PEGTUBE Q6H PRN 11/09/17 [History] Acetaminophen [Tylenol] 650 mg GTUBE Q4H PRN cup 11/17/17 [Rx] Albuterol Sulfate 2.5 mg NEB Q6H PRN 04/04/20 [History] Arformoterol [Brovana] 15 mcg NEB BID 04/04/20 [History] Budesonide [Pulmicort] 0.5 mg NEB BID 04/04/20 [History] Cholecalciferol (Vitamin D3) [Vitamin D3] 1,000 units PEGTUBE DAILY 04/04/20 [ History] D-Mannose [Mannose] 50 gm PEGTUBE BID 04/04/20 [History] Docosanol [Abreva 10%] 1 applic TOP Q4H PRN 04/04/20 [History] Esomeprazole [NexIUM] 40 mg PEGTUBE DAILY 04/04/20 [History] Fish Oil/Borage/Flax/Om3,6,9 1 [[place] 3-6-9 Complex Softgel] 400 mg PEGTUBE DAILY 04/04/20 [History] Hyperbiotics Pro Women 250 mg PEGTUBE DAILY 04/04/20 [History] Lactose-Reduced Food/Fiber [Isosource 1.5 Haja Liquid] 300 ml PEGTUBE TID [History] Liqua-Adry Multivitamin Plus Ir 1 tsp PEGTUBE DAILY 04/04/20 [History] Loperamide HCl [Imodium A-D] 2 tab PEGTUBE Q4H PRN 04/04/20 [History] Magnesium Hydroxide [Milk of Magnesia] 30 ml PEGTUBE DAILY PRN 04/04/20 [History ] Menthol [Biofreeze] 1 applic TOP Q6H PRN 04/04/20 [History] Methenamine Hippurate [Hiprex] 1 gm PEGTUBE BID 04/04/20 [History] Past Medical History HEENT History: Reports: Cataract, Impaired Vision Other HEENT History: wears eyeglasses, presence of intraocular lens Cardiovascular History: Reports: High Cholesterol, Hypertension Other Cardiovascular History: hyponatremia Genitourinary History: Reports: Neurogenic Bladder, UTI, Recurrent, Other (See Below) Other Genitourinary History: incontinence 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 Dermatologic History: Reports: Other (See Below) Other Dermatologic History: skin breakdown to feet. - Infectious Disease History Infectious Disease History: Reports: Chicken Pox - Past Surgical History HEENT Surgical History: Reports: Cataract Surgery GI Surgical History: Reports: Other (See Below) Other GI Surgeries/Procedures: Peg tube placement last stay-[facility]-see prior discharge for details Musculoskeletal Surgical History: Reports: Other (See Below) Other Musculoskeletal Surgeries/Procedures:: removal of neuroma from back. Social & Family History - Family History Family Medical History: Noncontributory - Tobacco Use Smoking Status *Q: Never Smoker - Caffeine Use Caffeine Use: Reports: Coffee - Living Situation & Occupation Living situation: Reports: Extended Care Facility (Currently residing at [facility] ED ROS GENERAL - Review of Systems Review Of Systems: Comprehensive ROS is negative, except as noted in HPI. ED EXAM, GI/ABD - Physical Exam Exam: See Below Exam Limited By: No Limitations General Appearance: Alert, WD/WN, No Apparent Distress Ears: Normal External Exam Nose: Normal Inspection Throat/Mouth: Normal Inspection, Normal Lips, Normal Teeth, Normal Gums, Normal Oropharynx, Normal Voice, No Airway Compromise Head: Atraumatic Neck: Normal Inspection Respiratory/Chest: No Respiratory Distress, Lungs Clear, Normal Breath Sounds, No Accessory Muscle Use, Chest Non-Tender Cardiovascular: Normal Peripheral Pulses, Regular Rate, Rhythm, No Murmur GI/Abdominal Exam: Normal Bowel Sounds, Soft, Non-Tender, No Distention, No Mass Extremities: Normal Inspection, Normal Capillary Refill Neurological: Alert, Oriented, Normal Cognition, No Motor/Sensory Deficits Psychiatric: Normal Affect, Normal Mood Skin Exam: Warm, Dry, Intact, Normal Color, No Rash Course - Vital Signs Last Recorded V/S: Last Vital Signs Temp 36.2 C 04/05/20 00:19 Pulse 96 04/05/20 00:19 Resp 18 04/05/20 00:19 BP 148/71 H 04/05/20 00:19 Pulse Ox 96 04/05/20 00:19 - Orders/Labs/Meds Orders: Active Orders 24 hr Category Date Time Status Enema [RC] ASDIRECTED Care 04/04/20 21:43 Active Abdomen 2V AP Flat Upright [CR] Stat Exams 04/04/20 21:42 Taken - Re-Assessments/Exams Free Text/Narrative Re-Assessment/Exam: 04/04/20 22:06 Patient presents to the ED for her stool impaction. Flat and upright abdomen x- rays will be obtained, patient will be given another fleets enema to try to dislodge the stool ball, and I will direct nursing staff to try to disimpact as much as possible pending x-ray results. 04/04/20 22:27 X-rays demonstrate no sign of an obstruction, there is a large stool ball in the rectal vault, consistent with impaction, patient also has scoliosis, osteopenia, suprapubic catheter and a G-tube in place. Official radiology read is pending, these were reviewed by myself and Dr. Villatoro. Nursing staff will try to instill the enema to dislodge the impaction, otherwise Dr. Cid said he would try to manually disimpact the stool ball if the fleets enema is unsuccessful. 04/04/20 22:57 As it is nearing the end of my shift, I did report off to Dr. Villatoro, and he will take over management from here at this time. Departure - Departure Disposition: Home, Self-Care 01 Clinical Impression: Constipation, Fecal impaction in rectum - Discharge Information Referrals: Trevon Belle MD [Ordering Only Provider] - Forms: ED Department Discharge Additional Instructions: Ms. Mayo was seen in the ER for constipation. Work-up in the ER included x-rays of her abdomen, which confirmed a large stool in her rectum. She was treated with enemas in the ER, and had partial relief, and was then manually disimpacted, with complete relief. Going forward, in order to prevent constipation, in addition to the milk of magnesia that she already receives, we recommend that she be given MiraLAX and a large glass of water, daily. If any other problems, please do not hesitate to return Ms. Mayo to the ER. Sepsis Event Note (ED) - Evaluation Sepsis Screening Result: No Definite Risk - Focused Exam Vital Signs: Vital Signs Temp Pulse Resp BP Pulse Ox 04/05/20 00:19 36.2 C 96 18 148/71 H 96 04/04/20 22:14 94 18 152/79 H 96 04/04/20 21:34 36.4 C 95 16 152/72 H 95 <Josh Villatoro A - Last Filed: 04/05/20 01:17> Course - Re-Assessments/Exams Free Text/Narrative Re-Assessment/Exam: 04/05/20 01:12 Case received from Rina Martino. Notified by Sabrina KHAN that after the patient received an enema, she is a large bowel movement, but that additional stool was visible at the rectum. I therefore examined the patient and performed a manual disimpaction of a considerable amount of firm stool. After disimpaction, no additional stool was palpable in the rectum. The patient may now return home. Departure - Departure Time of Disposition: 01:13 Condition: Good - Discharge Information *PRESCRIPTION DRUG MONITORING PROGRAM REVIEWED*: Not Applicable *COPY OF PRESCRIPTION DRUG MONITORING REPORT IN PATIENT GEN: Not Applicable
[2020-04-05 00:19] VITALS: BP 148/71; PULSE 96
--- NOTE | 2020-04-05 09:57 | CR ---
Abdomen: Supine and decubitus view of the abdomen was obtained. Comparison: No prior abdominal x-ray is available. Superpubic catheter is present. Scoliosis and degenerative change is noted within the spine. Gastrostomy tube is suggested. Scattered gas within colon as well as small bowel is noted which appears within normal limits. No free air is seen. Impression: 1. Findings as noted above. 2. Nothing acute is appreciated on 2 view abdominal x-ray. Diagnostic code #2 Study was dictated in MDT
== END 2020-04-05 01:30 | disposition home or self-care (01) ==
LOC: JD.ED 21:13
DX: K56.41 Fecal impaction (principal); I10 Essential (primary) hypertension; M19.90 Unspecified osteoarthritis, unspecified site; G35 Multiple sclerosis; Z86.73 Personal history of transient ischemic attack (TIA), and cerebral infarction without residual deficits; Z88.0 Allergy status to penicillin; Z79.82 Long term (current) use of aspirin; Z79.899 Other long term (current) drug therapy
CPT/HCPCS: 74019; 74019-26; 99283

== ENCOUNTER 2021-06-14 01:30 | Emergency (ER) | payer MEDICARE, MEDICAID, OTHER ==
[2021-06-14 01:33] VITALS: BP 148/77; PULSE 70
--- NOTE | 2021-06-14 01:42 | EDM.PDOC ---
ED HPI GENERAL MEDICAL PROBLEM - General Chief Complaint: Genitourinary Problem Stated Complaint: [facility] Time Seen by Provider: 06/14/21 01:40 - History of Present Illness INITIAL COMMENTS - FREE TEXT/NARRATIVE: Patient arrived ED by ambulance She has had a suprapubic catheter for approximately 1 year Catheter has been replaced every month Last replacement was performed at the beginning of this month There has been no catheter output since 1600 on 06/13 Patient endorses pressure and pain in suprapubic area Lower Abdomen Pain Score (Numeric/FACES): 5 - Related Data Allergies Allergy/AdvReac Type Severity Reaction Status Date / Time Penicillins Allergy Vaginitis Verified 06/14/21 01:33 Home Meds: Home Meds Ascorbic Acid [Vitamin C] 500 mg PEGTUBE DAILY 10/29/17 [History] Sodium Chloride [Deep Sea] 2 spray NS TID PRN 10/29/17 [History] amantadine HCL [Amantadine] 75 mg PEGTUBE BID 10/29/17 [History] Aspirin 162 mg PEGTUBE DAILY 11/09/17 [History] Ibuprofen [Motrin] 400 mg PEGTUBE Q6H PRN 11/09/17 [History] Acetaminophen [Tylenol] 650 mg GTUBE Q4H PRN cup 11/17/17 [Rx] Albuterol Sulfate 2.5 mg NEB Q6H PRN 04/04/20 [History] Arformoterol [Brovana] 15 mcg NEB BID 04/04/20 [History] Budesonide [Pulmicort] 0.5 mg NEB BID 04/04/20 [History] Cholecalciferol (Vitamin D3) [Vitamin D3] 1,000 units PEGTUBE DAILY 04/04/20 [History] D-Mannose [Mannose] 50 gm PEGTUBE BID 04/04/20 [History] Esomeprazole [NexIUM] 40 mg PEGTUBE DAILY 04/04/20 [History] Fish Oil/Borage/Flax/Om3,6,9 1 [[place] 3-6-9 Complex Softgel] 400 mg PEGTUBE DAILY 04/04/20 [History] Hyperbiotics Pro Women 250 mg PEGTUBE DAILY 04/04/20 [History] Lactose-Reduced Food/Fiber [Isosource 1.5 Haja Liquid] 300 ml PEGTUBE TID 04/04/20 [History] Liqua-Adry Multivitamin Plus Ir 1 tsp PEGTUBE DAILY 04/04/20 [History] Loperamide HCl [Imodium A-D] 2 tab PEGTUBE Q4H PRN 04/04/20 [History] Magnesium Hydroxide [Milk of Magnesia] 30 ml PEGTUBE DAILY PRN 04/04/20 [History] Menthol [Biofreeze] 1 applic TOP Q6H PRN 04/04/20 [History] Methenamine Hippurate [Hiprex] 1 gm PEGTUBE BID 04/04/20 [History] docosanoL [Abreva 10%] 1 applic TOP Q4H PRN 04/04/20 [History] Past Medical History HEENT History: Reports: Cataract, Impaired Vision Other HEENT History: wears eyeglasses, presence of intraocular lens Cardiovascular History: Reports: High Cholesterol, Hypertension Other Cardiovascular History: hyponatremia Respiratory History: Reports: None Gastrointestinal History: Reports: None Genitourinary History: Reports: Neurogenic Bladder, UTI, Recurrent, Other (See Below) Other Genitourinary History: incontinence 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 Dermatologic History: Reports: Other (See Below) Other Dermatologic History: skin breakdown to feet. - Infectious Disease History Infectious Disease History: Reports: Chicken Pox - Past Surgical History HEENT Surgical History: Reports: Cataract Surgery Cardiovascular Surgical History: Reports: None Respiratory Surgical History: Reports: None GI Surgical History: Reports: Other (See Below) Other GI Surgeries/Procedures: Peg tube placement last stay-continuous feeding at [facility]-see prior discharge for details Female Surgical History: Reports: None Endocrine Surgical History: Reports: None Neurological Surgical History: Reports: None Musculoskeletal Surgical History: Reports: Other (See Below) Other Musculoskeletal Surgeries/Procedures:: removal of neuroma from back. Oncologic Surgical History: Reports: None Dermatological Surgical History: Reports: None Social & Family History - Family History Family Medical History: No Pertinent Family History - Tobacco Use Tobacco Use Status *Q: Never Tobacco User Second Hand Smoke Exposure: No - Caffeine Use Caffeine Use: Reports: Coffee - Recreational Drug Use Recreational Drug Use: No - Living Situation & Occupation Living situation: Reports: Extended Care Facility (Currently residing at [facility] ED ROS GENERAL - Review of Systems Review Of Systems: See Below Free Text/Narrative/Comment: Constitutional - no fever Cardiovascular - no chest pain Respiratory - no shortness of breath; no cough Gastrointestinal - abdominal pain; no nausea; no vomiting; no diarrhea Genitourinary - suprapubic catheter Musculoskeletal - no extremity injury Neurological - no speech disturbance; weakness ED EXAM, GENERAL - Physical Exam Exam: See Below Free Text/Narrative:: Constitutional - awake; alert; no acute distress Head - no facial swelling or weakness Eyes - extra ocular motion intact; conjunctiva normal; pupils equal and reactive to light ENT - no nasal deformity; no epistaxis; normal phonation Respiratory - normal respiratory effort Cardiovascular - regular rhythm; normal rate GI/Abdomen - soft; 18 Fr suprapubic catheter present; fullness and mild to moderate tenderness on palpation of lower abdomen; no rebound; no guarding Musculoskeletal - no gross swelling or deformity; flexion contracture of upper extremities Skin - warm; dry Neurologic - normal speech; weakness Psychiatric - normal mood and affect; memory and attention normal Course - Vital Signs Text/Narrative:: Patient was evaluated promptly upon ED arrival Suprapubic catheter was removed by RN, with immediate drainage of clear urine A new 18 Fr silicone catheter was promptly inserted by quality analyst/technical writer The catheter balloon was inflated with 10 mL fluid Patient noted significant improvement in bladder discomfort Patient was felt to be stable for outpatient follow-up Return precautions were provided Last Recorded V/S: Last Vital Signs Temp 36.1 C 06/14/21 01:31 Pulse 70 06/14/21 01:31 Resp 16 06/14/21 01:31 BP 148/77 H 06/14/21 01:31 Pulse Ox 99 06/14/21 01:31 Departure - Departure Time of Disposition: 01:42 Disposition: DC/Tfer to [facility] Clinical Impression: Suprapubic catheter dysfunction - Discharge Information *PRESCRIPTION DRUG MONITORING PROGRAM REVIEWED*: Not Applicable *COPY OF PRESCRIPTION DRUG MONITORING REPORT IN PATIENT GEN: Not Applicable Instructions: Indwelling Urinary Catheter Care, Adult Forms: ED Department Discharge Additional Instructions: Return if condition worsens May resume general activity and regular diet as tolerated Continue usual medications Follow-up with primary care provider is recommended Sepsis Event Note (ED) - Evaluation Sepsis Screening Result: No Definite Risk - Focused Exam Vital Signs: Vital Signs Temp Pulse Resp BP Pulse Ox 06/14/21 01:31 36.1 C 70 16 148/77 H 99
== END 2021-06-14 01:52 ==
LOC: JD.ED 01:30
DX: T83.84XA Pain due to genitourinary prosthetic devices, implants and grafts, initial encounter (principal); I10 Essential (primary) hypertension; M19.90 Unspecified osteoarthritis, unspecified site; Z88.0 Allergy status to penicillin; Z79.82 Long term (current) use of aspirin; Z79.899 Other long term (current) drug therapy
CPT/HCPCS: 51705; 99283; 99284-25

== ENCOUNTER 2021-11-15 18:47 | Emergency (ER) | payer MEDICARE, MEDICAID ==
[2021-11-15 18:56] VITALS: BP 208/88; PULSE 76
== END 2021-11-15 19:16 ==
LOC: JD.ED 18:47
DX: T83.010A Breakdown (mechanical) of cystostomy catheter, initial encounter (principal); E78.00 Pure hypercholesterolemia, unspecified; I10 Essential (primary) hypertension; Z86.73 Personal history of transient ischemic attack (TIA), and cerebral infarction without residual deficits; Z88.0 Allergy status to penicillin; Z79.82 Long term (current) use of aspirin
CPT/HCPCS: 51102; 99282; 99283-25

== ENCOUNTER 2022-03-25 09:05 | Emergency (ER) | payer MEDICARE, OTHER, MEDICAID ==
[2022-03-25] MEDS ORDERED: Sodium Chloride 0.9% 10 ML Syringe FLUSH PRN (09:32)
[2022-03-25] MEDS ORDERED: Albuterol/Ipratropium 3.0-0.5 MG/3 ML Neb Soln NEB ONE ×2 (09:33→16:53)
[2022-03-25] MEDS ORDERED: cefTRIAXone 2 GM in Sodium Chloride 0.9% 100 ML IV ONE (10:39)
[2022-03-25 10:54] LABS: ESTIMATED GFR > 60 mL/min (>60)
[2022-03-25 11:53] LABS: CORONAVIRUS COVID-19 NAA POSITIVE (NEGATIVE)
[2022-03-25] MEDS ORDERED: REMDESIVIR 200 MG in Sodium Chloride 0.9% 250 ML IV ONE (13:38)
[2022-03-25] MEDS ORDERED: Acetaminophen 325 MG Tab PO ONE (14:24)
[2022-03-25] MEDS ORDERED: Acetaminophen 650 MG Supp RECTAL ONE (14:58)
[2022-03-25 18:06] VITALS: BP 120/53; PULSE 96
== END 2022-03-25 17:05 ==
LOC: JD.ED 09:05
DX: U07.1 COVID-19 (principal); J12.82 Pneumonia due to coronavirus disease 2019; G35 Multiple sclerosis; R09.02 Hypoxemia; J44.9 Chronic obstructive pulmonary disease, unspecified; E78.00 Pure hypercholesterolemia, unspecified; I10 Essential (primary) hypertension; E03.9 Hypothyroidism, unspecified; Z86.73 Personal history of transient ischemic attack (TIA), and cerebral infarction without residual deficits; Z88.0 Allergy status to penicillin; Z79.82 Long term (current) use of aspirin
CPT/HCPCS: 0241U; 36415; 71045; 80053; 83605; 85025; 85045; 86140; 86308; 87040; 94640; 96365; 96367; 99285; A9270; J0248; J0696; J3490; J7050; J7620-GY

== ENCOUNTER 2023-10-27 11:30 | Inpatient (IN) | payer MEDICARE, OTHER, MEDICAID ==
[2023-10-27] MEDS ORDERED: Sodium Chloride 0.9% 10 ML Syringe FLUSH PRN (11:43)
[2023-10-27] MEDS ORDERED: Albuterol/Ipratropium 3.0-0.5 MG/3 ML Neb Soln NEB ONE (12:04)
[2023-10-27] MEDS ORDERED: cefTRIAXone 2 GM in Sodium Chloride 0.9% 100 ML IV ONE (12:06)
[2023-10-27 12:28] LABS: HEMATOCRIT 36.6 % (37.0-47.0); MEAN CORPUSCULAR HGB CONC 32.8 g/dl (32.0-36.0); MEAN CORPUSCULAR VOLUME 94.6 fl (83.0-99.0); MEAN PLATELET VOLUME 11.8 fl (9.4-12.3); PLATELET COUNT,PLT 77 K/mm3 (150-400); RED BLOOD CELL COUNT 3.87 M/mm3 (4.10-5.30); WHITE BLOOD CELL COUNT,WBC 14.48 K/mm3 (3.9-11.3)
[2023-10-27 12:38] LABS: INR 0.98; PROTHROMBIN TIME 10.5 SECONDS (9.7-12.0)
[2023-10-27 13:01] LABS: LACTIC ACID 0.6 mmol/L (0.4-2.0)
[2023-10-27 13:04] LABS: A/G RATIO 0.6 (1-2); ALANINE AMINOTRANSFERASE,ALT 67 U/L (14-59); ALBUMIN 2.9 g/dl (3.4-5.0); ALKALINE PHOSPHATASE 242 U/L (46-116); ANION GAP 10.5 (5-15); ASPARTATE AMNIOTRANSFERASE,AST 61 U/L (15-37); BILIRUBIN TOTAL 0.4 mg/dL (0.2-1.0); BLOOD UREA NITROGEN,BUN 29 mg/dL (7-18); CALCIUM 9.8 mg/dL (8.5-10.1); CARBON DIOXIDE,CO2 30 mEq/L (21-32); CHLORIDE,CL 103 mEq/L (98-107); CREATININE 0.5 mg/dL (0.55-1.02); ESTIMATED GFR 100 mL/min (>60); GLUCOSE RANDOM 99 mg/dL (70-99); POTASSIUM,K 4.5 mEq/L (3.5-5.1); PROTEIN TOTAL,TP 7.7 g/dl (6.4-8.2); SODIUM,NA 139 mEq/L (136-145)
[2023-10-27 13:18] LABS: C-REACTIVE PROTEIN 21.2 mg/dL (<1.0)
[2023-10-27 13:23] LABS: BAND PERCENT MAN 27 % (0-10); BASOPHILS PERCENT MAN 0 (0.1-1.2); EOSINOPHILS PERCENT MAN 0 % (0.7-5.8); LYMPHOCYTES % ATYPICAL MANUAL 1 %; LYMPHOCYTES PERCENT MAN 3 % (20-40); MONOCYTES PERCENT MAN 10 % (2-10)
[2023-10-27 13:25] LABS: PLATELET COUNT ESTIMATE DECREASED; TOXIC GRANULATION MODERATE
[2023-10-27] MEDS ORDERED: Sodium Chloride 0.9% 1,000 ML IV STA (13:57)
[2023-10-27 14:44] LABS: CORONAVIRUS COVID-19 NAA POSITIVE (NEGATIVE); INFLUENZA A NAA NEGATIVE (NEGATIVE); RESPIRATORY SYNCYTIAL VIR NAA NEGATIVE (NEGATIVE)
[2023-10-27] MEDS ORDERED: REMDESIVIR 200 MG in Sodium Chloride 0.9% 250 ML IV ONE ×2 (17:40→22:45)
[2023-10-27] MEDS ORDERED: Morphine 2 MG/ML SYRINGE IVPUSH PRN (17:59)
[2023-10-27] MEDS ORDERED: Albuterol 0.083% 2.5 MG/3 ML Neb Soln NEB PRN ×2 (17:59→18:05)
[2023-10-27] MEDS ORDERED: Docusate Sodium 100 MG Cap PO PRN (17:59)
[2023-10-27] MEDS ORDERED: Ondansetron 4 MG Tab.DIS PO PRN (17:59)
[2023-10-27] MEDS ORDERED: Acetaminophen 325 MG Tab PO PRN (17:59)
[2023-10-27] MEDS ORDERED: Acetaminophen/HYDROcodone 325-5 MG Tab PO PRN (17:59)
[2023-10-27] MEDS ORDERED: Piperacillin/Tazobactam 4.5 GM in Sodium Chloride 0.9% 100 ML IV ONE (19:30)
[2023-10-27] MEDS: guaiFENesin 100 MG/5 ML Soln 10 ML UD Cup PEGTUBE SCH (20:30)
[2023-10-27] MEDS: Dexamethasone 4 MG/ML 5 ML MDV IV SCH (20:31)
[2023-10-27] MEDS: Albuterol 0.021% 0.63 MG/3 ML Neb Soln NEB SCH (21:18)
[2023-10-27] MEDS: Budesonide 0.5 MG/2 ML Neb Susp NEB SCH (21:18)
[2023-10-27] MEDS ORDERED: Enoxaparin 40 MG/0.4 ML Syringe SUBCUT ONE (21:55)
[2023-10-28] MEDS: Piperacillin/Tazobactam 4.5 GM in Sodium Chloride 0.9% 100 ML IV SCH ×4 (01:21→23:57)
[2023-10-28] MEDS: Albuterol 0.021% 0.63 MG/3 ML Neb Soln NEB SCH ×4 (05:24→21:19)
[2023-10-28] MEDS: Budesonide 0.5 MG/2 ML Neb Susp NEB SCH ×2 (05:24→21:19)
[2023-10-28 05:31] LABS: HEMATOCRIT 34.9 % (37.0-47.0); HEMOGLOBIN 11.3 gm/dl (12.0-16.0); MEAN CORPUSCULAR HEMOGLOBIN 30.7 pg (28.0-32.0); MEAN CORPUSCULAR HGB CONC 32.4 g/dl (32.0-36.0); MEAN CORPUSCULAR VOLUME 94.8 fl (83.0-99.0); MEAN PLATELET VOLUME 11.9 fl (9.4-12.3); PLATELET COUNT,PLT 77 K/mm3 (150-400); RED BLOOD CELL COUNT 3.68 M/mm3 (4.10-5.30); WHITE BLOOD CELL COUNT,WBC 8.55 K/mm3 (3.9-11.3)
[2023-10-28 06:00] LABS: A/G RATIO 0.5 (1-2); ALBUMIN 2.5 g/dl (3.4-5.0); ANION GAP 11.1 (5-15); BILIRUBIN TOTAL 0.4 mg/dL (0.2-1.0); BUN/CREATININE RATIO 23.3 (14-18); CALCIUM 9.2 mg/dL (8.5-10.1); CREATININE 0.6 mg/dL (0.55-1.02); EST CRCL DRUG DOSING (CG) 77.38 mL/min; MAGNESIUM 1.5 mg/dL (1.8-2.4); PHOSPHORUS 3.4 mg/dL (2.6-4.7); POTASSIUM,K 4.1 mEq/L (3.5-5.1); PROTEIN TOTAL,TP 7.3 g/dl (6.4-8.2)
[2023-10-28] MEDS: Levothyroxine 50 MCG Tab GTUBE SCH (06:17)
[2023-10-28] MEDS: Omeprazole 20 MG Cap.CR GTUBE SCH (06:17)
[2023-10-28] MEDS: Dexamethasone 4 MG/ML 5 ML MDV IV SCH (08:59)
[2023-10-28] MEDS: amLODIPine 5 MG Tab PO SCH (09:00)
[2023-10-28] MEDS: guaiFENesin 100 MG/5 ML Soln 10 ML UD Cup PEGTUBE SCH ×2 (09:00→21:52)
[2023-10-28] MEDS: Lisinopril 20 MG Tab PO SCH (09:00)
[2023-10-28] MEDS: Glycopyrrolate 1 MG Tab GTUBE SCH (09:00)
[2023-10-28] MEDS ORDERED: [UNRECOGNIZED DRUG - OTHER] PEGTUBE SCH (09:00)
[2023-10-28] MEDS ORDERED: Enoxaparin 40 MG/0.4 ML Syringe SUBCUT SCH (09:00)
[2023-10-28] MEDS ORDERED: Calcium Polycarbophil 625 MG Tab PO SCH (17:00)
[2023-10-28] MEDS: REMDESIVIR 100 MG in Sodium Chloride 0.9% 250 ML IV SCH (17:47)
[2023-10-28] MEDS: Enoxaparin 40 MG/0.4 ML Syringe SUBCUT SCH (21:52)
[2023-10-29] MEDS: Calcium Polycarbophil 625 MG Tab FTUBE SCH ×2 (04:56→16:35)
[2023-10-29] MEDS: Levothyroxine 50 MCG Tab GTUBE SCH (06:13)
[2023-10-29] MEDS: Omeprazole 20 MG Cap.CR GTUBE SCH (06:13)
[2023-10-29 06:14] LABS: HEMATOCRIT 35.9 % (37.0-47.0); MEAN CORPUSCULAR HEMOGLOBIN 31.3 pg (28.0-32.0); MEAN CORPUSCULAR HGB CONC 33.4 g/dl (32.0-36.0); MEAN CORPUSCULAR VOLUME 93.7 fl (83.0-99.0); PLATELET COUNT,PLT 102 K/mm3 (150-400); RED BLOOD CELL COUNT 3.83 M/mm3 (4.10-5.30); WHITE BLOOD CELL COUNT,WBC 7.58 K/mm3 (3.9-11.3)
[2023-10-29 06:27] LABS: ANION GAP 9.5 (5-15); BUN/CREATININE RATIO 47.5 (14-18); CALCIUM 9.5 mg/dL (8.5-10.1); CREATININE 0.4 mg/dL (0.55-1.02); EST CRCL DRUG DOSING (CG) 116.08 mL/min; MAGNESIUM 1.9 mg/dL (1.8-2.4); POTASSIUM,K 3.5 mEq/L (3.5-5.1)
[2023-10-29] MEDS: Albuterol 0.021% 0.63 MG/3 ML Neb Soln NEB SCH ×4 (06:32→20:49)
[2023-10-29] MEDS: Budesonide 0.5 MG/2 ML Neb Susp NEB SCH ×2 (06:33→20:49)
[2023-10-29 06:38] LABS: C-REACTIVE PROTEIN 24.9 mg/dL (<1.0)
[2023-10-29] MEDS: Piperacillin/Tazobactam 4.5 GM in Sodium Chloride 0.9% 100 ML IV SCH ×2 (08:01→16:33)
[2023-10-29] MEDS: Dexamethasone 4 MG/ML 5 ML MDV IV SCH (08:01)
[2023-10-29] MEDS: guaiFENesin 100 MG/5 ML Soln 10 ML UD Cup PEGTUBE SCH ×2 (08:03→21:50)
[2023-10-29] MEDS: Lisinopril 20 MG Tab PO SCH (08:04)
[2023-10-29] MEDS: Glycopyrrolate 1 MG Tab GTUBE SCH ×2 (08:06→11:14)
[2023-10-29] MEDS: amLODIPine 5 MG Tab PO SCH (08:06)
[2023-10-29] MEDS: REMDESIVIR 100 MG in Sodium Chloride 0.9% 250 ML IV SCH (18:40)
[2023-10-29] MEDS: Enoxaparin 40 MG/0.4 ML Syringe SUBCUT SCH (21:50)
[2023-10-30] MEDS: Piperacillin/Tazobactam 4.5 GM in Sodium Chloride 0.9% 100 ML IV SCH ×4 (01:06→23:06)
[2023-10-30] MEDS: Calcium Polycarbophil 625 MG Tab FTUBE SCH ×2 (05:51→17:32)
[2023-10-30] MEDS: Budesonide 0.5 MG/2 ML Neb Susp NEB SCH ×2 (05:59→20:19)
[2023-10-30] MEDS: Albuterol 0.021% 0.63 MG/3 ML Neb Soln NEB SCH (05:59)
[2023-10-30] MEDS: Levothyroxine 50 MCG Tab GTUBE SCH (06:45)
[2023-10-30] MEDS: Omeprazole 20 MG Cap.CR GTUBE SCH (06:45)
[2023-10-30] MEDS: Dexamethasone 4 MG/ML 5 ML MDV IV SCH (08:26)
[2023-10-30] MEDS: amLODIPine 5 MG Tab PO SCH (08:28)
[2023-10-30] MEDS: guaiFENesin 100 MG/5 ML Soln 10 ML UD Cup PEGTUBE SCH ×4 (08:28→20:30)
[2023-10-30] MEDS: Glycopyrrolate 1 MG Tab GTUBE SCH (08:29)
[2023-10-30] MEDS: Lisinopril 20 MG Tab PO SCH (08:29)
[2023-10-30] MEDS ORDERED: Albuterol 0.083% 2.5 MG/3 ML Neb Soln ONE (09:07)
[2023-10-30] MEDS: Albuterol 0.083% 2.5 MG/3 ML Neb Soln NEB SCH ×3 (09:13→20:19)
[2023-10-30] MEDS ORDERED: Sodium Chloride 0.9% 250 ML ONE (16:51)
[2023-10-30] MEDS: REMDESIVIR 100 MG in Sodium Chloride 0.9% 250 ML IV SCH (17:00)
[2023-10-30] MEDS: Enoxaparin 40 MG/0.4 ML Syringe SUBCUT SCH (20:30)
[2023-10-30] MEDS ORDERED: Sodium Chloride 0.9% 100 ML ONE (23:00)
[2023-10-31] MEDS: Calcium Polycarbophil 625 MG Tab FTUBE SCH (05:25)
[2023-10-31] MEDS: Omeprazole 20 MG Cap.CR GTUBE SCH (05:29)
[2023-10-31] MEDS: Budesonide 0.5 MG/2 ML Neb Susp NEB SCH (06:12)
[2023-10-31] MEDS: Albuterol 0.083% 2.5 MG/3 ML Neb Soln NEB SCH ×2 (06:12→09:52)
[2023-10-31] MEDS: Levothyroxine 50 MCG Tab GTUBE SCH (06:33)
[2023-10-31] MEDS: Piperacillin/Tazobactam 4.5 GM in Sodium Chloride 0.9% 100 ML IV SCH (07:58)
[2023-10-31] MEDS: amLODIPine 5 MG Tab PO SCH (07:59)
[2023-10-31] MEDS: Glycopyrrolate 1 MG Tab GTUBE SCH (07:59)
[2023-10-31] MEDS: guaiFENesin 100 MG/5 ML Soln 10 ML UD Cup PEGTUBE SCH ×2 (07:59→12:31)
[2023-10-31] MEDS: Lisinopril 20 MG Tab PO SCH (07:59)
[2023-10-31] MEDS ORDERED: Fluticasone NASAL Spray 16 GM Bottle NASBOTH PRN (09:00)
[2023-10-31] MEDS ORDERED: Dexamethasone 10 MG/ML SDV IV SCH (09:00)
[2023-10-31 12:40] VITALS: PULSE 88
[2023-10-31 15:48] VITALS: BP 150/71
== END 2023-10-31 16:22 | DRG 871 ==
LOC: JD.ED 11:30 → JD.MS 17:59
PROVIDERS: ADMIT Internal Medicine; ATTEND Internal Medicine
PROC: 3E0333Z Introduction of Anti-inflammatory into Peripheral Vein, Percutaneous Approach (ICD-10-PCS; principal; 2023-10-27)
PROC: 3E03329 Introduction of Other Anti-infective into Peripheral Vein, Percutaneous Approach (ICD-10-PCS; 2023-10-27)
DX: A41.9 Sepsis, unspecified organism (principal); J12.82 Pneumonia due to coronavirus disease 2019; U07.1 COVID-19; J96.01 Acute respiratory failure with hypoxia; R09.02 Hypoxemia; Z66 Do not resuscitate; J18.9 Pneumonia, unspecified organism; I11.0 Hypertensive heart disease with heart failure; I50.9 Heart failure, unspecified; E78.00 Pure hypercholesterolemia, unspecified; K21.9 Gastro-esophageal reflux disease without esophagitis; Y95 Nosocomial condition; M19.90 Unspecified osteoarthritis, unspecified site; G35 Multiple sclerosis; S40.022A Contusion of left upper arm, initial encounter; S40.021A Contusion of right upper arm, initial encounter; D69.6 Thrombocytopenia, unspecified; R74.01 Elevation of levels of liver transaminase levels; D72.829 Elevated white blood cell count, unspecified; J44.9 Chronic obstructive pulmonary disease, unspecified; E03.9 Hypothyroidism, unspecified; Z88.0 Allergy status to penicillin; I10 Essential (primary) hypertension; Z79.899 Other long term (current) drug therapy; Z93.1 Gastrostomy status; Z98.890 Other specified postprocedural states; Z79.51 Long term (current) use of inhaled steroids; Z98.49 Cataract extraction status, unspecified eye; X58.XXXA Exposure to other specified factors, initial encounter
CPT/HCPCS: 0241U; 36415; 71045; 80048; 80053; 83605; 83735; 83880; 84100; 85007; 85027; 85379; 85610; 86140; 87040; 87641; 94640; 94760; 94761; 96361; 96365; 99285; 99284; A9270-GY; J0248; J0696; J1100; J1650; J2543; J3475; J3490; J7030; J7050; J7620-GY